=== PATIENT | female | born 1965 | race Caucasian/White ===

== ENCOUNTER 2022-10-10 13:07 | Outpatient (REF) | payer MEDICAID, SELFPAY ==
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
== END 2022-10-10 13:08 | disposition home or self-care (01) ==
LOC: LBN 13:07
PROVIDERS: PCP Family Medicine; Visit Provider Otolaryngology
DX: C44.41 Basal cell carcinoma of skin of scalp and neck (principal)
CPT/HCPCS: 88305

== ENCOUNTER 2022-10-18 13:55 | Outpatient (REF) | payer MEDICAID, SELFPAY ==
--- NOTE | 2022-10-18 12:00 | SKI_PTH ---
PATIENT: Tracy Harmon LOC: [facility] U#:[id number] AGE/SX: 57/F ROOM: RE10/18/[address]: Burton Dunlap MD : 1965 BED: DIS: 10/18/2022 SPEC #: [id number] RECD: 10/18/22 16:07 STATUS: MARTÍN VILLA #: [id number] EDIL: 10/18/22 12:[address]: Burton Dunlap DEPT: Surgical Specimen RECD BY: Amanda Manuel ENTERED: 10/18/22 16:08 SP TYPE: RONNI CURRIE DR: Bradley Judd Tissues: 1 - SKIN BIOPSY(SHAVE/PUNCH) Procedures: SKIN LEVEL 4 Comments: [id number]
== END 2022-10-18 13:56 | disposition home or self-care (01) ==
LOC: LBN 13:55
PROVIDERS: PCP Family Medicine; Visit Provider Otolaryngology
DX: C44.41 Basal cell carcinoma of skin of scalp and neck (principal); L90.5 Scar conditions and fibrosis of skin
CPT/HCPCS: 88305

== ENCOUNTER 2024-02-09 22:21 | Emergency (ER) | payer MEDICARE, SELFPAY ==
[2024-02-09 22:24] VITALS: BP 145/71; PULSE 85; RESP 16; TEMP 36.4; O2SAT 96
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
[2024-02-09] MEDS: Acetaminophen 500 MG TAB 1000 MG PO (23:01)
[2024-02-09] MEDS: Prochlorperazine 10 MG/2 ML VIAL IM (23:01)
--- OUTSIDE RECORDS SUMMARY | 2024-02-09 23:13 | XMS_ITS | Continuity of Care Document ---
Author Organization [facility] Ambulatory Clinics Address [address] [place] [address] Care Team Providers Care Microfilmer Name Role Phone Bradley Shetty DO Primary Care Physician [phone] Encounter [facility] NBR [id number] Date(s): 12/21/22 - 12/21/22 [facility] Ambulatory Clinics [address] [place] [address]- Encounter Diagnosis Incontinence of urine in female(Discharge Diagnosis) - 12/21/22 Memory change(Discharge Diagnosis) - 12/21/22 Unspecified urinary incontinence(Final) - Other amnesia(Final) - Discharge Disposition: Home or Self Care Attending Physician: Selina Beckett MD Allergies, Adverse Reactions, Alerts Substance Reaction Severity Status amoxicillin 1 Rash Moderate Active sulfa drugs Stomach upset Moderate Active Bactrim Stomach upset Moderate Active 1on hands Assessment and Plan Future Appointments Future Scheduled Tests Radiology* CT Head w/o Contrast 12/21/22 Functional Status 12/21/22 Other exposure to Infectious Disease Non e Immunizations Given and Recorded Vaccine Date Status Refusal Reason SARS-CoV-2 (COVID-19) Ad26 vaccine 11/03/20 Record ed Medications Artificial Tears ophthalmic solution 1 drops, Eye-Both, BID, PRN as needed for dry eyes, # 10 mL, 0 Refill(s) Start Date: 07/28/22 Stop Date: 08/27/22 Status: Ordered atorvastatin 10 mg oral tablet 10 mg = 1 tab, Oral, Daily, # 90 tab, 4 Refill(s), Pharmacy: [id number] Start Date: 08/01/22 Stop Date: 10/25/23 Status: Ordered Benadryl 25 mg oral capsule 50 mg = 2 cap, Oral, Daily, PRN as needed for allergy symptoms, # 60 tab, 0 Refill(s) Start Date: 07/28/22 Stop Date: 08/27/22 Status: Ordered calcium (as carbonate)-vitamin D 600 mg-400 intl units oral tablet 1 tab, Oral, BID, # 60 tab, 11 Refill(s), Pharmacy: [facility], 144, cm, 08/10/22 12:24:00 EST, Height/Length Dosing, 77, kg, 08/10/22 12:24:00 EST, Weight Dosing Start Date: 10/09/22 Status: Ordered clobetasol 0.05% topical ointment APPLY OINTMENT TOPICALLY TO AFFECTED AREAS ON THE HANDS TWICE DAILY FOR 4 WEEKS, AT NIGHT APPLY UNDER OCCULUSION OF WHITE COTTON GLOVES Start Date: 07/28/22 Status: Ordered cyanocobalamin 500 mcg oral tablet 500 mcg = 1 tab, Oral, Daily, B12, # 90 tab, 0 Refill(s) Start Date: 07/28/22 Stop Date: 10/26/22 Status: Ordered famotidine 20 mg oral tablet 20 mg = 1 tab, Oral, Daily, # 90 tab, 0 Refill(s) Start Date: 07/28/22 Stop Date: 10/26/22 Status: Ordered fluticasone 50 mcg/inh nasal spray USE 1 SPRAY(S) IN EACH NOSTRIL ONCE DAILY AT BEDTIME Start Date: 07/28/22 Status: Ordered High Potency Vitamin D3 25 mcg (1000 intl units) oral capsule 25 mcg = 1 cap, Oral, Daily, # 90 cap, 4 Refill(s), Pharmacy: [facility] Start Date: 08/01/22 Stop Date: 10/25/23 Status: Ordered metFORMIN 500 mg oral tablet 500 mg = 1 tab, Oral, Daily, with meals, # 90 tab, 4 Refill(s), Pharmacy: [facility] Start Date: 08/01/22 Stop Date: 10/25/23 Status: Ordered methotrexate 2.5 mg oral tablet TAKE 6 TABLETS BY MOUTH ONCE A WEEK Start Date: 07/28/22 Status: Ordered One-A-Day Women 50 Plus oral tablet 1 tab, Oral, Daily, # 90 tab, 0 Refill(s) Start Date: 07/28/22 Stop Date: 10/26/22 Status: Ordered venlafaxine 225 mg oral tablet, extended release 225 mg = 1 tab, Oral, Daily, # 90 tab, 4 Refill(s), Pharmacy: [id number] Start Date: 08/01/22 Stop Date: 10/25/23 Status: Ordered vitamin E 100 intl units oral capsule 100 IntlUnit = 1 cap, Oral, Daily, # 100 cap, 4 Refill(s), Pharmacy: [id number] Start Date: 08/01/22 Stop Date: 10/25/23 Status: Ordered Problem List Condition Confirmation Course Effective Dates Status H ealth Status Informant Abnormal Pap smear of cervix Confirmed Active Acute left-sided low back pain without sciatica Confirmed Active Adenoma 1 Confirmed 2001 Active Serrated adenoma of colon Confirmed Active Allergic rhinitis Confirmed Active Seasonal allergic rhinitis due to pollen Confirmed Active Anxiety disorder Confirmed Active Basal cell carcinoma of nose Confirmed Active Basal cell carcinoma of skin Confirmed Active BMI 35.0-35.9,adult Confirmed Active Burning sensation of feet Confirmed Active Otitis externa of right external auditory canal due to Ernestine species Confirmed Active Low grade squamous intraepith lesion on cytologic smear cervix (lgsil) Confirmed Active Chronic fatigue syndrome Confirmed Active Hearing loss, conductive, bilateral Confirmed Active Depression Confirmed Active Dysphagia Confirmed Active Dysthymia Confirmed Active Onychodystrophy Confirmed Active Ankle fracture 2 Confirmed Active Reflux esophagitis Confirmed Active Gastritis and duodenitis Confirmed Active GERD without esophagitis Confirmed Active History of acute otitis externa Confirmed Active H/O sebaceous cyst Confirmed Active Hiatal hernia Confirmed Active History of kidney stones Confirmed Active H/O fatigue Confirmed Active History of HPV infection Confirmed Active H/O gynecological procedure 3 Confirmed Active Cervical high risk human papillomavirus (HPV) DNA test positive Confirmed Active Hyperlipidemia Confirmed Active Impacted cerumen, bilateral Confirmed Active IFG (impaired fasting glucose) Confirmed Active Fecal incontinence Confirmed Active Keloid Confirmed Active Right lateral epicondylitis Confirmed Active Scalp lesion Confirmed Active Hematuria, microscopic Confirmed Active Depression with anxiety Confirmed Active Mixed hearing loss Confirmed Active Nasal congestion Confirmed Active Cervicalgia Confirmed Active Nicotine dependence Confirmed Active RADHA (obstructive sleep apnea) Confirmed Active Perforation of tympanic membrane Confirmed Active Plantar fasciitis, bilateral Confirmed Active Polycystic ovary disease Confirmed Active Apnea, sleep Confirmed Active Anal sphincter incontinence 4 Confirmed Active Tendonitis Confirmed Active Type 2 diabetes mellitus, without long-term current use of insulin Confirmed Active Ureteral stone Confirmed Active 1colonoscopy tubular adenoma 2Right 3bladder sling 4anal incontinence S/P 3rd degree tear/fistula repair Procedures Procedure Date Related Diagnosis Body Site Status Sling procedure of bladder neck 1 03/22/20 Completed Colonoscopy 2 11/28/16 Completed Placement of stent 03/11/13 Comple maddie Laparoscopic cholecystectomy 05/22/12 Completed Cyst 3 09/17/11 Completed Colonoscopy 4 07/05/09 Completed Arthroscopy 5 03/2007 Completed Bilateral tubal ligation Completed Mastoidectomy 6 Completed 1sphincter repair, [facility] 2EGD, Dr Puckett 3right arm, Dr Hernadez 4Dr Satya 5left ankle, open Brostrom reconstruction of the lateral ligament 6bilateral Vital Signs Most recent to oldest [Reference Range]: 1 Temperature Temporal Artery [36-38 Deg C ] 36.4 Deg C (12/21/22 10:06 AM) Peripheral Pulse Rate [60-100 bpm] 98 bp m (12/21/22 10:06 AM) Blood Pressure [90-140/60-90 mmHg] 120/6 2mmHg (12/21/22 10:06 AM) Weight 79.5 kg (12/21/22 10:06 AM) Weight Measured (lbs) 175.267 lb (12/21/22 10:06 AM) [place] Body Weight Calculated 45.5 kg (12/21/22 10:06 AM) Height 150.5 cm (12/21/22 10:06 AM) Height/Length Measured (inches) 59.25 in ch (12/21/22 10:06 AM) BSA Measured 1.82 m2 (12/21/22 10:06 AM) Body Mass Index 35.1 kg/m2 (12/21/22 10:06 AM) Social History Social History Type Response Tobacco Current everyday tob acco user Tobacco Use:. 20 a day per day. Sex Physician Outpatient Note * Selina Beckett MD: PERFORM Event Display: Office Clinic Note Physician Authored Date: [id number] SOFIE GREER :1965 Age:57 years Sex:Female Visit Date:12/21/2022 Primary Care Physician: Bradley Shetty DO Chief Complaint memory/cognitive concerns History of Present Illness Presents for evaluation due to subjective concerns of being mentally challenged. She is accompanied by her boyfriend today. She is requesting referral to Dr. Hill at [facility] since she is continuing to have leakage of urine and stool since her prior bladder sling in 03/2020. Often doesn't make it to the bathroom in time. She notes she was told by her mother that she was diagnosed as mentally retarded when she was born (mother was 40 at the time). She reports she cannot remember her childhood at all. Her mother had Alzheimer's dementia and earlier this year (08/2022) at the age of 98. Her??sister was also recently diagnosed with dementia.??Her family has concerns about her memory - she notes her son gets angry at her because he'll tell her things and then she forgets. She was seen for similar concerns in 09/2022 - had normal TSH, B12 and 08/18 recall at that visit. Risk factors for dementia include low educational level, underlying depression, family history (mother and sister both diagnosed with dementia), current smoker, obesity, and sedentary lifestyle. Review of Systems as per HPI Physical Exam Vitals & Measurements T:??36.4?C ??(Temporal Artery)?? HR:??98??(Peripheral)?? BP:??120/62?? SpO2:??98%?? HT:??150.5??cm?? WT:??79.5??kg?? BMI:??35.1?? BSA:??1.82?? Gen: obese,??well-appearing, in no acute distress ENT: bilateral hearing aids Psych/MSE: attentive,??normal mood, appropriate and pleasant??affect, MMSE 25/30, though all deficits were minimal/close to accurate and/or were corrected on second trial (said spring instead of summer for season, got off on her third of the??serial 7s but then was consistent with the final two answers, forgot 1 of the short term recall words on the first trial, but did remember it on a subsequent second trial). Her language and vocabulary are simplistic, likely low educational and intellectual level at baseline. Assessment/Plan 1.??Incontinence of urine in female??R32 referral back to Dr. Hill at [facility], per her request, as she has recurrent/worsening symptoms since her prior surgery 03/2020 Ordered: CT Head w/o Contrast, 12/21/22, Routine, Reason: urine leakage, memory change, eval NPH vs atrophy/dementia, Transport Mode: Ambulatory, Incontinence of urine in female Memory change ?? 2.??Memory change??R41.3 reviewed prior note and labs from 09/2022 MMSE performed and reviewed - small errors, but no significant dementia at this time discussed option for empiric donepezil, but unlikely to be useful to her at this point encouraged healthy lifestyle changes, particularly smoking cessation, increased exercise, and weight loss CT head to complete initial dementia evaluation, and particularly as she has urine incontinence andreported??noticeable??progression of memory loss, so??normal pressure hydrocephalus??should be ruled out referral to neuropsychology discussed and placed, to see if neuropsych testing is available to her to better parse out learning disorder/developmental delay??vs??mood-related cognitive dysfunction??vs attention disorder vs??early- onset dementia Ordered: CT Head w/o Contrast, 12/21/22, Routine, Reason: urine leakage, memory change, eval NPH vs atrophy/dementia, Transport Mode: Ambulatory, Incontinence of urine in female Memory change ?? Future Orders CT Head w/o Contrast, 12/21/22, Routine, Reason: urine leakage, memory change, eval NPH vs atrophy/dementia, Transport Mode: Ambulatory, Incontinence of urine in female Memory change Referral Orders Referral Management, Medical Service: Urogynecology, Reason: recurrent urine and stool leakage after prior bladder sling 03/2020, requesting re-evaluation for treatment options, Start: 12/21/22, Urgent:, Instructions: Dr. Raymon Hill, [facility] (pt previously had surgery... Referral Management, Medical Service: Psychology, Reason: requesting testing to help parse out developmental delay vs early-onset dementia, Start: 12/21/22, Urgent:, Instructions: Neuropsychology,any available (pt is aware she may have to travel) Problem List/Past Medical History Ongoing Abnormal Pap smear of cervix Acute left-sided low back pain without sciatica Adenoma Allergic rhinitis Anal sphincter incontinence Ankle fracture Anxiety disorder Apnea, sleep Basal cell carcinoma of nose Basal cell carcinoma of skin BMI 35.0-35.9,adult Burning sensation of feet Cervical high risk human papillomavirus (HPV) DNA test positive Cervicalgia Chronic fatigue syndrome Depression Depression with anxiety Dysphagia Dysthymia Fecal incontinence Gastritis and duodenitis GERD without esophagitis H/O fatigue H/O gynecological procedure H/O sebaceous cyst Hearing loss, conductive, bilateral Hematuria, microscopic Hiatal hernia History of acute otitis externa History of HPV infection History of kidney stones Hyperlipidemia IFG (impaired fasting glucose) Impacted cerumen, bilateral Keloid Low grade squamous intraepith lesion on cytologic smear cervix (lgsil) Mixed hearing loss Nasal congestion Nicotine dependence Onychodystrophy RADHA (obstructive sleep apnea) Otitis externa of right external auditory canal due to Ernestine species Perforation of tympanic membrane Plantar fasciitis, bilateral Polycystic ovary disease Reflux esophagitis Right lateral epicondylitis Scalp lesion Seasonal allergic rhinitis due to pollen Serrated adenoma of colon Tendonitis Type 2 diabetes mellitus, without long-term current use of insulin Ureteral stone Procedure/Surgical History ???Sling procedure of bladder neck (03/23/2020)???Colonoscopy (11/29/2016)???Placement of stent (03/12/2013)???Laparoscopic cholecystectomy (05/23/2012)???Cyst (09/18/2011)???Colonoscopy (07/06/2009)???Arthroscopy (03/2007)???Bilateral tubal ligation???Mastoidectomy Medications Artificial Tears ophthalmic solution, 1 drops, Eye-Both, BID, PRN atorvastatin 10 mg oral tablet, 10 mg= 1 tab, Oral, Daily, 4 refills Benadryl 25 mg oral capsule, 50 mg= 2 cap, Oral, Daily, PRN calcium (as carbonate)-vitamin D 600 mg-400 intl units oral tablet, 1 tab, Oral, BID, 11 refills clobetasol 0.05% topical ointment cyanocobalamin 500 mcg oral tablet, 500 mcg= 1 tab, Oral, Daily famotidine 20 mg oral tablet, 20 mg= 1 tab, Oral, Daily fluticasone 50 mcg/inh nasal spray High Potency Vitamin D3 25 mcg (1000 intl units) oral capsule, 25 mcg= 1 cap, Oral, Daily, 4 refills metFORMIN 500 mg oral tablet, 500 mg= 1 tab, Oral, Daily, 4 refills methotrexate 2.5 mg oral tablet One-A-Day Women 50 Plus oral tablet, 1 tab, Oral, Daily venlafaxine 225 mg oral tablet, extended release, 225 mg= 1 tab, Oral, Daily, 4 refills vitamin E 100 intl units oral capsule, 100 IntlUnit= 1 cap, Oral, Daily, 4 refills Allergies Bactrim??(Stomach upset) amoxicillin??(Rash) sulfa drugs??(Stomach upset) Social History Alcohol Never Electronic Cigarette/Vaping Electronic Cigarette Use: Never. Employment/School on disability Exercise Home/Environment Lives with Children, Significant other. Sexual Sexually active: No. Substance Use Never Tobacco Current everyday tobacco user Tobacco Use:. 20 a day per day. Family History ADHD - Attention deficit disorder with hyperactivity: Son and Son. Diabetes mellitus: Mother, Sister and Other. Hearing loss: Other. Heart disease: Mother. Hypertension: Sister and Other. Mental health disorder: Son. Mental illness: Son. Family Member(s): ?? MOTHER, at age: Unknown. Cause of : Family Member(s): ?? FATHER, at age: Unknown. Cause of : in his 60s, cause of unknown Immunizations Vaccine Date Status SARS-CoV-2 (COVID-19) Ad26 vaccine 11/03/2020 Recorded Electronically Signed on 12/21/22 03:11 PM Selina Beckett MD Patient Care team information Care Team Personnel Name: Bradley Shetty DO Position: Physician Member Role: Primary Care Physician Address: Address: [address] [place] [id number]
--- OUTSIDE RECORDS SUMMARY | 2024-02-09 23:13 | XMS_ITS | Continuity of Care Document ---
Author Organization [facility] Address [address] [place] [address] Care Team Providers Care Customer Success Specialist Name Role Phone Bradley Shetty DO Primary Care Physician [phone] Encounter [facility] NBR [id number] Date(s): 09/04/23 - 09/04/23 [facility] [address] [place], [place] [id number]- us Discharge Disposition: Home or Self Care Attending Physician: William Owen MD Admitting Physician: William Owen MD Referring Physician: William Owen MD Allergies, Adverse Reactions, Alerts Substance Reaction Severity Status amoxicillin 1 Rash Moderate Active sulfa drugs Stomach upset Moderate Active 1on hands Assessment and Plan Future Appointments Future Scheduled Tests Laboratory* Comprehensive Metabolic Panel 08/27/23 * Comprehensive Metabolic Panel 08/27/23 * Lipid Panel 08/27/23 * Lipid Panel 08/27/23 * Hgb A1c 08/27/23 * Hgb A1c 08/27/23 Immunizations Given and Recorded Vaccine Date Status Refusal Reason SARS-CoV-2 (COVID-19) Ad26 vaccine 11/03/20 Record ed Medications Artificial Tears ophthalmic solution 1 drops, Eye-Both, BID, PRN as needed for dry eyes, # 10 mL, 0 Refill(s) Start Date: 07/28/22 Stop Date: 08/27/22 Status: Ordered atorvastatin 10 mg oral tablet 10 mg = 1 tab, Oral, Daily, # 90 tab, 4 Refill(s), Pharmacy: [id number] Start Date: 08/01/22 Stop Date: 10/25/23 Status: Ordered Benadryl 25 mg oral capsule 50 mg = 2 cap, Oral, Daily, PRN as needed for allergy symptoms, # 60 tab, 0 Refill(s) Start Date: 07/28/22 Stop Date: 08/27/22 Status: Ordered calcium (as carbonate)-vitamin D 600 mg-400 intl units oral tablet 1 tab, Oral, BID, # 60 tab, 11 Refill(s), Pharmacy: [facility], 144, cm, 08/10/22 12:24:00 EST, Height/Length Dosing, [...] Status: Ordered fluticasone 50 mcg/inh nasal spray PRN allergy symptoms, USE 1 SPRAY(S) IN EACH NOSTRIL ONCE DAILY AT BEDTIME Start Date: 07/28/22 Status: Ordered High Potency Vitamin D3 25 mcg (1000 intl units) oral capsule 25 mcg = 1 cap, Oral, Daily, # 90 cap, 4 Refill(s), Pharmacy: [facility] Start Date: 08/01/22 Stop Date: 10/25/23 Status: Ordered metFORMIN 500 mg oral tablet 500 mg = 1 tab, Oral, Daily, with meals, # 90 tab, 4 Refill(s), Pharmacy: [facility] Start Date: 08/01/22 Stop Date: 10/25/23 Status: Ordered One-A-Day Women 50 Plus oral tablet 1 tab, Oral, Daily, # 90 tab, 0 Refill(s) Start Date: 07/28/22 Stop Date: 10/26/22 Status: Ordered venlafaxine 225 mg oral tablet, extended release 225 mg = 1 tab, Oral, Daily, do not crush or chew, take with food. Please have labs done several days before 11/20/23 appointment, # 90 tab, 0 Refill(s), Pharmacy: [id number], 144.78,cm, 05/31/23 10:27:00 EST, Height, 74.5, kg, 08/22/23 13:30:00 EST, Weight Dosing Start Date: 08/27/23 Stop Date: 11/25/23 Status: Ordered vitamin E 100 intl units oral capsule 100 IntlUnit = 1 cap, Oral, Daily, # 100 cap, 4 Refill(s), Pharmacy: [id number] Start Date: 08/01/22 Stop Date: 10/25/23 Status: [...] on cytologic smear cervix (lgsil) Confirmed Active Colonic polyp Confirmed Active Hearing loss, conductive, bilateral Confirmed Active D - Diarrhea Confirmed Active Depression Confirmed Active Diverticulosis of colon Confirmed Active Dysphagia Confirmed Active Dysthymia Confirmed Active Onychodystrophy Confirmed Active Ankle fracture 2 Confirmed Active Reflux esophagitis Confirmed Active Gastritis and duodenitis Confirmed Active GERD without esophagitis Confirmed Active History of acute otitis externa Confirmed Active H/O sebaceous cyst Confirmed Active Hiatal hernia Confirmed Active History of adenomatous polyp of colon Confirmed Active History of kidney stones Confirmed Active H/O fatigue Confirmed Active History of HPV infection Confirmed Active H/O gynecological procedure 3 Confirmed Active Cervical high risk human papillomavirus (HPV) DNA test positive Confirmed Active Hyperlipidemia Confirmed Active Impacted cerumen, bilateral Confirmed Active IFG (impaired fasting glucose) Confirmed Active Impaired memory Confirmed Active Fecal incontinence Confirmed Active Keloid Confirmed Active Right lateral epicondylitis Confirmed Active Scalp lesion Confirmed Active Biilateral Mastoidectomy Confirmed Active Hematuria, microscopic Confirmed Active Depression [...] insulin Confirmed Active Ureteral stone Confirmed Active Urinary incontinence Confirmed Active 1colonoscopy tubular adenoma 2Right 3bladder sling 4anal incontinence S/P 3rd degree tear/fistula repair Procedures Procedure Date Related Diagnosis Body Site Status Colonoscopy Biopsy 1 05/17/23 Comp leted Sling procedure of bladder neck 2 03/22/20 Completed Colonoscopy 3 11/28/16 Completed Placement of stent, renal 03/11/13 Completed Laparoscopic cholecystectomy 05/22/12 Completed Cyst 4 09/17/11 Completed Colonoscopy 5 07/05/09 Completed Arthroscopy 6 03/2007 Completed Bilateral tubal ligation Completed Mastoidectomy 7 Completed 1auto-populated from documented surgical case 2sphincter repair, [facility] 3EGD, Dr Puckett 4right arm, Dr Hernadez 5Dr [place] 6left ankle, open Brostrom reconstruction of the lateral ligament 7bilateral Results Radiology Reports * Exam Date Time Procedure Performing Provider Status 09/04/23 2:10 PM MG Mammo Screening Bilateral Martha Santo; Auth (Verified) Notes: (MG Mammo Screening Bilateral) Reason For Exam: Screening MG Mammo Screening Bilateral EXAM DESCRIPTION: MG Mammo Screening Bilateral 09/04/2023 INDICATION: SCREENING COMPARISON: 08/23/2022 and 09/02/2020 BREAST DENSITY: There are scattered areas of fibroglandular density. FINDINGS: MLO and CC views were performed with digital breast tomosynthesis. Images were reviewed using computer aided detection. No asymmetry, architectural distortion or suspicious grouping of calcifications to suggest malignancy in either breast. Small focal asymmetry in the left breast which was seen previously consistent with benign etiology. ASSESSMENT: No mammographic evidence of malignancy. Benign findings. BI-RADS category 2. RECOMMENDATION: Screening mammography in 1 year JOB #: [id number] Final Signed by: William Miller MD Signed (Electronic Signature): 09/04/2023 2:26 pm Social History Social History Type Response Tobacco Current everyday tob acco user Tobacco Use:. 20 a day per day. 40 year(s). Sex Patient Care team information Care Team Personnel Name: Bradley Shetty DO Position: Physician Member Role: Primary Care Physician Address: Address: [address] [place] [phone]
--- OUTSIDE RECORDS SUMMARY | 2024-02-09 23:13 | XMS_ITS | Continuity of Care Document ---
Author Organization [facility] Address [address] [place] [address] Care Team Providers Care Microbial Specialist Name Role Phone Bradley Shetty DO Primary Care Physician [phone] Encounter [facility] NBR [id number] Date(s): 01/04/23 - 01/04/23 [facility] [address] [place] [address]- Encounter Diagnosis Unspecified urinary incontinence(Final) - Other amnesia(Final) - Discharge Disposition: Home or Self Care Attending Physician: Selina Beckett MD Admitting Physician: Selina Beckett MD Referring Physician: Selina Beckett MD Allergies, Adverse Reactions, Alerts Substance Reaction Severity Status amoxicillin 1 Rash Moderate Active sulfa drugs Stomach upset Moderate Active Bactrim Stomach upset Moderate Active 1on hands Assessment and Plan Future Appointments Immunizations Given and Recorded Vaccine Date Status Refusal Reason SARS-CoV-2 (COVID-19) Ad26 vaccine 11/03/20 Record ed Medications Artificial Tears ophthalmic solution 1 drops, Eye-Both, BID, PRN as needed for dry eyes, # 10 mL, 0 Refill(s) Start Date: 07/28/22 Stop Date: 08/27/22 Status: Ordered atorvastatin 10 mg oral tablet 10 mg = 1 tab, Oral, Daily, # 90 tab, 4 Refill(s), Pharmacy: [id number] Start Date: 08/01/22 Stop Date: 10/25/23 Status: Ordered Benadryl 25 mg oral capsule 50 mg = 2 cap, Oral, Daily, PRN as needed for allergy symptoms, # 60 tab, 0 Refill(s) Start Date: 07/28/22 Stop Date: 08/27/22 Status: Ordered calcium (as carbonate)-vitamin D 600 mg-400 intl units oral tablet 1 tab, Oral, BID, # 60 tab, 11 Refill(s), Pharmacy: [place] [id number], 144, cm, 08/10/22 12:24:00 EST, Height/Length Dosing, [...] Daily, # 90 cap, 4 Refill(s), Pharmacy: [place] [facility] [id number] Start Date: 08/01/22 Stop Date: 10/25/23 Status: Ordered metFORMIN 500 mg oral tablet 500 mg = 1 tab, Oral, Daily, with meals, # 90 tab, 4 Refill(s), Pharmacy: [place] [id number] Start Date: 08/01/22 Stop Date: 10/25/23 Status: [...] Daily, # 90 tab, 4 Refill(s), Pharmacy: [id number] Start Date: 08/01/22 Stop Date: 10/25/23 Status: Ordered vitamin E 100 intl units oral capsule 100 IntlUnit = 1 cap, Oral, Daily, # 100 cap, 4 Refill(s), Pharmacy: [id number] Start Date: 08/01/22 Stop Date: [...] ligation Completed Mastoidectomy 6 Completed 1sphincter repair, [facility] 2EGD, Dr Puckett 3right arm, Dr Hernadez 4Dr Satya 5left ankle, open Brostrom reconstruction of the lateral ligament 6bilateral Results Radiology Reports * Exam Date Time Procedure Performing Provider Status 01/04/23 1:[address] Head w/o Contrast Isa Sanders; Auth (Verified) Notes: (CT Head w/o Contrast) Reason For Exam: urine leakage, memory change, eval NPH vs atrophy/dementia CT Head w/o Contrast EXAM DESCRIPTION: CT Head w/o Contrast 01/04/2023 INDICATION: URINE LEAKAGE, MEMORY CHANGE, EVAL NPH VS ATROPHY/DEMENTIA TECHNIQUE: All CT scans at this facility use at least one of these dose optimization techniques: Automated exposure control; mA and/or kV adjustment per patient size (includes targeted exams where dose is matched to clinical indication); or iterative reconstruction. Axial CT images of the head without contrast. COMPARISON: None FINDINGS: No acute intracranial hemorrhage, mass effect or midline shift. No hydrocephalus. Lewis-white differentiation is maintained. Basal cisterns remain patent The calvarium appears intact. Mild right sphenoid sinus mucosal thickening. Remaining visualized paranasal sinuses are grossly clear. Bilateral mastoidectomy defects are noted. IMPRESSION: No acute intracranial hemorrhage, mass effect or midline shift. JOB #: [id number] Final Signed by: William Miller MD Signed (Electronic Signature): 01/04/2023 2:05 pm Social History Social History Type Response Tobacco Current everyday tob acco user Tobacco Use:. 20 a day per day. Sex Patient Care team information Care Team Personnel Name: Bradley Shetty DO Position: Physician Member Role: Primary Care Physician Address: Address: [address] [place] [phone] [place]
--- OUTSIDE RECORDS SUMMARY | 2024-02-09 23:13 | XMS_ITS | Continuity of Care Document ---
Author Organization [facility] Address [address] [place] [address] Care Team Providers Care Stave Block Splitter Name Role Phone Bradley Shetty DO Primary Care Physician Encounter [facility] NBR [id number] Date(s): 08/01/22 - 08/01/22 [facility] [address] [place], [place] [address] Encounter Diagnosis Type 2 diabetes mellitus, without long-term current use of insulin(Discharge Diagnosis) - 08/01/22 Depression with anxiety(Discharge Diagnosis) - 08/01/22 Hyperlipidemia(Discharge Diagnosis) - 08/01/22 Discharge Disposition: Home or Self Care Attending Physician: Bradley Shetty DO Allergies, Adverse Reactions, Alerts Substance Reaction Severity Status amoxicillin 1 Rash Moderate Active sulfa drugs Stomach upset Moderate Active Bactrim Stomach upset Moderate Active 1on hands Assessment and Plan Future Appointments Functional Status 08/01/22 Other exposure to Infectious Disease Non e [...] Daily, # 90 tab, 4 Refill(s), Pharmacy: [id number] Start Date: 08/01/22 Stop Date: 10/25/23 Status: Ordered Benadryl 25 mg oral capsule 50 mg = 2 cap, Oral, Daily, PRN as needed for allergy symptoms, # 60 tab, 0 Refill(s) Start Date: 07/28/22 Stop Date: 08/27/22 Status: Ordered calcium carbonate 600 mg oral tablet, chewable 600 mg 1 tab, Chewed, Daily, # 90 tab, 0 Refill(s) Start Date: 07/28/22 Stop Date: 10/26/22 Status: Ordered clobetasol 0.05% topical ointment APPLY [...] Daily, # 90 cap, 4 Refill(s), Pharmacy: [facility] Start Date: 08/01/22 Stop Date: 10/25/23 Status: Ordered metFORMIN 500 mg oral tablet 500 mg = 1 tab, Oral, Daily, with meals, # 90 tab, 4 Refill(s), Pharmacy: [facility] Start Date: 08/01/22 Stop Date: 10/25/23 [...] Daily, # 90 tab, 4 Refill(s), Pharmacy: [id number] Start Date: 08/01/22 Stop Date: 10/25/23 Status: Ordered vitamin E 100 intl units oral capsule 100 IntlUnit = 1 cap, Oral, Daily, # 100 cap, 4 Refill(s), Pharmacy: [id number] Start Date: 08/01/22 Stop Date: 10/25/23 Status: Ordered Problem List Condition Confirmation Course Effective Dates Status H ealth Status Informant Abnormal Pap smear of cervix Confirmed Active Acute left-sided low back pain without sciatica Confirmed Active Serrated adenoma of colon Confirmed Active Seasonal allergic rhinitis due to pollen Confirmed Active Anxiety disorder Confirmed Active Papanicolaou smear of anus with atypical squamous cells cannot exclude high grade squamous intraepithelial lesion (ASC-H) Confirmed Active Basal cell carcinoma of nose Confirmed Active BMI 35.0-35.9,adult Confirmed Active Otitis externa of right external auditory canal due to Ernestine species Confirmed Active Low grade squamous intraepith lesion on cytologic smear cervix (lgsil) Confirmed Active Chronic fatigue syndrome Confirmed Active Hearing loss, conductive, bilateral Confirmed Active Depression Confirmed Active Dysphagia Confirmed Active Dysthymia Confirmed Active Reflux esophagitis Confirmed Active Gastritis and duodenitis Confirmed Active GERD without esophagitis Confirmed Active History of acute otitis externa Confirmed Active Hiatal hernia Confirmed Active History of kidney stones Confirmed Active Cervical high risk human papillomavirus (HPV) DNA test positive Confirmed Active Hyperlipidemia Confirmed Active Impacted cerumen, bilateral Confirmed Active IFG (impaired fasting glucose) Confirmed Active Fecal incontinence Confirmed Active Keloid Confirmed Active Right lateral epicondylitis Confirmed Active Hematuria, microscopic Confirmed Active Depression with anxiety Confirmed Active Mixed hearing loss Confirmed Active Nasal congestion Confirmed Active Cervicalgia Confirmed Active Nicotine dependence Confirmed Active RADHA (obstructive sleep apnea) Confirmed Active Perforation of tympanic membrane Confirmed Active Polycystic ovary disease Confirmed Active Tendonitis Confirmed Active Type 2 diabetes mellitus, without long-term current use of insulin Confirmed Active Vital Signs Most recent to oldest [Reference Range]: 1 Peripheral Pulse Rate [60-100 bpm] 84 bp m (08/01/22 10:37 AM) Respiratory Rate [12-24 br/min] 16 br/mi n (08/01/22 10:37 AM) Blood Pressure [90-140/60-90 mmHg] 120/7 8mmHg (08/01/22 10:37 AM) Weight 77 kg (08/01/22 10:37 AM) Weight Measured (lbs) 169.756 lb (08/01/22 10:37 AM) [place] Body Weight Calculated 45.5 kg (08/01/22 10:37 AM) Height 144 cm (08/01/22 10:37 AM) Height/Length Measured (inches) 56.69 in (08/01/22 10:37 AM) BSA Measured 1.75 m2 (08/01/22 10:37 AM) Body Mass Index 37.13 kg/m2 (08/01/22 10:37 AM) Social History Social History Type Response Tobacco Current everyday tob acco user Tobacco Use:. 1 pack a day per day. Sex Hospital Discharge Instructions Follow Up Care 07/04/2022 11:19:56 With:Bradley Shetty DO Address: [address] [place] [phone] When:1 Year Physician Outpatient Note * Bradley Shetty DO: PERFORM Event Display: Office Clinic Note Physician Authored Date: [id number] SOFIE GREER :1965 Age:57 years Sex:Female Visit Date:08/01/2022 Primary Care Physician: Bradley Shetty DO Chief Complaint Follow up ...Refills needed.. [facility] in [place]... History of Present Illness Patient is a 57-year-old female who comes in today for follow-up. ??She says overall things are going okay. Cardiovascular: Taking medication as prescribed. Endocrine: Taking her medication as prescribed. ??Trying to eat healthy. Psych: Taking her medication as prescribed. ??Feels that her??symptoms are reasonably well controlled. Review of Systems See HPI otherwise negative. Physical Exam Vitals & Measurements HR:??84??(Peripheral)?? RR:??16?? BP:??120/78?? SpO2:??96%?? HT:??144??cm?? WT:??77??kg?? BMI:??37.13?? BSA:??1.75?? General: Alert and oriented, well nourished,?No??acute distress Lungs: Clear to auscultation and percussion,?Non-labored?? respiration Heart:?Normal?? rate,?Regular??rhythm,?No??murmur,?No??gallop,?No??edema Abdomen: Soft, non-tender, non-distended,?Normal?? bowel sounds,?No??masses Musculoskeletal:?Normal?? range of motion and strength,?No??tenderness,?No??swelling Psychiatric: Cooperative, appropriate mood and affect Assessment/Plan 1.??Type 2 diabetes mellitus, without long-term current use of insulin??E11.9 Check A1c. ??We will continue current regimen. Ordered: Comprehensive Metabolic Panel, Blood, Routine, 08/01/22 11:22:00 EST, by Sofiya MUNGUIA Lab Collect, Type 2 diabetes mellitus, without long-term current use of insulin Hyperlipidemia Hgb A1c, Blood, Routine, 08/01/22 11:22:00 EST, by Sofiya MUNGUIA, Lab Collect, Type 2 diabetes mellitus, without long-term current use of insulin Hyperlipidemia Lipid Panel, Blood, Routine, 08/01/22 11:22:00 EST, by Sofiya MUNGUIA, Lab Collect, Type 2 diabetes mellitus, without long-term current use of insulin Hyperlipidemia ?? 2.??Hyperlipidemia??E78.5 Recheck labs. Ordered: Comprehensive Metabolic Panel, Blood, Routine, 08/01/22 11:22:00 EST, by Sofiya MUNGUIA Lab Collect, Type 2 diabetes mellitus, without long-term current use of insulin Hyperlipidemia Hgb A1c, Blood, Routine, 08/01/22 11:22:00 EST, by Sofiya MUNGUIA Lab Collect, Type 2 diabetes mellitus, without long-term current use of insulin Hyperlipidemia Lipid Panel, Blood, Routine, 08/01/22 11:22:00 EST, by Sofiya MUNGUIA, Lab Collect, Type 2 diabetes mellitus, without long-term current use of insulin Hyperlipidemia ?? 3.??Depression with anxiety??F41.8 Symptoms are well controlled. ??We will continue current regimen. ?? Orders: atorvastatin 10 mg oral tablet, 10 mg = 1 tab, Oral, Daily, # 90 tab, 4 Refill(s), Pharmacy: [id number] High Potency Vitamin D3 25 mcg (1000 intl units) oral capsule, 25 mcg = 1 cap, Oral, Daily, # 90 cap, 4 Refill(s), Pharmacy: [id number] metFORMIN 500 mg oral tablet, 500 mg = 1 tab, Oral, Daily, with meals, # 90 tab, 4 Refill(s), Pharmacy: [facility] venlafaxine 225 mg oral tablet, extended release, 225 mg = 1 tab, Oral, Daily, # 90 tab, 4 Refill(s), Pharmacy: [place] [address] vitamin E 100 intl units oral capsule, 100 IntlUnit = 1 cap, Oral, Daily, # 100 cap, 4 Refill(s), Pharmacy: [place] [address] Follow Up Instructions With When Contact Information Bradley Shetty DO Within 1 Year [address] [place] [address] Additional Instructions: Problem List/Past Medical History Ongoing Abnormal Pap smear of cervix Acute left-sided low back pain without sciatica Anxiety disorder Basal cell carcinoma of nose BMI 35.0-35.9,adult Cervical high risk human papillomavirus (HPV) DNA test positive Cervicalgia Chronic fatigue syndrome Depression Depression with anxiety Dysphagia Dysthymia Fecal incontinence Gastritis and duodenitis GERD without esophagitis Hearing loss, conductive, bilateral Hematuria, microscopic Hiatal hernia History of acute otitis externa History of kidney stones Hyperlipidemia IFG (impaired fasting glucose) Impacted cerumen, bilateral Keloid Low grade squamous intraepith lesion on cytologic smear cervix (lgsil) Mixed hearing loss Nasal congestion Nicotine dependence RADHA (obstructive sleep apnea) Otitis externa of right external auditory canal due to Ernestine species Papanicolaou smear of anus with atypical squamous cells cannot exclude high grade squamous intraepithelial lesion (ASC-H) Perforation of tympanic membrane Polycystic ovary disease Reflux esophagitis Right lateral epicondylitis Seasonal allergic rhinitis due to pollen Serrated adenoma of colon Tendonitis Type 2 diabetes mellitus, without long-term current use of insulin Historical No qualifying data Medications Artificial Tears ophthalmic solution, 1 drops, Eye-Both, BID, PRN atorvastatin 10 mg oral tablet, 10 mg= 1 tab, Oral, Daily, 4 refills Benadryl 25 mg oral capsule, 50 mg= 2 cap, Oral, Daily, PRN calcium carbonate 600 mg oral tablet, chewable, 600 mg= 1 tab, Chewed, Daily clobetasol 0.05% topical ointment cyanocobalamin 500 mcg [...] Never Electronic Cigarette/Vaping Electronic Cigarette Use: Never. Tobacco Current everyday tobacco user Tobacco Use:. 1 pack a day per day. Immunizations Vaccine Date Status SARS-CoV-2 (COVID-19) Ad26 vaccine 11/03/2020 Recorded Electronically Signed on 08/01/22 11:26 AM Bradley Shetty DO Patient Care team information Care Team Personnel Name: Bradley Shetty DO Position: Physician Member Role: Primary Care Physician Address: Address: [address] [place] [phone]
--- OUTSIDE RECORDS SUMMARY | 2024-02-09 23:13 | XMS_ITS | Continuity of Care Document ---
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 notify them of your visit today. You may have been referred to your regular doctor or a specialist, please follow up as instructed. If your condition worsens or you can't get in to see the doctor, contact the Emergency Department. Medications What How Much When Why Instructions Next Dose Unchanged atorvastatin (atorvastatin 10 mg oral tablet) 1 tab Oral (given by mouth) Every day Unchanged calcium-vitamin D (calcium (as carbonate)-vitamin D 600 mg-400 intl units oral tablet) 1 tab Oral (given by mouth) 2 times a day Depression with anxiety Unchanged clobetasol topical (clobetasol 0.05% topical ointment) APPLY OINTMENT TOPICALLY TO AFFECTED AREAS ON THE HANDS TWICE DAILY FOR 4 WEEKS, AT NIGHT APPLY UNDER OCCULUSION OF WHITE [place] GLOVES ?? Unchanged diphenhydrAMINE (Benadryl 25 mg oral capsule) 2 Capsules Oral (given by mouth) Every day as needed for as needed for allergy symptoms Duration: 30 Days Unchanged famotidine (famotidine 20 mg oral tablet) 1 tab Oral (given by mouth) Every day Duration: 90 Days Unchanged fluticasone nasal (fluticasone 50 mcg/ inh nasal spray) As needed for allergy symptoms USE 1 SPRAY(S) IN EACH NOSTRIL ONCE DAILY AT BEDTIME ?? Unchanged metFORMIN (metFORMIN 500 mg oral tablet) 1 tab Oral (given by mouth) Every day with meals ?? Unchanged multivitamin with minerals (One-A-Day Women 50 Plus oral tablet) 1 tab Oral (given by mouth) Every day Duration: 90 Days Unchanged ocular lubricant (Artificial Tears ophthalmic solution) 1 Drops Both eyes 2 times a day as needed for as needed for dry eyes Duration: 30 Days Unchanged venlafaxine (venlafaxine 225 mg oral tablet, extended release) 1 tab Oral (given by mouth) Every day do not crush or chew, take with food. ?? Education [employer] General Assault Assault includes any behavior or physical attack that results in injury or threat to another personor damage to their property. This also includes assault that has not yet happened but is planned tohappen, as well as threats that cause fear of assault. Threats of assault may be physical, verbal, or written. They may be spoken or sent by any form of communication or media. The threats may be direct, implied, or understood. What are the different forms of assault? Forms of assault include: ? Physically assaulting a person directly by slapping, hitting, kicking, or pushing. ? Threats to inflict physical harm, which may include: ? Verbal threats with language that is intimidating, hostile, or abusive. ? Throwing or hitting objects. ? Making intimidating or threatening gestures. ? Displaying an object that appears to be a weapon in a threatening manner. ? Stalking. ? Sexually assaulting a person. Sexual assault is any sexual activity that a person is forced, threatened, or coerced to participate in. It may or may not involve physical contact with the person who is assaulting you. You are sexually assaulted if you are forced to have sexual contact of any kind. ? Damaging or destroying a person's assistive equipment, such as glasses, canes, or walkers. ? Using or displaying a weapon to harm or threaten someone. Examples of weapons may include guns, knives, sticks, or bats. ? Using greater physical size or strength to intimidate someone by restraining them with force or bullying. What can I do if I experience assault? Report assaults, threats, and stalking to the police. Call your local emergency services (911 in the [place] if you are in immediate danger or you need medical help. ? Work with a special events manager or an advocate to get legal protection against someone who has assaulted you or threatened you with assault. Protection options may include: ? Getting a court order that requires the person to stay away from you (restraining order). ? Moving you to a private address. ? Prosecuting the person through the courts. Laws vary depending on where you live. Follow these instructions at home: ? Avoid areas where you feel unsafe. ? Try to stay in areas that are around other people. ? Consider learning methods of protection from assault, such as self-defense. Where to find support If you have experienced assault, you may seek help from: ? A professional counselor, family member, clergy, or a trusted friend to talk about what happened. ? [facility] Sexual Assault Hotline: 882.852.4809 ([facility]). Live chat is also available at [employer] ? The [employer] Victims of Crime. This is an advocacy center that provides information for people who have been assaulted or subjected to violence. Visit www.victimsofcrime.org Summary ? Assault includes any behavior or physical attack that results in injury or threat to another personor damage to their property. ? An assault includes threats that cause a person to fear for his or her safety. Threats may be spoken or sent by any form of communication or media. ? There are many forms of assault. ? Report assaults, threats, and stalking to the police. Call your local emergency services (911 in the [place] if you are in immediate danger or you need medical help. ? Prevent assault by being aware of your surroundings, avoiding areas where you feel unsafe, and talking to a special events manager about getting legal protection against someone who has assaulted you or threatened you with assault. This information is not intended to replace advice given to you by your health care provider. Make sure you discuss any questions you have with your health care provider. Document Revised: 01/03/2021 Document Reviewed: 01/03/2021 [employer] Patient Education ?? 2022 [employer] Tests Performed Radiology CT Maxillofacial w/o Contrast 01/30/2024 23:39 EDT Medications and Immunizations Administered Given acetaminophen, 1000 mg, Oral ibuprofen, 600 mg, Oral Patient/Toy Maker Signature Patient Name:SOFIE GREER I have received this information and my questions have been answered. Patient/Toy Maker Name: Patient/Toy Maker Signature: Relationship to Patient: Witness Name/Signature: Date: Electronically Signed on: 01/30/2024 23:56 EDTSigned by:HERON Patient Care team information Care Team Personnel Name: Bradley Shetty DO Position: Physician Member Role: Primary Care Physician Address: Address: [address] [place] [id number]
--- OUTSIDE RECORDS SUMMARY | 2024-02-09 23:13 | XMS_ITS | Continuity of Care Document ---
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 Text. ? Social media. ? Fax. The threats may be direct, implied, or understood. What are the different forms of assault? Forms of assault include: ? Physically assaulting a person. This includes physical threats to inflict physical harm as well as: ? Slapping. ? Hitting. ? Poking. ? Kicking. ? Punching. ? Pushing. ? Sexually assaulting a person. Sexual assault [...] such as glasses, canes, or walkers. ? Throwing or hitting objects. ? Using or displaying a weapon to harm or threaten someone. Examples of weapons may include guns, knives, sticks, or bats. ? Using or displaying an object that appears to be a weapon in a threatening manner. ? Using greater physical size or strength to intimidate someone. ? Making intimidating or threatening gestures. ? Bullying. ? Hazing. ? Using language that is intimidating, threatening, hostile, or abusive. ? Stalking. ? Restraining someone with force. What can I do if I experience assault? Report assaults, threats, and stalking to the police. Call 911 if you are in immediate danger or you need medical help. ? Work with a motorized squad captain or an advocate to get legal protection against someone who has assaulted you or threatened you with assault. Protection includes: ? Getting a court order asking the person to stay away from you [...] friend to talk about what happened. ? The National Center for Victims of Crime: www.victimsofcrime.org. This is an advocacy center that provides information for people who have been assaulted or subjected to violence. Summary ? An assault is any behavior or physical attack that results in injury to another person, damage to property, or both. ? An assault includes threats that cause a person to fear for his or her safety. Threats may be communicated via spoken word, mail, e-mail, text messages, or social media. ? There are many forms of assault. They include physical assault, sexual assault, damaging a person'sproperty, displaying a weapon, stalking another person, or restraining someone with force. ? Report assaults, threats, and stalking to the police. Call 911 if you are in immediate danger or you need medical help. ? Prevent assault by being aware of your surroundings, avoiding areas where you feel unsafe, and talking to a motorized squad captain about getting legal protection against someone who has assaulted you or threatened you with assault. This information is not intended to replace advice given to you by your health care provider. Make sure you discuss any questions you have with your health care provider. Document Revised: 07/12/2018 Document Reviewed: 07/12/2018 Else[employer] Patient Education ?? 2020 [employer] Tests Performed Radiology XR Foot 2 Views Left 08/10/2022 12:37 EST Patient/Trash Collector Signature Patient Name:SOFIE GREER I have received this information and my questions have been answered. Patient/Trash Collector Name: Patient/Trash Collector Signature: Relationship to Patient: Witness Name/Signature: Date: Electronically Signed on: 08/10/2022 12:41 ESTSigned by:HERON XR Foot - left 2 Views * William Miller MD: VERIFY, VERIFY Event Display: Report EXAM DESCRIPTION: XR Foot 2 Views Left 08/10/2022 INDICATION: TRAUMA COMPARISON: 12/21/2006 FINDINGS: No acute fracture, dislocation or bone destructive process. Joint spaces are maintained. No radiographic foreign bodies are seen. IMPRESSION: 1. No acute fracture, dislocation or bone destructive process. JOB #: [id number] Final Signed by: William Miller MD Signed (Electronic Signature): 08/10/2022 12:35 pm Patient Care team information Care Team Personnel Name: Bradley Shetty, Position: Physician Member Role: Primary Care Physician Address: Address: [address] [place] [address] [place] Name: Radha Valdez Position: Nurse Member Role: ED Nurse Name: Gildardo Cardona DO Position: Physician Member Role: Attending Physician Address: Address: [address] [place] [address]
--- OUTSIDE RECORDS SUMMARY | 2024-02-09 23:13 | XMS_ITS | Continuity of Care Document ---
Author Organization [facility] Address [address] [place] [address] Care Team Providers Care Hedis Analyst Name Role Phone Bradley Shetty DO Primary Care Physician Encounter [facility] NBR [id number] Date(s): 10/09/22 - 10/09/22 [facility] [address] [place], [place] [address] Encounter Diagnosis Depression with anxiety(Discharge Diagnosis) - 10/09/22 Family history of first degree relative with dementia(Discharge Diagnosis) - 10/09/22 Discharge Disposition: Home or Self Care Attending Physician: RANDA Zarco Allergies, Adverse Reactions, Alerts Substance Reaction Severity Status amoxicillin 1 Rash Moderate Active sulfa drugs Stomach upset Moderate Active Bactrim Stomach upset Moderate Active 1on hands Assessment and Plan Future Appointments Functional Status 10/09/22 Living Environment Home Environment No qualifying data available Other exposure to Infectious Disease Non e [...] Daily, # 90 tab, 4 Refill(s), Pharmacy: [id number] Start Date: 08/01/22 Stop Date: 10/25/23 Status: Ordered Benadryl 25 mg oral capsule 50 mg = 2 cap, Oral, Daily, PRN as needed for allergy symptoms, # 60 tab, 0 Refill(s) Start Date: 07/28/22 Stop Date: 08/27/22 Status: Ordered calcium (as carbonate)-vitamin D 600 mg-400 intl units oral tablet 1 tab, Oral, BID, # 60 tab, 11 Refill(s), Pharmacy: [facility], 144, cm, 08/10/22 12:24:00 EST, Height/Length [...] Daily, # 90 cap, 4 Refill(s), Pharmacy: [facility] Start Date: 08/01/22 Stop Date: 10/25/23 Status: Ordered metFORMIN 500 mg oral tablet 500 mg = 1 tab, Oral, Daily, with meals, # 90 tab, 4 Refill(s), Pharmacy: [facility] Start Date: 08/01/22 Stop Date: 10/25/23 [...] Daily, # 90 tab, 4 Refill(s), Pharmacy: [id number] Start Date: 08/01/22 Stop Date: 10/25/23 Status: Ordered vitamin E 100 intl units oral capsule 100 IntlUnit = 1 cap, Oral, Daily, # 100 cap, 4 Refill(s), Pharmacy: [id number] Start Date: 08/01/22 Stop Date: [...] Active Dysphagia Confirmed Active Dysthymia Confirmed Active Ankle fracture 2 Confirmed Active [...] ligation Completed Mastoidectomy 6 Completed 1sphincter repair, [facility] 2EGD, Dr Puckett 3right arm, Dr Hernadez 4Dr [place] 5left ankle, open Brostrom reconstruction of the lateral ligament 6bilateral Vital Signs Most recent to oldest [Reference Range]: 1 Peripheral Pulse Rate [60-100 bpm] 79 bp m (10/09/22 9:19 AM) Blood Pressure [90-140/60-90 mmHg] 125/9 0mmHg (10/09/22 9:19 AM) Weight 78.5 kg (10/09/22 9:19 AM) Weight Measured (lbs) 173.063 lb (10/09/22 9:19 AM) Social History Social History Type Response Tobacco Current everyday tob acco user Tobacco Use:. 20 a day per day. Sex Physician Outpatient Note * RANDA Zarco: PERFORM Event Display: Office Clinic Note Physician Authored Date: [id number] SOFIE GREER :1965 Age:57 years Sex:Female Visit Date:10/09/2022 Primary Care Physician: Bradley Shetty DO Chief Complaint Memory issues. History of Present Illness Patient indicates she is having memory problems for a while. She cannot remember what her son tellsher. Like a plan made early in the day, then she forgets. Her sister was recently diagnosed with early stages of dementia as well as having??cancer. ?? Patient indicates she is still??having depression even tho is taking meds as prescribed. ?? Patient is taking calcium daily as prescribed. She is sleeping good, using CPAP. ? Review of Systems Constitutional:?No??fevers,?No??chills,?No??sweats ? Neurologic: Alert & oriented X 4 Psychiatric:?Positive for??anxiety,?Positive for??depression Physical Exam Vitals & Measurements HR:??79??(Peripheral)?? BP:??125/90?? SpO2:??99%?? WT:??78.5??kg?? General: Alert and oriented, well nourished,?No??acute distress ?? Neurologic: Awake, alert and oriented X4, Psychiatric: Cooperative, appropriate mood and affect ?? See PHQ-2,9, score 6 and Mini COG?? was??negative for memory loss Depression Screen?? PHQ 2?? PHQ 9?? Feeling Down, Depressed, Hopeless: Several days Detailed Depression Screen Score: 6 Initial Depression Screen Score: 2 Score Feeling Bad About Yourself: Not at all Little Interest - Pleasure in Activities: Several days Feeling Tired or Little Energy: Nearly every day ?? Moving or Speaking Slowly: Not at all ?? Poor Appetite or Overeating: Not at all ?? Thoughts Better Off or Hurting Self: Not at all ?? Total Depression Screen Score: 8 ?? Trouble Concentrating: Nearly every day ?? Trouble Falling or Staying Asleep: Not at all Medical Decision Making: Mini COG is negative today, concerns may be related to depression, will complete labs and address depression plan. Assessment/Plan 1.??Depression with anxiety??F41.8 Ordered: calcium (as carbonate)-vitamin D 600 mg-400 intl units oral tablet, 1 tab, Oral, BID, # 60 tab, 11 Refill(s), Pharmacy: [id number], 144, cm, 08/10/22 12:24:00 EST, Height/Length Dosing, 77, kg, 08/10/22 12:24:00 EST, Weight Dosing Automated Diff, Blood, Routine, 10/09/22 10:40:00 EDT, by Sofiya CUEVAS, Lab Collect, Depressionwith anxiety, [id number] CBC w/ Diff, Blood, Routine, 10/09/22 10:40:00 EDT, by Sofiya CUEVAS, Lab Collect, Depression with anxiety Thyroid Stimulating Hormone, Blood, Routine, 10/09/22 10:01:00 EDT, Once, Lab Collect, Depression with anxiety Vitamin B12 & Folate Level, Blood, Routine, 10/09/22 10:02:00 EDT, Once, Lab Collect, Depression with anxiety ?? 2.??Family history of first degree relative with dementia??Z81.8 reassure patient, testing today is normal, continue to watch and wait. test as needed ?? Orders: Problem List/Past Medical History Ongoing Abnormal Pap smear of cervix Acute left-sided low back pain without sciatica Adenoma Allergic rhinitis Anal sphincter incontinence Ankle fracture Anxiety disorder Apnea, sleep Basal cell carcinoma of nose BMI 35.0-35.9,adult [...] to Ernestine species Perforation of tympanic membrane Polycystic ovary disease Reflux esophagitis Right lateral epicondylitis Seasonal allergic rhinitis due to pollen Serrated adenoma of colon Tendonitis Type 2 diabetes mellitus, without long-term current use of insulin Ureteral stone Historical Procedure/Surgical History ???Sling procedure of bladder neck [...] Ad26 vaccine 11/03/2020 Recorded Electronically Signed on 10/09/22 11:45 AM RANDA Zarco Patient Care team information Care Team Personnel Name: Bradley Shetty DO Position: Physician Member Role: Primary Care Physician Address: Address: [address] [place] [id number]
--- OUTSIDE RECORDS SUMMARY | 2024-02-09 23:13 | XMS_ITS | Continuity of Care Document ---
Author Organization [facility] Address [address] [place] [address] Care Team Providers Care Camp Attendant Name Role Phone Bradley Shetty DO Primary Care Physician Encounter [facility] NBR [id number] Date(s): 05/17/23 - 05/17/[address] [phone] Encounter Diagnosis History of adenomatous polyp of colon(Discharge Diagnosis) - 05/17/23 Discharge Disposition: Home f/u Internal Provider Attending Physician: Gildardo Logan MD Admitting Physician: Gildardo Logan MD Referring Physician: Gildardo Logan MD Allergies, Adverse Reactions, Alerts Substance Reaction Severity Status amoxicillin 1 Rash Moderate Active sulfa drugs Stomach upset Moderate Active 1on hands Assessment and Plan Future Appointments Functional Status 05/17/23 ADLs Independent 05/14/23 Living Situation Home independently Family Member Travel History No recent t ravel Recent Travel History No recent travel Other exposure to Infectious Disease Non e [...] Daily, # 90 tab, 4 Refill(s), Pharmacy: [id number] Start Date: 08/01/22 Stop Date: 10/25/23 Status: Ordered Benadryl 25 mg oral capsule 50 mg = 2 cap, Oral, Daily, PRN as needed for allergy symptoms, # 60 tab, 0 Refill(s) Start Date: 07/28/22 Stop Date: 08/27/22 Status: Ordered calcium (as carbonate)-vitamin D 600 mg-400 intl units oral tablet 1 tab, Oral, BID, # 60 tab, 11 Refill(s), Pharmacy: [place] [facility] [id number], 144, cm, 08/10/22 12:24:00 EST, Height/Length Dosing, [...] Daily, # 90 cap, 4 Refill(s), Pharmacy: [facility] Start Date: 08/01/22 Stop Date: 10/25/23 Status: Ordered metFORMIN 500 mg oral tablet 500 mg = 1 tab, Oral, Daily, with meals, # 90 tab, 4 Refill(s), Pharmacy: [facility] Start Date: 08/01/22 Stop Date: 10/25/23 Status: Ordered One-A-Day Women 50 Plus oral tablet 1 tab, Oral, Daily, # 90 tab, 0 Refill(s) Start Date: 07/28/22 Stop Date: 10/26/22 Status: Ordered venlafaxine 225 mg oral tablet, extended release 225 mg = 1 tab, Oral, Daily, # 90 tab, 4 Refill(s), Pharmacy: [id number] Start Date: 08/01/22 Stop Date: 10/25/23 Status: Ordered vitamin E 100 intl units oral capsule 100 IntlUnit = 1 cap, Oral, Daily, # 100 cap, 4 Refill(s), Pharmacy: [id number] Start Date: 08/01/22 Stop Date: 10/25/23 Status: Ordered Problem List Condition Confirmation Course Effective Dates Status H ealth Status Informant Abnormal Pap smear of cervix Confirmed Active Acute left-sided low back pain without sciatica Confirmed Active Adenoma 1 Confirmed 2001 Active Serrated adenoma of colon Confirmed Active Allergic rhinitis Confirmed Active Seasonal allergic rhinitis due to pollen Confirmed Active Change in bowel habits Confirmed Active Anxiety disorder Confirmed Active Basal [...] Active RADHA (obstructive sleep apnea) Confirmed Active Colon cancer screening Confirmed Active Perforation of tympanic membrane Confirmed [...] 1auto-populated from documented surgical case 2sphincter repair, [facility] [place] 3EGD, Dr Puckett 4right arm, Dr Hernadez 5Dr Satya 6left ankle, open Brostrom reconstruction of the lateral ligament 7bilateral Vital Signs Most recent to oldest [Reference Range]: 1 2 3 Temperature Temporal Artery [36-38 Deg C] 37 Deg C (05/17/23 10:27 AM) 36.8 Deg C (05/17/23 9:31 AM) Heart Rate Monitored [60-100 bpm] 74 bpm (05/17/23 10:45 AM) 69 bpm (05/17/23 10:41 AM) 74 bpm (05/17/23 10:38 AM) Respiratory Rate [12-24 br/min] 12 br/min (05/17/23 10:32 AM) 14 br/min (05/17/23 10:30 AM) 12 br/min (05/17/23 10:27 AM) Blood Pressure [90-140/60-90 mmHg] 133/87mmHg (05/17/23 10:45 AM) 126/80mmHg (05/17/23 10:41 AM) 128/80mmHg (05/17/23 10:38 AM) Mean Arterial Pressure, Cuff [70-110 mmHg] 95 mmHg (05/17/23 10:41 AM) Mean Arterial Pressure Cuff 94 mmHg (05/17/23 10:41 AM) 96 mmHg (05/17/23 10:38 AM) 96 mmHg (05/17/23 10:36 AM) Blood Pressure Location Left arm (05/17/23 10:45 AM) Left arm (05/17/23 10:41 AM) Left arm (05/17/23 10:38 AM) Weight 74.87 kg (05/17/23 9:31 AM) 74.84 kg (05/14/23 9:52 AM) Weight Dosing 74.840 kg (05/14/23 9:52 AM) Height 144.78 cm (05/17/23 9:31 AM) 144.78 cm (05/14/23 9:52 AM) Body Mass Index 35.72 kg/m2 (05/17/23 9:31 AM) Social History Social History Type Response Tobacco Current everyday tob acco user Tobacco Use:. 20 a day per day. 40 year(s). Sex Hospital Discharge Instructions Patient Education 05/17/2023 09:30:42 Diverticulosis Diverticulosis Diverticulosis is a condition that develops when small pouches (diverticula) form in the wall of the large intestine (colon). The colon is where water is absorbed and stool (feces) is formed. The pouches form when the inside layer of the colon pushes through weak spots in the outer layers of the colon. You may have a few pouches or many of them. The pouches usually do not cause problems unless they become inflamed or infected. When this happens, the condition is called diverticulitis. What are the causes? The cause of this condition is not known. What increases the risk? The following factors may make you more likely to develop this condition: ??? Being older than age 60. Your risk for this condition increases with age. Diverticulosis is rare among people younger than age 30. By age 80, many people have it. ??? Eating a low-fiber diet. ??? Having frequent constipation. ??? Being overweight. ??? Not getting enough exercise. ??? Smoking. ??? Taking oyjf-gnl-tcwysft pain medicines, like aspirin and ibuprofen. ??? Having a family history of diverticulosis. What are the signs or symptoms? In most people, there are no symptoms of this condition. If you do have symptoms, they may include: ??? Bloating. ??? Cramps in the abdomen. ??? Constipation or diarrhea. ??? Pain in the lower left side of the abdomen. How is this diagnosed? Because diverticulosis usually has no symptoms, it is most often diagnosed during an exam for othercolon problems. The condition may be diagnosed by: ??? Using a flexible scope to examine the colon (colonoscopy). ??? Taking an X-ray of the colon after dye has been put into the colon (barium enema). ??? Having a CT scan. How is this treated? You may not need treatment for this condition. Your health care provider may recommend treatment toprevent problems. You may need treatment if you have symptoms or if you previously had diverticulitis. Treatment may include: ??? Eating a high-fiber diet. ??? Taking a fiber supplement. ??? Taking a live bacteria supplement (probiotic). ??? Taking medicine to relax your colon. Follow these instructions at home: Medicines ??? Take hhpd-aie-dfqfaxi and prescription medicines only as told by your health care provider. ??? If told by your health care provider, take a fiber supplement or probiotic. Constipation prevention Your condition may cause constipation. To prevent or treat constipation, you may need to: ??? Drink enough fluid to keep your urine pale yellow. ??? Take brih-nzh-xnvasmo or prescription medicines. ??? Eat foods that are high in fiber, such as beans, whole grains, and fresh fruits and vegetables. ??? Limit foods that are high in fat and processed sugars, such as fried or sweet foods. General instructions ??? Try not to strain when you have a bowel movement. ??? Keep all follow-up visits as told by your health care provider. This is important. Contact a health care provider if you: ??? Have pain in your abdomen. ??? Have bloating. ??? Have cramps. ??? Have not had a bowel movement in 3 days. Get help right away if: ??? Your pain gets worse. ??? Your bloating becomes very bad. ??? You have a fever or chills, and your symptoms suddenly get worse. ??? You vomit. ??? You have bowel movements that are bloody or black. ??? You have bleeding from your rectum. Summary ??? Diverticulosis is a condition that develops when small pouches (diverticula) form in the wall of the large intestine (colon). ??? You may have a few pouches or many of them. ??? This condition is most often diagnosed during an exam for other colon problems. ??? Treatment may include increasing the fiber in your diet, taking supplements, or taking medicines. This information is not intended to replace advice given to you by your health care provider. Make sure you discuss any questions you have with your health care provider. Document Revised: 01/01/2020 Document Reviewed: 01/01/2020 [employer] Patient Education ?? 2022 [employer] 05/17/2023 09:30:40 Colon Polyps Colon Polyps Colon polyps are tissue growths inside the colon, which is part of the large intestine. They are one of the types of polyps that can grow in the body. A polyp may be a round bump or a mushroom-shapedgrowth. You could have one polyp or more than one. Most colon polyps are noncancerous (benign). However, some colon polyps can become cancerous over time. Finding and removing the polyps early can help prevent this. What are the causes? The exact cause of colon polyps is not known. What increases the risk? The following factors may make you more likely to develop this condition: ??? Having a family history of colorectal cancer or colon polyps. ??? Being older than 45 years of age. ??? Being younger than 45 years of age and having a significant family history of colorectal canceror colon polyps or a genetic condition that puts you at higher risk of getting colon polyps. ??? Having inflammatory bowel disease, such as ulcerative colitis or Crohn's disease. ??? Having certain conditions passed from parent to child (hereditary conditions), such as: ??? Familial adenomatous polyposis (FAP). ??? Castro syndrome. ??? Turcot syndrome. ??? Peutz???Jeghers syndrome. ??? MUTYH-associated polyposis (MAP). ??? Being overweight. ??? Certain lifestyle factors. These include smoking cigarettes, drinking too much alcohol, not getting enough exercise, and eating a diet that is high in fat and red meat and low in fiber. ??? Having had childhood cancer that was treated with radiation of the abdomen. What are the signs or symptoms? Many times, there are no symptoms. If you have symptoms, they may include: ??? Blood coming from the rectum during a bowel movement. ??? Blood in the stool (feces). The blood may be bright red or very dark in color. ??? Pain in the abdomen. ??? A change in bowel habits, such as constipation or diarrhea. How is this diagnosed? This condition is diagnosed with a colonoscopy. This is a procedure in which a lighted, flexible scope is inserted into the opening between the buttocks (anus) and then passed into the colon to examine the area. Polyps are sometimes found when a colonoscopy is done as part of routine cancer screening tests. How is this treated? This condition is treated by removing any polyps that are found. Most polyps can be removed during a colonoscopy. Those polyps will then be tested for cancer. Additional treatment may be needed depending on the results of testing. Follow these instructions at home: Eating and drinking ??? Eat foods that are high in fiber, such as fruits, vegetables, and whole grains. ??? Eat foods that are high in calcium and vitamin D, such as milk, cheese, yogurt, eggs, liver, fish, and broccoli. ??? Limit foods that are high in fat, such as fried foods and desserts. ??? Limit the amount of red meat, precooked or cured meat, or other processed meat that you eat, such as hot dogs, sausages, langley, or meat loaves. ??? Limit sugary drinks. Lifestyle ??? Maintain a healthy weight, or lose weight if recommended by your health care provider. ??? Exercise every day or as told by your health care provider. ??? Do not use any products that contain nicotine or tobacco, such as cigarettes, e-cigarettes, andchewing tobacco. If you need help quitting, ask your health care provider. ??? Do not drink alcohol if: ??? Your health care provider tells you not to drink. ??? You are , may be , or are planning to become . ??? If you drink alcohol: ??? Limit how much you use to: ??? 0???1 drink a day for women. ??? 0???2 drinks a day for men. ??? Know how much alcohol is in your drink. In the [place] one drink equals one 12 oz bottle of beer (355 mL), one 5 oz glass of wine (148 mL), or one 1?? oz glass of hard liquor (44 mL). General instructions ??? Take szlm-ekf-xcfqwpp and prescription medicines only as told by your health care provider. ??? Keep all follow-up visits. This is important. This includes having regularly scheduled colonoscopies. Talk to your health care provider about when you need a colonoscopy. Contact a health care provider if: ??? You have new or worsening bleeding during a bowel movement. ??? You have new or increased blood in your stool. ??? You have a change in bowel habits. ??? You lose weight for no known reason. Summary ??? Colon polyps are tissue growths inside the colon, which is part of the large intestine. They are one type of polyp that can grow in the body. ??? Most colon polyps are noncancerous (benign), but some can become cancerous over time. ??? This condition is diagnosed with a colonoscopy. ??? This condition is treated by removing any polyps that are found. Most polyps can be removed during a colonoscopy. This information is not intended to replace advice given to you by your health care provider. Make sure you discuss any questions you have with your health care provider. Document Revised: 09/22/2020 Document Reviewed: 09/22/2020 [employer] Patient Education ?? 2022 [employer]. 05/17/2023 09:30:39 Colonoscopy, Adult, Care After Colonoscopy, Adult, Care After The following information offers guidance on how to care for yourself after your procedure. Your health care provider may also give you more specific instructions. If you have problems or questions, contact your health care provider. What can I expect after the procedure? After the procedure, it is common to have: ??? A small amount of blood in your stool for 24 hours after the procedure. ??? Some gas. ??? Mild cramping or bloating of your abdomen. Follow these instructions at home: Eating and drinking ??? Drink enough fluid to keep your urine pale yellow. ??? Follow instructions from your health care provider about eating or drinking restrictions. ??? Resume your normal diet as told by your health care provider. Avoid heavy or fried foods that are hard to digest. Activity ??? Rest as told by your health care provider. ??? Avoid sitting for a long time without moving. Get up to take short walks every 1???2 hours. This is important to improve blood flow and breathing. Ask for help if you feel weak or unsteady. ??? Return to your normal activities as told by your health care provider. Ask your health care provider what activities are safe for you. Managing cramping and bloating ??? Try walking around when you have cramps or feel bloated. ??? If directed, apply heat to your abdomen as told by your health care provider. Use the heat source that your health care provider recommends, such as a moist heat pack or a heating pad. ??? Place a towel between your skin and the heat source. ??? Leave the heat on for 20???30 minutes. ??? Remove the heat if your skin turns bright red. This is especially important if you are unable to feel pain, heat, or cold. You have a greater risk of getting burned. General instructions ??? If you were given a sedative during the procedure, it can affect you for several hours. Do not drive or operate machinery until your health care provider says that it is safe. ??? For the first 24 hours after the procedure: ??? Do not sign important documents. ??? Do not drink alcohol. ??? Do your regular daily activities at a slower pace than normal. ??? Eat soft foods that are easy to digest. ??? Take lalm-odw-sgihcyc and prescription medicines only as told by your health care provider. ??? Keep all follow-up visits. This is important. Contact a health care provider if: ??? You have blood in your stool 2???3 days after the procedure. Get help right away if: ??? You have more than a small spotting of blood in your stool. ??? You have large blood clots in your stool. ??? You have swelling of your abdomen. ??? You have nausea or vomiting. ??? You have a fever. ??? You have increasing pain in your abdomen that is not relieved with medicine. These symptoms may be an emergency. Get help right away. Call 911. ??? Do not wait to see if the symptoms will go away. ??? Do not drive yourself to the hospital. Summary ??? After the procedure, it is common to have a small amount of blood in your stool. You may also have mild cramping and bloating of your abdomen. ??? If you were given a sedative during the procedure, it can affect you for several hours. Do not drive or operate machinery until your health care provider says that it is safe. ??? Get help right away if you have a lot of blood in your stool, nausea or vomiting, a fever, or increased pain in your abdomen. This information is not intended to replace advice given to you by your health care provider. Make sure you discuss any questions you have with your health care provider. Document Revised: 01/25/2022 Document Reviewed: 01/25/2022 [employer] Patient Education ?? 2022 [employer] Discharge instructions * Nataly Sy: PERFORM Event Display: Discharge Instructions Authored Date: [id number] SOFIE GREER :1965 Age:57 years Sex:Female Visit Date:05/17/2023 Primary Care Physician: Bradley Shetty, Hospital Discharge Instructions We would like to thank you for allowing us to assist you with your healthcare needs. The following includes patient education materials and information regarding your injury/illness. Your Next Steps Discharge Orders Discharge Patient Instructions, You may experience some gas cramps and abdominal bloating Discharge Patient Instructions, Cramping and abdominal bloating should subside in 1 hour or so Discharge Patient Instructions, Passing gas rectally and belching is normal Discharge Patient Instructions, A light first meal may feel better in your stomach Discharge Patient Instructions, You may resume your normal activity in 24 hours Discharge Patient Instructions, It is important that a responsible adult drive you home today Discharge Patient Instructions, Do not sign any contracts, make any major decisions, or drive or operate machinery for 24 hours Discharge Patient Instructions, You should not be responsible for the care of others Discharge Patient Instructions, Avoid alcohol, tranquilizers, sleeping pills, or cold medicines for24 hours Discharge Patient Instructions, Call or come to emergency department if having unusual pain or severe abdominal pain Discharge Patient Instructions, Call or come to emergency department if vomiting blood or having black bowel movements, rectal bleeding or passing blood clots Discharge Patient Instructions, Call or come to emergency department for dizziness Discharge Patient Instructions, Call or come to emergency department chest pain, or shortness of breath Discharge Patient Instructions, Call or come to emergency department for fever greater than 100 ??F Discharge Patient Instructions, Call with any additional questions or concerns Scheduled Future Appointments 2022 10:30 AM EST ?? With: Yarely Russ APRN Where: [facility] Gastroenterology Status: Confirmed Sunday 1:00 PM EST ?? With: William Owen MD Where: [facility] Women's Health Status: Confirmed Medications What How Much When Why Instructions Next Dose Unchanged atorvastatin (atorvastatin 10 mg oral tablet) 1 tab Oral (given by mouth) Every day Duration: 90 Days Unchanged calcium-vitamin D (calcium (as carbonate)-vitamin D 600 mg-400 intl units oral tablet) 1 tab Oral (given by mouth) 2 times a day Depression with anxiety Unchanged cholecalciferol (High Potency Vitamin D3 25 [...] Duration: 90 Days with meals ?? Unchanged multivitamin with minerals [...] by mouth) Every day Duration: 90 Days Your Summary Your Care Team Admitting Physician - Gildardo Logan MD Attending Physician - Gildardo Logan MD Primary Care Physician - Bradley Shetty DO Referring Physician - Gildardo Logan MD Your Diagnosis History of adenomatous polyp of colon Problems Ongoing - Any problem that you are currently receiving treatment for. Abnormal Pap smear of cervix Acute left-sided low back pain without sciatica Adenoma Allergic rhinitis Anal sphincter incontinence Ankle fracture Anxiety disorder Apnea, sleep Basal cell carcinoma of nose Basal cell carcinoma of skin Biilateral Mastoidectomy BMI 35.0-35.9,adult Burning sensation of feet Cervical high risk human papillomavirus (HPV) DNA test positive Cervicalgia Change in bowel habits Chronic fatigue syndrome Colon cancer screening Depression Depression with anxiety Dysphagia Dysthymia Fecal [...] use of insulin Ureteral stone Urinary incontinence Historical - Any problem that you are no longer receiving treatment for. Procedures Performed ???Colonoscopy Biopsy (05/17/2023) Discharge Vitals Temperature??(Temporal Artery) 98.6 ??F (37 ??C) Heart Rate??(Monitored) 74 Respiratory Rate?? 12 Blood Pressure?? 128/80?? Height?? 57.00 in (144.78 cm) Weight?? 165.09 lb (74.87 kg) BMI?? 35.72 Allergies amoxicillin??(Rash) sulfa drugs??(Stomach upset) Education Materials Diverticulosis Diverticulosis is a condition that develops when small pouches (diverticula) form in the wall of the large intestine (colon). The colon is where water is absorbed and stool (feces) is formed. The pouches form when the inside layer of the colon pushes through weak spots in the outer layers of the colon. You may have a few pouches or many of them. The pouches usually do not cause problems unless they become inflamed or infected. When this happens, the condition is called diverticulitis. What are the causes? The cause of this condition is not known. What increases the risk? The following factors may make you more likely to develop this condition: ? Being older than age 60. Your risk for this condition increases with age. Diverticulosis is rare among people younger than age 30. By age 80, many people have it. ? Eating a low-fiber diet. ? Having frequent constipation. ? Being overweight. ? Not getting enough exercise. ? Smoking. ? Taking wroi-nym-tlxotbj pain medicines, like aspirin and ibuprofen. ? Having a family history of diverticulosis. What are the signs or symptoms? In most people, there are no symptoms of this condition. If you do have symptoms, they may include: ? Bloating. ? Cramps in the abdomen. ? Constipation or diarrhea. ? Pain in the lower left side of the abdomen. How is this diagnosed? Because diverticulosis usually has no symptoms, it is most often diagnosed during an exam for othercolon problems. The condition may be diagnosed by: ? Using a flexible scope to examine the colon (colonoscopy). ? Taking an X-ray of the colon after dye has been put into the colon (barium enema). ? Having a CT scan. How is this treated? You may not need treatment for this condition. Your health care provider may recommend treatment toprevent problems. You may need treatment if you have symptoms or if you previously had diverticulitis. Treatment may include: ? Eating a high-fiber diet. ? Taking a fiber supplement. ? Taking a live bacteria supplement (probiotic). ? Taking medicine to relax your colon. Follow these instructions at home: Medicines ? Take wtxy-ekc-ydpvaru and prescription medicines only as told by your health care provider. ? If told by your health care provider, take a fiber supplement or probiotic. Constipation prevention Your condition may cause constipation. To prevent or treat constipation, you may need to: ? Drink enough fluid to keep your urine pale yellow. ? Take brng-rpx-okmbryj or prescription medicines. ? Eat foods that are high in fiber, such as beans, whole grains, and fresh fruits and vegetables. ? Limit foods that are high in fat and processed sugars, such as fried or sweet foods. General instructions ? Try not to strain when you have a bowel movement. ? Keep all follow-up visits as told by your health care provider. This is important. Contact a health care provider if you: ? Have pain in your abdomen. ? Have bloating. ? Have cramps. ? Have not had a bowel movement in 3 days. Get help right away if: ? Your pain gets worse. ? Your bloating becomes very bad. ? You have a fever or chills, and your symptoms suddenly get worse. ? You vomit. ? You have bowel movements that are bloody or black. ? You have bleeding from your rectum. Summary ? Diverticulosis is a condition that develops when small pouches (diverticula) form in the wall of the large intestine (colon). ? You may have a few pouches or many of them. ? This condition is most often diagnosed during an exam for other colon problems. ? Treatment may include increasing the fiber in your diet, taking supplements, or taking medicines. This information is not intended to replace advice given to you by your health care provider. Make sure you discuss any questions you have with your health care provider. Document Revised: 01/01/2020 Document Reviewed: 01/01/2020 [employer] Patient Education ?? 2022 [employer] Colon Polyps Colon polyps are tissue growths inside the colon, which is part of the large intestine. They are one of the types of polyps that can grow in the body. A polyp may be a round bump or a mushroom-shapedgrowth. You could have one polyp or more than one. Most colon polyps are noncancerous (benign). However, some colon polyps can become cancerous over time. Finding and removing the polyps early can help prevent this. What are the causes? The exact cause of colon polyps is not known. What increases the risk? The following factors may make you more likely to develop this condition: ? Having a family history of colorectal cancer or colon polyps. ? Being older than 45 years of age. ? Being younger than 45 years of age and having a significant family history of colorectal cancer or colon polyps or a genetic condition that puts you at higher risk of getting colon polyps. ? Having inflammatory bowel disease, such as ulcerative colitis or Crohn's disease. ? Having certain conditions passed from parent to child (hereditary conditions), such as: ? Familial adenomatous polyposis (FAP). ? Castro syndrome. ? Turcot syndrome. ? Peutz???Jeghers syndrome. ? MUTYH-associated polyposis (MAP). ? Being overweight. ? Certain lifestyle factors. These include smoking cigarettes, drinking too much alcohol, not gettingenough exercise, and eating a diet that is high in fat and red meat and low in fiber. ? Having had childhood cancer that was treated with radiation of the abdomen. What are the signs or symptoms? Many times, there are no symptoms. If you have symptoms, they may include: ? Blood coming from the rectum during a bowel movement. ? Blood in the stool (feces). The blood may be bright red or very dark in color. ? Pain in the abdomen. ? A change in bowel habits, such as constipation or diarrhea. How is this diagnosed? This condition is diagnosed with a colonoscopy. This is a procedure in which a lighted, flexible scope is inserted into the opening between the buttocks (anus) and then passed into the colon to examine the area. Polyps are sometimes found when a colonoscopy is done as part of routine cancer screening tests. How is this treated? This condition is treated by removing any polyps that are found. Most polyps can be removed during a colonoscopy. Those polyps will then be tested for cancer. Additional treatment may be needed depending on the results of testing. Follow these instructions at home: Eating and drinking ? Eat foods that are high in fiber, such as fruits, vegetables, and whole grains. ? Eat foods that are high in calcium and vitamin D, such as milk, cheese, yogurt, eggs, liver, fish, and broccoli. ? Limit foods that are high in fat, such as fried foods and desserts. ? Limit the amount of red meat, precooked or cured meat, or other processed meat that you eat, such as hot dogs, sausages, langley, or meat loaves. ? Limit sugary drinks. Lifestyle ? Maintain a healthy weight, or lose weight if recommended by your health care provider. ? Exercise every day or as told by your health care provider. ? Do not use any products that contain nicotine or tobacco, such as cigarettes, e- cigarettes, and chewing tobacco. If you need help quitting, ask your health care provider. ? Do not drink alcohol if: ? Your health care provider tells you not to drink. ? You are , may be , or are planning to become . ? If you drink alcohol: ? Limit how much you use to: ? 0???1 drink a day for women. ? 0???2 drinks a day for men. ? Know how much alcohol is in your drink. In the [place] one drink equals one 12 oz bottle of beer (355mL), one 5 oz glass of wine (148 mL), or one 1?? oz glass of hard liquor (44 mL). General instructions ? Take uobj-gow-tbboptp and prescription medicines only as told by your health care provider. ? Keep all follow-up visits. This is important. This includes having regularly scheduled colonoscopies. Talk to your health care provider about when you need a colonoscopy. Contact a health care provider if: ? You have new or worsening bleeding during a bowel movement. ? You have new or increased blood in your stool. ? You have a change in bowel habits. ? You lose weight for no known reason. Summary ? Colon polyps are tissue growths inside the colon, which is part of the large intestine. They are one type of polyp that can grow in the body. ? Most colon polyps are noncancerous (benign), but some can become cancerous over time. ? This condition is diagnosed with a colonoscopy. ? This condition is treated by removing any polyps that are found. Most polyps can be removed during a colonoscopy. This information is not intended to replace advice given to you by your health care provider. Make sure you discuss any questions you have with your health care provider. Document Revised: 09/22/2020 Document Reviewed: 09/22/2020 [employer] Patient Education ?? 2022 [employer]. Colonoscopy, Adult, Care After The following information offers guidance on how to care for yourself after your procedure. Your health care provider may also give you more specific instructions. If you have problems or questions, contact your health care provider. What can I expect after the procedure? After the procedure, it is common to have: ? A small amount of blood in your stool for 24 hours after the procedure. ? Some gas. ? Mild cramping or bloating of your abdomen. Follow these instructions at home: Eating and drinking ? Drink enough fluid to keep your urine pale yellow. ? Follow instructions from your health care provider about eating or drinking restrictions. ? Resume your normal diet as told by your health care provider. Avoid heavy or fried foods that are hard to digest. Activity ? Rest as told by your health care provider. ? Avoid sitting for a long time without moving. Get up to take short walks every 1???2 hours. This isimportant to improve blood flow and breathing. Ask for help if you feel weak or unsteady. ? Return to your normal activities as told by your health care provider. Ask your health care provider what activities are safe for you. Managing cramping and bloating ? Try walking around when you have cramps or feel bloated. ? If directed, apply heat to your abdomen as told by your health care provider. Use the heat source that your health care provider recommends, such as a moist heat pack or a heating pad. ? Place a towel between your skin and the heat source. ? Leave the heat on for 20???30 minutes. ? Remove the heat if your skin turns bright red. This is especially important if you are unable to feel pain, heat, or cold. You have a greater risk of getting burned. General instructions ? If you were given a sedative during the procedure, it can affect you for several hours. Do not drive or operate machinery until your health care provider says that it is safe. ? For the first 24 hours after the procedure: ? Do not sign important documents. ? Do not drink alcohol. ? Do your regular daily activities at a slower pace than normal. ? Eat soft foods that are easy to digest. ? Take jiwe-ohk-tvurcrv and prescription medicines only as told by your health care provider. ? Keep all follow-up visits. This is important. Contact a health care provider if: ? You have blood in your stool 2???3 days after the procedure. Get help right away if: ? You have more than a small spotting of blood in your stool. ? You have large blood clots in your stool. ? You have swelling of your abdomen. ? You have nausea or vomiting. ? You have a fever. ? You have increasing pain in your abdomen that is not relieved with medicine. These symptoms may be an emergency. Get help right away. Call 911. ? Do not wait to see if the symptoms will go away. ? Do not drive yourself to the hospital. Summary ? After the procedure, it is common to have a small amount of blood in your stool. You may also have mild cramping and bloating of your abdomen. ? If you were given a sedative during the procedure, it can affect you for several hours. Do not drive or operate machinery until your health care provider says that it is safe. ? Get help right away if you have a lot of blood in your stool, nausea or vomiting, a fever, or increased pain in your abdomen. This information is not intended to replace advice given to you by your health care provider. Make sure you discuss any questions you have with your health care provider. Document Revised: 01/25/2022 Document Reviewed: 01/25/2022 [employer] Patient Education ?? 2022 [employer] Patient/Radio Board Operator Signature Patient Name:SOFIE GREER I have received this information and my questions have been answered. Patient/Radio Board Operator Name: Patient/Radio Board Operator Signature: Relationship to Patient: Witness Name/Signature: Date: Electronically Signed on: 05/17/2023 10:40 ESTSigned by: History and physical note * Gildardo Logan MD: PERFORM Event Display: History and Physical Authored Date: [id number] SOFIE GREER :1965 Age:57 years Sex:Female Visit Date:05/17/2023 Primary Care Physician: Bradley Shetty, DO History of Present Illness 57-year-old female without a first-degree relative with colorectal cancer with a history of adenomatous colon polyp??in 2017. Physical Exam Vitals & Measurements T:??36.8?C ??(Temporal Artery)?? HR:??85??(Monitored)?? RR:??18?? BP:??116/87?? SpO2:??95%?? HT:??144.78??cm?? WT:??74.87??kg?? BMI:??35.72?? Pain Score:??0?? O2 Therapy:??Room air?? Obese white female no acute distress Lungs: Clear to auscultation bilaterally Heart: Regular rhythm S1-S2 Abdomen: Soft nontender Assessment/Plan 1.??History of adenomatous polyp of colon??Z86.010 Colonoscopy today. Orders: Normal Saline Flush, 10 mL, IV Flush, Injection, As Directed, PRN line tender, First Dose: 05/17/23 6:17:00 EST, Routine Sodium Chloride 0.9% 1,000 mL, Total Volume (mL): 1,000, 1,000 mL, Soln-IV, IV, 50 mL/hr, Start Date: 05/17/23 6:16:00 EST, 74.84 kg, Populate Charting Weight From Order, 1.73, m2 Blood Glucose Monitoring POC RE, 05/17/23 6:16:00 EST, Stop date 05/17/23 6:16:00 EST Diet Order, 05/17/23 6:16:00 EST, Regular Discharge Patient, 05/17/23 6:16:00 EST, Discharge when stable per anesthesia criteria Discharge Patient, 05/17/23 6:16:00 EST, Discharge when stable per SDS criteria Discharge Patient Instructions, Do not sign any contracts, make any major decisions, or drive or operate machinery for 24 hours Discharge Patient Instructions, It is important that a responsible adult drive you home today Discharge Patient Instructions, Avoid alcohol, tranquilizers, sleeping pills, or cold medicines for24 hours Discharge Patient Instructions, Call with any additional questions or concerns Discharge Patient Instructions, You should not be responsible for the care of others Discharge Patient Instructions, You may resume your normal activity in 24 hours Discharge Patient Instructions, Cramping and abdominal bloating should subside in 1 hour or so Discharge Patient Instructions, Call or come to emergency department chest pain, or shortness of breath Discharge Patient Instructions, You may experience some gas cramps and abdominal bloating Discharge Patient Instructions, Call or come to emergency department for dizziness Discharge Patient Instructions, A light first meal may feel better in your stomach Discharge Patient Instructions, Passing gas rectally and belching is normal Discharge Patient Instructions, Call or come to emergency department for fever greater than 100 ??F Discharge Patient Instructions, Call or come to emergency department if vomiting blood or having black bowel movements, rectal bleeding or passing blood clots Discharge Patient Instructions, Call or come to emergency department if having unusual pain or severe abdominal pain Obtain consent, 05/17/23 6:16:00 EST, Constant Order, 05/17/23 6:16:00 EST Peripheral IV Insertion, 05/17/23 6:16:00 EST Saline Lock Convert From IV, 05/17/23 6:16:00 EST, Stop date 05/17/23 6:16:00 EST Vital Signs, 05/17/23 6:16:00 EST, Stop date 05/17/23 6:16:00 EST, As needed Vital Signs, 05/17/23 6:16:00 EST, Stop date 05/17/23 6:16:00 EST, Routine Vital Signs, 05/17/23 6:16:00 EST, Once, Stop date 05/17/23 6:16:00 EST Problem List/Past Medical History Ongoing Abnormal Pap smear of cervix Acute left-sided low back pain without sciatica Adenoma Allergic rhinitis Anal sphincter incontinence Ankle fracture Anxiety disorder Apnea, sleep Basal cell carcinoma of nose Basal cell carcinoma of skin Biilateral Mastoidectomy BMI 35.0-35.9,adult Burning sensation of feet Cervical high risk human papillomavirus (HPV) DNA test positive Cervicalgia Change in bowel habits Chronic fatigue syndrome Colon cancer screening Depression Depression with anxiety Dysphagia Dysthymia Fecal [...] use of insulin Ureteral stone Urinary incontinence Historical Procedure/Surgical History ???Sling procedure of bladder neck (03/23/2020)???Colonoscopy (11/29/2016)???Placement of stent, renal (03/12/2013)???Laparoscopic cholecystectomy (05/23/2012)???Cyst (09/18/2011)???Colonoscopy (07/06)???Arthroscopy (03/2007)???Bilateral tubal ligation???Mastoidectomy Medications Inpatient Normal Saline Flush, 10 mL, IV Flush, As Directed, PRN Sodium Chloride 0.9% 1,000 mL, 1000 mL, IV Home Artificial Tears ophthalmic solution, 1 drops, Eye-Both, [...] tab, Oral, Daily fluticasone 50 mcg/inh nasal spray, PRN High Potency Vitamin D3 25 mcg (1000 intl units) oral capsule, 25 mcg= 1 cap, Oral, Daily, 4 refills metFORMIN 500 mg oral tablet, 500 mg= 1 tab, Oral, Daily, 4 refills One-A-Day Women 50 Plus oral tablet, 1 tab, Oral, Daily venlafaxine 225 mg oral tablet, extended release, 225 mg= 1 tab, Oral, Daily, 4 refills vitamin E 100 intl units oral capsule, 100 IntlUnit= 1 cap, Oral, Daily, 4 refills Allergies amoxicillin??(Rash) sulfa drugs??(Stomach upset) Social History [...] Ad26 vaccine 11/03/2020 Recorded Electronically Signed on 05/17/23 09:48 AM Gildardo Logan MD Patient Care team information Care Team Personnel Name: Bradley Shetty DO Position: Physician Member Role: Primary Care Physician Address: Address: [address] [place] [phone]
--- OUTSIDE RECORDS SUMMARY | 2024-02-09 23:13 | XMS_ITS | Continuity of Care Document ---
Author Organization [facility] Address [address] [place] [address] Care Team Providers Care Senior Environmental Technician Name Role Phone Bradley Shetty DO Primary Care Physician Encounter [facility] NBR [id number] Date(s): 12/21/22 - 12/21/22 [facility] [address] [place] [address]- [place] Discharge Disposition: Home Allergies, Adverse Reactions, Alerts Substance Reaction Severity Status amoxicillin 1 Rash Moderate Active sulfa drugs Stomach upset Moderate Active Bactrim Stomach upset Moderate Active 1on hands Assessment and Plan Future Appointments Future Scheduled Tests Radiology* CT Head w/o Contrast 12/21/22 Immunizations Given and Recorded Vaccine Date Status Refusal Reason SARS-CoV-2 (COVID-19) Ad26 vaccine 11/03/20 Record ed Medications Artificial Tears ophthalmic solution 1 drops, Eye-Both, BID, PRN as needed for dry eyes, # 10 mL, 0 Refill(s) Start Date: 07/28/22 Stop Date: 08/27/22 Status: Ordered atorvastatin 10 mg oral tablet 10 mg = 1 tab, Oral, Daily, # 90 tab, 4 Refill(s), Pharmacy: [id number] Start Date: 08/01/22 Stop Date: 10/25/23 Status: Ordered Benadryl 25 mg oral capsule 50 mg = 2 cap, Oral, Daily, PRN as needed for allergy symptoms, # 60 tab, 0 Refill(s) Start Date: 07/28/22 Stop Date: 08/27/22 Status: Ordered calcium (as carbonate)-vitamin D 600 mg-400 intl units oral tablet 1 tab, Oral, BID, # 60 tab, 11 Refill(s), Pharmacy: [facility] [id number], 144, cm, 08/10/22 12:24:00 EST, Height/Length Dosing, [...] Daily, # 90 cap, 4 Refill(s), Pharmacy: [facility] [id number] Start Date: 08/01/22 Stop Date: 10/25/23 Status: Ordered metFORMIN 500 mg oral tablet 500 mg = 1 tab, Oral, Daily, with meals, # 90 tab, 4 Refill(s), Pharmacy: [facility] Start Date: 08/01/22 Stop Date: 10/25/23 [...] Daily, # 90 tab, 4 Refill(s), Pharmacy: [facility] Start Date: 08/01/22 Stop Date: 10/25/23 Status: Ordered vitamin E 100 intl units oral capsule 100 IntlUnit = 1 cap, Oral, Daily, # 100 cap, 4 Refill(s), Pharmacy: [id number] Start Date: 08/01/22 Stop Date: 10/25/23 Status: [...] ligation Completed Mastoidectomy 6 Completed 1sphincter repair, [facility] 2EGD, Dr Puckett 3right arm, Dr Hernadez 4Dr Satya 5left ankle, open Brostrom reconstruction of the lateral ligament 6bilateral Social History Social History Type Response Tobacco Current everyday tob acco user Tobacco Use:. 20 a day per day. Sex Patient Care team information Care Team Personnel Name: Bradley Shetty DO Position: Physician Member Role: Primary Care Physician Address: Address: [address] [place] [phone]
--- OUTSIDE RECORDS SUMMARY | 2024-02-09 23:13 | XMS_ITS | Continuity of Care Document ---
Author Organization [facility] Address [address] [place] [address] Care Team Providers Care Feed House Supervisor Name Role Phone Bradley Shetty DO Primary Care Physician [phone] Encounter [facility] NBR [id number] Date(s): 08/22/23 - 08/22/[address] [phone]- [place] Discharge Disposition: Home Allergies, Adverse Reactions, Alerts Substance Reaction Severity Status amoxicillin 1 Rash Moderate Active sulfa drugs Stomach upset Moderate Active 1on hands Assessment and Plan Future Appointments Future Scheduled Tests Radiology* MG Mammo Screening Bilateral 09/04/23 Immunizations Given and Recorded Vaccine Date Status [...] Refill(s), Pharmacy: [id number] Start Date: 08/01/22 Stop Date: 10/25/23 Status: Ordered Benadryl 25 mg oral capsule 50 mg = 2 cap, Oral, Daily, PRN as needed for allergy symptoms, # 60 tab, 0 Refill(s) Start Date: 07/28/22 Stop Date: 08/27/22 Status: Ordered calcium (as carbonate)-vitamin D 600 mg-400 intl units oral tablet 1 tab, Oral, BID, # 60 tab, 11 Refill(s), Pharmacy: [id number], 144, cm, 08/10/22 12:24:00 EST, [...] [facility] Start Date: 08/01/22 Stop Date: 10/25/23 Status: Ordered metFORMIN 500 mg oral tablet 500 mg = 1 tab, Oral, Daily, with meals, # 90 tab, 4 Refill(s), Pharmacy: [facility] Start Date: 08/01/22 Stop Date: 10/25/23 Status: Ordered One-A-Day Women 50 Plus oral tablet 1 tab, Oral, Daily, # 90 tab, 0 Refill(s) Start Date: 07/28/22 Stop Date: 10/26/22 Status: Ordered venlafaxine 225 mg oral tablet, extended release 225 mg = 1 tab, Oral, Daily, # 90 tab, 4 Refill(s), Pharmacy: [facility] Start Date: 08/01/22 Stop Date: 10/25/23 Status: Ordered vitamin E 100 intl units oral capsule 100 IntlUnit = 1 cap, Oral, Daily, # 100 cap, 4 Refill(s), Pharmacy: [facility] Start Date: 08/01/22 Stop Date: 10/25/23 Status: [...] 1auto-populated from documented surgical case 2[place] [facility] 3[place], Dr Puckett 4right arm, Dr Hernadez 5Dr Satya 6left ankle, open Brostrom reconstruction of the lateral ligament 7bilateral Social History Social History Type Response Tobacco Current everyday tob acco user Tobacco Use:. 20 a day per day. 40 year(s). Sex Patient Care team information Care Team Personnel Name: Bradley Shetty DO Position: Physician Member Role: Primary Care Physician Address: Address: [address] [place] [phone] [place]
--- OUTSIDE RECORDS SUMMARY | 2024-02-09 23:13 | XMS_ITS | Continuity of Care Document ---
Author Organization [facility] Address [address] [place] [address] Care Team Providers Care Resident Athletic Trainer Name Role Phone Bradley Shetty DO Primary Care Physician Encounter [facility] [facility] NBR [id number] Date(s): 01/04/23 - 01/04/23 [facility] [address] [place] [address]- [place] Discharge Disposition: Home Allergies, [...] 4 Refill(s), Pharmacy: [id number] Start Date: 08/01/22 Stop Date: [...] 4 Refill(s), Pharmacy: [facility] Start Date: 08/01/22 Stop Date: 10/25/23 Status: Ordered metFORMIN 500 mg oral tablet 500 mg = 1 tab, Oral, Daily, with meals, # 90 tab, 4 Refill(s), Pharmacy: [id number] Start Date: 08/01/22 Stop Date: [...] 4 Refill(s), Pharmacy: [id number] Start Date: 08/01/22 Stop Date: 10/25/23 Status: Ordered vitamin E 100 intl units oral capsule 100 IntlUnit = 1 cap, Oral, Daily, # 100 cap, 4 Refill(s), Pharmacy: [id number] Start Date: 08/01/22 Stop Date: 10/25/23 Status: [...] ligation Completed Mastoidectomy 6 Completed 1sphincter repair, [facility] 2EGD, Dr Puckett 3right arm, Dr Hernadez 4Dr Satya 5left ankle, open Brostrom reconstruction of the lateral ligament 6bilateral Social History Social History Type Response Tobacco Current everyday tob acco user Tobacco Use:. 20 a day per day. Sex Patient Care team information Care Team Personnel Name: Bardley Shetty DO Position: Physician Member Role: Primary Care Physician Address: Address: [address] [place] [phone]
--- OUTSIDE RECORDS SUMMARY | 2024-02-09 23:13 | XMS_ITS | Continuity of Care Document ---
Author Organization [facility] Ambulatory Clinics Address [address] [place] [address] Care Team Providers Care Pediatric Dermatologist Name Role Phone Bradley Shetty DO Primary Care Physician Encounter [facility] NBR [id number] Date(s): 09/07/22 - 09/07/22 [facility] Ambulatory Clinics [address] [place], [place] [address] Encounter Diagnosis Subcutaneous nodule of head(Discharge Diagnosis) - 09/07/22 Discharge Disposition: Home or Self Care Attending Physician: Raya Monte MD Allergies, Adverse Reactions, Alerts Substance Reaction Severity Status amoxicillin 1 Rash Moderate Active sulfa drugs Stomach upset Moderate Active Bactrim Stomach upset Moderate Active 1on hands Assessment and Plan Future Appointments Functional Status 09/07/22 Other exposure to Infectious Disease Non e [...] Daily, # 90 tab, 4 Refill(s), Pharmacy: [id number] Start Date: 08/01/22 Stop Date: 10/25/23 Status: [...] Daily, # 90 cap, 4 Refill(s), Pharmacy: [facility] Start Date: 08/01/22 Stop Date: 10/25/23 Status: Ordered metFORMIN 500 mg oral tablet 500 mg = 1 tab, Oral, Daily, with meals, # 90 tab, 4 Refill(s), Pharmacy: [facility] Start Date: 08/01/22 Stop [...] Daily, # 90 tab, 4 Refill(s), Pharmacy: [facility] 268 Start Date: 08/01/22 Stop Date: 10/25/23 Status: Ordered vitamin E 100 intl units oral capsule 100 IntlUnit = 1 cap, Oral, Daily, # 100 cap, 4 Refill(s), Pharmacy: [facility]1 Start Date: 08/01/22 Stop Date: [...] ligation Completed Mastoidectomy 6 Completed 1sphincter repair, [facility] 2EGD, Dr Puckett 3right arm, Dr Hernadez 4Dr [place] 5left ankle, open Brostrom reconstruction of the lateral ligament 6bilateral Vital Signs Most recent to oldest [Reference Range]: 1 Temperature Temporal Artery [36-38 Deg C ] 37.3 Deg C (09/07/22 2:58 PM) Peripheral Pulse Rate [60-100 bpm] 76 bp m (09/07/22 2:58 PM) Blood Pressure [90-140/60-90 mmHg] 140/7 8mmHg (09/07/22 2:58 PM) Weight 77.11 kg (09/07/22 2:58 PM) Weight Measured (lbs) 169.998 lb (09/07/22 2:58 PM) [place] Body Weight Calculated 45.5 kg (09/07/22 2:58 PM) Height 147.86 cm (09/07/22 2:58 PM) Height/Length Measured (inches) 58.21 in ch (09/07/22 2:58 PM) BSA Measured 1.78 m2 (09/07/22 2:58 PM) Body Mass Index 35.27 kg/m2 (09/07/22 2:58 PM) Social History Social History Type Response Tobacco Current everyday tob acco user Tobacco Use:. 20 a day per day. Sex Patient Care team information Care Team Personnel Name: Bradley Shetty DO Position: Physician Member Role: Primary Care Physician Address: Address: [address] [place] [phone] [place]
--- OUTSIDE RECORDS SUMMARY | 2024-02-09 23:13 | XMS_ITS | Continuity of Care Document ---
Author Organization [facility] Ambulatory Clinics Address [address] [place] [address] Care Team Providers Care Manager Integration Name Role Phone Bradley Shetty DO Primary Care Physician Encounter [facility] NBR [id number] Date(s): 08/18/22 - 08/18/22 [facility] Ambulatory Clinics [address] [place], [place] [address] Encounter Diagnosis Women's annual routine gynecological examination(Discharge Diagnosis) - 08/18/22 Encounter for screening mammogram for malignant neoplasm of breast(Discharge Diagnosis) - 08/18/22 Smoker(Discharge Diagnosis) - 08/18/22 Abnormal Pap smear of cervix(Discharge Diagnosis) - 08/18/22 Cervical high risk human papillomavirus (HPV) DNA test positive(Discharge Diagnosis) - 08/18/22 Functional fecal incontinence(Discharge Diagnosis) - 08/18/22 Nicotine dependence(Discharge Diagnosis) - 08/18/22 Type 2 diabetes mellitus, without long-term current use of insulin(Discharge Diagnosis) - 08/18/22 Discharge Disposition: Home or Self Care Attending Physician: Zeyad Rossi MD, FACOG Allergies, Adverse Reactions, Alerts Substance Reaction Severity Status amoxicillin 1 Rash Moderate Active sulfa drugs Stomach upset Moderate Active Bactrim Stomach upset Moderate Active 1on hands Assessment and Plan Future Appointments Future Scheduled Tests Radiology* MG Mammo Screening Bilateral 08/23/22 Functional Status 08/18/22 Recent Travel History No recent travel Other [...] Daily, # 90 tab, 4 Refill(s), Pharmacy: [facility] Start Date: 08/01/22 Stop Date: [...] Daily, # 90 cap, 4 Refill(s), Pharmacy: [facility] Start Date: 08/01/22 Stop Date: 10/25/23 Status: Ordered metFORMIN 500 mg oral tablet 500 mg = 1 tab, Oral, Daily, with meals, # 90 tab, 4 Refill(s), Pharmacy: [facility] Start Date: 08/01/22 Stop Date: 10/25/23 Status: [...] Daily, # 90 tab, 4 Refill(s), Pharmacy: [id number] Start Date: 08/01/22 Stop Date: 10/25/23 Status: Ordered vitamin E 100 intl units oral capsule 100 IntlUnit = 1 cap, Oral, Daily, # 100 cap, 4 Refill(s), Pharmacy: [id number] Start Date: 08/01/22 Stop Date: [...] long-term current use of insulin Confirmed Active Procedures Procedure Date Related Diagnosis Body Site Status Sling procedure of bladder neck 1 03/22/20 Completed Colonoscopy 2 11/28/16 Completed Placement of stent 03/11/13 Comple maddie Laparoscopic cholecystectomy 05/22/12 Completed Cyst 3 09/17/11 Completed Colonoscopy 4 07/05/09 Completed Arthroscopy 5 03/2007 Completed Bilateral tubal ligation Completed Mastoidectomy 6 Completed 1sphincter repair, [facility] 2EGD, Dr Puckett 3right arm, Dr Hernadez 4Dr Satya 5left ankle, open Brostrom reconstruction of the lateral ligament 6bilateral Vital Signs Most recent to oldest [Reference Range]: 1 Weight 77.7 kg (08/18/22 1:04 PM) Weight Measured (lbs) 171.299 lb (08/18/22 1:04 PM) [place] Body Weight Calculated 45.5 kg (08/18/22 1:04 PM) Height 145 cm (08/18/22 1:04 PM) Height/Length Measured (inches) 57.09 in ch (08/18/22 1:04 PM) BSA Measured 1.77 m2 (08/18/22 1:04 PM) Body Mass Index 36.96 kg/m2 (08/18/22 1:04 PM) Social History Social History Type Response Tobacco Current everyday tob acco user Tobacco Use:. 20 a day per day. Sex Physician Outpatient Note * Zeyad Rossi MD, FACOG: PERFORM Event Display: Office Clinic Note Physician Authored Date: [id number] SOFIE GREER :1965 Age:57 years Sex:Female Visit Date:08/18/2022 Primary Care Physician: Bradley Shetty, DO Chief Complaint Well Woman Exam. ??Bladder getting weaker, sometimes had trouble making it to the bathroom. After going feels like she has to go a bit more. Hx of loose stools, surgery done at [facility]. Wears Depends. History of Present Illness No major changes- still smoking, still fecal incontinence. Unable to empty bladder completely and can go again soon after voiding. No bleeding, not sexually active. Review of Systems See problem list. Physical Exam Vitals & Measurements HT:??145??cm?? WT:??77.7??kg?? BMI:??36.96?? BSA:??1.77?? General: [Alert and oriented, well nourished, no acute distress]. HEENT: [Normocephalic,??bilateral hearing aids,??masked.].?? Neck: [Supple, no thyroid enlargement, no lymphadenopathy]. Lungs: [Clear to auscultation, non-labored respiration, harsh breath sounds and increased AP diameter. ].?? Heart: [Normal rate, regular rhythm, no murmurs].?? Breasts: [symmetrical, no masses, no skin discoloration, no abnormal nipple discharge, no palpable lymphadenopathy] Abdomen: [Soft, non-tender, non-distended, normal bowel sounds, no masses]. Musculoskeletal: [Grossly normal range of motion and strength, no tenderness or swelling]. Skin: [Skin is warm, dry, brown flat rash around lower abdomen in area of Depends elastic.]. Neurologic: [Awake, alert, and??2+ patellar reflexes. ] Psychiatric: [Cooperative, appropriate mood and affect] Vulva:[Gaping introitus, minimal descent of bladder with cough.?? Atrophic changes in vaginal mucosa.??Bartholin???s and Patterson Tract???s glands normal] Bladder:[urethra normal, some 1st degree bladder prolapse] Vagina:[mildly atrophic??mucosa, normal vaginal discharge, 3/5 PC contraction but absent perineal body, replaced by fibrotic tissue, no fistula.] Cervix: [normal appearance, no lesions or lacerations, no pap done since last three normal.] Uterus:[small size, symmetrical shape, non tender, mobile, no prolapse] Adnexa:[no masses or tenderness] Perineum/Anus/Rectal:[no skin changes or hemorrhoids, loss of sphincter anteriorly. Brown stool, nopolyps felt. ] Assessment/Plan 1.??Women's annual routine gynecological examination??Z01.419 Mammogram ordered.?? No pap this year. ?? 2.??Functional fecal incontinence??R15.9 Not much more to do surgically. Can cut back smoking and keep diabetes under control to minimize neurologic deterioration. Depends apparently causing skin irritation- can ask for next shipment to be different band to see if helps.? 3.??Encounter for screening mammogram for malignant neoplasm of breast??Z12.31 Ordered Ordered: MG Mammo Screening Bilateral, 08/23/22, Routine, Reason: breast cancer screening, [facility] will schedule, Consulting Dr: Zeyad Rossi MD, FACOG, Transport Mode: Ambulatory, Encounter for screening mammogram for malignant neoplasm of breast, ABN Status: Not Required ?? 4.??Smoker??F17.200,?? Advised to quit. Might help to not be coughing and more likely to cause fibrosis. Nicotine dependence??F17.200 ?? 5.??Abnormal Pap smear of cervix??R87.619 Pap not due yet. Last three normal. ?? 6.??Cervical high risk human papillomavirus (HPV) DNA test positive??R87.810 ?? 8.??Type 2 diabetes mellitus, without long-term current use of insulin??E11.9 ?? Future Orders MG Mammo Screening Bilateral, 08/23/22, Routine, Reason: breast cancer screening, [facility] will schedule, Consulting Dr: Zeyad Rossi MD, FACOG, Transport Mode: Ambulatory, Encounter for screening mammogram for malignant neoplasm of breast, ABN Status: Not Required Problem List/Past Medical History Ongoing Abnormal Pap [...] without long-term current use of insulin Historical Procedure/Surgical History ???Sling procedure of bladder [...] ADHD - Attention deficit disorder with hyperactivity: Son. Diabetes mellitus: Mother and Sister. Heart disease: Mother. Hypertension: Sister. Mental illness: Son. Family Member(s): ?? FATHER, at age: Unknown. Cause of : in his 60s, cause of unknown Immunizations Vaccine Date Status SARS-CoV-2 (COVID-19) Ad26 vaccine 11/03/2020 Recorded Electronically Signed on 08/18/22 02:15 PM Zeyad Rossi MD, FACOG Patient Care team information Care Team Personnel Name: Bradley Shetty DO Position: Physician Member Role: Primary Care Physician Address: Address: [address] [place] [address]
--- OUTSIDE RECORDS SUMMARY | 2024-02-09 23:13 | XMS_ITS | Continuity of Care Document ---
Author Organization [facility] Address [address] [place] [address] Care Team Providers Care Mileage Clerk Name Role Phone Bradley Shetty DO Primary Care Physician Encounter [facility] NBR [id number] Date(s): 11/20/23 - 11/20/[address] [address]- Encounter Diagnosis Type 2 diabetes mellitus without complications(Final) - Hyperlipidemia, unspecified(Final) - Discharge Disposition: Home or Self Care Attending Physician: Bradley Shetty DO Admitting Physician: Bradley Shetty DO Referring Physician: Bradley Shetty DO Allergies, Adverse Reactions, Alerts Substance Reaction Severity Status amoxicillin 1 Rash Moderate Active sulfa drugs Stomach upset Moderate Active 1on hands Assessment and Plan Future Appointments Future Scheduled Tests Laboratory* Comprehensive Metabolic Panel 08/27/23 * Lipid Panel 08/27/23 * Hgb A1c 08/27/23 Radiology* MG Mammo Screening Bilateral 09/05/24 Immunizations Given [...] Daily, # 90 tab, 4 Refill(s), Pharmacy: [facility], 144.78, cm, 05/31/23 10:27:00 [...] BID, # 60 tab, 11 Refill(s), Pharmacy: [facility], 144, cm, 08/10/22 12:24:00 EST, Height/Length Dosing, [...] Daily, # 90 cap, 4 Refill(s), Pharmacy: [facility] 268 Start Date: 08/01/22 Stop Date: 10/25/23 Status: Ordered metFORMIN 500 mg oral tablet 500 mg = 1 tab, Oral, Daily, with meals, # 90 tab, 4 Refill(s), Pharmacy: [facility] 268, 144.78, cm, 05/31/23 10:27:00 EST, Height, 74.34, [...] food., # 90 tab, 4 Refill(s), Pharmacy: [facility], 144.78, cm, 05/31/23 10:27:00 EST, Height, 74.34, kg, 11/20/23 15:41:00 EDT, Weight Dosing Start Date: 11/20/23 Status: Ordered vitamin E 100 intl units oral capsule 100 IntlUnit = 1 cap, Oral, Daily, # 100 cap, 4 Refill(s), Pharmacy: [id number] Start Date: 08/01/22 [...] 1auto-populated from documented surgical case 2[place]er [place] [facility] 3[place]GD, Dr Puckett 4right arm, Dr Hernadez 5Dr Satya 6left ankle, open Brostrom reconstruction of the lateral ligament 7bilateral Results Laboratory List Name Date Comprehensive Metabolic Panel (CMP) Hgb A1c (Hemoglobin A1C) 11/20/23 Lipid Panel 11/20/23 Most recent to oldest [Reference Range]: 1 BUN [7-25 mg/dL] 17 mg/dL (11/20/23 10:23 AM) Cholesterol Total [<=200 mg/dL] 136 mg/d L (11/20/23 10:23 AM) LDL 59.0 mg/dL 1 *NA* (11/20/23 10:23 AM) Glucose Level [70-109 mg/dL] 131 mg/dL *HI* (11/20/23 10:23 AM) Potassium Level [3.5-5.1 mmol/L] 3.9 mmo l/L (11/20/23 10:23 AM) HDL [23-92 mg/dL] 37 mg/dL (11/20/23 10:23 AM) AST [13-39 IntlUnit/L] 15 IntlUnit/L (11/20/23 10:23 AM) ALT [7-52 IntlUnit/L] 15 IntlUnit/L (11/20/23 10:23 AM) Osmolality [275-295 mOsm/kg] 285 mOsm/kg (11/20/23 10:23 AM) Sodium Level [136-145 mmol/L] 141 mmol/L (11/20/23 10:23 AM) Chol/HDL 3.7 2 *NA* (11/20/23 10:23 AM) Triglycerides [<=150 mg/dL] 198 mg/dL *HI* (11/20/23 10:23 AM) Calcium Level [8.6-10.3 mg/dL] 10.1 mg/d L (11/20/23 10:23 AM) Albumin Level [3.5-5.7 g/dL] 4.0 g/dL (11/20/23 10:23 AM) Protein Total [6.4-8.9 g/dL] 6.6 g/dL (11/20/23 10:23 AM) Bilirubin Total [0.3-1.0 mg/dL] 0.4 mg/d L (11/20/23 10:23 AM) Alk Phos [34-104 IntlUnit/L] 69 IntlUnit /L (11/20/23 10:23 AM) CO2 [21-31 mmol/L] 32 mmol/L *HI* (11/20/23 10:23 AM) Chloride Level [98-107 mmol/L] 103 mmol/ L (11/20/23 10:23 AM) A/G Ratio [1.0-2.5 g/dL] 1.5 g/dL (11/20/23 10:23 AM) BUN/Creat Ratio [8.0-20.0] 24.3 *HI* (11/20/23 10:23 AM) Globulin [2.3-3.5 g/dL] 2.6 g/dL (11/20/23 10:23 AM) Hgb A1c Percent [4.0-6.0 %] 6.5 % *HI* (11/20/23 10:23 AM) Creatinine Level [0.60-1.20 mg/dL] 0.70 mg/dL (11/20/23 10:23 AM) Anion Gap [3.0-12.0] 6.0 (11/20/23 10:23 AM) eGFR CKD-EPI [>=60 mL/min/1.73 m2] 100 m L/min/1.73 m2 (11/20/23 10:23 AM) 1Interpretive Data: Optimal: Less than 100 mg/dL Above Optimal: 100 - 129 mg/dL Borderline High: 130 - 159 mg/dL High: 160 - 189 mg/dL Very High: > or = 190 mg/dL 2Interpretive Data: RISK MALE FEMALE 1/2 average 3.4 3.3 Average 5.0 4.4 2x Average 9.6 7.1 3x Average 23.4 11.0 Social History Social History Type Response Tobacco Current everyday tob acco user Tobacco Use:. 20 a day per day. 40 year(s). Sex Patient Care team information Care Team Personnel Name: Bradley Shetty DO Position: Physician Member Role: Primary Care Physician Address: Address: [address] [place] [phone]
--- OUTSIDE RECORDS SUMMARY | 2024-02-09 23:14 | XMS_ITS | Continuity of Care Document ---
Author Organization [facility] Ambulatory Clinics Address [address] [place] [address] Care Team Providers Care Squeezer Operator Name Role Phone Bradley Shetty DO Primary Care Physician [phone] Encounter [facility] NBR [id number] Date(s): 08/22/23 - 08/22/23 [facility] Ambulatory Clinics [address] [place] [address]- Discharge Disposition: Home Allergies, Adverse Reactions, Alerts [...] Daily, # 90 tab, 4 Refill(s), Pharmacy: [id number] Start Date: 08/01/22 Stop Date: 10/25/23 Status: Ordered Benadryl 25 mg oral capsule 50 mg = 2 cap, Oral, Daily, PRN as needed for allergy symptoms, # 60 tab, 0 Refill(s) Start Date: 07/28/22 Stop Date: 08/27/22 Status: Ordered calcium (as carbonate)-vitamin D 600 mg-400 intl units oral tablet 1 tab, Oral, BID, # 60 tab, 11 Refill(s), Pharmacy: [facility], 144, cm, 08/10/22 12:24:00 [...] Daily, # 90 cap, 4 Refill(s), Pharmacy: [facility] Start Date: 08/01/22 Stop Date: 10/25/23 Status: Ordered metFORMIN 500 mg oral tablet 500 mg = 1 tab, Oral, Daily, with meals, # 90 tab, 4 Refill(s), Pharmacy: [facility] Start Date: 08/01/22 Stop Date: 10/25/23 Status: Ordered One-A-Day Women 50 Plus oral tablet 1 tab, Oral, Daily, # 90 tab, 0 Refill(s) Start Date: 07/28/22 Stop Date: 10/26/22 Status: Ordered venlafaxine 225 mg oral tablet, extended release 225 mg = 1 tab, Oral, Daily, # 90 tab, 4 Refill(s), Pharmacy: [facility] Start Date: 08/01/22 Stop Date: 10/25/23 Status: Ordered vitamin E 100 intl units oral capsule 100 IntlUnit = 1 cap, Oral, Daily, # 100 cap, 4 Refill(s), Pharmacy: [facility] Start Date: 08/01/22 Stop Date: 10/25/23 [...] 1auto-populated from documented surgical case 2sphincter repair, [facility] 3EGD, Dr Puckett 4right arm, Dr Hernadez 5Dr [place] 6left ankle, open Brostrom reconstruction of the lateral ligament 7bilateral Social History Social History Type Response Tobacco Current everyday tob acco user Tobacco Use:. 20 a day per day. 40 year(s). Sex Patient Care team information Care Team Personnel Name: Bradley Shetty DO Position: Physician Member Role: Primary Care Physician Address: Address: [address] [place] [phone] [place]
--- OUTSIDE RECORDS SUMMARY | 2024-02-09 23:14 | XMS_ITS | Continuity of Care Document ---
Author Organization [facility] Address [address] [place] [address] Care Team Providers Care Security Management Specialist Name Role Phone Bradley Shetty DO Primary Care Physician Encounter [facility] NBR [id number] Date(s): 08/23/22 - 08/23/[address] [address]- Discharge Disposition: Home or Self Care Attending Physician: Zeyad Rossi MD, FACOG Admitting Physician: Zeyad Rossi MD, FACOG Referring Physician: Zeyad Rossi MD, FACOG Allergies, Adverse [...] Daily, # 90 tab, 4 Refill(s), Pharmacy: [id number] Start Date: 08/01/22 Stop [...] Daily, # 90 cap, 4 Refill(s), Pharmacy: [facility] Start Date: 08/01/22 Stop Date: 10/25/23 Status: Ordered metFORMIN 500 mg oral tablet 500 mg = 1 tab, Oral, Daily, with meals, # 90 tab, 4 Refill(s), Pharmacy: [facility] Start Date: 08/01/22 Stop Date: 10/25/23 [...] Daily, # 90 tab, 4 Refill(s), Pharmacy: [facility] Start Date: 08/01/22 Stop Date: 10/25/23 Status: Ordered vitamin E 100 intl units oral capsule 100 IntlUnit = 1 cap, Oral, Daily, # 100 cap, 4 Refill(s), Pharmacy: [facility] Start Date: 08/01/22 Stop Date: 10/25/23 [...] ligation Completed Mastoidectomy 6 Completed 1[place] [facility] [place]GD, Dr Puckett 3right arm, Dr Hernadez 4Dr [place] 5left ankle, open Brostrom reconstruction of the lateral ligament 6bilateral Results Radiology Reports * Exam Date Time Procedure Performing Provider Status 08/23/22 2:55 PM MG Mammo Screening Bilateral Deepa Santo; Auth (Verified) Notes: (MG Mammo Screening Bilateral) Reason For Exam: breast cancer screening MG Mammo Screening Bilateral EXAM DESCRIPTION: MG Mammo Screening Bilateral 08/23/2022 INDICATION: BREAST CANCER SCREENING COMPARISON: 09/02/2020 and 12/17/2017 BREAST DENSITY: There are scattered areas of fibroglandular density. FINDINGS: MLO and CC views were performed with digital breast tomosynthesis. Images were reviewed using computer aided detection. No asymmetry, architectural distortion or suspicious grouping of calcifications to suggest malignancy in either breast. Small focal asymmetries in the left upper outer quadrant region without significant change to prior studies consistent with benign etiology. ASSESSMENT: No mammographic evidence of malignancy. Benign findings. BI-RADS category 2. RECOMMENDATION: Screening mammography in 1 year JOB #: [id number] Final Signed by: William Miller MD Signed (Electronic Signature): 08/23/2022 3:04 pm Social History Social History Type Response Tobacco Current everyday tob acco user Tobacco Use:. 20 a day per day. Sex MG Breast - bilateral Screening * William Miller MD: VERIFY, VERIFY Event Display: Report EXAM DESCRIPTION: MG Mammo Screening Bilateral 08/23/2022 INDICATION: BREAST CANCER SCREENING COMPARISON: 09/02/2020 and 12/17/2017 BREAST DENSITY: There are scattered areas of fibroglandular density. FINDINGS: MLO and CC views were performed with digital breast tomosynthesis. Images were reviewed using computer aided detection. No asymmetry, architectural distortion or suspicious grouping of calcifications to suggest malignancy in either breast. Small focal asymmetries in the left upper outer quadrant region without significant change to prior studies consistent with benign etiology. ASSESSMENT: No mammographic evidence of malignancy. Benign findings. BI-RADS category 2. RECOMMENDATION: Screening mammography in 1 year JOB #: [id number] Final Signed by: William Miller MD Signed (Electronic Signature): 08/23/2022 3:04 pm Patient Care team information Care Team Personnel Name: Bradley Shetty DO Position: Physician Member Role: Primary Care Physician Address: Address: [address] [place] [phone] [place]
--- OUTSIDE RECORDS SUMMARY | 2024-02-09 23:14 | XMS_ITS | Encounter Summary ---
Author Organization [facility] [place] [address] Care Team Providers Care Therapeutic Radiologist Name Role Phone Bradley Judd DO Primary Care Provider [phone] Reason for Visit * Reason Comments Establish Care * Consultation (Routine) - Closed Specialty Diagnoses / Procedures Referred By Madeleine candelaria Referred To Contact Obstetrics and Gynecology Diagnoses Full incontinence-feces Urogyn [facility] [place] FECAL INCONTINENCE S/P ANAL SPHINCTEROPLASTY IN [id number]. IS DECLINING PT, RECENT COLO UNREMARKABLE Yarely Russ W, GENERAL SUPERINTENDENT [address] [place] [address] Helio Arguello MD [facility] OBSTETRICS [place] [address] Referral ID Status Reason Start Date Expiration Date V isits Requested Visits Authorized [id number] Closed Consult, Test & Treat PCP Updated and/or Approved 2023 06/05/2024 6 6 Encounter Details Date Type Department Care Team (Late st Contact Info) Description 08/21/2023 1:00 PM EST Office Visit Obstetrics [place] [address] Helio Arguello MD [facility] OBSTETRICS [place] [address] Full incontinence of feces (Primary Dx); Urinary incontinence, urge Social History Tobacco Use Types Packs/Day Years Used Date Smoking Tobacco: Every Day Cigarettes 1 37 Smokeless Tobacco: Never Alcohol Use Standard Drinks/Week Comments Not Currently 0 (1 standard drink = 0.6 oz pur e alcohol) Sex and Gender Information Value Date Recorded Sex Assigned at Female 10/30/2022 5:17 PM EDT Gender Identity Female 10/30/2022 5:17 PM EDT Sexual Orientation Lesbian or Jj 10/30/2022 5: 17 PM EDT Sexual Orientation Straight 10/30/2022 5: 17 PM EDT documented as of this encounter Last Filed Vital Signs Vital Sign Reading Time Taken Comments Blood Pressure 134/68 08/21/2023 12:50 PM EST Pulse 93 08/21/2023 12:50 PM EST Temperature 36.1 ??C (96.9 ??F) 08/21/2023 12:[address] Respiratory Rate - - Oxygen Saturation 100% 08/21/2023 12:50 PM EST Inhaled Oxygen Concentration - - Weight 75.1 kg (165 lb 9.6 oz) 08/21/2023 12:50 PM EST Height 144.8 cm (4' 9) 08/21/2023 12:50 PM EST Body Mass Index 35.84 08/21/2023 12:50 PM EST documented in this encounter Progress Notes * Helio Arguello MD - 08/21/2023 1:00 PM EST Female Pelvic Medicine and Reconstructive Surgery @ [facility] Patient Name: Tracy Harmon Patient Primary Care Provider: Bradley Judd DO Patient Active Problem List Diagnosis Code GERD (gastroesophageal reflux disease) K21.9 IBS (irritable bowel syndrome) K58.9 Hearing loss H91.90 Seasonal allergies J30.2 Sleep apnea G47.30 Fecal incontinence R15.9 Mixed stress and urge urinary incontinence N39.46 Diabetes mellitus E11.9 Incontinence of feces with fecal urgency R15.9, R15.2 Chief Complaint: incomplete bladder emptying History of Present Illness: Ms. Harmon is a 58 y.o. old para 2 woman, seen at the kind request of Yarely Russ. She was last evaluated by Janae Rizvi in 2020. Hx of TOT mid-urethral polypropylene sling (placed 03/23/2020). Hx of anal sphincteroplasty. Last colonoscopy (04/2023) showed diverticulosis, serrated polyps (largest 8 mm in size) with benign final pathology, random colonic biopsies with no evidence of microscopic colitis. Inability to hold bladder. She presents for evaluation and assessment of ongoing accidental bowel leakage associated with urgency and also urinary incontinence with urgency. She has some leaking of urine with cough, sneeze. . Goals for this visit 1. Urge incontinence 2. Stress incontinence 3. Difficulty empyting Urinary tract history Patient denies history of recurrent urinary tract infection. Patient denies history of pyelonephritis. Patient denies history of urinary tract abnormality. Patient remote remote history of nephrolithiasis. It passed spontaneously. Patient denies history of hematuria. Bladder irritants: Fluid intake: limited fluid intake Caffeine intake: 1 cup/day, decaf at night time occasionally. Cigarette smoking (packs, time, if quit when): current 1ppd smoker. Interested in cutting down. Alcohol: denies Bladder Function Urinary incontinence: yes ICIQ-UI Short Form How often do you leak urine? Never 0 About once a week or less often 1 2-3 times a week 2 About once a day 3 X Several times a day 4 All the time 5 How much urine do you usually leak? None 0 X A small amount 1 A moderate amount 2 A large amount 3 Overall, how much does leaking interfere with your everyday life? 8/10 (0 not at all, 10 a great deal) ICIQ Sum the scores: 5 When does urine leak? (Check all that apply) Never - Urine does not leak X Leaks before you can get to the toilet X Leaks when you cough or sneeze Leaks when you are asleep Leaks when you are physically active/exercising X Leaks when you have finished urinating or are dressed Leaks for no obvious reason Leaks all the time Pad use (per day): yes, 1-2/day Pad type: Depend underwear Daytime voids: yes, 7x/d Nocturia: denies Previous urinary incontinence treatment (Medical/Behavioral/Surgical): prior sling Storage symptoms Urinary frequency Nocturia X Stress urinary incontinence - leakage with exertion, cough/sneeze Urge urinary incontinence - leakage preceded immediately by urge to void Noctural enuresis - NOT IN ASSOCIATION WITH URGE Continuous urinary leakage Other: (e,g. giggle, intercourse-related) Bladder sensation X Normal - aware of filling and increased sensation up to desire to void Increased - feels an early and persistent need to void Reduced - aware of filling but NOT definite desire to void Absent - NO sensation of filling or need to void Non-specific - No specific bladder symptoms during filling or void Voiding symptoms None Slow stream Spraying Intermittent stream - stop/start on > 1 occasion during void Straining - muscular effort to initiate, maintain OR improve stream Terminal dribble - prolonged final part of void X Feeling of incomplete emptying Pelvic Organ Prolapse (POP) Any personally see or feel a vaginal bulge? No What precipitates prolapse or symptoms of prolapse? Denies Previous treatment for POP (physical therapy, pessary, surgery)?: no, anal sphincteroplasty Bowel Function Fecal incontinence (yes/no): yes Number of fecal incontinent episodes (day/week): couple times/ week Number of bowel movements (day/week): soft stool 3-4/day, no stool softener use Defecatory Dysfunction: Symptom Presence Symptom Presence NONE Incomplete Emptying Straining Infrequent stools (<3 week) Splinting Abdominal discomfort Loose stools Defecatory urgency XXX Hard stools Other Sexual Function Active?: not currently, low libido, has a partner Pain with intercourse?: denies If yes, insertional/Deep? denies Desire to retain sexual function? NO Past Medical History: Diagnosis Date Anal sphincter incontinence Diabetes mellitus GERD (gastroesophageal reflux disease) Hearing loss Wears hearing aids IBS (irritable bowel syndrome) Seasonal allergies Sleep apnea 2011 using CPAP Hearing loss - both sides wear hearing aid RADHA-nightly CPAP Past Surgical History: Procedure Laterality Date ANKLE SURGERY Left CHOLECYSTECTOMY, LAPAROSCOPIC 06/18/2011 ELBOW SURGERY Left fracture MASTOIDECTOMY PRO REPAIR OF ANAL SPHINCTER, ADULT N/A 03/23/2020 SPHINCTEROPLASTY, ANAL, ADULT (WRVU 12.15) performed by Helio Arguello MD at [facility] MAIN OR PRO SLING OPER STRES INCONTINENCE N/A 03/23/2020 URETHRAL SUSPENSION, SLING\FASCIA OR SYNTHETIC (WRVU 12.13) performed by Helio Arguello MD at [facility] MAIN OR STAPEDES SURGERY TUBAL LIGATION OB History Para Term AB Living 3 2 1 1 1 2 SAB IAB Ectopic Multiple Live Births 1 0 0 0 0 # Outcome Date GA Lbr Ted/2nd Weight Sex Delivery Anes PTL Lv 3 2 SAB 1 Term 2.296 kg (5 lb 1 oz) Vag-Spont - SVDx 2, biggest 5 lb. 3rd degree tear that precipitated incontinence. Outpatient Medications Marked as Taking for the 08/21/23 encounter (Office Visit) with Helio Arguello MD Medication Sig Dispense Refill clobetasoL (Temovate) 0.05 % Ointment Apply twice a day to the affected areas on the hands 1 week on and 1 week off as needed 60 g 5 folic acid (Folvite) 1 mg Tablet Take 1 tablet by mouth daily. 90 tablet 3 cholecalciferol, Vitamin D3, 25 mcg (1,000 unit) Capsule Take 1,000 Units by mouth daily. vitamin E 45 mg (100 unit) Capsule Take by mouth daily. Venlafaxine 225 mg Tablet Extended Rel 24 hr Take 225 mg by mouth daily. mometasone (ELOCON) 0.1 % Cream APPLY CREAM TOPICALLY ONCE DAILY TO RIGHT CONCHAL BOWL AND EXTERNALCANAL WITH FINGERTIP FOR 7 DAYS clotrimazole (LOTRIMIN) 1 % Cream APPLY CREAM TOPICALLY TWICE DAILY TO RIGHT EAR CANAL AND CONCHAL BOWL FOR 14 DAYS apremilast (Otezla Starter) 10 mg (4)-20 mg (4)-30 mg (47) Tablets, Dose Pack Take as directed by package instructions 55 tablet 0 apremilast (Otezla) 30 mg Tablet Take 30 mg by mouth 2 times daily. 60 tablet 5 acetaminophen (Tylenol) 325 mg Tablet Take 2 tablets by mouth every 6 hours as needed for Pain. 30 tablet 1 atorvastatin (Lipitor) 10 mg Tablet TAKE 1 TABLET BY MOUTH ONCE DAILY cyanocobalamin, vitamin B-12, 1,000 mcg Tablet Take 1,000 mcg by mouth daily. calcium carbonate (CALCIUM 500 ORAL) Take by mouth. metFORMIN (GLUCOPHAGE) 500 mg Tablet Take 500 mg by mouth daily. vitamin E 100 unit Capsule Take 100 Units by mouth daily. famotidine (PEPCID) 20 mg Tablet Take 20 mg by mouth 2 times daily. multivitamin (THERAGRAN) Tablet Take 1 tablet by mouth daily. diphenhydrAMINE (BENADRYL) 50 mg Capsule Take 50 mg by mouth every 6 hours as needed for Itching. pseudoephedrine (SUDAFED) 30 mg Tablet Take 30 mg by mouth every 4 hours as needed for Congestion. Allergies Allergen Reactions Bactrim [Sulfamethoxazole-Trimethoprim] Stomach pain Sulfa (Sulfonamide Antibiotics) CIS - STOMACH PAIN Social History Socioeconomic History Marital status: Spouse name: Not on file Number of children: Not on file Years of education: Not on file Highest education level: Not on file Occupational History Not on file Tobacco Use Smoking status: Every Day Packs/day: 1.00 Years: 37.00 Additional pack years: 0.00 Total pack years: 37.00 Types: Cigarettes Smokeless tobacco: Never Vaping Use Vaping Use: Never used Substance and Sexual Activity Alcohol use: Not Currently Drug use: Not Currently Sexual activity: Not Currently Partners: Male Other Topics Concern Not on file Social History Narrative She is trying to get disability and has been out of work since 2018. She lives with her , Azam, and with her mother. Social Determinants of Health Financial Resource Strain: Not on file Food Insecurity: Not on file Transportation Needs: Not on file Physical Activity: Not on file Intimate Partner Violence: Not on file Housing Stability: Not on file Family History Problem Relation Age of Onset Diabetes Mother Stroke Mother Cerebrovascular Accident Mother Type 2 Diabetes Mother Diabetes Sister High Blood Pressure Sister Other Sister Coliitis Breast Cancer Neg Hx Uterine Cancer Neg Hx Ovarian Cancer Neg Hx Colorectal Cancer Neg Hx Pancreatic Cancer Neg Hx Family history: denies history of gynecologic cancer ROS: Review of all other systems negative except for those mentioned above or indicated below: System Symptom Presence Constitutional Weight Loss Wt loss 10 lb due to lack of appetite Weight gain Eyes History of glaucoma ENT/Mouth Mouth sores/Dry mouth Cardiovascular Chest pain Leg swelling Respiratory Wheezing SOB GI Nausea/vomiting Constipation Abdominal pain Skin/Breast Breast masses Rash/ulcer Musculoskeletal Muscle weakness Trouble Walking Can't walk too far due to exertional SOB Neurological Dizziness/falling Numbness Psychiatric Depression Yes, taking velafaxine Anxiety Endocrine Abnormal thirst Menopause: Y/N / age? Age late 40s. Denies PMB. Hot flashes Recently resumed Hematologic Frequent bruising History of blood transfusions Denies Blood clots (DVT / PE) Denies Prior problems w/ anesthesia Denies Last Pap smear: Hx of abnormal pap. Last pap was 1 yr ago, result reportedly normal. Outside medical records reviewed: yes Data reviewed (images/urodynamic studies): To further delineate patient's urinary symptoms, a urinedip test and postvoid residual via bladder scanner were obtained. US PVR 100, straight catheterized 100 cc, POC UA negative from straight catheter sample Results for orders placed or performed in visit on 08/21/23 POCT urine dipstick Result Value Ref Range POC Sp Troutman 1.015 1.002 - 1.030 POC pH, UA 5.0 5.0 - 8.5 POC Leuk, UA negative Negative - Negative POC Nitrite, UA negative Negative - Negative POC Protein, UA normal Negative - Negative mg/dL POC Glucose, UA normal Normal - Normal mg/dL POC Ketone, UA negative Negative - Negative POC Urobil, UA normal 0.2 - 1.0 mg/dL POC Bili, UA negative Negative - Negative POC Blood, UA negative Negative - Negative terrence/uL Bladder Scanner Result Value Ref Range Bladder Scan (mL) 100 mL Results for orders placed or performed in visit on 08/21/23 POCT urine dipstick Result Value Ref Range POC Sp Troutman 1.015 1.002 - 1.030 POC pH, UA 5.0 5.0 - 8.5 POC Leuk, UA negative Negative - Negative POC Nitrite, UA negative Negative - Negative POC Protein, UA normal Negative - Negative mg/dL POC Glucose, UA normal Normal - Normal mg/dL POC Ketone, UA negative Negative - Negative POC Urobil, UA normal 0.2 - 1.0 mg/dL POC Bili, UA negative Negative - Negative POC Blood, UA negative Negative - Negative terrence/uL Bladder Scanner Result Value Ref Range Bladder Scan (mL) 100 mL PROCEDURE NOTE: Straight catheterization Straight catheterization was performed after verbal consent. The urethra was first prepped with Betadine and a 14 Fr [place] female catheter passed. PVR was 100 mL. I was the attending physician supervising the resident in the above care and I was present with theresident for the entire procedure. OBJECTIVE: BP 134/68 Pulse 93 Temp 36.1 ??C (96.9 ??F) Ht 144.8 cm (4' 9) Wt 75.1 kg (165 lb 9.6 oz) SpO2 100% BMI 35.84 kg/m?? General: normal appearing female, pleasant mood, normal speech Skin: skin of abdomen/pelvis normal Neuro: no paraspinous tenderness; saddle sensory function (S2-4) intact in the pelvic area to touch Gastrointestinal: no palpable masses/organomegaly, soft/nontender, no appreciable hernia Musculoskeletal: levator ani tone (0-5): 0, levator ani contraction (0-5): 2/5, non levator tenderness; lower extremity motor 5/5 bilaterally Pelvic: Cough stress test (empty supine): negative External Genitalia: Vulva with thin perineum, 1 cm bridge between vagina and anus. [place]'s and Bartholin glands normal, urethra without tenderness or mass Vagina: With Valsalva, the anterior vaginal wall comes 3 cm above the hymen, the posterior vagina wall comes 3 cm above the hymen, and the cervix/apex comes 6 cm above the hymen Atrophic epithelium (yes/no)?: no Discharge?: none Cervix: normal without abnormal lesion Bimanual (uterus/adnexa): small mobile uterus Rectovaginal: Enterocele: none Rectocele: none Anal sphincter: Resting tone: 2-3/5 Anal wink: diminished External anal sphincter: thin anterior, but still bridge that is intact POP Q Measurements: Aa -3 Ba -3 C -6 GH Restin Strain: 3 PB Rest: 1 Strain: 1 TVL 7 Ap -3 Bp -3 D -7 Impression: Ms. Harmon is a .58 y.o. woman with: Mixed urinary incontinence, features of both stress, overactive, and urge incontinence. Fecal incontinence, suspected due to internal anal sphincter weakness. Recommendations: I reviewed the anatomy and physiology of bowel continence, urinary continence. We discussed optionsfor management including: Continued observation, pelvic floor exercises (supervised or unsupervised), pessary and/or surgery. Based on the patients expressed goals for management I have recommended the following: Urodynamic Testing to investigate for detrusor activity, stress incontinence and difficulty voiding. Will plan on uroflowmetry, subtracted cystometrogram and voiding pressure-flow study. Neuro stimulator was recommended over conservative symptoms given combination of fecal and urinary incontinence. Madison Ron MD, PGY3, image archivist I have seen the patient in person and reviewed the resident's above history and I agree with the details as written. The assessment and plan were formulated in discussion with me and I agree with them as documented. Pertinent History: Ms. Harmon is a 58 year old woman known to me. She is s/p overlapping anal sphincteroplasty, mid-urethral trans-obturator sling placement, 03/23/2020. She has persistent anal incontinence with urgency. She also has urinary incontinence, with urge and sudden flooding. She also feelsincomplete bladder emptying and has leaking with cough and sneeze on occasion. Pertinent Exam: I was present for the exam with Dr. Ron and repeated it. I performed the rectal exam as documented above. Major issues addressed: Urinary incontinence, urge-predominant by history. Some incomplete bladder emptying, confirmed by catheterization. Accidental bowel leakage, low resting tone. Plan: Set up urodynamic testing. If no evidence for obstruction, consider peripheral nerve evaluation (PNE), sacral nerve roots. Patient was given a diary to record symptoms for bladder bowel. (x) ACOG or other informational pamphlets given to patient HELIO ARGUELLO MD Division of Female Pelvic Medicine/Reconstructive Surgery CC: DO Yarely Adam APRN documented in this encounter Plan of Treatment Upcoming Encounters Date Type Department Care Team (Late st Contact Info) Description 05/01/2024 1:00 PM EST TH Visit (TeleHealth) Obstetrics [place] [address] Helio Arguello MD [facility] DR OBSTETRICS [place] [address] documented as of this encounter Procedures Procedure Name Priority Date/Time Associated Diagnosis Comments BLADDER SCANNER Routine 08/21/2023 Urinary incontinence, urge POCT URINE DIPSTICK Routine 08/21/2023 Urinary incontinence, urge documented in this encounter Results * Bladder Scanner (08/21/2023) Bladder Scan (mL) 100 mL Helio Arguello MD URO PROC W/O RFL ORD ERABLES * POCT urine dipstick (08/21/2023) POC Sp Troutman 1.015 1.002 - 1.030 POC pH, UA 5.0 5.0 - 8.5 POC Leuk, UA negative Negative - Negative POC Nitrite, UA negative Negative - Negative POC Protein, UA normal Negative - Negative mg/dL POC Glucose, UA normal Normal - Normal mg/dL POC Ketone, UA negative Negative - Negative POC Urobil, UA normal 0.2 - 1.0 mg/dL POC Bili, UA negative Negative - Negative POC Blood, UA negative Negative - Negative terrence/uL Helio Arguello MD POINT OF CARE TEST O RDERABLES documented in this encounter Visit Diagnoses Diagnosis Full incontinence of feces- Primary Urinary incontinence, urge Urge incontinence documented in this encounter Care Teams Therapeutic Radiologist Relationship Specialty Start Date End Date Bradley Judd DO [address] [place] [address] PCP - General Family Medicine 10/28/18 documented as of this encounter
--- OUTSIDE RECORDS SUMMARY | 2024-02-09 23:14 | XMS_ITS | Continuity of Care Document ---
Author Organization [facility] Ambulatory Clinics Address [address] [place] [address] Care Team Providers Care Heeler Name Role Phone Bradley Shetty DO Primary Care Physician Encounter [facility] NBR [id number] Date(s): 02/13/23 - 02/13/23 [facility] Ambulatory Clinics [address] [place], [place] [address] Encounter Diagnosis Change in bowel habits(Discharge Diagnosis) - 02/13/23 Colon cancer screening(Discharge Diagnosis) - 02/13/23 GERD without esophagitis(Discharge Diagnosis) - 02/13/23 Discharge Disposition: Home or Self Care Attending Physician: Yarely Russ APRN Allergies, Adverse Reactions, Alerts Substance Reaction Severity Status amoxicillin 1 Rash Moderate Active sulfa drugs Stomach upset Moderate Active Bactrim Stomach upset Moderate Active 1on hands Assessment and Plan Future Appointments Functional Status 02/13/23 Other exposure to Infectious Disease Non e [...] Daily, # 90 tab, 4 Refill(s), Pharmacy: [id number] Start Date: 08/01/22 Stop Date: 10/25/23 Status: Ordered Benadryl 25 mg oral capsule 50 mg = 2 cap, Oral, Daily, PRN as needed for allergy symptoms, # 60 tab, 0 Refill(s) Start Date: 07/28/22 Stop Date: 08/27/22 Status: Ordered calcium (as carbonate)-vitamin D 600 mg-400 intl units oral tablet 1 tab, Oral, BID, # 60 tab, 11 Refill(s), Pharmacy: [place] [id number], 144, cm, 08/10/22 12:24:00 EST, Height/Length Dosing, [...] Daily, # 90 cap, 4 Refill(s), Pharmacy: [facility] Start Date: 08/01/22 Stop Date: 10/25/23 Status: Ordered metFORMIN 500 mg oral tablet 500 mg = 1 tab, Oral, Daily, with meals, # 90 tab, 4 Refill(s), Pharmacy: [facility] Start Date: 08/01/22 Stop Date: 10/25/23 Status: Ordered One-A-Day Women 50 Plus oral tablet 1 tab, Oral, Daily, # 90 tab, 0 Refill(s) Start Date: 07/28/22 Stop Date: 10/26/22 Status: Ordered venlafaxine 225 mg oral tablet, extended release 225 mg = 1 tab, Oral, Daily, # 90 tab, 4 Refill(s), Pharmacy: [facility] Start Date: 08/01/22 Stop Date: 10/25/23 Status: Ordered vitamin E 100 intl units oral capsule 100 IntlUnit = 1 cap, Oral, Daily, # 100 cap, 4 Refill(s), [id number] Start Date: 08/01/22 Stop Date: [...] ligation Completed Mastoidectomy 6 Completed 1sphincter repair, [facility] 2EGD, Dr Puckett 3right arm, Dr Hernadez 4Dr Satya 5left ankle, open Brostrom reconstruction of the lateral ligament 6bilateral Vital Signs Most recent to oldest [Reference Range]: 1 Temperature Temporal Artery [36-38 Deg C ] 36.4 Deg C (02/13/23 1:35 PM) Apical Heart Rate [60-100 bpm] 121 bpm *HI* (02/13/23 1:35 PM) Blood Pressure [90-140/60-90 mmHg] 109/6 8mmHg (02/13/23 1:35 PM) Weight 75.48 kg (02/13/23 1:35 PM) Weight Measured (lbs) 166.405 lb (02/13/23 1:35 PM) [place] Body Weight Calculated 45.5 kg (02/13/23 1:35 PM) Height 149.86 cm (02/13/23 1:35 PM) Height/Length Measured (inches) 59 inch (02/13/23 1:35 PM) BSA Measured 1.77 m2 (02/13/23 1:35 PM) Body Mass Index 33.61 kg/m2 (02/13/23 1:35 PM) Social History Social History Type Response Tobacco Current everyday tob acco user Tobacco Use:. 20 a day per day. Sex Physician Outpatient Note * Yarely Russ APRN W: PERFORM Event Display: Office Clinic Note Physician Authored Date: [id number] PERCY SOFIE :1965 Age:57 years Sex:Female Visit Date:02/13/2023 Primary Care Physician: Bradley Shetty DO Chief Complaint Precolonoscopy consult History of Present Illness Patient is a 57-year-old female here today at the request of for a precolonoscopy consult.?? This is an initial consult.?? Patient states??she is due for colonoscopy for colon cancer screening.?? Since her last colon colonoscopy she had??bowel and bladder surgery to help with incontinence. ??She continues with fecal incontinence. ??She states she does have episodes where she is ableto??make it to the bathroom.?? Her stools are [place] form 4. ??Denies melena or hematochezia. ??Her weight and appetite are stable.?? Denies any abdominal pain.?Takes Pepcid daily for pyrosis??with good relief. ??Denies any dyspepsia, dysphagia or globus sensation. ? 11/29/2016 patient had a EGD showing a 2 cm hiatal hernia??and erosive??peptic??duodenitis.?? There was??nonspecific changes suggesting the possibility of??celiac disease.?? No Seaman's esophagus seen. ??Mild chronic gastritis and mild reflux changes noted. ?? Colonoscopy on 11/29/2016 showed a 3??sigmoid polyp??that was a sessile serrated polyp. ??There was small internal hemorrhoids seen. ?? Denies a family history of gastrointestinal cancers, inflammatory bowel disease or celiac disease. Review of Systems General: Denies malaise or fatigue. HEENT: Denies globus sensation or dysphagia. Respiratory: Denies shortness of breath, cough, or wheeze. Cardiovascular: Denies chest pain, palpitations, lightheadedness, dizziness, syncope or peripheral edema. ?? Abdomen:??Complains of fecal incontinence.?? Denies any abdominal pain, nausea, vomiting, constipation, diarrhea,??melena or hematochezia. ??Weight and appetite are stable.?? Has pyrosis if misses a dose of??Pepcid. ??Denies dyspepsia. Skin: Denies rashes or lesions. Neurological: Denies any problems with gait or balance. Physical Exam Vitals & Measurements T:??36.4?C ??(Temporal Artery)?? HR:??121??(Apical)?? BP:??109/68?? SpO2:??98%?? HT:??149.86??cm?? WT:??75.48??kg?? BMI:??33.61?? BSA:??1.77?? General: Well-nourished well-developed??female??in no acute distress. HEENT: Head is normocephalic, trachea midline, and no cervical lymphadenopathy. Respiratory: Respirations are even and unlabored. ??Lungs are clear to auscultation. Cardiovascular: Regular rate and rhythm with S1 and S2. Abdomen: Positive bowel sounds x4 quadrants, no masses, no guarding, no tenderness. ??No hepatosplenomegaly. ??Abdomen is soft. Skin: Warm, dry, and pink. Neurological: Alert and oriented x3, speech is clear and gait is steady. Psychological: Pleasant, calm and cooperative. Assessment/Plan 1.??Change in bowel habits??R19.4 Since??bowel and bladder surgery.?? We will get records from previous surgery at [facility].?? Patient states she has tried pelvic floor physical therapy in the past??and cannot??get herself engaged in theprocess.?? Check celiac panel as previous EGD??suggested possibility??of??celiac disease. Ordered: Celiac Disease Comprehensive LC, Blood, Routine, 02/13/23, Once, Lab Collect, Change in bowel habits, Order for future visit Follow-up Appointment Request [facility], *Est. 02/27/23 +/- 2 days, Future Order, after Colonoscopy, In Approximately, [facility] Gastroenterology Surgical Procedure Booking Request [facility], 02/13/23 14:02:00 EDT, 04/19/23 10:00:00 EDT, screening , incontience, Change in bowel habits Colon cancer screening GERD without esophagitis, Outpatient,Colonoscopy, Primary Procedure, 30, General, 35, Gildardo Logan MD, Consent to read: Col... ?? 2.??Colon cancer screening??Z12.11 Due for colon cancer screening.?? She has had a sessile serrated polyp in the past.?? Will see patient 2 weeks after colonoscopy to discuss findings and make further recommendations. Ordered: Follow-up Appointment Request [facility], *Est. 02/27/23 +/- 2 days, Future Order, after Colonoscopy, In Approximately, [facility] Gastroenterology Surgical Procedure Booking Request [facility], 02/13/23 14:02:00 EDT, 04/19/23 10:00:00 EDT, screening , incontience, Change in bowel habits Colon cancer screening GERD without esophagitis, Outpatient,Colonoscopy, Primary Procedure, 30, General, 35, Gildardo Logan MD, Consent to read: Col... ?? 3.??GERD without esophagitis??K21.9 Controlled with Pepcid 20 mg daily. ??We discussed reflux triggering foods and beverages to avoid,??to avoid eating 3 hours before bedtime and eat small frequent meals.?? We discussed changing to omeprazole??given she takes Pepcid on a daily basis. ??She declines. Ordered: Follow-up Appointment Request [facility], *Est. 02/27/23 +/- 2 days, Future Order, after Colonoscopy, In Approximately, [facility] Gastroenterology Surgical Procedure Booking Request [facility], 02/13/23 14:02:00 EDT, 04/19/23 10:00:00 EDT, screening , incontience, Change in bowel habits Colon cancer screening GERD without esophagitis, Outpatient,Colonoscopy, Primary Procedure, 30, General, 35, Gildardo Logan MD, Consent to read: Col... ?? Voice recognition software utilized which may result in minor quarryman error. Future Orders Celiac Disease Comprehensive LC, Blood, Routine, 02/13/23, Once, Lab Collect, Change in bowel habits, Order for future visit Problem List/Past Medical History Ongoing Abnormal Pap [...] Ad26 vaccine 11/03/2020 Recorded Electronically Signed on 02/13/23 02:04 PM Yarely Russ APRN Patient Care team information Care Team Personnel Name: Bradley Shetty DO Position: Physician Member Role: Primary Care Physician Address: Address: [address] [place] [phone] [place]
--- OUTSIDE RECORDS SUMMARY | 2024-02-09 23:14 | XMS_ITS | Continuity of Care Document ---
Author Organization [facility] Address [address] [place] [address] Care Team Providers Care Molder Setter Name Role Phone Bradley Shetty DO Primary Care Physician [phone] Encounter [facility] NBR [id number] Date(s): 10/09/22 - 10/09/22 [facility] [address], [place] [id number]- [place] Discharge Disposition: Home or Self Care Attending Physician: RANDA Zarco Admitting Physician: RANDA Zarco Referring Physician: RANDA Zarco Allergies, Adverse Reactions, Alerts [...] # 90 tab, 4 Refill(s), Pharmacy: [id number] Start Date: 08/01/22 Stop Date: 10/25/23 Status: Ordered Benadryl 25 mg oral capsule 50 mg = 2 cap, Oral, Daily, PRN as needed for allergy symptoms, # 60 tab, 0 Refill(s) Start Date: 07/28/22 Stop Date: 08/27/22 Status: Ordered calcium (as carbonate)-vitamin D 600 mg-400 intl units oral tablet 1 tab, Oral, BID, # 60 tab, 11 Refill(s), Pharmacy: [place] [id number], 144, cm, 08/10/22 12:24:00 EST, Height/Length Dosing, [...] Daily, # 90 cap, 4 Refill(s), Pharmacy: [place] [address] Start Date: 08/01/22 Stop Date: 10/25/23 Status: Ordered metFORMIN 500 mg oral tablet 500 mg = 1 tab, Oral, Daily, with meals, # 90 tab, 4 Refill(s), Pharmacy: [place] [id number] Start Date: 08/01/22 Stop Date: 10/25/23 Status: [...] Daily, # 90 tab, 4 Refill(s), Pharmacy: [place] [id number] Start Date: 08/01/22 Stop Date: 10/25/23 Status: Ordered vitamin E 100 intl units oral capsule 100 IntlUnit = 1 cap, Oral, Daily, # 100 cap, 4 Refill(s), Pharmacy: [id number] Start Date: 08/01/22 Stop Date: 10/25/23 Status: [...] 09/17/11 Completed Colonoscopy 4 07/05/09 Completed Arthroscopy 03/2007 Completed Bilateral tubal ligation Completed Mastoidectomy 6 Completed 1sphincter repair, [facility] 2EGD, Dr Puckett 3right arm, Dr Hernadez 4Dr Satya 5left ankle, open Brostrom reconstruction of the lateral ligament 6bilateral Results Laboratory List Name Date .Manual Differential (LTTL) 10/09/22 CBC w/ Diff 10/09/22 Ferritin 10/09/22 Thyroid Stimulating Hormone 10/09/22 Vitamin B12 & Folate Level 10/09/22 Most recent to oldest [Reference Range]: 1 WBC [4.8-10.8 K/mcL] 10.8 K/mcL (10/09/22 10:44 AM) RBC [4.20-5.40 Million/mcL] 4.46 Million /mcL (10/09/22 10:44 AM) Segs Man 38 *NA* (10/09/22 10:44 AM) Lymph Man [20.5-51.1 %] 51.0 % (10/09/22 10:44 AM) [place] Man [1.7-9.3 %] 5.0 % (10/09/22 10:44 AM) Eos Man [0.00-3.00 %] 3.00 % (10/09/22 10:44 AM) Lymph, Atyp Man 3 % *NA* (10/09/22 10:44 AM) MCV [81.0-99.0 fL] 98.7 fL (10/09/22 10:44 AM) RBC Morph [Normal] Normal (10/09/22 10:44 AM) MCHC [32.0-36.0 g/dL] 33.0 g/dL (10/09/22 10:44 AM) Folate Level [>=5.9 ng/mL] >20.0 ng/mL (10/09/22 10:44 AM) Hct [37.0-47.0 %] 44.0 % (10/09/22 10:44 AM) MCH [27.0-31.0 pg] 32.5 pg *HI* (10/09/22 10:44 AM) Hgb [12.0-16.0 g/dL] 14.5 g/dL (10/09/22 10:44 AM) B12 Level [180-914 pg/mL] 958 pg/mL *HI* (10/09/22 10:44 AM) MPV [7.4-10.4 fL] 11.0 fL *HI* (10/09/22 10:44 AM) Band Man 0 % *NA* (10/09/22 10:44 AM) Ferritin Level [11.0-307.0 ng/mL] 22.9 n g/mL (10/09/22 10:44 AM) Platelets [130-400 K/mcL] 285 K/mcL (10/09/22 10:44 AM) TSH [0.45-5.33 mIntlUnit/mL] 4.11 mIntlU nit/mL (10/09/22 10:44 AM) RDW-CV [11.5-14.5 %] 13.6 % (10/09/22 10:44 AM) Abs Baso Man [0.0-0.2 K/mcL] 0.0 K/mcL (10/09/22 10:44 AM) Abs Eos Man [0.0-0.2 K/mcL] 0.3 K/mcL *HI* (10/09/22 10:44 AM) Abs Lymph Man [1.2-3.4 K/mcL] 5.5 K/mcL *HI* (10/09/22 10:44 AM) Abs [place] Man [0.1-0.6 K/mcL] 0.5 K/mcL (10/09/22 10:44 AM) Abs Neut Man [1.4-6.5 K/mcL] 4.1 K/mcL (10/09/22 10:44 AM) Plt Estimation Normal (10/09/22 10:44 AM) Baso Man [0.0-0.8 %] 0.0 % (10/09/22 10:44 AM) Social History Social History Type Response Tobacco Current everyday tob acco user Tobacco Use:. 20 a day per day. Sex Patient Care team information Care Team Personnel Name: Bradley Shetty DO Position: Physician Member Role: Primary Care Physician Address: Address: [address] [place] [phone]
--- OUTSIDE RECORDS SUMMARY | 2024-02-09 23:14 | XMS_ITS | Continuity of Care Document ---
Author Organization [facility] Address [address] [place] [address] Care Team Providers Care Finishing Operator Name Role Phone Bradley Shetty DO Primary Care Physician Encounter [facility] NBR [id number] Date(s): 02/13/23 - 02/13/23 [facility] [address] [place] [address]- Encounter Diagnosis Change in bowel habit(Final) - Discharge Disposition: Home or Self Care Attending Physician: Yarely Russ APRN Admitting Physician: Yarely Russ APRN Referring Physician: Yarely Russ APRN Allergies, Adverse Reactions, Alerts Substance Reaction Severity Status amoxicillin 1 Rash Moderate Active sulfa drugs Stomach upset Moderate Active Bactrim Stomach upset Moderate Active 1on hands Assessment and Plan Future Appointments Diagnostic Tests Pending * Celiac Disease Comprehensive LC 02/13/23 Immunizations Given and Recorded Vaccine Date Status Refusal Reason SARS-CoV-2 (COVID-19) Ad26 vaccine 11/03/20 Record ed Medications Artificial Tears ophthalmic solution 1 drops, Eye-Both, BID, PRN as needed for dry eyes, # 10 mL, 0 Refill(s) Start Date: 07/28/22 Stop Date: 08/27/22 Status: Ordered atorvastatin 10 mg oral tablet 10 mg = 1 tab, Oral, Daily, # 90 tab, 4 Refill(s), Pharmacy: [id number] Start Date: 08/01/22 Stop Date: 10/25/23 Status: Ordered Benadryl 25 mg oral capsule 50 mg = 2 cap, Oral, Daily, PRN as needed for allergy symptoms, # 60 tab, 0 Refill(s) Start Date: 07/28/22 Stop Date: 08/27/22 Status: Ordered calcium (as carbonate)-vitamin D 600 mg-400 intl units oral tablet 1 tab, Oral, BID, # 60 tab, 11 Refill(s), Pharmacy: [place] [id number], 144, cm, 08/10/22 12:24:00 EST, Height/Length Dosing, [...] Daily, # 90 cap, 4 Refill(s), Pharmacy: [facility] Start Date: 08/01/22 Stop Date: 10/25/23 Status: Ordered metFORMIN 500 mg oral tablet 500 mg = 1 tab, Oral, Daily, with meals, # 90 tab, 4 Refill(s), Pharmacy: [facility] Start Date: 08/01/22 Stop Date: 10/25/23 Status: Ordered One-A-Day Women 50 Plus oral tablet 1 tab, Oral, Daily, # 90 tab, 0 Refill(s) Start Date: 07/28/22 Stop Date: 10/26/22 Status: Ordered venlafaxine 225 mg oral tablet, extended release 225 mg = 1 tab, Oral, Daily, # 90 tab, 4 Refill(s), Pharmacy: [facility] Start Date: 08/01/22 Stop Date: 10/25/23 Status: Ordered vitamin E 100 intl units oral capsule 100 IntlUnit = 1 cap, Oral, Daily, # 100 cap, 4 Refill(s), Pharmacy: [id number] Start Date: 08/01/22 Stop Date: 10/25/23 Status: [...] Dr Puckett 3right arm, Dr Hernadez 4Dr [place] 5left ankle, open Brostrom reconstruction of the lateral ligament 6bilateral Social History Social History Type Response Tobacco Current everyday tob acco user Tobacco Use:. 20 a day per day. Sex Patient Care team information Care Team Personnel Name: Bradley Shetty DO Position: Physician Member Role: Primary Care Physician Address: Address: [address] [place] [phone] [place]
--- OUTSIDE RECORDS SUMMARY | 2024-02-09 23:14 | XMS_ITS | Continuity of Care Document ---
Author Organization [facility] Ambulatory Clinics Address [address] [place] [address] Care Team Providers Care Extermination Inspector Name Role Phone Bradley Shetty DO Primary Care Physician Encounter [facility] NBR [id number] Date(s): 05/31/23 - 05/31/23 [facility] Ambulatory Clinics [address] [place], [place] [address] Encounter Diagnosis Colonic polyp(Discharge Diagnosis) - 05/31/23 D - Diarrhea(Discharge Diagnosis) - 05/31/23 Fecal incontinence(Discharge Diagnosis) - 05/31/23 GERD without esophagitis(Discharge Diagnosis) - 05/31/23 Discharge Disposition: Home or Self Care Attending Physician: Yarely Russ APRN Allergies, Adverse Reactions, Alerts Substance Reaction Severity Status amoxicillin 1 Rash Moderate Active sulfa drugs Stomach upset Moderate Active 1on hands Assessment and Plan Future Appointments Functional Status 05/31/23 Other exposure to Infectious Disease Non e [...] 90 tab, 4 Refill(s), Pharmacy: [id number] Start Date: 08/01/22 Stop Date: 10/25/23 Status: Ordered Benadryl 25 mg oral capsule 50 mg = 2 cap, Oral, Daily, PRN as needed for allergy symptoms, # 60 tab, 0 Refill(s) Start Date: 07/28/22 Stop Date: 08/27/22 Status: Ordered calcium (as carbonate)-vitamin D 600 mg-400 intl units oral tablet 1 tab, Oral, BID, # 60 tab, 11 Refill(s), Pharmacy: [place] [id number], 144, cm, 08/10/22 12:24:00 EST, Height/Length Dosing, [...] 90 cap, 4 Refill(s), Pharmacy: [facility] Start Date: 08/01/22 Stop Date: 10/25/23 Status: Ordered metFORMIN 500 mg oral tablet 500 mg = 1 tab, Oral, Daily, with meals, # 90 tab, 4 Refill(s), Pharmacy: [facility] Start Date: 08/01/22 Stop Date: 10/25/23 Status: Ordered One-A-Day Women 50 Plus oral tablet 1 tab, Oral, Daily, # 90 tab, 0 Refill(s) Start Date: 07/28/22 Stop Date: 10/26/22 Status: Ordered venlafaxine 225 mg oral tablet, extended release 225 mg = 1 tab, Oral, Daily, # 90 tab, 4 Refill(s), Pharmacy: [id number] Start Date: 08/01/22 Stop Date: 10/25/23 Status: Ordered vitamin E 100 intl units oral capsule 100 IntlUnit = 1 cap, Oral, Daily, # 100 cap, 4 Refill(s), Pharmacy: [facility] Start Date: 08/01/22 Stop Date: [...] 1auto-populated from documented surgical case 2sphincter repair, [facility] 3EGD, Dr Puckett 4right arm, Dr Hernadez 5Dr Satya 6left ankle, open Brostrom reconstruction of the lateral ligament 7bilateral Vital Signs Most recent to oldest [Reference Range]: 1 Temperature Temporal Artery [36-38 Deg C ] 36.5 Deg C (05/31/23 10:27 AM) Apical Heart Rate [60-100 bpm] 105 bpm *HI* (05/31/23 10:27 AM) Blood Pressure [90-140/60-90 mmHg] 142/8 1mmHg *HI* (05/31/23 10:27 AM) Mean Arterial Pressure, Cuff [70-110 mmH g] 101 mmHg (05/31/23 10:27 AM) Weight 74.84 kg (05/31/23 10:27 AM) Weight Measured (lbs) 164.994 lb (05/31/23 10:27 AM) Weight Dosing 74.840 kg (05/31/23 10:27 AM) [place] Body Weight Calculated 45.5 kg (05/31/23 10:27 AM) Height 144.78 cm (05/31/23 10:27 AM) Height/Length Measured (inches) 57 inch (05/31/23 10:27 AM) BSA Measured 1.73 m2 (05/31/23 10:27 AM) Body Mass Index 35.7 kg/m2 (05/31/23 10:27 AM) Social History Social History Type Response Tobacco Current everyday tob acco user Tobacco Use:. 20 a day per day. 40 year(s). Sex Physician Outpatient Note * Yarely Russ APRN: PERFORM Event Display: Office Clinic Note Physician Authored Date: [id number] SOFIE GREER :1965 Age:57 years Sex:Female Visit Date:05/31/2023 Primary Care Physician: Bradley Shetty, DO Chief Complaint Colonoscopy follow-up History of Present Illness Patient is a 57-year-old female here today at the request of ??[place] for a precolonoscopy consult.?? She is an established patient here today for follow-up of colonoscopy.?? Since her last colon colonoscopy she had??bowel and bladder surgery to help with incontinence. ??She continues with fecal incontinence. ??Has not been able to engage herself in pelvic floor physical therapy.?She states she does have episodes where she is able to??make it to the bathroom.?? Her stools are Marion form 4. ??Denies melena or hematochezia. ??Her weight and appetite are stable.?? Denies any abdominal pain.?Takes Pepcid daily for pyrosis??with good relief. ??Denies any dyspepsia, dysphagia or globus sensation. ?? Denies??any changes since her last visit.?? Given his concern remains??fecal incontinence. ?? Labs: -02/13/2023 celiac panel unremarkable, TTG??G IgA slightly elevated at 5.?? Otherwise normal. ?? EGD: -11/29/2016??2 cm hiatal hernia??and erosive??peptic??duodenitis.?? There was??nonspecific changes suggesting the possibility of??celiac disease.?? No Seaman's esophagus seen. ??Mild chronic gastritis and mild reflux changes noted. ?? Colonoscopy: -11/29/2016??3??sigmoid polyp??that was a sessile serrated polyp. ??There was small internal hemorrhoids seen. -05/17/2023 colon biopsies ruled out colitis. ??Sigmoid diverticulosis seen.?? 2 polyps the largestbeing 8 mm in size??were resected??and were sessile serrated polyps. ??There was an insignificant??angiodysplastic lesion seen in the cecum that was left intact. ?? Denies a family history of gastrointestinal cancers, inflammatory bowel disease or celiac disease. Review of Systems Pertinent positives and negatives are discussed in HPI. Physical Exam Vitals & Measurements T:??36.5?C ??(Temporal Artery)?? HR:??105??(Apical)?? BP:??142/81?? SpO2:??97%?? HT:??144.78??cm?? WT:??74.84??kg?? BMI:??35.7?? BSA:??1.73?? General: Well-nourished well-developed??female??in no acute distress. HEENT: [...] steady. Psychological: Pleasant, calm and cooperative. Assessment/Plan 1.??Colonic polyp??K63.5 Patient's??colonoscopy showed 2 sessile serrated polyps largest being 8 mm in size.?? Recommend repeat colonoscopy in 3 years.?? There is angiodysplastic lesion in the cecum that was left intact??as there is no signs of bleeding.?? Random colon biopsies without colitis.?? Sigmoid diverticulosis wasseen. 2.??D - Diarrhea??R19.7 Patient is denying diarrhea at this time. ??States her??stools are formed but she has incontinence.??She is status post rectocele surgery??in 2020 at [facility]. ??Celiac test was negative. 3.??Fecal incontinence??R15.9 As above. ??Refer patient??back to [facility]??to Dr. Hill??for reevaluation and treatment.?? She isdeclining??follow-up for??discal therapy??asymptomatic with Pepcid. ??Plans are to continue the same. 4.??GERD without esophagitis??K21.9 Asymptomatic with Pepcid. ??Plans are to continue the same. ??Discussed reflux triggering foods andbeverages to avoid,??to avoid eating 3 hours before bedtime and eat small Voice recognition software utilized which may result in minor citizenship teacher error. Problem List/Past Medical History Ongoing Abnormal Pap [...] of insulin Ureteral stone Urinary incontinence Historical Change in bowel habits Colon cancer [...] Ad26 vaccine 11/03/2020 Recorded Electronically Signed on 05/31/23 10:49 AM Yarely Russ APRN Patient Care team information Care Team Personnel Name: Bradley Shetty DO Position: Physician Member Role: Primary Care Physician Address: Address: [address] [place] [phone]
--- OUTSIDE RECORDS SUMMARY | 2024-02-09 23:14 | XMS_ITS | Continuity of Care Document ---
Author Organization [facility] Ambulatory Clinics Address [address] [place] [address] Care Team Providers Care Cane Feeder Name Role Phone Bradley Shetty DO Primary Care Physician Encounter [facility] NBR [id number] Date(s): 01/31/24 - 01/31/24 [facility] Ambulatory Clinics [address] [place] [address]- [place] Discharge Disposition: Home Allergies, [...] Status Refusal Reason SARS-CoV-2 (COVID-19) Ad26 vaccine 05/22/21 Record ed SARS-CoV-2 (COVID-19) Ad26 vaccine 11/03/20 Record ed Medications Artificial Tears ophthalmic solution 1 drops, Eye-Both, BID, PRN as needed for dry eyes, # 10 mL, 0 Refill(s) Start Date: 07/28/22 Stop Date: 08/27/22 Status: Ordered atorvastatin 10 mg oral tablet 10 mg = 1 tab, Oral, Daily, # 90 tab, 4 Refill(s), Pharmacy: [facility], 144.78, cm, 05/31/23 10:27:00 EST, [...] BID, # 60 tab, 11 Refill(s), Pharmacy: [facility], 144, cm, 08/10/22 12:24:00 [...] meals, # 90 tab, 4 Refill(s), Pharmacy: [facility], 144.78, cm, 05/31/23 10:27:00 EST, [...] food., # 90 tab, 4 Refill(s), Pharmacy: [facility], 144.78, cm, 05/31/23 10:27:00 EST, Height, 74.34, kg, 11/20/23 15:41:00 EDT, Weight Dosing Start Date: 11/20/23 Status: Ordered Problem List Condition Confirmation Course [...] 1auto-populated from documented surgical case 2sphincter repair, [facility] 3EGD, Dr Puckett 4right arm, Dr Hernadez 5Dr Satya 6left ankle, open Brostrom reconstruction of the lateral ligament 7bilateral Social History Social History Type Response Tobacco Current everyday tob acco user Tobacco Use:. 20 a day per day. 40 year(s). Sex Patient Care team information Care Team Personnel Name: Bradley Shetty DO Position: Physician Member Role: Primary Care Physician Address: Address: [address] [place] [phone] [place]
--- OUTSIDE RECORDS SUMMARY | 2024-02-09 23:14 | XMS_ITS | Continuity of Care Document ---
Author Organization [facility] Ambulatory Clinics Address [address] [place] [address] Care Team Providers Care Mailroom Personnel Name Role Phone Bradley Shetty DO Primary Care Physician Encounter [facility] NBR [id number] Date(s): 12/27/22 - 12/27/22 [facility] Ambulatory Clinics [address] [place] [address]- [place] Discharge Disposition: Home Allergies, [...] # 90 tab, 4 Refill(s), Pharmacy: [id number] Start Date: 08/01/22 Stop Date: 10/25/23 Status: Ordered Benadryl 25 mg oral capsule 50 mg = 2 cap, Oral, Daily, PRN as needed for allergy symptoms, # 60 tab, 0 Refill(s) Start Date: 07/28/22 Stop Date: 08/27/22 Status: Ordered calcium (as carbonate)-vitamin D 600 mg-400 intl units oral tablet 1 tab, Oral, BID, # 60 tab, 11 Refill(s), Pharmacy: [place] [address], 144, cm, 08/10/22 12:24:00 EST, Height/Length Dosing, [...] Daily, # 90 cap, 4 Refill(s), Pharmacy: [place] [address] Start Date: 08/01/22 Stop Date: 10/25/23 Status: Ordered metFORMIN 500 mg oral tablet 500 mg = 1 tab, Oral, Daily, with meals, # 90 tab, 4 Refill(s), Pharmacy: [facility] Start Date: 08/01/22 Stop Date: 10/25/23 [...] # 90 tab, 4 Refill(s), Pharmacy: [facility] Start Date: 08/01/22 Stop Date: 10/25/23 Status: Ordered vitamin E 100 intl units oral capsule 100 IntlUnit = 1 cap, Oral, Daily, # 100 cap, 4 Refill(s), Pharmacy: [id number] Start Date: 08/01/22 Stop Date: 10/25/23 Status: [...] ligation Completed Mastoidectomy 6 Completed 1sphincter repair, [facility] 2EGD, Dr Puckett 3right arm, Dr Hernadez 4Dr [place] 5left ankle, open Brostrom reconstruction of the lateral ligament 6bilateral Social History Social History Type Response Tobacco Current everyday tob acco user Tobacco Use:. 20 a day per day. Sex Patient Care team information Care Team Personnel Name: Bradley Shetty DO Position: Physician Member Role: Primary Care Physician Address: Address: [address] [place] [phone]
--- OUTSIDE RECORDS SUMMARY | 2024-02-09 23:14 | XMS_ITS | Continuity of Care Document ---
Author Organization [facility] Ambulatory Clinics Address [address] [place] [address] Care Team Providers Care Registered Pharmacy Technician Name Role Phone Bradley Shetty DO Primary Care Physician Encounter [facility] NBR [id number] Date(s): 01/07/24 - 01/07/24 [facility] Ambulatory Clinics [address] [place] [address]- Encounter Diagnosis Hearing aid consultation(Discharge Diagnosis) - 01/07/24 Discharge Disposition: Home Allergies, Adverse Reactions, Alerts [...] Daily, # 90 tab, 4 Refill(s), Pharmacy: [facility], 144.78, cm, 05/31/23 [...] BID, # 60 tab, 11 Refill(s), Pharmacy: [place] [address], 144, cm, 08/10/22 12:24:00 EST, Height/Length Dosing, [...] Daily, # 90 cap, 4 Refill(s), Pharmacy: [facility] Start Date: 08/01/22 Stop Date: 10/25/23 Status: Ordered metFORMIN 500 mg oral tablet 500 mg = 1 tab, Oral, Daily, with meals, # 90 tab, 4 Refill(s), Pharmacy: [facility] [employer], 144.78, cm, 05/31/23 10:27:00 EST, Height, 74.34, [...] food., # 90 tab, 4 Refill(s), Pharmacy: [facility], 144.78, cm, 05/31/23 10:27:00 EST, Height, 74.34, kg, 11/20/23 15:41:00 EDT, Weight Dosing Start Date: 11/20/23 Status: Ordered vitamin E 100 intl units oral capsule 100 IntlUnit = 1 cap, Oral, Daily, # 100 cap, 4 Refill(s), Pharmacy: [facility] Start Date: 08/01/22 [...] 1auto-populated from documented surgical case 2sphincter repair, [facility] 3EGD, Dr Puckett 4right arm, Dr Hernadez 5Dr [place] 6left ankle, open Brostrom reconstruction of the lateral ligament 7bilateral Social History Social History Type Response Tobacco Current everyday tob acco user Tobacco Use:. 20 a day per day. 40 year(s). Sex Patient Care team information Care Team Personnel Name: Bradley Shetty DO Position: Physician Member Role: Primary Care Physician Address: Address: [address] [place] [phone]
--- OUTSIDE RECORDS SUMMARY | 2024-02-09 23:14 | XMS_ITS | Encounter Summary ---
Author Organization [facility] [place] [address] Care Team Providers Care Sterile Processing Technician Name Role Phone DutchBradley young Jeffery WU Primary Care Provider [phone]- [phone] Reason for Visit * Reason Comments Urinary Incontinence Urodynamics Study Encounter Details Date Type Department Care Team (Latest Contact Info) Description 01/14/2024 8:00 AM EDT Procedure visit Obstetrics [place] [address] Jeannette Jackson MD [facility] [place] [address] Urinary incontinence, urge; Incomplete bladder emptying [R33.9] Social History Tobacco Use Types Packs/Day Years [...] Sign Reading Time Taken Comments Blood Pressure 155/92 01/14/2024 7:52 AM EDT Pulse 76 01/14/2024 7:52 AM EDT Temperature - - Respiratory Rate - - Oxygen Saturation - - Inhaled Oxygen Concentration - - Weight - - Height - - Body Mass Index - - documented in this encounter Patient Instructions * Patient Instructions* Jeannette Jackson MD - 01/14/2024 8:00 AM EDT Plan: Videos about bladder health In Romanian: https://youtu.be/TaYuLgpLVLs (18 minutes) https://www.ContractRoom.com/watch?v=CFAC84LGwM0 (11 min) Start a fiber supplement. Buy Citrucel (fiber supplement, available over the counter) Get the no sugar added version without artifical sweeteners. Take in the evening. Start with one teaspoon dailyin a large glass of water for one week, then two teaspoons daily for one week, then one tablespoon daily for maintenance. Can increase slowly to 2 tablespoons daily if needed. Reduce dose if incontinence worsens at higher doses. *Most important it to take with water, and to gradually increase dosage to avoid bloating. *OK to take Metamucil or BeneFiber if unable to find formulation listed above. Fiber gummies are also an option that many people like; take with a large glass of water. We will claudia you to schedule a follow up telehealth visit with Dr. Hill to review treatment options and plan for sacral neuromodulation 'PNE' session in the office to trial the sacral neuromodulation. Return to clinic for telehealth visit with Dr. Hill. === Sacral neuromodulation - a pacemaker to help the urinary urgency and urinary urge incontinence and accidental bowel leakage What Is sacral neuromodulation? Sacral neuromodulation is like a bladder pacemaker that works with the sacral nerves, located near the tailbone. The sacral nerves control the bladder and muscles related to urinary and bowel function It is believed that one possible cause of overactive bladder and accidental bowel leakage is miscommunication between the brain and the sacral nerves; when the brain and sacral nerves don't communicate correctly, the nerves will not tell the bladder nor the bowel control to function correctly, which can cause bladder and bowel control problems. The theory behind sacral neuromodulation is that gentle electrical stimulation of the sacral nervesreduces the signals to the nervous system which may be causing bladder and bowel control symptoms such as leaks, the sudden urge to go, or going too often. How effective is sacral neuromodulation ? In a long -term clinical study of bladder issues, 59% of patients with urge incontinence who received the InterStim System and completed follow-up with their doctors had at least 50% fewer leaks per day when compared to the number of leaks before therapy. Regarding accidental bowel leakage, multiple well-conducted clinical trials have showed greater than 50% reduction in accidental bowel leakage episodes by 69- 89% of patients. How Can I Find Out If Sacral Neuromodulation Will Work for Me? During an evaluation, you'll have the opportunity to test sacral neuromodulation without making a long-term commitment. The evaluation generally lasts several days. Before and during the evaluation, you'll be asked to track your symptoms to help determine how well Medtronic Bladder Control Therapy works for you. Step 1: Medtronic Bladder Control Therapy Evaluation If you've tried several treatments for bladder control problems without success, don't lose hope. There is no single bladder control treatment that works for everyone, and sometimes it takes time to find the one that works for you. Sacral Neuromodulation may be an option for you. With the therapy's two-step process, you can test it out to see if it will work for you before making a long-term commitment. The testing period is called an evaluation or a trial assessment. How Will I Know If sacral neuromodulation Works for Me? You and your doctor will decide together whether your evaluation was successful. The evaluation is considered a success if you experience a significant reduction in your symptoms. For example, your evaluation may be considered a success if you went to the bathroom 20 times per day before the evaluation and went 10 or fewer times per day during the evaluation. What Happens During the Evaluation? The evaluation starts with a short, minimally invasive outpatient procedure that can be done in thereading hospitaltial It usually takes about 20 minutes. During the procedure, the doctor will place a lead (a thin wire) near your sacral nerves in your low back/upper buttock.The lead is connected to a small, external device that you'll wear on your waistband like a pager. The stimulator generates mild electrical pulses that are carried to the sacral nerve by the lead. After the procedure, you will wear the device in a pouch around your waist for 7 to 14 days. Duringthis time, you have the freedom to do most of your regular daily activities. The treatment can be stopped, started, and adjusted using a controller. It's designed to be easy to use; your doctor or nurse can show you how. Complications can occur during the evaluation, including movement of the wire, technical problems with the device, and some temporary pain. In most cases, these issues can be resolved, so talk to your doctor about your experience. Your doctor or nurse will show you how to operate the test device. During the evaluation, you will need to use a symptom tracker to write down your urinary symptoms, such as how many times you go to the bathroom and whether you have leaks. You should be able to workand continue your normal activities. However, we recommend that you avoid lifting, bending or twisting movements during this time. Step 2: Long-term treatment If your symptoms are better during the evaluation, you and your doctor can discuss long-term sacralneuromodulation. This involves implanting a small device with a battery, called a neurostimulator, under the skin of your upper buttock. This area is above where you sit and below your waistline. Thelead (thin wire) goes from the neurostimulator to a sacral nerve, located near the tailbone. What Are the Risks of sacral neuromodulation? Implanting sacral neuromodulation has risks similar to any surgical procedure, including swelling, bruising, bleeding, and infection. Talk with your doctor about ways to minimize these risks. Sacral neuromodulation might cause you to experience some of these side effects: Pain at the implant site Infection or skin irritation Lead (thin wire) movement/migration Device problems Interactions with certain other devices or diagnostic equipment Undesirable changes in urinary or bowel function Uncomfortable stimulation (sometimes described as a jolting or shocking feeling) Problems can be treated with surgery, medical therapy such as drugs, or reprogramming. These eventsmay also resolve over time. There is a possibility that some may remain unresolved. documented in this encounter Progress Notes * Afsaneh James MD - 01/14/2024 8:00 AM EDT Female Pelvic Medicine and Reconstructive Surgery @ [facility] Urodynamic Procedure Note Patient name: Tracy Harmon Final Impression: Stress incontinence with full bladder No evidence of obstructive voiding Recommendations: Consider sacral neuromodulation Keep diary of bowel and bladder leakage; she did not bring diary with her today Start a fiber supplement. Buy Citrucel (fiber supplement, available over the counter) Get the no sugar added version without artifical sweeteners. Take in the evening. Start with one teaspoon dailyin a large glass of water for one week, then two teaspoons daily for one week, then one tablespoon daily for maintenance. Can increase slowly to 2 tablespoons daily if needed. Reduce dose if incontinence worsens at higher doses. *Most important it to take with water, and to gradually increase dosage to avoid bloating. *OK to take Metamucil or BeneFiber if unable to find formulation listed above. Fiber gummies are also an option that many people like; take with a large glass of water. INDICATIONS FOR URODYNAMICS: (x) Voiding problems (x) Urinary incontinence () Pelvic organ prolapse () Other: see below 58 y.o. with hx of TO mid-urethral sling (2020), overlapping sphincteroplasty, who presents for UDSfor urinary incontinence with urgency and sudden flooding, incomplete bladder emptying confirmed with CIC (PVR 100), and leakage with laugh and cough on occasion. A cleaner housekeeping was present for the procedure: China Mc LPN Multi-channel urodynamic evaluation procedure was verbally explained to the patient including risksof possible urinary tract infection and benefit of information from the testing. Verbal consent obtained. UROFLOWMETRY: Total Volume Voided: 578.9 mL Qmax: 21.2 mL/sec Qav.7 mL/sec Post void residual: 50 mL (obtained via catheter) URINE ANALYSIS: negative for all components CYSTOMETROGRAM: 7 Senegalese T-DOC catheter was inserted into the bladder. A 7 [place] T-DOC catheter was placed in the vagina/rectum for measurement of abdominal pressures. Filling was performed via a 7 [place]eg[place] T-DOC catheter in the sitting position at a rate of 50cc/min. . Detrusor pressure at 0cc: 0.1cc cm H2O S1-First sensation: 154.6 mL S2-First desire: 333 mL S3-Strong desire: 418 mL S4- Maximum cystometric capacity: 475 mL Detrusor pressure at maximum cystometric capacity: 7.5 cm H2O EMG: () not done (x) stable during filling (x) appropriate increased activity with Valsalva, cough (x) appropriate relaxation with voiding Uninhibited detrusor contractions associated with urge: none Uninhibited detrusor contractions associated with urinary leakage : None Leakage seen with stress maneuvers (valsalva/cough): Yes Leak point pressure testing performed at 200 cc at 50cc increments and at capacity. Maneuver Leak? Volume (mL) Pressure Sitting w/o prolapse support Yes 475.4 152.9 cm H2O (Pves) Sitting with prolapse support (scopette) cm H2O (Pves) Urethral catheter out w/o prolapse support cm H2O (Pabd) Urethral catheter out with prolapse support (scopette) cm H2O (Pabd) Urethral Pressure Profile: The urethral catheter was withdrawn until the peak urethral pressure was measured (136.6cm H20). The maximum urethral closure pressure (mUCP) was 105.5cm H20. PRESSURE-FLOW VOIDING STUDY: Voided: 563 mL Maximum flow rate (Qmax): 20.5 mL/sec Detrusor pressure (Pdet) at Qmax: 13.7 cm H2O Comments: (No) Abdominal straining with void (No) Obstruction by Blaivis / Groutz nomogram (N/A) Other: Symptom diagnosis: Storage symptoms () None () Increased daytime frequency () Nocturia (x) Urgency (x) Stress urinary incontinence (x) Urge urinary incontinence (x) Mixed urinary incontinence () Nocturnal enuresis () Continuous urinary incontinence Voiding symptoms () None () Slow stream () Splitting/spraying () Straining (muscular effort to initiate, maintain or improve flow) (x) Feeling of incomplete emptying Other Diagnoses: (x) prior mid-urethral sling Urodynamic Diagnosis: Filling Phase Diagnoses: Sensation (x) Normal bladder sensation () Increased bladder sensation (First sensation < 20cc) () Reduced bladder sensation (FS > 250cc & First desire > 400cc & Strong desire > 600cc) () Absent bladder sensation (NO sensation to void with a volume > 600cc) () Urgency Filling Phase Diagnosis: Detrusor Function (x) Normal filling detrusor function () Detrusor overactivity () Phasic detrusor overactivity () Terminal detrusor overactivity () Detrusor overactivity with incontinence Filling Phase Diagnosis: Urethral closure mechanism (x) Normal filling phase (x) Urodynamic stress urinary incontinence Voiding Phase Diagnoses: Detrusor function during voiding () Normal voiding detrusor function () Detrusor underactivity () Acontractile detrusor Voiding Phase Diagnoses: Urethral function during voiding (If EMG not done, may be less specific source) (x) Normal urethral function during voiding () Bladder outlet obstruction () Dysfunctional voiding () 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 I was present for the pertinent portions of the urodynamic testing and fully reviewed and edited the results. This patient was seen and evaluated with Dr. Jackson, UroGyn attending physician, with whom the planwas formulated. Afsaneh James MD, PGY7 Fellow, Division of Urogynecology and Reconstructive Pelvic Surgery STAFF NOTE Patient was seen in conjunction with Dr. James, a Fellow in Female Pelvic Medicine and Reconstructive Pelvic Surgery. The case was discussed at the time of the visit. The assessment and plan were formulated in discussion with me and I agree with them as documented. I have reviewed the history, physical exam, assessment and plan. Major issues discussed today: Ms. Harmon is a 58 y.o. year-old with bothersome accidental bowel leakage and overactive bladder with urinary urge incontinence, with a history of TOT sling and intermittent sensation of incomplete bladder emptying with PVR 100mL on prior testing. She presets today at Dr. Hill's recommendation to assess for evidence of voiding dysfunction to inform consideration of sacral neuromodulation therapy. I reviewed Dr. James's history and exam with her at the time of the visit. Plan: I agree with plans for PNE with Dr. Hill, with prior telehealth visit if needed. Jeannette Jackson MD Division of Female Pelvic Medicine and Reconstructive Pelvic Surgery documented in this encounter Plan of Treatment Upcoming Encounters Date Type Department Care Team (Late st Contact Info) Description 05/01/2024 1:00 PM EST TH Visit (TeleHealth) Obstetrics [place] [address] Raymon Hill MD [facility] [place] [address] documented as of this encounter Procedures Procedure Name Priority Date/Time Associated Diagnosis Comments POCT URINE DIPSTICK Routine 01/14/2024 Urinary incontinence, urge documented in this encounter Results * POCT urine dipstick (01/14/2024) POC Sp [place] 1.010 1.002 - 1.030 POC pH, UA 5.0 5.0 - 8.5 POC Leuk, UA Neg. Negative - Negative POC Nitrite, UA Neg. Negative - Negative POC Protein, UA Neg. Negative - Negative mg/dL POC Glucose, UA Norm. Normal - Normal mg/dL POC Ketone, UA Neg. Negative - Negative POC Urobil, UA Norm. 0.2 - 1.0 mg/dL POC Bili, UA Neg. Negative - Negative POC Blood, UA Neg. Negative - Negative terrence/uL Jeannette Jackson MD POINT OF CARE TEST O RDERABLES documented in this encounter Visit Diagnoses Diagnosis Urinary incontinence, urge Urge incontinence Incomplete bladder emptying [R33.9] Incomplete bladder emptying documented in this encounter Care Teams Sterile Processing Technician Relationship Specialty Start Date End Date Bradley Judd DO [address] [place] [address] PCP - General Family Medicine 10/28/18 documented as of this encounter
--- OUTSIDE RECORDS SUMMARY | 2024-02-09 23:14 | XMS_ITS | Continuity of Care Document ---
Author Organization [facility] Address [address] [place] [address] Care Team Providers Care Supervisor [employer] Name Role Phone Bradley Shetty DO Primary Care Physician Encounter LTTL_IN FIN NBR [id number] Date(s): 08/01/22 - 08/01/[address] [address] Encounter Diagnosis Type 2 diabetes mellitus without [...] Daily, # 90 tab, 4 Refill(s), Pharmacy: [facility] Start Date: 08/01/22 Stop Date: 10/25/23 Status: [...] Daily, # 90 cap, 4 Refill(s), Pharmacy: [facility] Start Date: 08/01/22 Stop Date: 10/25/23 Status: Ordered metFORMIN 500 mg oral tablet 500 mg = 1 tab, Oral, Daily, with meals, # 90 tab, 4 Refill(s), Pharmacy: [facility] Start Date: 08/01/22 Stop Date: [...] Daily, # 90 tab, 4 Refill(s), Pharmacy: [facility] Start Date: 08/01/22 Stop Date: 10/25/23 Status: Ordered vitamin E 100 intl units oral capsule 100 IntlUnit = 1 cap, Oral, Daily, # 100 cap, 4 Refill(s), Pharmacy: [facility] Start Date: 08/01/22 Stop Date: [...] current use of insulin Confirmed Active Results Laboratory List Name Date Comprehensive Metabolic Panel (CMP) 08/01 Hgb A1c (Hemoglobin A1C) 08/01/22 Lipid Panel 08/01/22 Most recent to oldest [Reference Range]: 1 BUN [8-26 mg/dL] 20 mg/dL (08/01/22 11:25 AM) Cholesterol Total [129-209 mg/dL] 126 mg /dL *LOW* (08/01/22 11:25 AM) LDL 55.3 *NA* (08/01/22 11:25 AM) Glucose Level [74-106 mg/dL] 122 mg/dL *HI* (08/01/22 11:25 AM) Potassium Level [3.5-5.1 mmol/L] 4.2 mmo l/L (08/01/22 11:25 AM) HDL [40-80 mg/dL] 31 mg/dL *LOW* (08/01/22 11:25 AM) AST [15-41 IntlUnit/L] 30 IntlUnit/L (08/01/22 11:25 AM) ALT [14-54 IntlUnit/L] 33 IntlUnit/L (08/01/22 11:25 AM) Osmolality [275-295 mOsm/kg] 278 mOsm/kg (08/01/22 AM) Sodium Level [134-143 mmol/L] 137 mmol/L (08/01/22 11:25 AM) Chol/HDL 4.1 *NA* (08/01/22 AM) Triglycerides [10-150 mg/dL] 199 mg/dL *HI* (08/01/22: AM) Calcium Level [8.9-10.3 mg/dL] 9.6 mg/dL (08/01/22: AM) Albumin Level [3.5-5.0 g/dL] 4.0 g/dL (08/01/22: AM) Protein Total [6.5-8.1 g/dL] 7.3 g/dL (08/01/22 11:25 AM) Bilirubin Total [0.2-1.2 mg/dL] 0.6 mg/d L (08/01/22 11:25 AM) Alk Phos [38-130 IntlUnit/L] 76 IntlUnit /L (08/01/22 11:25 AM) CO2 [22-32 mmol/L] 28 mmol/L (08/01/22 11: AM) eAvg Glucose 140 *NA* (08/01/22 11: AM) Chloride Level [98-111 mmol/L] 104 mmol/ L (08/01/22 11:25 AM) A/G Ratio 1.2 *NA* (08/01/22 11: AM) BUN/Creat Ratio [8.0-20.0] 35.1 *HI* (08/01/22 11:25 AM) Globulin 3.3 *NA* (08/01/22 11:25 AM) Hgb A1c Percent [4.0-6.0 %] 6.5 % *HI* (08/01/22 11:25 AM) .Hb 15.5 *NA* (08/01/22 11:25 AM) .Hgb A1c 0.73 *NA* (08/01/22 11:25 AM) Creatinine Level [0.44-1.00 mg/dL] 0.57 mg/dL (08/01/22 11:25 AM) Anion Gap [3.0-12.0] 5.0 (08/01/22 11:25 AM) eGFR CKD-EPI [>=60 mL/min/1.73 m2] 106 m L/min/1.73 m2 (08/01/22 11:25 AM) Social History Social History Type Response Tobacco Current everyday tob acco user Tobacco Use:. 1 pack a day per day. Sex Patient Care team information Care Team Personnel Name: Bradley Shetty DO Position: Physician Member Role: Primary Care Physician Address: Address: [address] [place] [id number]
--- OUTSIDE RECORDS SUMMARY | 2024-02-09 23:14 | XMS_ITS | Continuity of Care Document ---
Author Organization [facility] Ambulatory Clinics Address [address] [place] [address] Care Team Providers Care Retirement Administrator Name Role Phone Bradley Shetty DO Primary Care Physician Encounter [facility] NBR [id number] Date(s): 11/20/23 - 11/20/23 [facility] Ambulatory Clinics [address], [place] [address] Encounter Diagnosis Type 2 diabetes mellitus, without long-term current use of insulin(Discharge Diagnosis) - 11/20/23 Hyperlipidemia(Discharge Diagnosis) - 11/20/23 Depression with anxiety(Discharge Diagnosis) - 11/20/23 Memory difficulties(Discharge Diagnosis) - 11/20/23 Type 2 diabetes mellitus without complications(Final) - Hyperlipidemia, unspecified(Final) - Other specified anxiety disorders(Final) - Other amnesia(Final) - Other group home (current) drug therapy(Final) - Discharge Disposition: Home or Self Care Attending Physician: Bradley Shetty DO Allergies, Adverse Reactions, Alerts Substance Reaction Severity Status amoxicillin 1 Rash Moderate Active sulfa drugs Stomach upset Moderate Active 1on hands Assessment and Plan Extracted from: Title:Office Visit Note Author:Bradley Shetty DO Date:11/20/23 1.??Type 2 diabetes mellitus , without long-term current use of insulin??E11.9 ??A1c is 6.5, adequate control. ??Will continue current medication regimen. 2.??Hyperlipidemia??E78.5 Reviewed labs. ??Will continue current medication regimen.?? 3.??Depression with anxiety??F41.8 ??Symptoms appear to be reasonably well-controlled. ??Will continue current medication regimen. 4.??Memory difficulties??R41.3 ??Continues to struggle with memory difficulties.?? Will resend the referral for neuropsych evaluation. Orders: atorvastatin 10 mg oral tablet, 10 mg = 1 tab, Oral, Daily, # 90 tab, 4 Refill(s), Pharmacy: [facility], 144.78, cm, 05/31/23 10:27:00 EST, Height, 74.34, kg, 11/20/23 15:41:00 EDT, Weight Dosing metFORMIN 500 mg oral tablet, 500 mg = 1 tab, Oral, Daily, with meals, # 90 tab, 4 Refill(s), Pharmacy: [place] [facility] [id number], 144.78, cm, 05/31/23 10:27:00 EST, Height, 74.34, kg, 11/20/23 15:41:00 EDT, Weight Dosing venlafaxine 225 mg oral tablet, extended release, 225 mg = 1 tab, Oral, Daily, do not crush or chew, take with food., # 90 tab, 4 Refill(s), Pharmacy: [place] [facility] [id number], 144.78, cm, 05/31/23 10:27:00 EST, Height, 74.34, kg, 11/20/23 15:41:00 EDT, Weight Dosing Future Appointments Future Scheduled Tests Laboratory* Comprehensive [...] Daily, # 90 tab, 4 Refill(s), Pharmacy: [facility], 144.78, cm, 05/31/23 10:27:00 EST, Height, [...] BID, # 60 tab, 11 Refill(s), Pharmacy: [place] [facility] [id number], 144, cm, 08/10/22 12:24:00 EST, Height/Length Dosing, [...] Daily, # 90 cap, 4 Refill(s), Pharmacy: [facility] Start Date: 08/01/22 Stop Date: 10/25/23 Status: Ordered metFORMIN 500 mg oral tablet 500 mg = 1 tab, Oral, Daily, with meals, # 90 tab, 4 Refill(s), Pharmacy: [place] [address], 144.78, cm, 05/31/23 10:27:00 EST, Height, 74.34, [...] food., # 90 tab, 4 Refill(s), Pharmacy: [facility], 144.78, cm, 05/31/23 10:27:00 EST, Height, 74.34, kg, 11/20/23 15:41:00 EDT, Weight Dosing Start Date: 11/20/23 Status: Ordered vitamin E 100 intl units oral capsule 100 IntlUnit = 1 cap, Oral, Daily, # 100 cap, 4 Refill(s), Pharmacy: [facility] Start Date: 08/01/22 Stop [...] 1auto-populated from documented surgical case 2sphincter repair, [facility] 3EGD, Dr Puckett 4right arm, Dr Hernadez 5Dr Satya 6left ankle, open Brostrom reconstruction of the lateral ligament 7bilateral Vital Signs Most recent to oldest [Reference Range]: 1 Peripheral Pulse Rate [60-100 bpm] 106 b pm *HI* (11/20/23 3:31 PM) Blood Pressure [90-140/60-90 mmHg] 132/7 8mmHg (11/20/23 3:31 PM) Mean Arterial Pressure, Cuff [65-140 mmH g] 96 mmHg (11/20/23 3:31 PM) Weight 74.34 kg (11/20/23 3:31 PM) Weight Measured (lbs) 163.891 lb (11/20/23 3:31 PM) Weight Dosing 74.340 kg (11/20/23 3:31 PM) Social History Social History Type Response Tobacco Current everyday tob acco user Tobacco Use:. 20 a day per day. 40 year(s). Sex Hospital Discharge Instructions Follow Up Care 08/22/2023 09:31:13 With:Bradley Shetty DO Address: [address] [place] [phone] When:1 Year Physician Outpatient Note * Bradley Shetty DO: PERFORM Event Display: Office Clinic Note Physician Authored Date: [id number] SOFIE GREER :1965 Age:58 years Sex:Female Visit Date:11/20/2023 Primary Care Physician: Bradley Shetty DO Chief Complaint Patient here for a med follow up 12/21/22 KATARZYNA with Selina Beckett History of Present Illness Patient is a 58-year-old female who comes in today for follow-up. ??She says overall things are going okay. Endocrine:??Taking medication as prescribed. ??We reviewed her labs. ??Her A1c today is 6.5. Cardiovascular: Taking her medication as prescribed.?? Again we reviewed her labs. Psych: Taking medication as prescribed. ??Feels that her symptoms are reasonably well-controlled. Neuro:??Seen by Dr. Beckett last year.?? Concerned about her memory.?? She says multiple family members have been telling her that she is??more forgetful, and she is starting to notice a difference or self.?? Dr. Beckett sent a referral for Neuropsych??to try and??parse out??developmental delay versus??early onset dementia??versus other mood disorders.?? Patient says she does not recall getting??contacted for that referral. Review of Systems See HPI otherwise negative. Physical Exam Vitals & Measurements HR:??106??(Peripheral)?? BP:??132/78?? SpO2:??95%?? WT:??74.34??kg?? General: Alert and oriented, well nourished,?No??acute distress Lungs: Clear to auscultation and percussion,?Non-labored?? respiration Heart:?Normal? rate,?Regular??rhythm,?No??murmur,?No??gallop,?No??edema Abdomen: Soft, non-tender, non-distended,?Normal? bowel sounds,?No??masses Musculoskeletal:?Normal? range of motion and strength,?No??tenderness,?No??swelling Neurologic: Awake, alert and oriented X4, CN II-XII intact Psychiatric: Cooperative, appropriate mood and affect Assessment/Plan 1.??Type 2 diabetes mellitus, without long-term current use of insulin??E11.9 ??A1c is 6.5, adequate control. ??Will continue current medication regimen. 2.??Hyperlipidemia??E78.5 Reviewed labs. ??Will continue current medication regimen.?? 3.??Depression with anxiety??F41.8 ??Symptoms appear to be reasonably well-controlled. ??Will continue current medication regimen. 4.??Memory difficulties??R41.3 ??Continues to struggle with memory difficulties.?? Will resend the referral for neuropsych evaluation. Orders: atorvastatin 10 mg oral tablet, 10 mg = 1 tab, Oral, Daily, # 90 tab, 4 Refill(s), Pharmacy: [facility], 144.78, cm, 05/31/23 10:27:00 EST, Height, 74.34, kg, 11/20/23 15:41:00 EDT, WeightDosing metFORMIN 500 mg oral tablet, 500 mg = 1 tab, Oral, Daily, with meals, # 90 tab, 4 Refill(s), Pharmacy: [facility], 144.78, cm, 05/31/23 10:27:00 EST, Height, 74.34, kg, 11/20/23 15:41:00 EDT, Weight Dosing venlafaxine 225 mg oral tablet, extended release, 225 mg = 1 tab, Oral, Daily, do not crush or chew, take with food., # 90 tab, 4 Refill(s), Pharmacy: [facility], 144.78, cm, 05/31/23 10:27:00 EST, Height, 74.34, kg, 11/20/23 15:41:00 EDT, Weight Dosing Referral Orders Referral Management, Medical Service: Neuropsychology, Reason: requesting testing to help parse out developmental delay vs early-onset dementia, any available (pt is aware she may have to travel),Start: 11/20/23, Instructions: Please send to Neuropsych at . Please i... Follow Up Instructions With When Contact Information Bradley Shetty, Within [address] [place] [address] Additional Instructions: Problem List/Past Medical [...] Ad26 vaccine 11/03/2020 Recorded Electronically Signed on 11/20/2023 16:08 EDT Bradley Shetty DO Patient Care team information Care Team Personnel Name: Bradley Shetty DO Position: Physician Member Role: Primary Care Physician Address: Address: [address] [place] [phone]
--- OUTSIDE RECORDS SUMMARY | 2024-02-09 23:14 | XMS_ITS | Continuity of Care Document ---
Author Organization [facility] Ambulatory Clinics Address [address] [place] [address] Care Team Providers Care Photolettering Machine Operator Name Role Phone Bradley Shetty DO Primary Care Physician Encounter [facility] NBR [id number] Date(s): 08/22/23 - 08/22/23 [facility] Ambulatory Clinics [address] [place] [address]- Discharge Disposition: Home or Self Care Attending Physician: William Owen MD Allergies, Adverse Reactions, [...] # 90 tab, 4 Refill(s), Pharmacy: [facility] Start Date: 08/01/22 Stop Date: 10/25/23 Status: Ordered Benadryl 25 mg oral capsule 50 mg = 2 cap, Oral, Daily, PRN as needed for allergy symptoms, # 60 tab, 0 Refill(s) Start Date: 07/28/22 Stop Date: 08/27/22 Status: Ordered calcium (as carbonate)-vitamin D 600 mg-400 intl units oral tablet 1 tab, Oral, BID, # 60 tab, 11 Refill(s), Pharmacy: [facility], 144, cm, 08/10/22 12:24:00 EST, Height/Length [...] # 90 cap, 4 Refill(s), Pharmacy: [facility] Start Date: 08/01/22 Stop Date: 10/25/23 Status: Ordered metFORMIN 500 mg oral tablet 500 mg = 1 tab, Oral, Daily, with meals, # 90 tab, 4 Refill(s), Pharmacy: [facility] Start Date: 08/01/22 Stop Date: 10/25/23 Status: Ordered One-A-Day Women 50 Plus oral tablet 1 tab, Oral, Daily, # 90 tab, 0 Refill(s) Start Date: 07/28/22 Stop Date: 10/26/22 Status: Ordered venlafaxine 225 mg oral tablet, extended release 225 mg = 1 tab, Oral, Daily, # 90 tab, 4 Refill(s), Pharmacy: [facility] Start Date: 08/01/22 Stop Date: 10/25/23 Status: Ordered vitamin E 100 intl units oral capsule 100 IntlUnit = 1 cap, Oral, Daily, # 100 cap, 4 Refill(s), Pharmacy: [id number] Start Date: 08/01/22 Stop Date: 10/25/23 Status: [...] from documented surgical case 2[place]phincter repair[place] [facility] 3EGD, Dr Puckett 4right arm, Dr Hernadez 5Dr Sigel 6left ankle, open Brostrom reconstruction of the lateral ligament 7bilateral Vital Signs Most recent to oldest [Reference Range]: 1 Blood Pressure [90-140/60-90 mmHg] 120/7 4mmHg (08/22/23 1:15 PM) Mean Arterial Pressure, Cuff [65-140 mmH g] 89 mmHg (08/22/23 1:15 PM) Weight 74.5 kg (08/22/23 1:15 PM) Weight Measured (lbs) 164.244 lb (08/22/23 1:15 PM) Weight Dosing 74.500 kg (08/22/23 1:15 PM) Social History Social History Type Response Tobacco Current everyday tob acco user Tobacco Use:. 20 a day per day. 40 year(s). Sex Patient Care team information Care Team Personnel Name: Bradley Shetty DO Position: Physician Member Role: Primary Care Physician Address: Address: [address] [place] [phone] [place]
--- OUTSIDE RECORDS SUMMARY | 2024-02-09 23:14 | XMS_ITS | Encounter Summary ---
Author Organization [facility] Address [facility] [place] [address] Care Team Providers Care Channel Process Plant Operator Name Role Phone Bradley Judd DO Primary Care Provider [phone]- [phone] Reason for Referral * Psychiatric (Routine) - Authorized Specialty Diagnoses / Procedures Referred By Madeleine t Referred To Contact Psychiatry Diagnoses Other specified anxiety disorders REQUESTING TESTING TO HELP PARSE OUT DEVELOMENTAL DELAY VS EARLY-ONSET DEMENTIA, ANY AVAILABLE (PT IS AWARE SHE MAY HAVE TO TRAVEL) Bradley Judd DO [address] [place] [address] Maurice Wong, PhD [facility] [place] [address] Referral ID Status Reason Start Date Expiration Date Visits Requested Visits Authorized [id number] Authorized Consult, Test & Treat PCP Updated and/or Approved 11/20/2023 11/19/2024 6 6 Encounter Details Date Type Department Care Team (Late st Contact Info) Description 12/04/2023 Transcribe Orders eDH Incoming Referrals [phone] Bradley Judd DO [address] [place] [address] Other specified anxiety disorders Social History Tobacco Use Types Packs/Day Years [...] PM EDT documented as of this encounter Plan of Treatment Upcoming Encounters Date Type Department Care Team (Late st Contact Info) Description 05/01/2024 1:00 PM EST TH Visit (TeleHealth) [place]stetric[place] [address] Raymon Hill MD [facility] [address] OBSTETRICS [place] [address] Scheduled Referrals Name Type Priority Associated Diagnoses Order Schedule Referral to Neuropsychology Outpatient Referral Routine Other specified anxiety disorders Ordered: 12/04/2023 documented as of this encounter Visit Diagnoses Diagnosis Other specified anxiety disorders documented in this encounter Care Teams Channel Process Plant Operator Relationship Specialty Start Date End Date Bradley Judd DO [address] [place] [address] PCP - General Family Medicine 10/28/18 documented as of this encounter
--- OUTSIDE RECORDS SUMMARY | 2024-02-09 23:14 | XMS_ITS | Continuity of Care Document ---
Author Organization [facility] Address [address] [place] [address] Care Team Providers Care Shop Supervisor Name Role Phone Bradley Shetty DO Primary Care Physician Encounter [facility] NBR [id number] Date(s): 02/07/24 - 02/07/24 [facility] [address] [place], [place] [phone]- [place] Discharge Disposition: Home or Self Care Attending Physician: Aliya Nation PA-C Admitting Physician: Aliya Nation PA-C Referring Physician: Aliya Nation PA-C Allergies, Adverse Reactions, Alerts Substance Criticality Severity Reaction Reaction Severity Status amoxicillin 1 High criticality Moderate Rash Active sulfa drugs High criticality Moderate Stomach upset Active 1on hands Assessment and Plan Future [...] Daily, # 90 tab, 4 Refill(s), Pharmacy: [facility], 144.78, cm, 05/31/23 [...] BID, # 60 tab, 11 Refill(s), Pharmacy: [facility], 144, cm, 08/10/22 12:24:00 [...] meals, # 90 tab, 4 Refill(s), Pharmacy: [facility], 144.78, cm, 05/31/23 [...] food., # 90 tab, 4 Refill(s), Pharmacy: [facility], 144.78, cm, 05/31/23 [...] 1auto-populated from documented surgical case 2sphincter repair, [facility] 3EGD, Dr Puckett 4right arm, Dr Hernadez 5Dr Collins 6left ankle, open Brostrom reconstruction of the lateral ligament 7bilateral Social History Social History Type Response Tobacco Current everyday tob acco user Tobacco Use:. 20 a day per day. 40 year(s). Sex Sex Representation Female (finding) Patient Care team information Care Team Personnel Name: Bradley Shetty DO Position: Physician Member Role: Primary Care Physician Address: [address] [place] [phone] Insurance Providers Guarantor name: SOFIE GREER Health Plan Information #: 2 Payer[place] Member Number: [id number] Policy Number: NA Health Plan Information #: 1 Payer: [employer] Medicare Adv Member Number: [id number] Policy Number: NA Health Plan Information #: 3 Payer: SELF PAY Member Number: NA Policy Number: NA
--- OUTSIDE RECORDS SUMMARY | 2024-02-09 23:14 | XMS_ITS | Encounter Summary ---
Author Organization [facility] [place] [address] Care Team Providers Care Market Stall Vendor Name Role Phone Bradley Judd DO Primary Care Provider +1- [phone] Encounter Details Date Type Department Care Team (Latest Contact Info) Description 01/14/2024 Travel Social History Tobacco Use Types Packs/Day Years [...] TH Visit (TeleHealth) Obstetrics [place] [address] Raymon Hill MD [facility] OBSTETRICS [place] [address] documented as of this encounter Visit Diagnoses Not on filedocumented in this encounter Care Teams Market Stall Vendor Relationship Specialty Start Date End Date DutchBradley Tran DO [address] [place] [address] PCP - General Family Medicine 10/28/18 documented as of this encounter
--- OUTSIDE RECORDS SUMMARY | 2024-02-09 23:14 | XMS_ITS | Continuity of Care Document ---
Author Organization [facility] Ambulatory Clinics Address [address] [place] [address] Care Team Providers Care Software Project Lead Name Role Phone Bradley Shetty DO Primary Care Physician Encounter [facility] [facility] NBR [id number] Date(s): 01/28/24 - 01/28/24 [facility] Ambulatory Clinics [address] [place] [address]- Discharge Disposition: Home Allergies, Adverse Reactions, Alerts [...] Daily, # 90 tab, 4 Refill(s), Pharmacy: [facility], 144.78, cm, 05/31/23 10:27:00 [...] BID, # 60 tab, 11 Refill(s), Pharmacy: [facility] [address], 144, cm, 08/10/22 12:24:00 EST, Height/Length Dosing, [...] Daily, # 90 cap, 4 Refill(s), Pharmacy: [facility] Start Date: 08/01/22 Stop Date: 10/25/23 Status: Ordered metFORMIN 500 mg oral tablet 500 mg = 1 tab, Oral, Daily, with meals, # 90 tab, 4 Refill(s), Pharmacy: [facility], 144.78, cm, 05/31/23 10:27:00 EST, Height, 74.34, [...] food., # 90 tab, 4 Refill(s), Pharmacy: [facility], 144.78, cm, 05/31/23 10:27:00 EST, Height, 74.34, kg, 11/20/23 15:41:00 EDT, Weight Dosing Start Date: 11/20/23 Status: Ordered vitamin E 100 intl units oral capsule 100 IntlUnit = 1 cap, Oral, Daily, # 100 cap, 4 Refill(s), Pharmacy: [facility] Start Date: 08/01/22 Stop [...] documented surgical case 2sphincter repair, [facility] 3[place]GD, Dr Puckett 4right arm, Dr Hernadez 5Dr Satya 6left ankle, open Brostrom reconstruction of the lateral ligament 7bilateral Social History Social History Type Response Tobacco Current everyday tob acco user Tobacco Use:. 20 a day per day. 40 year(s). Sex Patient Care team information Care Team Personnel Name: Bradley Shetty DO Position: Physician Member Role: Primary Care Physician Address: Address: [address] [place] [phone]
--- OUTSIDE RECORDS SUMMARY | 2024-02-09 23:14 | XMS_ITS | Clinical Summary ---
Author Organization [facility] Address [facility] [place] [address] Care Team Providers Care Gift Shop Clerk Name Role Phone Bradley Judd DO Primary Care Provider +1- [phone] Allergies Active Allergy Reactions Criticality Noted Date Comments Sulfamethoxazole-Trimethoprim 2018 Stomach pain Sulfa (Sulfonamide Antibiotics) CIS - STOMACH PAIN Medications Medication Sig Dispensed Refills Start Date End Date Status multivitamin (THERAGRAN) Tablet Take 1 tablet by mouth daily. Active diphenhydrAMINE (BENADRYL) 50 mg Capsule Take 50 mg by mouth every 6 hours as needed for Itching. Active pseudoephedrine (SUDAFED) 30 mg Tablet Take 30 mg by mouth every 4 hours as needed for Congestion. Active metFORMIN (GLUCOPHAGE) 500 mg Tablet Take 500 mg by mouth daily. Active famotidine (PEPCID) 20 mg Tablet Take 20 mg by mouth 2 times daily. Active calcium carbonate (CALCIUM 500 ORAL) Take by mouth. Ac tive atorvastatin (Lipitor) 10 mg Tablet TAKE 1 TABLET BY MOUTH ONCE DAILY 11/24/2019 Active acetaminophen (Tylenol) 325 mg Tablet Take 2 tablets by mouth every 6 hours as needed for Pain. 30 tablet 1 03/23/2020 Active apremilast (Otezla Starter) 10 mg (4)-20 mg (4)-30 mg (47) Tablets, Dose Pack Take as directed by package instructions 55 tablet 12/23/2020 Active Additional Information Patient not taking.Reported on 01/14/2024 apremilast (Otezla) 30 mg Tablet Take 30 mg by mouth 2 times daily. 60 tablet 5 12/23/2020 Active Additional Information Patient not taking.Reported on 01/14/2024 Venlafaxine 225 mg Tablet Extended Rel 24 hr Take 225 mg by mouth daily. 01/05/2021 Active clobetasoL (Temovate) 0.05 % OintmentIndication s:Palmoplantar pustulosis Apply twice a day to the affected areas on the hands 1 week on and 1 week off as needed 60 g 5 12/07/2022 Active Active Problems Problem Noted Date Diagnosed Date Incontinence of feces with fecal urgency 020 Overview (03/08/2020): Added automatically from request for surgery [id number] Fecal incontinence 02/15/2015 Mixed stress and urge urinary incontinence 02/15 Overview (02/15/2015): Stress predominant symptoms GERD (gastroesophageal reflux disease) IBS (irritable bowel syndrome) Hearing loss Overview (02/15/2015): Wears hearing aids Seasonal allergies Sleep apnea Overview (02/15/2015): Not using CPAP Diabetes mellitus Encounters Date Type Department Care Team Description 01/14/2024 8:00 AM EDT Procedure visit [place]stetrics [place] [address] Jeannette Jackson MD Urinary incontinence, urge; Incomplete bladder emptying [R33.9] 01/14/2024 Travel 12/04/2023 Transcribe Orders eDH Incoming Referrals [phone] Bradley Judd, Other specified anxiety disorders from Last 3 Months Family History Medical History Relation Comments Cerebrovascular Accident Mother Diabetes Mother Stroke Mother Type 2 Diabetes Mother Diabetes Sister 4 High Blood Pressure Sister 5 Other Sister 6 Coliitis Breast Cancer Neg Hx Colorectal Cancer Neg Hx Ovarian Cancer Neg Hx Pancreatic Cancer Neg Hx Uterine Cancer Neg Hx Relation Status Comments Father (Age 60) Mother Alive Sister 1 Alive Sister 2 Alive Sister 3 Alive Sister 4 Sister 5 Sister 6 Social History Tobacco Use Types Packs/Day Years Used Date Smoking Tobacco: Every Day Cigarettes 1 37 Smokeless Tobacco: Never Tobacco Cessation:Ready to Q uit: Yes; Counseling Given: Yes Alcohol Use Standard Drinks/Week Comments Not Currently 0 (1 standard drink = 0.6 oz pur e alcohol) Sex and Gender Information Value Date Recorded Sex Assigned at Female 10/30/2022 5:17 PM EDT Gender Identity Female 10/30/2022 5:17 PM EDT Sexual Orientation Lesbian or Jj 10/30/2022 5: 17 PM EDT Sexual Orientation Straight 10/30/2022 5: 17 PM EDT Last Filed Vital Signs Vital Sign Reading Time Taken Comments Blood Pressure 155/92 01/14/2024 7:52 AM EDT Pulse 76 01/14/2024 7:52 AM EDT Temperature 36.1 ??C (96.9 ??F) 08/21/2023 12:[address] Respiratory Rate 16 02/19/2022 5:08 PM EDT Oxygen Saturation 100% 08/21/2023 12:50 PM EST Inhaled Oxygen Concentration - - Weight 75.1 kg (165 lb 9.6 oz) 08/21/2023 12:50 PM EST Height 144.8 cm (4' 9) 08/21/2023 12:50 PM EST Body Mass Index 35.84 08/21/2023 12:50 PM EST Plan of Treatment Upcoming Encounters Date Type Department Care Team (Late st Contact Info) Description 05/01/2024 1:00 PM EST TH Visit (TeleHealth) [place]stetrics [place] [address] Raymon Hill MD [facility] DR OBSTETRICS [place] [address] Health Maintenance Due Date Last Done Comments CT Colonography 1965 Colonoscopy 1965 Colorectal Cancer Screening 1965 FIT DNA 1965 FIT 1965 Sigmoidoscopy (10 year) with FIT yearly 1965 Sigmoidoscopy 1965 Pneumococcal Vaccine: At-Risk 5-64yrs (1 of 2 - PCV) 1 08/07/1970 DM Hemoglobin A1c 1975 DM Opthalmology Exam 1975 DM Urine Microalbumin yearly 1975 HIV screen 1983 Hepatitis C Screening 1983 Hepatitis B vaccine (0-59 yrs) (1) 1984 Tdap adult 1984 Tetanus vaccine 1984 HPV test 1995 PAP Smear 1995 Breast Cancer Share Decision Needed 2005 Breast Cancer screening 2005 Zoster vaccine (1 of 2) 2015 Advance Directive 2020 DM Creatinine yearly 10/19/2022 10/19/2021 Covid-19 Vaccine (2 - season) 2023 Influenza (Flu) vaccine (1 o f 1 - Influenza standard series) 02/17/2024 Medical Devices Implanted Type Area Tester Operator Device Identifier Shelf Expiration Date Model / Serial / Lot Slng,Incont,D esara,Femal,S hrt ([id number]) - [id number] Implanted:Qty : 1 on 03/23/2020 by Raymon Hill MD at [facility] IMPLANTS [facility] [id number] 03/28/2023 [id number] [id number] Procedures Procedure Name Priority Date/Time Associated Diagnosis Comments POCT URINE DIPSTICK Routine 01/14/2024 Urinary incontinence, urge HC VENIPUNCTURE Routine 10/19/2021 4:33 PM EDT High risk medication use from Last 3 Months or Most Recently Relevant to Health Maintenance Results * POCT urine dipstick (01/14/2024) POC Sp [place] 1.010 1.002 - 1.030 POC pH, UA [...] MD POINT OF CARE TEST O RDERABLES * (ABNORMAL) Comprehensive metabolic panel (non-fasting) (10/19/2021 4:33 PM EDT) Glucose 100 65 - 199 mg/dL [facility] Comment:Diabetes: >=200 mg/d L plus symptoms Blood Urea Nitrogen 9 8 - 18 mg/dL [facility] Creatinine 0.71 0.70 - 1.20 mg/dL [facility] Sodium 140 135 - 145 mmol/L [facility] Potassium 3.9 3.5 - 5.0 mmol/L [facility] Comment: Please note: ??Patients with WBC >100,000 may have falsely elevated Potassium levels. ??For accurate Potassium quantification in these patients send serum separator tube (gold top) for subsequent determinations. ??Contact the Clinical Chemistry Laboratory if there are any questions. Chloride 99 98 - 107 mmol/L [facility] Carbon Dioxide 27 22 - 31 mmol/L [facility] Anion Gap 14 5 - 15 mmol/L [facility] Calcium 10.0 8.5 - 10.5 mg/dL [facility] Protein, Total 7.5 6.1 - 8.0 g/dL [facility] Albumin 4.6 3.2 - 5.2 g/dL [facility] Aspartate Aminotransferase 27 0 - 30 unit/L [facility] Alanine Aminotransferase 31(H) 0 - 30 unit/L [facility] Alkaline Phosphatase 96 35 - 105 unit/L [facility] Bilirubin, Total 0.6 0.2 - 1.3 mg/dL [facility] Est Glomerular Filtration Rate 95 >=60 mL/min/1. 73 m?? [facility] Comment: This patient? s estimated glomerular filtration rate (eGFR) is between 95 mL/min/1.73 m2 (patients with less muscle mass) and 110 mL/min/1.73 m2 (patients with more muscle mass) as determined by the CKD-EPI equation. Assessment of eGFR is not appropriate when creatinine concentrations are rapidly changing. For clinical decisions where creatinine clearance will affect therapy, a 24-hour urine creatinine clearance may be advised. Assignment of CKD stage 1 - 5 for patients with an eGFR near the transition point between stages may be based on clinical assessment of muscle mass and symptoms in addition to eGFR. Blood 10/19/2021 4:33 PM EDT 10/19/2021 4:55 PM EDT Narrative Resulting Agency Comment Spec In Lab Kaci Genao MD CHEMISTRY ORDERABLE S [facility] [place] [address] from Last 3 Months or Most Recently Relevant to Health Maintenance Advance Directives * Attempt Cardiopulmonary Resuscitation - Inpatient (Latest Code Status on File) Date Activated Date Inactivated Comments 03/23/2020 10:20 AM 03/23/2020 5:14 PM Question Answer Comments Code Status decision made by: Patient Care Teams Gift Shop Clerk Relationship Specialty Start Date End Date Bradley Judd DO [address] [place] [address] PCP - General Family Medicine 10/28/18
--- OUTSIDE RECORDS SUMMARY | 2024-02-09 23:15 | XMS_ITS | Encounter Summary ---
Author Organization [facility] [place] [address] Care Team Providers Care Cook Chili Name Role Phone Dutch Bradley Jeffery WU Primary Care Provider +1- [phone] Reason for Visit * Reason Onset Date Comments Medication Refill 06/29/2021 Encounter Details Date Type Department Care Team (Late st Contact Info) Description 06/29/2021 Refill Dermatology at [facility] [address] [place] [address] Conchita Tucker MD [facility] [address] [place] [address] Palmoplantar pustulosis Social History Tobacco Use Types Packs/Day Years [...] PM EDT documented as of this encounter Miscellaneous Notes * Telephone Encounter - Amanda Panda LPN - 06/29/2021 10:21 AM EST Medication(s) requested to refill Clobetasol Last visit: 02/2021 Follow up recommended 2-3 months F/U Scheduled: 07/27/21 Assessment/Plan for this/these medications: ?? #. 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 - Encouraged smoking cessation??as this is often a driving force for palmoplantar pustulosis?? - Discussed systemic treatment options, which include: Otezla, which patient would like to try.?? -??Continue??Clobetasol 0.05%??ointment??twice a day to the affected areas on the hands??x4??weeks.At night apply under occlusion of white cotton gloves.? - Insurance failed to cover Rx Otezla. Will look into PA process. - Briefly discussed Acitretin if the insurance does not approve Rx Otezla. - Offered referral to [facility] smoking cessation program. Patient has declined at this time. - Advised patient to start wet-wraps during the day for 30 minutes. See below. - Advised patient to follow sensitive skin care regime. ?? Appropriate to refill: yes Special Considerations: no Order/orders pended and routed to Dr. Barth for review and approval documented in this encounter Plan of Treatment Upcoming Encounters Date Type Department Care Team (Late st Contact Info) Description 05/01/2024 1:00 PM EST TH Visit (TeleHealth) Obstetrics [place] [address] Raymon Hill MD [facility] [place] [address] documented as of this encounter Visit Diagnoses Diagnosis Palmoplantar pustulosis Other psoriasis documented in this encounter Care Teams Cook Chili Relationship Specialty Start Date End Date Bradley Judd DO [address] [place] [address] PCP - General Family Medicine 10/28/18 documented as of this encounter
--- OUTSIDE RECORDS SUMMARY | 2024-02-09 23:15 | XMS_ITS | Encounter Summary ---
Author Organization [facility] [place] [address] Care Team Providers Care Industrial Editor Name Role Phone Bradley Judd DO Primary Care Provider +1- [phone] Encounter Details Date Type Department Care Team (Latest Contact Info) Description 12/07/2022 Travel Social History Tobacco Use Types Packs/Day [...] TH Visit (TeleHealth) Obstetrics [place] [address] Raymon Hill MD [facility] [place] [address] documented as of this encounter Visit Diagnoses Not on filedocumented in this encounter Care Teams Industrial Editor Relationship Specialty Start Date End Date DutchBradley Tran DO [address] [place] [address] PCP - General Family Medicine 10/28/18 documented as of this encounter
--- OUTSIDE RECORDS SUMMARY | 2024-02-09 23:15 | XMS_ITS | Encounter Summary ---
Author Organization [facility] [place] [address] Care Team Providers Care Drywall Worker Name Role Phone Bradley Judd DO Primary Care Provider +1- [phone] Encounter Details Date Type Department Care Team (Latest Contact Info) Description 08/20/2023 Travel Social History Tobacco Use Types Packs/Day [...] TH Visit (TeleHealth) Obstetrics [place] [address] Raymon Hill MD [facility] OBSTETRICS [place] [address] documented as of this encounter Visit Diagnoses Not on filedocumented in this encounter Care Teams Drywall Worker Relationship Specialty Start Date End Date DutchBradley Tran DO [address] [place] [address] PCP - General Family Medicine 10/28/18 documented as of this encounter
--- OUTSIDE RECORDS SUMMARY | 2024-02-09 23:15 | XMS_ITS | Encounter Summary ---
Author Organization [facility] [place] [address] Care Team Providers Care Planer Hand Name Role Phone DutchBradley marin Jeffery WU Primary Care Provider +1- [phone] Reason for Visit * Reason Onset Date Comments Medication Refill 10/30/2022 Encounter Details Date Type Department Care Team (Late st Contact Info) Description 10/30/2022 Refill Dermatology at [facility] [address] [place] [address] Mercedes Levy MD [facility] [address] [place] [address] Palmoplantar pustulosis Social History Tobacco Use Types [...] TH Visit (TeleHealth) Obstetrics [place] [address] Raymon Hill MD [facility] OBSTETRICS [place] [address] documented as of this encounter Visit Diagnoses Diagnosis Palmoplantar pustulosis Other psoriasis documented in this encounter Care Teams Planer Hand Relationship Specialty Start Date End Date Bradley Judd DO [address] [place] [address] PCP - General Family Medicine 10/28/18 documented as of this encounter
--- OUTSIDE RECORDS SUMMARY | 2024-02-09 23:15 | XMS_ITS | Encounter Summary ---
Author Organization [facility] [place] [address] Care Team Providers Care Chief Medical Director Name Role Phone Dutch Bradley Jeffery WU Primary Care Provider +1- [phone] Encounter Details Date Type Department Care Team (Late st Contact Info) Description 10/19/2021 2:40 PM EDT Office Visit Dermatology at [address] [place] [address] Mercedes Levy MD [facility] [address] [place] [address] Palmoplantar pustulosis; High risk medication use Social History Tobacco Use Types Packs/Day Years [...] PM EDT documented as of this encounter Progress Notes * Mercedes Levy MD - 10/19/2021 2:40 PM EDT Images from the original note were not included. DEPARTMENT OF DERMATOLOGY Medical Dermatology Clinic Provider: Mercedes Levy MD Jul[facility] Preferred name Lary Preferred contact method for results []???myDH []???Letter [x]???Phone:??Either Cell or Home Detailed phone message OK? Yes Are there any other people with whom we may discuss your care? No ?? PAST MEDICAL HISTORY If no, type N. If yes, type date, location, treatment Melanoma No Dysplastic nevi No SCC No BCC No AKs no UV Exposure & Protection Sun Protection:??none Other relevant past medical history (i.e. eczema, psoriasis, birthmarks, immunosuppression) ?? FAMILY HISTORY If yes, details Melanoma No NMSC No Other relevant family history No SOCIAL HISTORY Occupation:??unemployed Hobbies:??none Other:? Pre-Procedure Screening Details Allergy to lidocaine, epinephrine, Dermabond, chlorhexidine, or adhesives N Bleeding disorder or blood thinners N Implanted devices (Pacemaker, defibrillator, deep brain stimulator, cochlear implant) N History of Present Illness: Tracy Harmon is a 56 y.o. year old. Patient returns to clinic todayfor evaluation of palmoplantar pustulosis. - Refill on ointment needed. - Patient continues to to MTX weekly. - With the given regiment, patient states that it has managed her skin well. - She states that her fingertips can be sore at times. - She takes 6 tablets of MTX on Sundays. Last visit at [facility] Derm: 08/25/2021 Last visit with this provider: Dr. Barth Medications:. Allergies: Reviewed in eD-H Skin Examination: TeleHealth examination: Skin exam of the hands was limited due to telehealth. Assessment/Plan #. Palmoplantar pustulosis, improving??-.??On the edge of the finger (most pronounced on the 5th finger), mild erythematous plaque with fissuring noted. - improving on 4 months MTX (started Apr 2021) - Encouraged smoking cessation??as this is often a driving force for palmoplantar pustulosis?? - Continue Rx: MTX 15 mg weekly with folic acid 1 mg daily and f/u in 6 weeks in person - Labs: CBC, CMP- Patient will do lab draw at [facility] today -??continue??Rx: Clobetasol 0.05%??ointment??as needed and sensitive skin care (refilled today). Other items to document in the assessment/plan if relevant ??? Reviewed and/or interpreted test results RTC: 2-3 month follow up for Palmoplantar pustulosis []Note routed to medical office secretary []Recall has been placed in scheduling system [x]Appointment scheduled at checkout Scribe attestation: BHARAT Reyes who has performed the documentation for this encounter inthe presence of and acting as a scribe for Mercedes Levy MD. I performed the above scribed service and agree with the accuracy of the documentation in this encounter. Reviewed and signed by: Mercedes Levy MD Dermatology [facility] Patient seen and evaluated with staff loop tacker: Ty Genao MD Dermatology [facility] * Ty Genao MD - 10/19/2021 2:40 PM EDT I directly supervised the Dermatology resident during this office visit. The resident presented thehistory and physical exam to me. I then saw and examined this patient with the resident. We reviewed the history and pertinent details and I confirmed the physical findings. I agree with the details of the history and physical exam as documented in the resident's note. TY GENAO MD Staff Physician documented in this encounter Plan of Treatment Upcoming Encounters Date Type Department Care Team (Late st Contact Info) Description 05/01/2024 1:00 PM EST TH Visit (TeleHealth) Obstetrics [place] [address] Raymon Hill MD [facility] OBSTETRICS [place] [address] documented as of this encounter Results * (ABNORMAL) Comprehensive metabolic panel (non-fasting) (10/19/2021 4:33 PM EDT) Glucose 100 65 - 199 mg/dL [facility] Comment:Diabetes: >=200 mg/d L plus symptoms Blood Urea Nitrogen 9 8 - 18 mg/dL [facility] Creatinine 0.71 0.70 - 1.20 mg/dL [facility] Sodium 140 135 - 145 mmol/L [facility] Potassium 3.9 3.5 - 5.0 mmol/L [facility] Comment: Please note: ??Patients with WBC >100,000 may have falsely elevated Potassium levels. ??For accurate Potassium quantification in these patients send serum separator tube (gold top) for subsequent determinations. ??Contact the Clinical Chemistry Laboratory if there are any questions. Chloride 99 98 - 107 mmol/L [facility] Carbon Dioxide 27 22 - 31 mmol/L [facility] Anion Gap 14 5 - 15 mmol/L [facility] Calcium 10.0 8.5 - 10.5 mg/dL [facility] Protein, Total 7.5 6.1 - 8.0 g/dL [facility] Albumin 4.6 3.2 - 5.2 g/dL [facility] Aspartate Aminotransferase 27 0 - 30 unit/L [facility] Alanine Aminotransferase 31(H) 0 - 30 unit/L [facility] Alkaline Phosphatase 96 35 - 105 unit/L [facility] Bilirubin, Total 0.6 0.2 - 1.3 mg/dL [facility] Est Glomerular Filtration Rate 95 >=60 mL/min/1. 73 m?? [facility] Comment: This patient? s estimated glomerular [...] Narrative Resulting Agency Comment Spec In Lab Ty Genao [place] [address] documented in this encounter Visit Diagnoses Diagnosis Palmoplantar pustulosis Other psoriasis High risk medication use Encounter for long-term (current) use of other medications documented in this encounter Care Teams Chief Medical Director Relationship Specialty Start Date End Date Bradley Judd DO [address] [place] [address] PCP - General Family Medicine 10/28/18 documented as of this encounter
--- OUTSIDE RECORDS SUMMARY | 2024-02-09 23:15 | XMS_ITS | Encounter Summary ---
Author Organization [facility] Address [facility] [place] [address] Care Team Providers Care Business Machine Mechanic Name Role Phone Dutch Bradley Jeffery WU Primary Care Provider +1- [phone] Reason for Visit * Reason Onset Date Comments Medication Refill 05/20/2021 Encounter Details Date Type Department Care Team (Late st Contact Info) Description 05/20/2021 Refill Dermatology at [facility] [address] [place] [address] Conchita Tucker MD [facility] [address] [place] [address] Social History Tobacco Use Types Packs/Day Years [...] encounter Miscellaneous Notes * Telephone Encounter - Peggy Siddiqui LPN - 05/20/2021 8:59 AM EST Medication(s) requested to refill MTX Last visit: 03/08/21 Follow up recommended 2-3 months from 04/28/21 F/U Scheduled: pending Assessment/Plan for this/these medications: Palmoplantar pustulosis Appropriate to refill: yes Special Considerations: none Order/orders pended and routed to for review and approval documented in this encounter Plan of Treatment Upcoming Encounters Date Type Department Care Team (Late st Contact Info) Description 05/01/2024 1:00 PM EST TH Visit (TeleHealth) Obstetrics [place] [address] Raymon Hill MD [facility] [place] [address] documented as of this encounter Visit Diagnoses Not on filedocumented in this encounter Care Teams Business Machine Mechanic Relationship Specialty Start Date End Date Bradley Judd DO [address] [place] [address] PCP - General Family Medicine 10/28/18 documented as of this encounter
--- OUTSIDE RECORDS SUMMARY | 2024-02-09 23:15 | XMS_ITS | Encounter Summary ---
Author Organization [facility] Address [facility] [place] [address] Care Team Providers Care Head Loader Name Role Phone DutchBradley young Jeffery WU Primary Care Provider +1- [phone] Encounter Details Date Type Department Care Team (Late st Contact Info) Description 07/27/2021 2:40 PM EST Office Visit Dermatology at [address] [address] Conchita Tucker MD [facility] [place] [address] Palmoplantar pustulosis; High risk medication use Social [...] as of this encounter Progress Notes * Conchita Barth MD - 07/27/2021 2:40 PM EST Images from the original note were not included. DEPARTMENT OF DERMATOLOGY Medical Dermatology Clinic Provider: Conchita Spangler'ts Preferred name Lary Preferred contact method for results []??myDH []??Letter [x]??Phone:??Either Cell or Home Detailed phone message OK? [...] family history No SOCIAL HISTORY Occupation:??unemployed Hobbies:??none Other: Pre-Procedure Screening Details Allergy to lidocaine, epinephrine, Dermabond, chlorhexidine, or adhesives N Bleeding disorder or blood thinners N Implanted devices (Pacemaker, defibrillator, deep brain stimulator, cochlear implant) N History of Present Illness: Tracy Harmon is a 56 y.o. Patient returns to clinic today for follow up of palmoplantar pustulosis: patient reports hands still very dry. They are improving a little. No itching. Patient reports bottom of her feet are painful. - Patient notices after she applies the ointment it will dry out her hands. - hard to quit smoking as her boyfriend is a chain smoker who will not quit Last visit at [facility] Derm: 03/08/2021 Last visit with this provider: 03/08/2021 Medications: Reviewed in eD-H Allergies: Reviewed in eD-H Skin Examination: Focused skin examination of the hands was normal with the exception of the findings below. Assessment/Plan #. Palmoplantar pustulosis, improving??- on the bilateral palmar hands, there are few deep seated vesicles with background erythema and scaling. Slightly improved since the last visit - improving on 3 months MTX (12.5 mg weekly) though still active and symptomatic - Encouraged smoking cessation as this is often a driving force for palmoplantar pustulosis - Continue and increase Rx: MTX 15 mg weekly with folic acid 1 g daily and f/u in 4 weeks by telehealth - Labs: CBC, CMP around time of telehealth visit (faxed to [facility]) - Continue Clobetasol 0.05%??ointment??as needed and sensitive skin care (refilled today) #. Hyperkeratosis- heels with thickened yellow scale and fissures - recommend Vaseline nightly and cover with socks or OTC 40% urea cream Figure 1 Photo(s) taken and charted with patient's verbal consent. Other: ??? N/A RTC: 4 week telehealth PPP f/u []Note routed to corporate secretary []Recall placed in scheduling system [x]Appointment scheduled at checkout Scribe attestation: Gia Florian has performed the documentation for this encounter in the presence of and acting as a scribe for Conchita Barth MD. I performed the above scribed service and agree with the accuracy of the documentation in this encounter. Reviewed and signed by: Conchita Barth MD Dermatology [facility] Patient seen and evaluated with staff project management advisor: Ty Genao MD Dermatology [facility] * Ty Genao MD - 07/27/2021 2:40 PM EST I directly supervised the Dermatology resident during [...] TH Visit (TeleHealth) Obstetrics [place] [address] Raymon Hill MD [facility] OBSTETR[place] [address] documented as of this encounter Visit Diagnoses Diagnosis Palmoplantar pustulosis Other psoriasis High risk medication use Encounter for long-term (current) use of other medications documented in this encounter Care Teams Head Loader Relationship Specialty Start Date End Date Bradley Judd DO [address] [place] [address] PCP - General Family Medicine 10/28/18 documented as of this encounter
--- OUTSIDE RECORDS SUMMARY | 2024-02-09 23:15 | XMS_ITS | Encounter Summary ---
Author Organization [facility] [place] [address] Care Team Providers Care Hand Cloth Folder Name Role Phone DutchBradley young Jeffery WU Primary Care Provider +1- [phone] Encounter Details Date Type Department Care Team (Late st Contact Info) Description 03/31/2021 Telephone Dermatology at [address] [phone] Conchita Tucker MD [facility] [place] [address] Social History Tobacco Use Types Packs/Day Years [...] TH Visit (TeleHealth) Obstetrics [place] [phone] Raymon Hill MD [facility] [place] [address] documented as of this encounter Visit Diagnoses Not on filedocumented in this encounter Care Teams Hand Cloth Folder Relationship Specialty Start Date End Date Bradley Judd DO [address] [place] [address] PCP - General Family Medicine 10/28/18 documented as of this encounter
--- OUTSIDE RECORDS SUMMARY | 2024-02-09 23:15 | XMS_ITS | Encounter Summary ---
Author Organization [facility] [place] [address] Care Team Providers Care Dental Laboratory Technician Name Role Phone DutchBradley young Jeffery WU Primary Care Provider +1- [phone] Reason for Visit * Reason Comments Follow-up vaginal sore Encounter Details Date Type Department Care Team (Late st Contact Info) Description 06/03/2020 2:30 PM EST Office Visit Obstetrics [place] [address] Helio Hill MD [facility] DR OBSTETRICS [place] [address] Dyspareunia, female; Postop check Social History Tobacco Use Types Packs/Day Years [...] Sign Reading Time Taken Comments Blood Pressure 123/87 06/03/2020 3:15 PM EST Pulse 112 06/03/2020 3:15 PM EST Temperature 36.8 ??C (98.3 ??F) 06/03/2020 3:15 PM ES T Respiratory Rate 16 06/03/2020 3:15 PM EST Oxygen Saturation 97% 06/03/2020 3:15 PM EST Inhaled Oxygen Concentration - - Weight 81.2 kg (179 lb 1.6 oz) 06/03/2020 3:15 P M EST Height 144.8 cm (4' 9.01) 06/03/2020 3:15 PM ES T Body Mass Index 38.75 06/03/2020 3:15 PM EST documented in this encounter Progress Notes * Helio Hill MD - 06/03/2020 2:30 PM EST FEMALE PELVIC MEDICINE AND RECONSTRUCTIVE SURGERY POST OPERATIVE VISIT Patient Active Problem List Diagnosis Code ??? GERD (gastroesophageal reflux disease) K21.9 ??? IBS (irritable bowel syndrome) K58.9 ??? Hearing loss H91.90 ??? Seasonal allergies J30.2 ??? Sleep apnea G47.30 ??? Fecal incontinence R15.9 ??? Mixed stress and urge urinary incontinence N39.46 ??? Diabetes mellitus E11.9 ??? Incontinence of feces with fecal urgency R15.9, R15.2 Date of visit: 06/03/2020 Patient name: Tracy Harmon Date of surgery: 03/23/2020 Procedure: n/a Pathology: overlapping anal sphincteroplasty, trans-obturator mid-urethral polypropylene sling Subjective: Ms. Harmon is s/p the above procedures. She had some perineal wound breakdown. She was prescribed sitz baths but did not start them. She did use a bathtub a few times. She has been tolerating a regular diet. She denies nausea and vomiting, and she has been afebrile since surgery. At her 05/05/2020 visit, she mentioned she had tried sex once, with dyspareunia a few days prior to her scheduled postop visit. Since then, she hast tried again a few times with dyspareunia. She states her partner looked and noted a non-healing area at the introitus. A executive director global brand marketing is present for the examination, China Mc LPN. OBJECTIVE: BP 123/87 Pulse (!) 112 Temp 36.8 ??C (98.3 ??F) (Temporal) Resp 16 Ht 144.8 cm (4' 9.01) Wt 81.2 kg (179 lb 1.6 oz) SpO2 97% BMI 38.75 kg/m?? General: normal appearing female, pleasant mood, normal speech Pelvic: Cough stress test (empty supine): negative External Genitalia: Vulva, Fairchance's and Bartholin glands normal, urethra without tenderness or mass Vagina: Non-tender left and suburethral area; perineum with slight separation, noted previously. PDS suture and knot tender. Impression: Ms. Harmon is a 54 y.o. year old woman now 2 months s/p overlapping sphincteroplasty, mid-urethral sling. She is doing well overall. She had perineal wound breakdown that is healing but tender at the PDS suture knot. Plan: Activity: At her last visit, I had recommended no sex for 4 more weeks to allow for healing. I trimmed the PDS suture and have recommended she abstain for 2 more weeks and then try again with a lubricant. Return in 12 months / PRN to reassess HELIO HILL MD Division of Female Pelvic Medicine/Reconstructive Surgery * China Mc LPN - 06/03/2020 2:30 PM EST This patient was seen in the OBGYN clinic today. I was present as executive director global brand marketing for the sensitive partsof her examination. documented in this encounter Plan of Treatment Upcoming Encounters Date Type Department Care Team (Late st Contact Info) Description 05/01/2024 1:00 PM EST TH Visit (TeleHealth) Obstetrics [place] [address] Helio Hill MD [facility] OBSTETRICS [place] [address] documented as of this encounter Visit Diagnoses Diagnosis Dyspareunia, female Dyspareunia Postop check Follow-up examination, following unspecified surgery documented in this encounter Care Teams Dental Laboratory Technician Relationship Specialty Start Date End Date Bradley Judd DO [address] [place] [place] [id number] PCP - General Family Medicine 10/28/18 documented as of this encounter
--- OUTSIDE RECORDS SUMMARY | 2024-02-09 23:15 | XMS_ITS | Encounter Summary ---
Author Organization [facility] [place] [address] Care Team Providers Care Automotive Hardware Engineer Name Role Phone DutchBradley young Jeffery WU Primary Care Provider +1- [phone] Reason for Visit * Reason Comments Follow-up Encounter Details Date Type Department Care Team (Late st Contact Info) Description 12/23/2020 11:30 AM EDT Office Visit Dermatology at [facility] [address] [place] [address] Radha Salamanca MD [facility] [address] [place] [address] Palmoplantar pustulosis Social History Tobacco Use Types [...] as of this encounter Progress Notes * Radha Salamanca MD - 12/23/2020 11:30 AM EDT Images from the original note were not included. DEPARTMENT OF DERMATOLOGY Medical Dermatology Clinic Provider: Radha Salamanca MD Patient's preferred name Lary Preferred contact method for results []?myDH []?Letter [x]?Phone: Either Cell or Home Detailed phone message OK? Yes Are there any other people with whom we may discuss your care? No ?? PAST MEDICAL HISTORY If no, type N. If yes, type date, location, treatment Melanoma No Dysplastic nevi No SCC No BCC No AKs no UV Exposure & Protection Sun Protection: none Other relevant past medical history (i.e. eczema, psoriasis, birthmarks, immunosuppression) ?? FAMILY HISTORY If yes, details Melanoma No NMSC No Other relevant family history No SOCIAL HISTORY Occupation: unemployed Hobbies: none Other: History of Present Illness: Tracy Harmon is a 55 y.o. year old. Patient returns to clinic todayfor follow up of palmoplantar pustulosis: - Hands have been terrible. She is doing the Clobetasol ointment twice a day under the cotton gloves, notes she does this mostly to stop her from picking at the hands. She has noticed the conditionis also involving her feet, she has not been treating them. - She smokes more than 1 pack per day. Last visit at [facility] Derm: 11/29/2020 Last visit with this provider: 11/29/2020 Medications: Reviewed in eD-H Allergies: Reviewed in eD-H Skin Examination: Focused skin examination of the hands was normal with the exception of the findings below Assessment/Plan Palmoplantar pustulosis - on the bilateral palmar hands, there are numerous deep seeded pus with background erythema and scaling. Slightly improved since the last visit but still flaring - Chronic; flaring - Responsive to oral prednisone x3 - Discussed negative side effects of longterm oral steroid use. - Encouraged smoking cessation as this is often a driving force for palmoplantar pustulosis - Discussed systemic treatment options, which include: Otezla, which patient would like to try. - Continue Clobetasol 0.05% ointment twice a day to the affected areas on the hands x4 weeks. At night apply under occlusion of white cotton gloves. Will call for refills. Start RX: Otezla (Apremilast) Counseled benefit/risk/adr including wt loss, worsening depression, nausea, diarrhea. Take w/ food to lessen GI sx. Call if such occurs. No monitoring labs needed for Otezla. RX: Starter pack, take PO w/ food as directed for loading dose. 10mg qam day 1, then 10mg BIDx 1 day, then 10mg qam and 20mg qpm x 1 then 20mg BID x 1day, then 20mg qam and 30mg qpm RX: Maintenance dose: 30mg PO w/ food BID Photo was taken and charted with patient's verbal consent. Other items to document in the assessment/plan if relevant ??? N/A RTC: 2-3 months for palmoplantar pustulosis [x]Note routed to church secretary []Recall has been placed in scheduling system []Appointment scheduled at checkout Scribe attestation: Alie Spann and Igor Simon LPN have performed the documentation for this encounter in the presence of and acting as a scribe for Radha Salamanca MD I performed the above scribed service and agree with the accuracy of the documentation in this encounter. Reviewed and signed by: Radha Salamanca MD Dermatology [facility] documented in this encounter Plan of Treatment Upcoming Encounters Date Type Department Care Team (Late st Contact Info) Description 05/01/2024 1:00 PM EST TH Visit (TeleHealth) Obstetrics [place] [address] Raymon Hill MD [facility] DR OBSTETRICS [place] [address] documented as of this encounter Visit Diagnoses Diagnosis Palmoplantar pustulosis Other psoriasis documented in this encounter Care Teams Automotive Hardware Engineer Relationship Specialty Start Date End Date Bradley Judd DO [address] [place] [id number] PCP - General Family Medicine 10/28/18 documented as of this encounter
--- OUTSIDE RECORDS SUMMARY | 2024-02-09 23:15 | XMS_ITS | Encounter Summary ---
Author Organization Count Includes [facility] Address [facility] [place] [address] Care Team Providers Care Webbing Tacker Name Role Phone Dutch Bradley Jeffery WU Primary Care Provider +1- [phone] Encounter Details Date Type Department Care Team (Late st Contact Info) Description 03/08/2021 11:00 AM EDT Office Visit Dermatology at [address] [address] Conchita Tucker MD [facility] DR [address] [place] [address] Palmoplantar pustulosis Social History Tobacco Use Types [...] PM EDT documented as of this encounter Patient Instructions * Patient Instructions* Johanna Suh - 03/08/2021 11:00 AM EDT Sensitive Skin Care ?? Take short, cool showers. Use soap only needed. Pat skin dry. ?? Immediately after bathing, apply moisturizing cream to body. ?? Use only the following personal care products. They are are recommended by our clinic because they have been extensively tested and are least likely to cause distress to your skin. ?? Soap: Dove Unscented Bar Soap or Vanicream Bar Soap ?? Moisturize skin immediately post handwashing: CeraVe cream, Vaseline, CeraVe lotion, Vanicream cream use twice daily ?? Advised patient to start wet-wraps during the day for 30 minutes. (After applying steroid ointment, wet a pair of white cotton gloves in water and wring them out. Then put the gloves on over your hands. You may put a larger pair of gloves on over the wet gloves for warmth. Leave on for 20-30 minutes. Then remove, and reapply steroid ointment. May do this twice daily) documented in this encounter Progress Notes * Conchita Barth MD - 03/08/2021 11:00 AM EDT Images from the original note [...] Illness: Tracy Harmon is a 55 y.o. Patient returns to clinic today for follow up of palmoplantar pustulosis: - Patient notices after she applies the ointment it will dry out her hands. Want to know what to apply in between applications. Patient endorses applying it twice daily with no days off. - Otezla not approved yet - hard to quit smoking as her boyfriend is a chain smoker who will not quit Last visit at [facility] Derm: 12/23/2020 Last visit with this provider: Visit date not found Medications: Reviewed in eD-H Allergies: Reviewed in eD-H Skin Examination: Focused skin examination of the hands was normal with the exception of the findings below. Assessment/Plan #. Palmoplantar pustulosis??- on the bilateral palmar hands, there are few deep seated vesicles with background erythema and scaling. Slightly improved since the last visit - Chronic; flaring - Responsive to oral prednisone x3 - Discussed negative side effects of ferry terminal supervisor oral steroid use.?? - Encouraged smoking cessation as this is often a driving force for palmoplantar pustulosis - Discussed systemic treatment options, which include: Otezla, which patient would like to try. - Continue Clobetasol 0.05%??ointment??twice a day to the affected areas on the hands??x4??weeks. At night apply under occlusion of white cotton gloves.?? - Insurance failed to cover Rx Otezla. Will look into PA process. - Briefly discussed Acitretin if the insurance does not approve Rx Otezla. - Offered referral to [facility] smoking cessation program. Patient has declined at this time. - Advised patient to start wet-wraps during the day for 30 minutes. See below. - Advised patient to follow sensitive skin care regime. Sensitive Skin Care ?? Take short, cool showers. Use soap only needed. Pat skin dry. ?? Immediately after bathing, apply moisturizing cream to body. ?? Use only the following personal care products. They are are recommended by our clinic because they have been extensively tested and are least likely to cause distress to your skin. ?? Soap: Dove Unscented Bar Soap or Vanicream Bar Soap ?? Moisturize skin immediately post handwashing: CeraVe cream, Vaseline, CeraVe lotion, Vanicream cream use twice daily ?? Advised patient to start wet-wraps during the day for 30 minutes. (After applying steroid ointment, wet a pair of white cotton gloves in water and wring them out. Then put the gloves on over your hands. You may put a larger pair of gloves on over the wet gloves for warmth. Leave on for 20-30 minutes. Then remove, and reapply steroid ointment. May do this twice daily) Figure 1 Photo(s) taken and charted with patient's verbal consent. Other: ??? N/A RTC: 2-3 months for palmoplantar pustulosis f/u [x]Note routed to patient care secretary []Recall placed in scheduling system []Appointment scheduled at checkout Scribe attestation: Johannagerardo Suh has performed the documentation for this encounter in the presence of and acting as a scribe for Conchita Barth MD. I performed the above scribed service and agree with the accuracy of the documentation in this encounter. Reviewed and signed by: Cocnhita Barth MD Dermatology [facility] Patient seen and evaluated with staff laundry routeman: Ileana Rivas MD Dermatology [facility] * Ileana Rivas MD - 03/08/2021 11:00 AM EDT I directly supervised Dr. Barth during this office visit. Dr. Barth presented the history and physical exam to me. I, then, saw and examined this patient with Dr. Barth. We reviewed the history and pertinent details and I confirmed the physical findings. I agree with the details of the history and physical exam as documented in Dr. Barth's note. ILEANA RIVAS MD Staff Physician documented in this encounter Plan of Treatment Upcoming Encounters Date Type Department Care Team (Late st Contact Info) Description 05/01/2024 1:00 PM EST TH Visit (TeleHealth) Obstetrics [place] [address] Raymon Hill MD [facility] OBSTETRICS [place] [address] documented as of this encounter Visit Diagnoses Diagnosis Palmoplantar pustulosis Other psoriasis documented in this encounter Care Teams Webbing Tacker Relationship Specialty Start Date End Date Bradley Judd DO [address] [place] [address] PCP - General Family Medicine 10/28/18 documented as of this encounter
--- OUTSIDE RECORDS SUMMARY | 2024-02-09 23:15 | XMS_ITS | Encounter Summary ---
Author Organization [facility] [place] [address] Care Team Providers Care Occupational Health Nurse Supervisor Name Role Phone DutchBradley young Jeffery WU Primary Care Provider +1- [phone] Encounter Details Date Type Department Care Team (Late st Contact Info) Description 04/28/2021 Orders Only Dermatology at [facility] [address] [place] [address] Conchita Tucker MD [facility] [address] [place] [address] High risk medication use Social History Tobacco [...] TH Visit (TeleHealth) Obstetrics [place] [phone] Raymon Hill MD [facility] [place] [address] documented as of this encounter Visit Diagnoses Diagnosis High risk medication use Encounter for long-term (current) use of other medications documented in this encounter Care Teams Occupational Health Nurse Supervisor Relationship Specialty Start Date End Date Bradley Judd DO [address] [place] [address] PCP - General Family Medicine 10/28/18 documented as of this encounter
--- OUTSIDE RECORDS SUMMARY | 2024-02-09 23:15 | XMS_ITS | Encounter Summary ---
Author Organization [facility] [place] [address] Care Team Providers Care Otorhinolaryngologist Name Role Phone Bradley Judd DO Primary Care Provider +1- [phone] Reason for Visit * Reason Comments Covid Surge Encounter Details Date Type Department Care Team (Late st Contact Info) Description 02/19/2022 5:16 PM EDT - 02/19/2022 5:49 PM [place]T [place] [id number] Encounter for screening laboratory testing for COVID-19 virus in asymptomatic patient Discharge Disposition: Home Social History Tobacco Use Types Packs/Day Years [...] Sign Reading Time Taken Comments Blood Pressure 123/80 02/19/2022 5:08 PM EDT Pulse 103 02/19/2022 5:08 PM EDT Temperature 36.8 ??C (98.3 ??F) 02/19/2022 5:08 PM ED T Respiratory Rate 16 02/19/2022 5:08 PM EDT Oxygen Saturation 98% 02/19/2022 5:08 PM EDT Inhaled Oxygen Concentration - - Weight 81.6 kg (180 lb) 02/19/2022 5:08 PM EDT Height - - Body Mass Index 38.94 06/03/2020 3:15 PM EST documented in this encounter Discharge Instructions * Discharge Instructions* Rian Lincoln PA - 02/19/2022 5:23 PM EDT You are seen in the emergency department for a COVID test. You have declined medical screening exam. Please follow-up with my DH to check your results in the next 4 to 6 hours * Attachments The following attachments cannot be sent through Care Everywhere. * Coronavirus Disease (COVID-19): General Info (Thai) documented in this encounter Medications at Time of Discharge Medication Sig Dispensed Refills Start Date End Date Venlafaxine 225 mg Tablet Extended Rel 24 hr Take 225 mg by mouth daily. 01/05/2021 apremilast (Otezla Starter) 10 mg (4)-20 mg (4)-30 mg (47) Tablets, Dose Pack Take as directed by package instructions 55 tablet 12/23/2020 apremilast (Otezla) 30 mg Tablet Take 30 mg by mouth 2 times daily. 60 tablet 5 12/23/2020 acetaminophen (Tylenol) 325 mg Tablet Take 2 tablets by mouth every 6 hours as needed for Pain. 30 tablet 1 03/23/2020 atorvastatin (Lipitor) 10 mg Tablet TAKE 1 TABLET BY MOUTH ONCE DAILY 11/24/2019 calcium carbonate (CALCIUM 500 ORAL) Take by mouth. metFORMIN (GLUCOPHAGE) 500 mg Tablet Take 500 mg by mouth daily. famotidine (PEPCID) 20 mg Tablet Take 20 mg by mouth 2 times daily. multivitamin (THERAGRAN) Tablet Take 1 tablet by mouth daily. diphenhydrAMINE (BENADRYL) 50 mg Capsule Take 50 mg by mouth every 6 hours as needed for Itching. pseudoephedrine (SUDAFED) 30 mg Tablet Take 30 mg by mouth every 4 hours as needed for Congestion. metHOTREXate 2.5 mg TabletIndications:Pal moplantar pustulosis Take 15 mg weekly (6 tablets) one time per week 48 tablet 3 12/21/2021 01/14/2024 clobetasoL (Temovate) 0.05 % OintmentIndications:P almoplantar pustulosis Apply twice a day to the affected areas on the hands x4 weeks. At night apply under occlusion of white cotton gloves. 60 g 1 10/19/2021 12/07/2022 folic acid (Folvite) 1 mg Tablet Take 1 tablet by mouth daily. 90 tablet 3 04/29/2021 01/14/2024 cholecalciferol, Vitamin D3, 25 mcg (1,000 unit) Capsule Take 1,000 Units by mouth daily. 01/16/2021 01/14/2024 vitamin E 45 mg (100 unit) Capsule Take by mouth daily. 10/21/20202023 mometasone (ELOCON) 0.1 % Cream APPLY CREAM TOPICALLY ONCE DAILY TO RIGHT CONCHAL BOWL AND EXTERNAL CANAL WITH FINGERTIP FOR 7 DAYS 10/06/2020 01/14/2024 clotrimazole (LOTRIMIN) 1 % Cream APPLY CREAM TOPICALLY TWICE DAILY TO RIGHT EAR CANAL AND CONCHAL BOWL FOR 14 DAYS 08/11/2020 01/14/2024 estradioL (ESTRACE) 0.01 % (0.1 mg/gram) Cream Place 1 g vaginally twice a week. 42.5 g 12 05/06/2020 01/14/2024 cyanocobalamin, vitamin B-12, 1,000 mcg Tablet Take 1,000 mcg by mouth daily. 01/14/2024 vitamin E 100 unit Capsule Take 100 Units by mouth daily. 01/14/2024 documented as of this encounter ED Notes * Rian Lincoln PA - 02/19/2022 5:23 PM EDT Patient Name: Tracy Harmon Patient Age: 56 y.o. Birthdate: 1965 Admit date: 02/19/2022 Attending Physician: No att. providers found Patient declined medical screening exam. Here for nursing COVID testing only. Rian Lincoln PA 02/19/22 1723 * Ophelia Doran RN - 02/19/2022 5:22 PM EDT Pt declined medical evaluation documented in this encounter Plan of Treatment Upcoming Encounters Date Type Department Care Team (Late st Contact Info) Description 05/01/2024 1:00 PM EST TH Visit (TeleHealth) Obstetrics [place] [address] Raymon Hill MD [facility] OBSTETRICS [place] [address] documented as of this encounter Procedures Procedure Name Priority Date/Time Associated Diagnosis Comments RAPID COVID-19 PCR ([facility]) STAT 02/19/2022 5:21 PM EDT documented in this encounter Results * COVID-19 PCR (02/19/2022 5:21 PM EDT) SARS-CoV-2 RNA (Rapid) Not Detected Not Detected [facility] Comment: This result should be interpreted in combination with the clinical observations, patient history and epidemiological information. For testing of asymptomatic individuals, assay performance characteristics and clinical utility have not been evaluated. Testing for SARS-CoV-2 (Severe acute respiratory syndrome coronavirus 2, formerly known as 2019 novel coronavirus or 2019-nCoV) to aid in the diagnosis of COVID-19 is performed using the Simplexa COVID-19 Direct Assay by ProZyme as authorized by the FDA issued Emergency Use Authorization (EUA). This assay is intended for In-vitro Diagnostic (IVD) use with nasopharyngeal swabs collected from individuals meeting the CDC criteria for testing. The assay is performed based on the instructions for use and additional guidance provided by the FDA. Testing is performed in the Microbiology Laboratory within the Department of Pathology and Laboratory Medicine at [facility], certified under the Clinical Laboratory Improvement Amendments of 1988 (CLIA), 42 U.S.C. section 263a, to perform high complexity tests. Assay performance has been verified according to clinical laboratory regulatory requirements. Test results are provided above. A result of Not Detected indicates that the viral RNA target is not present but does not preclude SARS-CoV-2 infection. False negative results may occur if a specimen is improperly collected, transported or handled; if amplification inhibitors are present; or if inadequate numbers of viral particles are present in the specimen. A result of Detected suggests a current or recent infection and the patient is presumed to be infected. Positive and negative predictive values for this test are highly dependent on disease prevalence. A result of Invalid indicates the inability to conclusively determine the presence or absence of SARS-CoV-2 RNA in the sample which can be due to a variety of factors. Recollection is recommended in the case of an invalid result. CDC COVID-19 criteria for testing on human specimens and clinical management guidance information are available at the CDC Coronavirus Disease 2019 (COVID-19) webpage under Information for Healthcare Professionals (https://www.cdc.gov/coronavirus/2019-ncov/hcp/index.html). Additional information about this and other EUA tests can be found in provider and patient fact sheets at the following FDA website: https://www.fda.gov/medical-devices/gtowfmfhuaz-uaonjdi-9621-jbdql-62-zvkemdkro- use-a nehuzgwyguvov-ndfekut-ropkfik/tljed-iwtsfavuoap-mcge SARS-CoV-2 Source ALLIGATOR SHEAR OPERATOR Swab [facility] Nasopharyngeal Swab 02/20/20 22 5:21 PM EDT 02/19/2022 7:03 PM EDT Comment:Symptoms->COVID-19 S uspected Narrative Resulting Agency Comment Spec In Lab Anastacia Ryder MD MICROBIOLOGY - GENER AL ORDERABLES [facility] [place] [address] documented in this encounter Visit Diagnoses Diagnosis Encounter for screening laboratory testing for COVID-19 virus in asymptomatic patient documented in this encounter Additional Health Concerns Infection Onset Date Last Indicated Resolved Time Rule Out COVID-19 02/19/202202/19/2022 02/19/2022 9:11 PM EDT documented as of this encounter Care Teams Otorhinolaryngologist Relationship Specialty Start Date End Date Bradley Judd DO [address] [place] [address] PCP - General Family Medicine 10/28/18 documented as of this encounter
--- OUTSIDE RECORDS SUMMARY | 2024-02-09 23:15 | XMS_ITS | Encounter Summary ---
Author Organization [facility] [place] [address] Care Team Providers Care Student Recruiter Name Role Phone Dutch Bradley Jeffery WU Primary Care Provider +1- [phone] Reason for Visit * Reason Comments Specialty Pharmacy Review Encounter Details Date Type Department Care Team (Late st Contact Info) Description 10/19/2021 Specialty Pharmacy Pharmacy at [facility] [place] [address] Jair Menon, HEAD OF GEOGRAPHY Social History Tobacco Use Types Packs/Day Years [...] as of this encounter Progress Notes * Jair Menon - 10/19/2021 11:59 PM EDT The [facility] has completed a benefits investigation for Tracy Harmon to review their eligibility to fill at [facility]. Per patient's medication list they are prescribedOTEZLA 30 MG TABLET and the medication is not able to be filled at the [facility] due to the PA being denied. documented in this encounter Plan of Treatment Upcoming Encounters Date Type Department Care Team (Late st Contact Info) Description 05/01/2024 1:00 PM EST TH Visit (TeleHealth) Obstetrics [place] [address] Raymon Hill MD [facility] OBSTETRICS [place] [address] documented as of this encounter Visit Diagnoses Not on filedocumented in this encounter Care Teams Student Recruiter Relationship Specialty Start Date End Date Bradley Judd DO [address] [place] [address] PCP - General Family Medicine 10/28/18 documented as of this encounter
--- OUTSIDE RECORDS SUMMARY | 2024-02-09 23:15 | XMS_ITS | Encounter Summary ---
Author Organization [facility] Address [facility] [place] [address] Care Team Providers Care Senior Finance Manager Name Role Phone Dutch Bradley Jeffery WU Primary Care Provider +1- [phone] Encounter Details Date Type Department Care Team (Late st Contact Info) Description 04/19/2021 Telephone Dermatology at [facility] [address] [place] [address] Conchita Tucker MD [facility] [address] [place] [address] Social History Tobacco Use Types Packs/Day Years [...] encounter Miscellaneous Notes * Telephone Encounter - Danii Chambers R - 04/19/2021 11:20 AM EDT Lab results received from [facility][1]. Results have been added to chart and copied directly to provider (inbasket: CC'd Results) documented in this encounter Plan of Treatment Upcoming Encounters Date Type Department Care Team (Late st Contact Info) Description 05/01/2024 1:00 PM EST TH Visit (TeleHealth) Obstetrics [place] [address] Raymon Hill MD [facility] OBSTETRICS [place] [address] documented as of this encounter Visit Diagnoses Not on filedocumented in this encounter Care Teams Senior Finance Manager Relationship Specialty Start Date End Date Bradley Judd DO [address] [place] [address] PCP - General Family Medicine 10/28/18 documented as of this encounter
--- OUTSIDE RECORDS SUMMARY | 2024-02-09 23:15 | XMS_ITS | Encounter Summary ---
Author Organization [facility] Address [facility] [place] [address] Care Team Providers Care Orthotic Technician Name Role Phone Dutch Bradley Jeffery WU Primary Care Provider +1- [phone] Encounter Details Date Type Department Care Team (Late st Contact Info) Description 08/08/2021 Telephone Dermatology at [facility] [address] [place] [address] Conchita Tucker MD [facility] [address] [place] [address] Social History Tobacco Use Types Packs/Day Years [...] Notes * Telephone Encounter - Danii Chambers - 08/08/2021 12:09 PM EST Disability Milagros contacted the clinic today following up regarding disability paperwork the sent for the patient. They would appreciate a call back at [phone] option 2 with an update. documented in this encounter Plan of Treatment Upcoming Encounters Date Type Department Care Team (Late st Contact Info) Description 05/01/2024 1:00 PM EST TH Visit (TeleHealth) Obstetrics [place] [address] Raymon Hill MD [facility] [place] [address] documented as of this encounter Visit Diagnoses Not on filedocumented in this encounter Care Teams Orthotic Technician Relationship Specialty Start Date End Date Bradley Judd DO [address] [place] [address] PCP - General Family Medicine 10/28/18 documented as of this encounter
--- OUTSIDE RECORDS SUMMARY | 2024-02-09 23:15 | XMS_ITS | Encounter Summary ---
Author Organization [facility] [place] [address] Care Team Providers Care Music Library Assistant Name Role Phone DutchBradley young Jeffery WU Primary Care Provider +1- [phone] Encounter Details Date Type Department Care Team (Late st Contact Info) Description 05/23/2021 Orders Only Dermatology at [facility] [address] [place] [address] Conchita Tucker MD [facility] [address] [address] High risk medication use Social History Tobacco [...] TH Visit (TeleHealth) Obstetrics [place] [address] Raymon Hill MD [facility] [place] [address] documented as of this encounter Visit Diagnoses Diagnosis High risk medication use Encounter for long-term (current) use of other medications documented in this encounter Care Teams Music Library Assistant Relationship Specialty Start Date End Date Bradley Judd DO [address] [place] [address] PCP - General Family Medicine 10/28/18 documented as of this encounter
--- OUTSIDE RECORDS SUMMARY | 2024-02-09 23:15 | XMS_ITS | Encounter Summary ---
Author Organization [facility] [place] [address] Care Team Providers Care Case Monitor Name Role Phone Dutch Bradley Jeffery WU Primary Care Provider +1- [phone] Encounter Details Date Type Department Care Team (Late st Contact Info) Description 07/09/2020 Orders [place] [address] Covid, Eligible none Social History Tobacco Use Types Packs/Day Years [...] TH Visit (TeleHealth) Obstetrics [place] [address] Raymon Hill MD [facility] DR OBSTETRICS [place] [address] documented as of this encounter Visit Diagnoses Not on filedocumented in this encounter Care Teams Case Monitor Relationship Specialty Start Date End Date Bradley Judd DO [address] [place] [address] PCP - General Family Medicine 10/28/18 documented as of this encounter
--- OUTSIDE RECORDS SUMMARY | 2024-02-09 23:15 | XMS_ITS | Encounter Summary ---
Author Organization [facility] [place] [address] Care Team Providers Care Assembler Seat Name Role Phone Dutch Bradley Jeffery WU Primary Care Provider +1- [phone] Reason for Visit * Reason Comments Specialty Pharmacy Review Encounter Details Date Type Department Care Team (Late st Contact Info) Description 12/07/2022 Specialty Pharmacy Pharmacy at [facility] [place] [address] Jair Menon, SALES SOLUTIONS ASSOCIATE Social History Tobacco Use Types Packs/Day Years [...] encounter Progress Notes * Jair Menon - 12/07/2022 11:59 PM EDT The [facility] has completed a benefits investigation for Tracy Harmon to review their eligibility to fill at [facility]. Per patient's medication list they are prescribedOTEZLA 30 MG TABLET and the medication is not able to be filled at the [facility] sincethe PA has been denied. documented in this encounter Plan of Treatment Upcoming Encounters Date Type Department Care Team (Late st Contact Info) Description 05/01/2024 1:00 PM EST TH Visit (TeleHealth) Obstetrics [place] [address] [facility] OBST[place] [address] documented as of this encounter Visit Diagnoses Not on filedocumented in this encounter Care Teams Assembler Seat Relationship Specialty Start Date End Date Bradley Judd DO [address] [place] [address] PCP - General Family Medicine 10/28/18 documented as of this encounter
--- OUTSIDE RECORDS SUMMARY | 2024-02-09 23:15 | XMS_ITS | Encounter Summary ---
Author Organization [facility] [place] [address] Care Team Providers Care Printing Film Stripper Name Role Phone Dutch Bradley Jeffery WU Primary Care Provider +1- [phone] Reason for Visit * Reason Comments Specialty Pharmacy Review Encounter Details Date Type Department Care Team (Late st Contact Info) Description 08/25/2021 Specialty Pharmacy Pharmacy at [facility] [place] [address] Jair Menon, APPLICATIONS SPECIALIST Social History Tobacco Use Types Packs/Day Years [...] encounter Progress Notes * Jair Menon - 08/25/2021 11:59 PM EST The [facility] has completed a benefits investigation for Tracy Harmon to review their eligibility to fill at [facility]. Per patient's medication list they are prescribedOTEZLA 30 MG TABLET and the medication is not able to be filled at the [facility]. documented in this encounter Plan of Treatment Upcoming Encounters Date Type Department Care Team (Late st Contact Info) Description 05/01/2024 1:00 PM EST TH Visit (TeleHealth) Obstetrics [place] [address] Raymon Hill MD [facility] DR OBSTETRICS [place] [address] documented as of this encounter Visit Diagnoses Not on filedocumented in this encounter Care Teams Printing Film Stripper Relationship Specialty Start Date End Date Bradley Judd DO [address] [place] [address] PCP - General Family Medicine 10/28/18 documented as of this encounter
--- OUTSIDE RECORDS SUMMARY | 2024-02-09 23:15 | XMS_ITS | Encounter Summary ---
Author Organization [facility] [place] [address] Care Team Providers Care Software Engineer Sales Name Role Phone Dutch Bradley Jeffery WU Primary Care Provider +1- [phone] Encounter Details Date Type Department Care Team (Late st Contact Info) Description 12/07/2022 2:00 PM EDT Office Visit Dermatology at [address] [place] [address] Mercedes Levy MD [facility] [place] [address] Palmoplantar pustulosis Social History Tobacco Use Types [...] Progress Notes * Mercedes Levy MD - 12/07/2022 2:00 PM EDT Images from the original note were not included. DEPARTMENT OF DERMATOLOGY Medical Dermatology Clinic Provider: MD Crys Churchill'ts Preferred name Lary Preferred contact method for results []myDH []Letter [x]Phone: Either Cell or Home Detailed phone message OK? Yes Are there any other people with whom we may discuss your care? No PAST MEDICAL HISTORY If no, type N. If yes, type date, location, treatment Melanoma No Dysplastic nevi No SCC No BCC No AKs no UV Exposure & Protection Sun Protection: none Other relevant past medical history (i.e. eczema, psoriasis, birthmarks, immunosuppression) FAMILY HISTORY If yes, details Melanoma No NMSC No Other relevant family history No SOCIAL HISTORY Occupation: unemployed Hobbies: none Other: Pre-Procedure Screening Details Allergy to lidocaine, epinephrine, Dermabond, chlorhexidine, or adhesives N Bleeding disorder or blood thinners N Implanted devices (Pacemaker, defibrillator, deep brain stimulator, cochlear implant) N History of Present Illness: Tracy Harmon is a 57 y.o. Patient returns to clinic today for a follow up palmoplantar pustulosis, and a refill of clobetasol. Patient reports she has not been taking methotrexate for three months. Patient has been using dove soap which has been per patient reports has been causing dry skin. Last visit at Dermatology: 03/23/2022 Last visit with this provider: 10/19/2021 Medications: Reviewed in eD-H Allergies: Reviewed in eD-H Skin Examination: Focused skin examination of the bilateral hands was normal with the exception of the findings below. Assessment/Plan #. 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 - Patient was on MTX from Apr 2021 to Jul (she ran out of MTX). - Given the improvement on exam today, discontinue MTX 15 mg weekly with folic acid 1 mg daily - Continue and refill Rx: Clobetasol 0.05% ointment apply topically to the affected area son the bilateral hands twice daily off up to 7 days. Take 7 days off and then repeat as needed as needed. - Recommended OTC Cerave SA moisturizer. Other: OTC skin products discussed RTC: 6 months for palmoplantar pustulosis follow up []Note routed to legal administrative secretary [x]Recall placed in scheduling system []Appointment scheduled at checkout Scribe attestation: Noel Bill has performed the documentation for this encounter in the presence of and acting as a scribe for Mercedes Levy MD. I performed the above scribed service and agree with the accuracy of the documentation in this encounter. Reviewed and signed by: Mercedes Levy MD Dermatology [facility] Patient discussed with staff oracle business intelligence developer: Alie Mendiola MD Dermatology [facility] * Alie Mendiola MD - 12/07/2022 2:00 PM EDT I was the attending physician supervising the resident in the above care. For the purposes of billing, the resident provided the care. documented in this encounter Plan of Treatment Upcoming Encounters Date Type Department Care Team (Late st Contact Info) Description 05/01/2024 1:00 PM EST TH Visit (TeleHealth) Obstetrics [place] [address] Raymon Hill MD [facility] [address] [place] [address] documented as of this encounter Visit Diagnoses Diagnosis Palmoplantar pustulosis Other psoriasis documented in this encounter Care Teams Software Engineer Sales Relationship Specialty Start Date End Date Bradley Judd DO [address] [place] [address] PCP - General Family Medicine 10/28/18 documented as of this encounter
--- OUTSIDE RECORDS SUMMARY | 2024-02-09 23:15 | XMS_ITS | Encounter Summary ---
Author Organization Formerly [facility], [facility] [place] [address] Care Team Providers Care Upset Welding Machine Operator Name Role Phone Bradley Judd DO Primary Care Provider +1- [phone] Reason for Visit * Reason Onset Date Comments Medication Refill 02/01/2021 Encounter Details Date Type Department Care Team (Late st Contact Info) Description 02/01/2021 Refill Dermatology at [facility] [address] [place] [phone] Aisha Hoff LPN Palmoplantar pustulosis Social History Tobacco Use Types [...] encounter Miscellaneous Notes * Telephone Encounter - Aisha Hoff LPN - 02/01/2021 8:11 AM EDT Error in opening. documented in this encounter Plan of Treatment Upcoming Encounters Date Type Department Care Team (Late st Contact Info) Description 05/01/2024 1:00 PM EST TH Visit (TeleHealth) Obstetrics [place] [address] Raymon Hill MD [facility] OBSTETRICS [place] [address] documented as of this encounter Visit Diagnoses Diagnosis Palmoplantar pustulosis Other psoriasis documented in this encounter Care Teams Upset Welding Machine Operator Relationship Specialty Start Date End Date Bradley Judd DO [address] [place] [address] PCP - General Family Medicine 10/28/18 documented as of this encounter
--- OUTSIDE RECORDS SUMMARY | 2024-02-09 23:15 | XMS_ITS | Encounter Summary ---
[place] [address] Care Team Providers Care International Accounting Manager Name Role Phone Bradley Judd DO Primary Care Provider +1- [phone] Reason for Referral * Consultation (Routine) - Closed Specialty Diagnoses / Procedures Referred By Madeleine candelaria Referred To Contact Urology Diagnoses Urinary incontinence, unspecified type Urinary incontinence, unspecified type Selina Beckett MD [address] [place] [address] [facility] [place] [address] Referral ID Status Reason Start Date Expiration Date V isits Requested Visits Authorized [id number] Closed Consult, Test & Treat PCP Updated and/or Approved 12/28/2022 12/28/2023 6 6 Encounter Details Date Type Department Care Team (Late st Contact Info) Description 12/28/2022 Transcribe Orders eDH Incoming Referrals [phone] Selina Beckett MD [address] [place] [address] Urinary incontinence, unspecified type Social History Tobacco Use Types Packs/Day Years [...] TH Visit (TeleHealth) Obstetrics [place] [address] Raymon Hill MD [facility] [address] OBSTETRICS [place] [address] Scheduled Referrals Name Type Priority Associated Diagnoses Orde r Schedule Referral to Urology Outpatient Referral Routine Urinary incontinence, unspecified type Ordered: 12/28/2022 documented as of this encounter Visit Diagnoses Diagnosis Urinary incontinence, unspecified type documented in this encounter Care Teams International Accounting Manager Relationship Specialty Start Date End Date Bradley Judd DO [address] [place] [address] PCP - General Family Medicine 10/28/18 documented as of this encounter
--- OUTSIDE RECORDS SUMMARY | 2024-02-09 23:15 | XMS_ITS | Encounter Summary ---
Author Organization [facility] [place] [address] Care Team Providers Care Collar Pointer Name Role Phone Dutch Bradley Jeffery WU Primary Care Provider +1- [phone] Reason for Visit * Reason Comments Specialty Pharmacy Review Encounter Details Date Type Department Care Team (Late st Contact Info) Description 07/27/2021 Specialty Pharm[address] [facility] [place] [address] Jair Menon, TELEHEALTH COORDINATOR Social History Tobacco Use Types Packs/Day Years [...] encounter Progress Notes * Jair Menon - 07/27/2021 11:59 PM EST The [facility] has completed a benefits investigation for Tracy Harmon to review their eligibility to fill at [facility]. Per patient's medication list they are prescribedOTEZLA STARTER ORAL and the medication is not able to be filled at the [facility]. documented in this encounter Plan of Treatment Upcoming Encounters Date Type Department Care Team (Late st Contact Info) Description 05/01/2024 1:00 PM EST TH Visit (TeleHealth) Obstetrics [place] [address] Raymon Hill MD [facility] DR OBSTETRICS [place] [address] documented as of this encounter Visit Diagnoses Not on filedocumented in this encounter Care Teams Collar Pointer Relationship Specialty Start Date End Date Bradley Judd DO [address] [place] [address] PCP - General Family Medicine 10/28/18 documented as of this encounter
--- OUTSIDE RECORDS SUMMARY | 2024-02-09 23:15 | XMS_ITS | Encounter Summary ---
Author Organization [facility] [place] [address] Care Team Providers Care Treating Machine Operator Name Role Phone Bradley Judd DO Primary Care Provider +1- [phone] Encounter Details Date Type Department Care Team (Latest Contact Info) Description 10/19/2021 4:25 PM EDT Laboratory Appointment Lab [address] [place] [address] High risk medication use Social History Tobacco [...] TH Visit (TeleHealth) Obstetrics [place] [address] Raymon Hill MD [facility] [address] OBSTET[place]ICS [place] [address] documented as of this encounter Procedures Procedure Name Priority Date/Time Associated Diagnosis Comments SCAN, PERIPHERAL BLOOD Routine 10/19/2021 4:33 PM EDT HEMOGRAM Routine 10/19/2021 4:33 PM EDT High risk medication use DIFFERENTIAL, AUTOMATED Routine 10/19/2021 4:33 PM EDT High risk medication use HC CBC,PLT & AUTO DIFF Routine 10/19/2021 4:33 PM EDT High risk medication use HC VENIPUNCTURE Routine 10/19/2021 4:33 PM EDT High risk medication use documented in this encounter Results * Scan, Peripheral Blood (10/19/2021 4:33 PM EDT) Pathologist [facility] Plat estimate Normal [facility] RBC Morphology Normal [facility] Blood 10/19/2021 4:33 PM EDT 10/19/2021 4:55 PM EDT Narrative Resulting Agency Comment Spec In Lab Mercedes Levy MD HEMATOLOGY ORDERABLE S [facility] [place] [address] * (ABNORMAL) Differential, Automated (10/19/2021 4:33 PM EDT) Neutrophil % 52.0 % [facility] Neutrophil Absolute 6.58(H) 1.70 - 6.10 x10(3)/mc L [facility] Lymph % 40.4 % [facility] Lymphocytes Abs 5.1(H) 0.9 - 3.2 x10(3)/mc L [facility] Monocyte % 5.6 % [facility] Monocyte Abs 0.7 0.3 - 0.9 x10(3)/mc L [facility] Eos % 1.2 % [facility] Eosinophils Abs 0.2 0.0 - 0.4 x10(3)/ L [facility] Basophil % 0.4 % [facility] Baso Absolute 0.0 0.0 - 0.1 x10(3)/ L [facility] Immature Gran % 0.40 % [facility] Comment: Immature granulocytes(IG's)percentage and absolute count will include metamyelocytes, myelocytes, and promyelocytes. Blood smears from CBCs yielding IG's will be scanned manually for concordance. If this scan disagrees with the automated IG or if promyelocytes are noted, a manual differential will be performed. Immature Gran Absolute 0.05(H) 0.00 - 0.04 x10(3)/[facility] Blood 10/19/2021 4:33 PM EDT 10/19/2021 4:55 PM EDT Narrative Resulting Agency Comment Spec In Lab Mercedes Levy MD HEMATOLOGY ORDERABLE S [facility] [address] * (ABNORMAL) Hemogram (10/19/2021 4:33 PM EDT) White Blood Cell 12.7(H) 4.0 - 9.5 x10(3)/ L [facility] Red Blood Cell 4.55 4.00 - 5.21 x10(6)/ L [facility] Hemoglobin 13.9 11.7 - 15.5 g/dL [facility] Hematocrit 42.4 35.7 - 45.8 % [facility] Mean Cell Volume 93.2 82.6 - 94.4 fL [facility] Mean Cell Hemoglobin 30.5 27.1 - 32.0 pg [facility] Mean Cell Hemoglobin Concentration 32.8 31.7 - 35.0 g/dL [facility] Platelet 313 145 - 357 x10(3)/ L [facility] RDW Standard Deviation 58.7(H) 37.0 - 46.0 fL [facility] RDW coefficient of variation 17.2(H) 11.5 - 14.1 % [facility] Mean Platelet Volume 9.9 7.6 - 12.9 fL [facility] NRBC% auto 0.0 % [facility] NRBC Absolute 0.000 0.000 - 0.000 x10(3)/mc L [facility] Blood 10/19/2021 4:33 PM EDT 10/19/2021 4:55 PM EDT Narrative Resulting Agency Comment Spec In Lab Mercedes Levy MD HEMATOLOGY ORDERABLE S [facility] [place] [address] * (ABNORMAL) Comprehensive metabolic panel (non-fasting) (10/19/2021 4:33 PM EDT) Glucose 100 65 - 199 mg/dL [facility] Comment:Diabetes: >=200 mg/d L plus symptoms Blood Urea Nitrogen 9 8 - 18 mg/dL [facility] Creatinine 0.71 0.70 - 1.20 mg/dL [facility] Sodium 140 135 - 145 mmol/L [facility] Potassium 3.9 3.5 - 5.0 mmol/L [facility] Comment: Please note: ??Patients with WBC >100,000 may have falsely elevated Potassium levels. ??For accurate Potassium quantification in these patients send serum separator tube (gold top) for subsequent determinations. ??Contact the Clinical Chemistry Laboratory if there are any questions. Chloride 99 98 - 107 mmol/L [facility] Carbon Dioxide 27 22 - 31 mmol/L [facility] Anion Gap 14 5 - 15 mmol/L [facility] Calcium 10.0 8.5 - 10.5 mg/dL [facility] Protein, Total 7.5 6.1 - 8.0 g/dL [facility] Albumin 4.6 3.2 - 5.2 g/dL [facility] Aspartate Aminotransferase 27 0 - 30 unit/L [facility] Alanine Aminotransferase 31(H) 0 - 30 unit/L [facility] Alkaline Phosphatase 96 35 - 105 unit/L [facility] Bilirubin, Total 0.6 0.2 - 1.3 mg/dL [facility] Est Glomerular Filtration Rate 95 >=60 mL/min/1. 73 m?? [facility] Comment: This patient? s estimated [...] Lab Kaci Genao MD CHEMISTRY ORDERABLE S [facility] [place] [address] documented in this encounter Visit Diagnoses Diagnosis High risk medication use Encounter for long-term (current) use of other medications documented in this encounter Care Teams Treating Machine Operator Relationship Specialty Start Date End Date Bradley Judd DO [address] [place] [address] PCP - General Family Medicine 10/28/18 documented as of this encounter
--- OUTSIDE RECORDS SUMMARY | 2024-02-09 23:15 | XMS_ITS | Encounter Summary ---
Author Organization [facility] Address [facility] [place] [address] Care Team Providers Care Cane Flume Watchman Name Role Phone DutchBradley young Jeffery WU Primary Care Provider +1- [phone] Encounter Details Date Type Department Care Team (Late st Contact Info) Description 08/25/2021 4:20 PM EST TH Visit (TeleHealth) Dermatology at [address] [address] Conchita Tucker MD [facility] [address] [place] [address] Palmoplantar pustulosis; High risk medication use Social [...] Progress Notes * Conchita Barth MD - 08/25/2021 4:20 PM EST Images from the original note were not included. DEPARTMENT OF DERMATOLOGY Medical Dermatology Clinic Provider: Conchita Barth [facility] Preferred name Lary Preferred contact method for [...] Patient returns to clinic todayfor evaluation of Palmoplantar pustulosis is ok -she says her fingertips are scaly at times. She isn't using any moisturizer. Overall she feels sheis improved. -she had her labs drawn today at [facility] Last visit at [facility] Derm: 07/27/2021 Last visit with this provider: 07/27/2021 Medications:. Allergies: Reviewed in eD-H Skin Examination: TeleHealth examination: Skin exam of the hands was limited due to telehealth. Assessment/Plan #. Palmoplantar pustulosis, improving??-.??Slightly improved since the last visit - improving on 4 months MTX (started Apr 2021) - Encouraged smoking cessation??as this is often a driving force for palmoplantar pustulosis?? - Continue Rx: MTX 15 mg weekly with folic acid 1 mg daily and f/u in 6 weeks in person - Labs: CBC, CMP- Patient had drawn at [facility] today -??continue??Clobetasol 0.05%??ointment??as needed and sensitive skin care (refilled today) Other items to document in the assessment/plan if relevant ??? Reviewed and/or interpreted test results ??? OTC skin products discussed RTC: 6 weeks for Palmoplantar pustulosis [x]Note routed to patient care secretary []Recall has been placed in scheduling system []Appointment scheduled at checkout Scribe attestation: BHARAT Mcintyre who has performed the documentation for this encounter in the presence of and acting as a scribe for Conchita Barth MD. I performed the above scribed service and agree with the accuracy of the documentation in this encounter. Reviewed and signed by: Conchita Barth MD Dermatology [facility] Patient seen and evaluated with staff preschool education director: Eulalio Aquino MD Dermatology [facility] * Eulalio Aquino MD - 08/25/2021 4:20 PM EST I directly supervised Dr. Barth in the care of this patient. I saw and evaluated this patient with Dr. Barth. She presented the history and physical exam details to me, then we saw the patient together and I confirmed these findings. I agree with details as written. My physical examination confirms her findings. The assessment and plan were formulated in discussion with me at the time of visit and I agree withthem as documented. Eulalio Aquino MD [facility] Staff Physician Department of Dermatology documented in this encounter Plan of Treatment Upcoming Encounters Date Type Department Care Team (Late st Contact Info) Description 05/01/2024 1:00 PM EST TH Visit (TeleHealth) Obstetrics [place] [address] Raymon Hill MD [facility] OBSTETRICS [place] [address] documented as of this encounter Visit Diagnoses Diagnosis Palmoplantar pustulosis Other psoriasis High risk medication use Encounter for long-term (current) use of other medications documented in this encounter Care Teams Cane Flume Watchman Relationship Specialty Start Date End Date Bradley Judd DO [address] [place] [address] PCP - General Family Medicine 10/28/18 documented as of this encounter
--- OUTSIDE RECORDS SUMMARY | 2024-02-09 23:15 | XMS_ITS | Encounter Summary ---
Author Organization [facility] [place] [address] Care Team Providers Care Pasteurizing Machine Operator Name Role Phone Bradley Judd DO Primary Care Provider +1- [phone] Encounter Details Date Type Department Care Team (Late st Contact Info) Description 12/21/2021 1:00 PM EDT Office Visit Dermatology at [address] [address] Margaret Masters MD [facility] [address] [place] [address] Palmoplantar pustulosis Social History Tobacco Use Types [...] as of this encounter Progress Notes * Margaret Masters - 12/21/2021 1:00 PM EDT Images from the original note were not included. DEPARTMENT OF DERMATOLOGY Medical Dermatology Clinic Provider: MD Crys Antonio'ts Preferred name Lary Preferred contact method for results []?myDH []?Letter [x]?Phone:??Either Cell or Home Detailed phone message OK? [...] y.o. Patient returns to clinic today for Palmoplantar pustulosis follow up. -patient returns with marked improvement to bilateral Palmoplantar pustulosis, almost clear on examtoday. -will need refill of methotrexate, taking folic acid and hasn't had to use any topicals. Last visit at Dermatology: 10/19/2021 Last visit with this provider: Visit date not found Medications: Reviewed in eD-H Allergies: Reviewed in eD-H Skin Examination: Focused skin examination of the bilateral hands was normal with the exception of the findings below. Assessment/Plan #. Palmoplantar pustulosis, improving??-.??on exam today, palms are clear. On the edge of the finger (most pronounced on the 5th finger), mild erythematous plaque with fissuring noted. -??improving on 6 months MTX (started Apr 2021) - Continue Rx: MTX 15 mg weekly??with folic acid 1 mg daily - Labs: CBC, CMP- WNL; plan to repeat labs in 6 months; then yearly if all WNL -??continue??Rx: Clobetasol 0.05%??ointment??as needed and sensitive skin care ?? Other items to document in the assessment/plan if relevant ?? Reviewed and/or interpreted test results Other: ??? Reviewed and/or interpreted test results ??? Reviewed external notes/records RTC: 3 months for Palmoplantar pustulosis []Note routed to pathology secretary/transcriptionist []Recall placed in scheduling system [x]Appointment scheduled at checkout Scribe attestation: BHARAT Mcintyre has performed the documentation for this encounter inthe presence of and acting as a scribe for Margaret Masters MD. I performed the above scribed service and agree with the accuracy of the documentation in this encounter. Reviewed and signed by: Margaret Masters MD Dermatology [facility] Patient seen and evaluated with staff fish technologist: Candace Duenas MD Dermatology [facility] * Candace Duenas MD - 12/21/2021 1:00 PM EDT I directly supervised the resident during this office visit. The resident physician presented the history and physical exam to me. I then saw and examined this patient with the resident. We reviewed the history and pertinent details and I confirmed the physical exam findings. I agree with the details of the history and physical exam as documented in the resident physician's note. Candace Duenas MD Staff Physician [facility] Dermatology documented in this encounter Plan of Treatment Upcoming Encounters Date Type Department Care Team (Late st Contact Info) Description 05/01/2024 1:00 PM EST TH Visit (TeleHealth) Obstetrics and [place]cology [place] [address] Raymon Hill MD [facility] OBSTETRICS [place] [address] documented as of this encounter Visit Diagnoses Diagnosis Palmoplantar pustulosis Other psoriasis documented in this encounter Care Teams Pasteurizing Machine Operator Relationship Specialty Start Date End Date Bradley Judd DO [address] [place] [address] PCP - General Family Medicine 10/28/18 documented as of this encounter
--- OUTSIDE RECORDS SUMMARY | 2024-02-09 23:15 | XMS_ITS | Encounter Summary ---
Author Organization [facility] [place] [address] Care Team Providers Care Production Team Member Name Role Phone DutchBradley marin Jeffery WU Primary Care Provider +1- [phone] Encounter Details Date Type Department Care Team (Late st Contact Info) Description 11/28/2021 Orders Only Dermatology at [facility] [address] [place] [address] Mercedes Levy MD [facility] [address] [place] [address] High risk medication use Social History Tobacco [...] TH Visit (TeleHealth) Obstetrics [place] [address] Raymon Hill MD [facility] [place] [address] documented as of this encounter Visit Diagnoses Diagnosis High risk medication use Encounter for long-term (current) use of other medications documented in this encounter Care Teams Production Team Member Relationship Specialty Start Date End Date Bradley Judd DO [address] [place] [address] PCP - General Family Medicine 10/28/18 documented as of this encounter
--- OUTSIDE RECORDS SUMMARY | 2024-02-09 23:15 | XMS_ITS | Encounter Summary ---
Author Organization [facility] [place] [address] Care Team Providers Care Community Aide Name Role Phone DutchBradley young Jeffery WU Primary Care Provider +1- [phone] Reason for Visit * Reason Onset Date Comments Medication Refill 07/06/2021 Encounter Details Date Type Department Care Team (Late st Contact Info) Description 07/06/2021 Refill Dermatology at [address] [address] Conchita Tucker MD [facility] [address] [place] [address] Palmoplantar pustulosis Social History Tobacco Use Types [...] TH Visit (TeleHealth) Obstetrics [place] [address] Raymon Hill MD [facility] DR [place] [address] documented as of this encounter Visit Diagnoses Diagnosis Palmoplantar pustulosis Other psoriasis documented in this encounter Additional Health Concerns Infection Onset Date Last Indicated Resolved Time Rule Out COVID-19 02/19/2022 02/19/2022 02/19/2022 9:11 PM EDT documented as of this encounter Care Teams Community Aide Relationship Specialty Start Date End Date Bradley Judd DO [address] [place] [address] PCP - General Family Medicine 10/28/18 documented as of this encounter
--- OUTSIDE RECORDS SUMMARY | 2024-02-09 23:15 | XMS_ITS | Encounter Summary ---
Author Organization [facility] [place] [address] Care Team Providers Care Vat Operator Name Role Phone DutchBradley marin Jeffery WU Primary Care Provider +1- [phone] Encounter Details Date Type Department Care Team (Late st Contact Info) Description 11/29/2021 Orders Only Dermatology at [facility] [address] [place] [address] Mercedes Levy MD [facility] [address] [place] [address] High risk medication use Social History Tobacco [...] TH Visit (TeleHealth) Obstetrics [place] [address] Raymon Hill MD [facility] [place]ST[place] [address] documented as of this encounter Visit Diagnoses Diagnosis High risk medication use Encounter for long-term (current) use of other medications documented in this encounter Care Teams Vat Operator Relationship Specialty Start Date End Date Bradley Judd DO [address] [place] [address] PCP - General Family Medicine 10/28/18 documented as of this encounter
--- OUTSIDE RECORDS SUMMARY | 2024-02-09 23:15 | XMS_ITS | Encounter Summary ---
Author Organization [facility] Address [facility] [place] [address] Care Team Providers Care Thread Laster Name Role Phone Bradley Judd DO Primary Care Provider +1- [phone] Encounter Details Date Type Department Care Team (Late st Contact Info) Description 03/28/2021 Telephone Dermatology at [facility] [address] [place] [address] Conchita Tucker MD [facility] [address] [place] [address] Social History Tobacco Use Types Packs/Day Years [...] encounter Miscellaneous Notes * Telephone Encounter - Omaira Wilhelm - 03/28/2021 2:09 PM EDT Lary Hendricks- Called from [employer] questioning why and if the pt was put on another trial of medication other then the otelzla. This pt has to be put on other meds before this can be approved. Please call lary [phone] Castano documented in this encounter Plan of Treatment Upcoming Encounters Date Type Department Care Team (Late st Contact Info) Description 05/01/2024 1:00 PM EST TH Visit (TeleHealth) Obstetrics [place] [address] Raymon Hill MD [facility] [place] [address] documented as of this encounter Visit Diagnoses Not on filedocumented in this encounter Care Teams Thread Laster Relationship Specialty Start Date End Date Bradley Judd DO [address] [place] [address] PCP - General Family Medicine 10/28/18 documented as of this encounter
--- OUTSIDE RECORDS SUMMARY | 2024-02-09 23:15 | XMS_ITS | Encounter Summary ---
Author Organization [facility] [place] [address] Care Team Providers Care Wire Repairer Name Role Phone DutchBradley young Jeffery WU Primary Care Provider +1- [phone] Reason for Visit * Reason Onset Date Comments Medication Refill 12/23/2020 Encounter Details Date Type Department Care Team (Late st Contact Info) Description 12/23/2020 Refill Dermatology at [address] [address] Radha Salamanca MD [facility] [address] [place] [address] Social History Tobacco Use Types Packs/Day Years [...] TH Visit (TeleHealth) Obstetrics [place] [address] Raymon Hill MD [facility] [place] [address] documented as of this encounter Visit Diagnoses Not on filedocumented in this encounter Care Teams Wire Repairer Relationship Specialty Start Date End Date Bradley Judd DO [address] [place] [address] PCP - General Family Medicine 10/28/18 documented as of this encounter
--- OUTSIDE RECORDS SUMMARY | 2024-02-09 23:15 | XMS_ITS | Encounter Summary ---
Author Organization [facility] [place] [address] Care Team Providers Care Dog Licenser Name Role Phone DutchBradley DO Primary Care Provider +1- [phone] Reason for Visit * Reason Comments Specialty Pharmacy Review Encounter Details Date Type Department Care Team (Late st Contact Info) Description 12/21/2021 Specialty Pharmacy Pharmacy at [facility] [place] [address] Jair Menon, CUSTODIAL LABORER Social History Tobacco Use Types Packs/Day Years [...] encounter Progress Notes * Jair Menon - 12/21/2021 11:[address] [facility] has completed a benefits investigation for Tracy Harmon to review their eligibility to fill at [facility]. Per patient's medication list they are prescribedOTEZLA 30 MG TABLET and the medication is not able to be filled at the [facility] sine the PA was denied. documented in this encounter Plan of Treatment Upcoming Encounters Date Type Department Care Team (Late st Contact Info) Description 05/01/2024 1:00 PM EST TH Visit (TeleHealth) Obstetrics [place] [address] Raymon Hill MD [facility] OBSTETRICS [place] [address] documented as of this encounter Visit Diagnoses Not on filedocumented in this encounter Care Teams Dog Licenser Relationship Specialty Start Date End Date Bradley Judd DO [address] [place] [address] PCP - General Family Medicine 10/28/18 documented as of this encounter
--- OUTSIDE RECORDS SUMMARY | 2024-02-09 23:15 | XMS_ITS | Encounter Summary ---
Author Organization [facility] [place] [address] Care Team Providers Care Internal Revenue Service Agent Name Role Phone Dutch Bradley Jeffery WU Primary Care Provider +1- [phone] Reason for Visit * Reason Onset Date Comments Medication Refill 10/30/2022 Encounter Details Date Type Department Care Team (Late st Contact Info) Description 10/30/2022 Refill Dermatology at [facility] [address] [place] [address] Margaret Masters MD [facility] [address] [place] [address] Palmoplantar pustulosis Social History Tobacco Use Types [...] TH Visit (TeleHealth) Obstetrics [place] [address] Raymon Hill MD [facility] OBSTETRICS [place] [address] documented as of this encounter Visit Diagnoses Diagnosis Palmoplantar pustulosis Other psoriasis documented in this encounter Care Teams Internal Revenue Service Agent Relationship Specialty Start Date End Date Bradley Judd DO [address] [place] [address] PCP - General Family Medicine 10/28/18 documented as of this encounter
--- OUTSIDE RECORDS SUMMARY | 2024-02-09 23:15 | XMS_ITS | Encounter Summary ---
Author Organization [facility] [place] [address] Care Team Providers Care Pressing Department Supervisor Name Role Phone Bradley Judd DO Primary Care Provider +1- [phone] Encounter Details Date Type Department Care Team (Late st Contact Info) Description 01/31/2021 Telephone Dermatology at [facility] [address] [place] [address] Radha Salamanca MD [facility] [address] [place] [address] Social History Tobacco Use Types Packs/Day Years [...] encounter Miscellaneous Notes * Telephone Encounter - Dedra Hsu - 01/31/2021 12:19 PM EDT Patient Tracy Harmon called and needs a refill script for clobetasoL (TEMOVATE) 0.05 % Ointmentto be sent to [facility] pharmacy in [place], [place]. She has an appt. Scheduled for 03/08 for 3 month follow up. Thank you, Katherine documented in this encounter Plan of Treatment Upcoming Encounters Date Type Department Care Team (Late st Contact Info) Description 05/01/2024 1:00 PM EST TH Visit (TeleHealth) Obstetrics [place] [address] Raymon Hill MD [facility] DR [place] [address] documented as of this encounter Visit Diagnoses Not on filedocumented in this encounter Care Teams Pressing Department Supervisor Relationship Specialty Start Date End Date Bradley Judd DO [address] [place] [address] PCP - General Family Medicine 10/28/18 documented as of this encounter
--- OUTSIDE RECORDS SUMMARY | 2024-02-09 23:15 | XMS_ITS | Encounter Summary ---
Author Organization [facility] [place] [address] Care Team Providers Care City Designer Name Role Phone Dutch Bradley Jeffery WU Primary Care Provider +1- [phone] Reason for Visit * Reason Comments Specialty Pharmacy Review Encounter Details Date Type Department Care Team (Late st Contact Info) Description 12/23/2020 Specialty [place] [address] Thea Rooney Social History Tobacco Use Types Packs/Day Years [...] as of this encounter Progress Notes * Thea Rooney - 12/23/2020 11:59 PM EDT [facility] has completed a benefits investigation for Tracy Harmon to review their eligibility to fill at [facility]. Per patient's medication list they are prescribedOTEZLA STARTER ORAL and the medication may be able to be filled at the [facility]. documented in this encounter Plan of Treatment Upcoming Encounters Date Type Department Care Team (Late st Contact Info) Description 05/01/2024 1:00 PM EST TH Visit (TeleHealth) Obstetrics [place] [address] Raymon Hill MD [facility] DR OBSTETRICS [place] [address] documented as of this encounter Visit Diagnoses Not on filedocumented in this encounter Care Teams City Designer Relationship Specialty Start Date End Date Bradley Judd DO [address] [place] [address] PCP - General Family Medicine 10/28/18 documented as of this encounter
--- OUTSIDE RECORDS SUMMARY | 2024-02-09 23:15 | XMS_ITS | Encounter Summary ---
Author Organization [facility] Address [facility] [place] [address] Care Team Providers Care Fur Blowing Machine Attendant Name Role Phone DutchBradley young Jeffery WU Primary Care Provider +1- [phone] Encounter Details Date Type Department Care Team (Late st Contact Info) Description 03/31/2021 Telephone Dermatology at [facility] [address] [place] [address] Conchita Tucker MD [facility] [place] [address] Social History Tobacco Use Types Packs/Day Years [...] encounter Miscellaneous Notes * Telephone Encounter - Conchita Barth MD - 03/31/2021 1:41 PM EDT Called pt re: palmoplantar pustulosis. She reports the clobetasol is not really helping. Discussed that her insurance requires to to trial another medication for 3 months prior to approving the Otezla. Discussed risks and benefits of MTX and cyclosporine. Joint decision to proceed with MTX as it will not interact with any of her current medications. - Labs today (faxed to [facility]): CBC, CMP, Hep B/C labs, quant gold - Once labs are back and WNL plan to start Rx: methotrexate 7.5 mg once weekly. If well-tolerated after 1 week, may increase to 12.5 mg once weekly and repeat labs at 2 week sam. Plan to f/u with visit (in person or Telehealth) 6 weeks after initiation of MTX. Will send pt [facility] info on MTX. Methotrexate was FDA-approved for the treatment of severe psoriasis in the 1970s. This medication is effective in treating psoriasis of the skin as well as psoriatic arthritis. We discussed methotrexate and its potential short term adverse effects including fatigue, nausea, diarrhea, loss of appetite. Discussed potential terminal operations supervisor effects including myelosuppression, increased liver function tests/cirrhosis, interstitial pneumonia, and kidney damage. The importance of interval bloodwork while onthis medication was addressed. Counseled to stop 1 week before and 1 week after surgery. Stop at the first sign of URI or other illness. Will start with methotrexate : Explained to patient that methotrexate works by inhibiting cell division, specifically lymphoid cells, via competitively and reversibly inhibiting dihydrofolate reductase and thymidylate synthetase. Can act as immunosupressive agent. Folic acid, 1mg per day, will be prescribed to inhibit gastrointestinal adverse effects and reduce the risk of pancytopenia. Folic acid supplementation not noted to affect efficacy of drug. Side effects reviewed. Common side effects, including GI upset (nausea, vomiting, ulcerative stomatitis, and diarrhea), headache, dizziness, fatigue, and alopecia as well as less common, but more severe, side effects including liver toxicity, idiosyncratic pneumonitis, hematologoic toxicity, renal t oxicity, and possible teratogenicity reviewed. Emphasized need to inform physician and pharmacist that patient taking methotrexate. Multiple drug interactions and patient needs to avoid NSAIDS, sulfonamides, colchicine, and alcohol while using this medication. Discussed that there is no statistical evidence that methotrexate use induces risk of subseuqent malignancy in patients with psoriasis. documented in this encounter Plan of Treatment Upcoming Encounters Date Type Department Care Team (Late st Contact Info) Description 05/01/2024 1:00 PM EST TH Visit (TeleHealth) Obstetrics [place] [address] Raymon Hill MD [facility] [place] [address] documented as of this encounter Visit Diagnoses Diagnosis High risk medication use Encounter for long-term (current) use of other medications documented in this encounter Care Teams Fur Blowing Machine Attendant Relationship Specialty Start Date End Date Bradley Judd DO [address] [place] [address] PCP - General Family Medicine 10/28/18 documented as of this encounter
--- OUTSIDE RECORDS SUMMARY | 2024-02-09 23:15 | XMS_ITS | Encounter Summary ---
Author Organization [facility] [place] [address] Care Team Providers Care Transportation Officer Name Role Phone DutchBradley young Jeffery WU Primary Care Provider +1- [phone] Reason for Visit * Reason Comments Follow-up Encounter Details Date Type Department Care Team (Late st Contact Info) Description 02/03/2021 4:00 PM EDT Office Visit Obstetrics and Gynecology at [facility] [place] [address] Janae Rizvi APRN [facility] [place] [address] Urinary frequency Social History Tobacco Use Types Packs/Day Years [...] Sign Reading Time Taken Comments Blood Pressure 108/66 02/03/2021 4:10 PM EDT Pulse 103 02/03/2021 4:10 PM EDT Temperature 36.5 ??C (97.7 ??F) 02/03/2021 4:10 PM ED T Respiratory Rate 18 02/03/2021 4:10 PM EDT Oxygen Saturation 98% 02/03/2021 4:10 PM EDT Inhaled Oxygen Concentration - - Weight 83 kg (183 lb) 02/03/2021 4:10 PM EDT Height - - Body Mass Index 39.59 06/03/2020 3:15 PM EST documented in this encounter Progress Notes * Janae Rizvi, DISTANCE LEARNING PROGRAM COORDINATOR - 02/03/2021 4:00 PM EDT Patient Active Problem List Diagnosis Code ??? GERD (gastroesophageal reflux disease) K21.9 ??? IBS (irritable bowel syndrome) K58.9 ??? Hearing loss H91.90 ??? Seasonal allergies J30.2 ??? Sleep apnea G47.30 ??? Fecal incontinence R15.9 ??? Mixed stress and urge urinary incontinence N39.46 ??? Diabetes mellitus E11.9 ??? Incontinence of feces with fecal urgency R15.9, R15.2 SUBJECTIVE: Tracy Harmon comes in today for a sense of incomplete bladder emptying. At her postoperative visit her US PVR was normal at 30 mL and today it is 27 mL. The symptoms she notices is thatif she stays on the toilet after she has voided, in a few minutes she will void some more. Her diabetes is not monitored. She tells me it is pre. Daytime voids: q 60 to 90 min Nocturnal voids: none. Cough leak occasional, small amt; occ small amount with urgency at times. No vaginal bleeding. Date of surgery: 03/23/2020 Procedure: n/a Pathology: overlapping anal sphincteroplasty,??trans-obturator mid-urethral polypropylene sling OBJECTIVE: Blood pressure 108/66, pulse (!) 103, temperature 36.5 ??C (97.7 ??F), temperature source Temporal,resp. rate 18, weight 83 kg (183 lb), SpO2 98 %. POC UA is positive only for trace of protein; USG 1.015 Exam is deferred ASSESSMENT: Tracy Harmon is a 55 y.o. year old woman with: ?? Normal bladder emptying ?? Mild mixed urinary incontinence'Urinary frequency PLAN: ??? Discussed result today ??? Discussed bladder diary and equipment and forms provided for 3-day record ??? Info given on stress vs urge leakage and urge suppression. ??? Return in 3 months for recheck. I spent 20minutes total with the patient, with 20 minutes of the time spent [id number] in discussing her diagnosis and reviewing options for treatment. Janae Rizvi APRN Division of Female Pelvic Medicine & Reconstructive Surgery documented in this encounter Plan of Treatment Upcoming Encounters Date Type Department Care Team (Late st Contact Info) Description 05/01/2024 1:00 PM EST TH Visit (TeleHealth) Obstetrics [place] [address] Raymon Hill MD [facility] DR OBSTETRICS [place] [address] Scheduled Orders Name Type Priority Associated Diagnoses Orde r Schedule POCT urine dipstick Point of Care Testing Routine Urinary frequency Ordered: 02/03/2021 documented as of this encounter Procedures Procedure Name Priority Date/Time Associated Diagnosis Comments BLADDER SCANNER Routine 02/03/2021 Urinary frequency documented in this encounter Results * Bladder Scanner (02/03/2021) Bladder Scan (mL) 27 mL Janae Rizvi APRN URO PROC W/O RFL ORD ERABLES documented in this encounter Visit Diagnoses Diagnosis Urinary frequency documented in this encounter Care Teams Transportation Officer Relationship Specialty Start Date End Date Bradley Judd DO [address] [place] [address] PCP - General Family Medicine 10/28/18 documented as of this encounter
--- OUTSIDE RECORDS SUMMARY | 2024-02-09 23:15 | XMS_ITS | Encounter Summary ---
Author Organization [facility] Address [facility] [place] [address] Care Team Providers Care Regional Recruiter Name Role Phone Bradley Judd DO Primary Care Provider +1- [phone] Reason for Visit * Consultation (Routine) - Closed Specialty Diagnoses / Procedures Referred By Madeleine candelaria Referred To Contact Dermatology Diagnoses Cellulitis of left upper limb Dermatitis, unspecified Cellulitis of right upper limb Candidiasis of skin and nail Bradley Judd DO [address] [place] [address] Shlomo Leggett MD [address] [facility] [place] [address] Referral ID Status Reason Start Date Expiration Date V isits Requested Visits Authorized [id number] Closed Consult, Test & Treat [facility] PCP Updated and/or Approved 10/26/2020 10/26/2021 10 10 Encounter Details Date Type Department Care Team (Late st Contact Info) Description 11/29/2020 1:15 PM EDT Office Visit Dermatology at [facility] [address] [place] [address] Radha Salamanca MD [facility] [address] [address] Palmoplantar pustulosis Social History Tobacco Use Types [...] Progress Notes * Radha Salamanca MD - 11/29/2020 1:15 PM EDT Images from the original note [...] is a 55 y.o. year old. Patient is referred to the clinic at the request of Bradley Judd for concerning - Rash on the hands, present over 1 month, that has been treated as cellulitis by PCP. It appeared while taking amoxicillin. It can be tender when clenching fist, denies itching. Patient did 3 courses of prednisone which helped and returned 1-2 days of stopping the prednisone. Patient has been using a cream baby oil several times throughout the day. Patient denies trying any topical medications. Patient ordinarily uses basis soap in the shower but switched to an unknown brand. Feet are fine. Review of Systems: General: Feeling well. Skin: No other skin concerns. 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 Left medial foot few deep seeded pustules, otherwise feet are clear - Chronic; flaring - Responsive to oral prednisone x3 - Discussed negative side effects of half-way oral steroid use. - Start Rx Clobetasol 0.05% ointment twice a day to the affected areas on the hands x4 weeks. At night apply under occlusion of white cotton gloves. - If rash does not resolve with this treatment in 4 weeks, I will consider additional topical or oral treatment options, which I discussed with the patient. Photo was taken and charted with patient's verbal consent. Other items to document in the assessment/plan if relevant ??? N/A RTC: 1 month psoriasis follow up. [x]Note routed to alumni secretary []Recall has been placed in scheduling system []Appointment scheduled at checkout Scribe attestation: Wallace Guillen and BHARAT Zaragoza have performed the documentation for this encounter in the presence of and acting as a scribe for Radha Salamanca MD I performed the above scribed service and agree with the accuracy of the documentation in this encounter. Reviewed and signed by: Radha Salamanca MD Dermatology [facility] documented in this encounter Plan of Treatment Upcoming Encounters Date Type Department Care Team (Late st Contact Info) Description 05/01/2024 1:00 PM EST TH Visit (TeleHealth) Obstetrics [place] [address] Raymon Hill MD [facility] OBSTETRICS [place] [address] documented as of this encounter Visit Diagnoses Diagnosis Palmoplantar pustulosis Other psoriasis documented in this encounter Care Teams Regional Recruiter Relationship Specialty Start Date End Date Bradley Judd DO [address] [place] [address] PCP - General Family Medicine 10/28/18 documented as of this encounter
--- OUTSIDE RECORDS SUMMARY | 2024-02-09 23:15 | XMS_ITS | Encounter Summary ---
Author Organization [facility] [place] [address] Care Team Providers Care Assembly Stock Supervisor Name Role Phone DutchBradley young Jeffery WU Primary Care Provider +1- [phone] Reason for Visit * Reason Comments Post Op Encounter Details Date Type Department Care Team (Late st Contact Info) Description 05/05/2020 1:45 PM EST Office Visit Obstetrics [place] [address] Helio Hill MD [facility] [address] [place] [address] Postop check Social History Tobacco Use Types [...] Sign Reading Time Taken Comments Blood Pressure 131/73 05/05/2020 1:11 PM EST Pulse 98 05/05/2020 1:11 PM EST Temperature 36.4 ??C (97.6 ??F) 05/05/2020 1:11 PM ES T Respiratory Rate 16 05/05/2020 1:11 PM EST Oxygen Saturation 97% 05/05/2020 1:11 PM EST Inhaled Oxygen Concentration - - Weight 80.6 kg (177 lb 11.2 oz) 05/05/2020 1:11 PM EST Height 144.8 cm (4' 9.01) 05/05/2020 1:11 PM ES T Body Mass Index 38.44 05/05/2020 1:11 PM EST documented in this encounter Progress Notes * Helio Hill MD - 05/05/2020 1:45 PM EST FEMALE PELVIC MEDICINE AND RECONSTRUCTIVE [...] fecal urgency R15.9, R15.2 Date of visit: 05/05/2020 Patient name: Tracy Harmon Date of surgery: [...] and she has been afebrile since surgery. She hastried sex once, with dyspareunia a few days ago. Since surgery, she reports: None x Continued vaginal bleeding New pelvic related pain Abnormal vaginal discharge Burning with urination Blood in urine Enuresis New prolapse symptoms since surgery Bladder Function Number of daytime voids: 8-10 Number of nocturia events: 1 Urinary incontinence since surgery (y/n): yes If yes, [place] Incontinence Severity Index: How often do you experience urinary leakage? 0. Never 1. Less than once a month 2. A few times a month 3. A few times a week 4. Every day and/or night Value 2 How much urine do you lose each time? 0. None 1. Drops 2. Small Splashes 3. More Value 1 The Severity Index is the product of the two questions 0 - NONE 1-2 Slight 3-6 Moderate 8-9 Severe 12 Very severe SCORE: 2 If yes, leaks with: Event Presence Event Presence NONE [place] Walking Cold Weather Running Anticipation of going to the lavatory Cough/Sneeze x First morning void Lifting Running water Laughing Other Number of pads / day: 1 Pad type: incontinence Voiding Dysfunction: Symptom Presence NONE Straining to empty Incomplete emptying ? Weak stream Feeling the urge to void after voiding x Dribbling Changes in position Difficulty initiating a stream Bowel Function Fecal incontinence since surgery? (stool/gas) once since surgery How many fecal incontinence episodes / week? n/a How often do you have bowel movements? 3 / day Any new defecatory problems since surgery?: yes IF so which defecatory problem?: Symptom Presence Symptom Presence NONE x Require laxatives regularly Difficulty emptying Less than three bowel movements / week Need to strain Urgency Hard stools Other Loose stools Treatment Outcome Satisfaction How would you describe your level of satisfaction with your treatment outcome? 0. Strongly UNsatisfied 1. UNsatisfied 2. Neither satisfied nor unsatisfied 3. Satisfied 4. Strongly satisfied Value 3 Would you recommend this therapy to a friend?: yes How much has your treatment outcome met your before treatment expectation? 0. Strongly NOT met my before treatment expectations 1. Not met my before treatment expectations 2. Undecided 3. Met my before treatment expectations 4. Strongly met my before treatment expectations 3 A blow mold operator is present for the examination, Temi . OBJECTIVE: BP 131/73 Pulse 98 Temp 36.4 ??C (97.6 ??F) (Temporal) Resp 16 Ht 144.8 cm (4' 9.01) Wt 80.6 kg (177 lb 11.2 oz) SpO2 97% BMI 38.44 kg/m?? Results for orders placed or performed in visit on 05/05/20 POCT urine dipstick Result Value Ref Range POC Sp [place] 1.010 1.002 - 1.030 POC pH, UA 7 5.0 - 8.5 POC Leuk, UA 1+ Negative - Negative POC Nitrite, UA neg Negative - Negative POC Protein, UA neg Negative - Negative mg/dL POC Glucose, UA norm Normal - Normal mg/dL POC Ketone, UA neg Negative - Negative POC Urobil, UA norm 0.2 - 1.0 mg/dL POC Bili, UA neg Negative - Negative POC Blood, UA trace Negative - Negative terrence/uL Bladder Scanner Result Value Ref Range Bladder Scan (mL) 31 mL General: normal appearing female, pleasant mood, normal speech Abdomen: Abdomen soft, non-tender, no masses. Surgical incision(s): Small area at perineum with persistent separation. No evidence of erythema orinduration. Back: Non-tender, without costovertebral angle or paraspinal tenderness Pelvic: Cough stress test (empty supine): negative External Genitalia: Vulva, [place]'s and Bartholin glands normal, urethra without tenderness or mass Vagina: slightly tender left and suburethral areas Discharge?: no Cervix: normal Bimanual (uterus/adnexa): Mobile anteflexed uterus, non-tender, no masses; no adnexal masses or tenderness. POP Q Measurements: Aa -3 Ba -3 C -5 GH rest, strain 4,4 PB rest, strain 1,1 TVL 8 Ap -3 Bp -3 D -7 Impression: Ms. Harmon is a 54 y.o. year old woman now 6+ wks s/p overlapping sphincteroplasty, mid-urethral sling. She is doing well overall. She had perineal wound breakdown that is healing nicely. Plan: Activity: We discussed that I would recommend no sex for 4 more weeks to allow for healing. She agrees to start vaginal estrogen cream, 1 gm twice weekly. If not covered, we discussed compounded estrogen cream. Return in 12 months / PRN to reassess HELIO HILL MD Division of Female Pelvic Medicine/Reconstructive Surgery documented in this encounter Plan of Treatment Upcoming Encounters Date Type Department Care Team (Late st Contact Info) Description 05/01/2024 1:00 PM EST TH Visit (TeleHealth) Obstetrics [place] [address] Helio Hill MD [facility] [address] [place] [address] documented as of this encounter Procedures Procedure Name Priority Date/Time Associated Diagnosis Comments POCT URINE DIPSTICK Routine 05/05/2020 1 :52 PM EST Postop check BLADDER SCANNER Routine 05/05/2020 Postop check documented in this encounter Results * POCT urine dipstick (05/05/2020 1:52 PM EST) POC Sp [place] 1.010 1.002 - 1.030 POC pH, UA 7 5.0 - 8.5 POC Leuk, UA 1+ Negative - Negative POC Nitrite, UA neg Negative - Negative POC Protein, UA neg Negative - Negative mg/dL POC Glucose, UA norm Normal - Normal mg/dL POC Ketone, UA neg Negative - Negative POC Urobil, UA norm 0.2 - 1.0 mg/dL POC Bili, UA neg Negative - Negative POC Blood, UA trace Negative - Negative terrence/uL 05/05/2020 1:52 PM EST Helio Hill MD POINT OF CARE TEST O RDERABLES * Bladder Scanner (05/05/2020) Bladder Scan (mL) 31 mL Helio Hill MD URO PROC W/O RFL ORD ERABLES documented in this encounter Visit Diagnoses Diagnosis Postop check Follow-up examination, following unspecified surgery documented in this encounter Care Teams Assembly Stock Supervisor Relationship Specialty Start Date End Date Bradley Judd DO [address] [place] [address] PCP - General Family Medicine 10/28/18 documented as of this encounter
--- OUTSIDE RECORDS SUMMARY | 2024-02-09 23:15 | XMS_ITS | Encounter Summary ---
Author Organization [facility] [place] [address] Care Team Providers Care Teradata Developer Name Role Phone DutchBradley young Jeffery WU Primary Care Provider +1- [phone] Encounter Details Date Type Department Care Team (Late st Contact Info) Description 03/31/2021 Orders Only Dermatology at [facility] [address] [place] [address] Conchita Tucker MD [facility] [address] [place] [address] Palmoplantar pustulosis Social History Tobacco Use Types [...] TH Visit (TeleHealth) Obstetrics [place] [address] Raymon Hill MD [facility] DR OBST[place] [address] documented as of this encounter Visit Diagnoses Diagnosis Palmoplantar pustulosis Other psoriasis documented in this encounter Care Teams Teradata Developer Relationship Specialty Start Date End Date Bradley uJdd DO [address] [place] [address] PCP - General Family Medicine 10/28/18 documented as of this encounter
--- OUTSIDE RECORDS SUMMARY | 2024-02-09 23:15 | XMS_ITS | Encounter Summary ---
Author Organization [facility] Mag[facility] [place] [address] Care Team Providers Care Central Office Equipment Engineer Name Role Phone Dutch Bradley Jeffery WU Primary Care Provider +1- [phone] Reason for Visit * Reason Comments Specialty Pharmacy Review Encounter Details Date Type Department Care Team (Late st Contact Info) Description 03/08/2021 Specialty Pharmacy Pharmacy at [facility] [place] [address] Jair Menon, LOGGING SPECIALIST Social History Tobacco Use Types Packs/Day [...] encounter Progress Notes * Jair Menon - 03/08/2021 11:59 PM EDT The [facility] has completed a benefits investigation for Tracy Harmon to review their eligibility to fill at [facility]. Per patient's medication list they are prescribedOTEZLA STARTER and the medication is not able to be filled at the [facility]. documented in this encounter Plan of Treatment Upcoming Encounters Date Type Department Care Team (Late st Contact Info) Description 05/01/2024 1:00 PM EST TH Visit (TeleHealth) Obstetrics [place] [address] Raymon Hill MD [facility] DR OBSTET[place] [address] documented as of this encounter Visit Diagnoses Not on filedocumented in this encounter Care Teams Central Office Equipment Engineer Relationship Specialty Start Date End Date Bradley Judd DO [address] [place] [address] PCP - General Family Medicine 10/28/18 documented as of this encounter
--- OUTSIDE RECORDS SUMMARY | 2024-02-09 23:15 | XMS_ITS | Encounter Summary ---
Author Organization [facility] Mag[facility] [place] [address] Care Team Providers Care Contract Programmer Name Role Phone Dutch Bradley Jeffery WU Primary Care Provider +1- [phone] Reason for Visit * Reason Comments Specialty Pharmacy Review Encounter Details Date Type Department Care Team (Late st Contact Info) Description 03/23/2022 Specialty Pharmacy Pharmacy at [facility] [place] [address] Jair Menon, SOFTWARE SUPPORT TECHNICIAN Social History Tobacco Use Types Packs/Day Years [...] encounter Progress Notes * Jair Menon - 03/23/2022 11:59 PM EDT The [facility] has completed a benefits investigation for Tracy Harmon to review their eligibility to fill at [facility]. Per patient's medication list they are prescribedOTEZLA 30 MG TABLET and the medication is not able to be filled at the [facility] sincethe PA has been denied. documented in this encounter Plan of Treatment Upcoming Encounters Date Type Department Care Team (Late st Contact Info) Description 05/01/2024 1:00 PM EST TH Visit (TeleHealth) Obstetrics [place] [address] Raymon Hill MD [facility] OBSTETRICS [place] [address] documented as of this encounter Visit Diagnoses Not on filedocumented in this encounter Care Teams Contract Programmer Relationship Specialty Start Date End Date Bradley Judd DO [address] [place] [address] PCP - General Family Medicine 10/28/18 documented as of this encounter
--- OUTSIDE RECORDS SUMMARY | 2024-02-09 23:15 | XMS_ITS | Encounter Summary ---
Author Organization [facility] [place] [address] Care Team Providers Care Special Client Bus Driver Name Role Phone Bradley Judd DO Primary Care Provider +1- [phone] Encounter Details Date Type Department Care Team (Late Contact Info) Description 07/28/2021 Telephone Dermatology at [facility] [address] [place] [address] Ewelina Nguyen Social History Tobacco Use Types Packs/Day Years [...] encounter Miscellaneous Notes * Telephone Encounter - Ewelina Nguyen - 07/28/2021 7:53 AM EST FAXED LABS TO [facility] [phone]. DONE! documented in this encounter Plan of Treatment Upcoming Encounters Date Type Department Care Team (Late st Contact Info) Description 05/01/2024 1:00 PM EST TH Visit (TeleHealth) [place] [address] Raymon Hill MD [facility] OBSTETRICS [place] [address] documented as of this encounter Visit Diagnoses Not on filedocumented in this encounter Care Teams Special Client Bus Driver Relationship Specialty Start Date End Date Bradley Judd DO [address] [place] [address] PCP - General Family Medicine 10/28/18 documented as of this encounter
--- OUTSIDE RECORDS SUMMARY | 2024-02-09 23:15 | XMS_ITS | Encounter Summary ---
Author Organization [facility] [place] [address] Care Team Providers Care Truck Loader Overhead Crane Name Role Phone Dutch Bradley Jeffery WU Primary Care Provider +1- [phone] Reason for Visit * Reason Onset Date Comments Medication Refill 01/31/2021 Encounter Details Date Type Department Care Team (Late st Contact Info) Description 01/31/2021 Refill Dermatology at [facility] [address] [place] [address] Radha Salamanca MD [facility] [address] [place] [address] Palmoplantar pustulosis Social History Tobacco Use Types [...] Encounter - Aisha Hoff LPN - 02/01/2021 8:09 AM EDT Opened in error. Will pend script to Dr. Simon. documented in this encounter Plan of Treatment Upcoming Encounters Date Type Department Care Team (Late st Contact Info) Description 05/01/2024 1:00 PM EST TH Visit (TeleHealth) Obstetrics [place] [address] Raymon Hill MD [facility] OBSTET[place] [address] documented as of this encounter Visit Diagnoses Diagnosis Palmoplantar pustulosis Other psoriasis documented in this encounter Care Teams Truck Loader Overhead Crane Relationship Specialty Start Date End Date Bradley Judd DO [address] [place] [address] PCP - General Family Medicine 10/28/18 documented as of this encounter
--- OUTSIDE RECORDS SUMMARY | 2024-02-09 23:15 | XMS_ITS | Encounter Summary ---
Author Organization [facility] [place] [address] Care Team Providers Care Knocker Out Name Role Phone Bradley Judd DO Primary Care Provider +1- [phone] Reason for Visit * Reason Onset Date Comments Questions 06/02/2020 Encounter Details Date Type Department Care Team (Late st Contact Info) Description 06/02/2020 Telephone Obstetrics [place] [address] Ayse Bryant, RN Questions Social History Tobacco Use Types Packs/Day Years [...] encounter Miscellaneous Notes * Telephone Encounter - Ayse Bryant, RN - 06/02/2020 4:40 PM EST TELEPHONE NOTE Caller: Pt Reason for call: questions Assessment: Had surgery 03/23/20 and had SPHINCTEROPLASTY, ANAL, ADULT (WRVU 12.15) (N/A) (overlapping anal sphincteroplasty) URETHRAL SUSPENSION, SLING\FASCIA OR SYNTHETIC Pt calls today have a sore at vaginal opening that she feels it is not healing. Area fran and tender to touch. Pt states I cannot have intercourse to painful. No d/c. No fever. Pt would like to be seen. Plan/Instructions: Appt to be made with provider. documented in this encounter Plan of Treatment Upcoming Encounters Date Type Department Care Team (Late st Contact Info) Description 05/01/2024 1:00 PM EST TH Visit (TeleHealth) Obstetrics [place] [address] Raymon Hill MD [facility] DR OBSTETRICS [place] [address] documented as of this encounter Visit Diagnoses Not on filedocumented in this encounter Care Teams Knocker Out Relationship Specialty Start Date End Date Bradley Judd DO [address] [place] [address] PCP - General Family Medicine 10/28/18 documented as of this encounter
--- OUTSIDE RECORDS SUMMARY | 2024-02-09 23:15 | XMS_ITS | Encounter Summary ---
Author Organization [facility] Address [facility] [place] [address] Care Team Providers Care It Quality Analyst Name Role Phone Bradley Judd DO Primary Care Provider +1- [phone] Reason for Referral * Consultation (Routine) - Closed Specialty Diagnoses / Procedures Referred By Madeleine candelaria Referred To Contact Obstetrics and Gynecology Diagnoses Full incontinence-feces Urogyn [facility] FECAL INCONTINENCE S/P ANAL SPHINCTEROPLASTY IN 6541-3000. IS DECLINING PT, RECENT COLO UNREMARKABLE Yarely Russ APRN [address] [place] [address] Raymon Hill MD [facility] OBSTETRICS [place] [address] Referral ID Status Reason Start Date Expiration Date V isits Requested Visits Authorized [id number] Closed Consult, Test & Treat PCP Updated and/or Approved 2023 06/05/2024 6 6 Encounter Details Date Type Department Care Team (Late st Contact Info) Description 2023 Transcribe Orders eDH Incoming Referrals [phone] Yarely Russ ORANGE PEEL OPERATOR [address] [place] [address] Full incontinence-feces Social History Tobacco Use Types Packs/Day Years [...] TH Visit (TeleHealth) Obstetrics [place] [address] Raymon Hill MD [facility] DR OBSTETRICS [place] [address] Scheduled Referrals Name Type Priority Associated Diagnoses Orde r Schedule Referral to Ob-Salvage Supervisor Outpatient Referral Routine Full incontinence-feces Ordered: 2023 documented as of this encounter Visit Diagnoses Diagnosis Full incontinence-feces Full incontinence of feces documented in this encounter Care Teams It Quality Analyst Relationship Specialty Start Date End Date Bradley Judd DO [address] [place] [address] PCP - General Family Medicine 10/28/18 documented as of this encounter
--- OUTSIDE RECORDS SUMMARY | 2024-02-09 23:15 | XMS_ITS | Encounter Summary ---
Author Organization [facility] Address [facility] [place] [address] Care Team Providers Care Clothes Drier Assembler Name Role Phone Bradley Judd DO Primary Care Provider +1- [phone] Encounter Details Date Type Department Care Team (Late st Contact Info) Description 05/20/2021 Telephone Dermatology at [facility] [address] [place] [address] Conchita Tucker MD [facility] [address] [address] Social History Tobacco Use Types Packs/Day Years [...] * Telephone Encounter - Dedra Hsu - 05/20/2021 11:24 AM EST Patient Tracy Harmon called requesting a refill of metHOTREXate 2.5 mg Tablet To be sent to [facility] in [place], [place]. Thank you, Katherine documented in this encounter Plan of Treatment Upcoming Encounters Date Type Department Care Team (Late st Contact Info) Description 05/01/2024 1:00 PM EST TH Visit (TeleHealth) Obstetrics [place] [address] Raymon Hill MD [facility] OBSTETR[place] [address] documented as of this encounter Visit Diagnoses Not on filedocumented in this encounter Care Teams Clothes Drier Assembler Relationship Specialty Start Date End Date Bradley Judd DO [address] [place] [address] PCP - General Family Medicine 10/28/18 documented as of this encounter
--- OUTSIDE RECORDS SUMMARY | 2024-02-09 23:15 | XMS_ITS | Encounter Summary ---
Author Organization [facility] Address [facility] [place] [address] Care Team Providers Care Special Population Paraprofessional Name Role Phone Dutch Bradley Jeffery WU Primary Care Provider +1- [phone] Encounter Details Date Type Department Care Team (Late st Contact Info) Description 06/28/2021 Telephone Dermatology at [facility] [address] [place] [address] Conchita Tucker MD [facility] [address] [place] [address] Social History Tobacco Use Types Packs/Day Years [...] encounter Miscellaneous Notes * Telephone Encounter - Natalia Wilhelmflorian Garrido - 06/28/2021 3:54 PM EST Pt called and needs a refill on:clobetasoL (Temovate) 0.05 % Ointment [[id number]] Sent to [facility] [place] documented in this encounter Plan of Treatment Upcoming Encounters Date Type Department Care Team (Late st Contact Info) Description 05/01/2024 1:00 PM EST TH Visit (TeleHealth) Obstetrics [place] [address] Raymon Hill MD [facility] DR OBSTETRICS [place] [address] documented as of this encounter Visit Diagnoses Not on filedocumented in this encounter Care Teams Special Population Paraprofessional Relationship Specialty Start Date End Date Bradley Judd DO [address] [place] [address] PCP - General Family Medicine 10/28/18 documented as of this encounter
--- OUTSIDE RECORDS SUMMARY | 2024-02-09 23:15 | XMS_ITS | Encounter Summary ---
Author Organization [facility] Address [facility] [place] [address] Care Team Providers Care Electronic Engineering Technician Name Role Phone Dutch Bradley Jeffery WU Primary Care Provider +1- [phone] Encounter Details Date Type Department Care Team (Late st Contact Info) Description 02/03/2021 Telephone Dermatology at [facility] [address] [place] [address] Radha Salamanca MD [facility] [address] [address] Social History Tobacco Use Types Packs/Day Years [...] encounter Miscellaneous Notes * Telephone Encounter - Iva Jo - 02/03/2021 9:46 AM EDT I received a call this morning from Lary Hendricks from [facility]. Lary was calling regarding Tracy Harmon's prescription for Otezla 30mg tablet. Lary mentioned the patient has not met criteria for this medication and they need to receive a prior authorization. Lary would please like a call to discuss this at [phone]. Thank you. documented in this encounter Plan of Treatment Upcoming Encounters Date Type Department Care Team (Late st Contact Info) Description 05/01/2024 1:00 PM EST TH Visit (TeleHealth) Obstetrics [place] [address] Raymon Hill MD [facility] DR OBSTETRICS [place] [address] documented as of this encounter Visit Diagnoses Not on filedocumented in this encounter Care Teams Electronic Engineering Technician Relationship Specialty Start Date End Date Bradley Judd DO [address] [place] [address] PCP - General Family Medicine 10/28/18 documented as of this encounter
--- OUTSIDE RECORDS SUMMARY | 2024-02-09 23:15 | XMS_ITS | Encounter Summary ---
Author Organization Formerly [facility] Address [facility] [place] [address] Care Team Providers Care Lead Fabricator Name Role Phone Bradley Judd DO Primary Care Provider +1- [phone] Encounter Details Date Type Department Care Team (Late st Contact Info) Description 03/31/2021 Telephone Dermatology at [facility] [address] [place] [address] Conchita Tucker MD [facility] [address] MILLI N[place] [address] Social History Tobacco Use Types Packs/Day Years [...] Telephone Encounter - Amanda Panda LPN - 03/31/2021 4:38 PM EDTSummary: clarification of script Called pharmacy and left message with clarification of 2 times daily to the hands. * Telephone Encounter - Janae Galdamez - 03/31/2021 4:03 PM EDT The pharmacy called for Tracy Harmon and needing clarification for application and times of dayfor the clobetasoL (Temovate) 0.05 % Ointment> Best number to reach the pharmacy back is [phone]. documented in this encounter Plan of Treatment Upcoming Encounters Date Type Department Care Team (Late st Contact Info) Description 05/01/2024 1:00 PM EST TH Visit (TeleHealth) Obstetrics [place] [address] Raymon Hill MD [facility] DR OBSTETRICS [place] [address] documented as of this encounter Visit Diagnoses Not on filedocumented in this encounter Care Teams Lead Fabricator Relationship Specialty Start Date End Date Bradley Judd DO [address] [place] [address] PCP - General Family Medicine 10/28/18 documented as of this encounter
--- OUTSIDE RECORDS SUMMARY | 2024-02-09 23:15 | XMS_ITS | Encounter Summary ---
Author Organization [facility] Address [facility] [place] [address] Care Team Providers Care Telecasting Engineer Name Role Phone Bradley Judd DO Primary Care Provider +1- [phone] Encounter Details Date Type Department Care Team (Late st Contact Info) Description 12/16/2020 Telephone Dermatology at [facility] [address] [place] [address] Radha Salamanca MD [facility] [address] [place] [address] Social History Tobacco Use Types Packs/Day Years [...] * Telephone Encounter - Danii Chambers - 12/16/2020 10:24 AM EDT Patient contacted the clinic today stating that the clobetasoL (TEMOVATE) 0.05 % Ointment prescribed on 6/14 is helping with her hands but the rash in not resolving. Patient also states that when she puts her hands in water the rash flares again. Patient is scheduled for follow up on 12/23. Please contact at [phone] documented in this encounter Plan of Treatment Upcoming Encounters Date Type Department Care Team (Late st Contact Info) Description 05/01/2024 1:00 PM EST TH Visit (TeleHealth) Obstetrics [place] [address] Raymon Hill MD [facility] DR OBSTETRICS [place] [address] documented as of this encounter Visit Diagnoses Not on filedocumented in this encounter Care Teams Telecasting Engineer Relationship Specialty Start Date End Date Bradley Judd DO [address] [place] [address] PCP - General Family Medicine 10/28/18 documented as of this encounter
--- OUTSIDE RECORDS SUMMARY | 2024-02-09 23:15 | XMS_ITS | Encounter Summary ---
[place] [address] Care Team Providers Care Herb Grower Name Role Phone Dutch Bradley Jeffery WU Primary Care Provider +1- [phone] Reason for Visit * Reason Comments Prior Authorization otezla 04/06/30mg tb pk Encounter Details Date Type Department Care Team (Late st Contact Info) Description 12/24/2020 Specialty [place] [id number] Becky Watson, TRIM MOUNTER Social History Tobacco Use Types Packs/Day Years [...] as of this encounter Progress Notes * Becky Molina - 12/24/2020 10:54 AM EDT [facility], Medication Prior Authorization Patient: Tracy Benes Patient : 1965 Patient Address: [address] [place] [address] (home) Medication Name: OTEZLA STARTER 10 MG (4)-20 MG (4)-30 MG(47) TABLETS IN A DOSE PACK Medication ID: [id number] Patient Location: [facility] DERMATOLOGY Patient Location Comment: Subscriber Insurance: Ankur (MCAIDADV) Subscriber Insurance Comment: Phone: Fax: Physician: FANNY CARPIO Physician Comment: Sent Via: [facility] Olivares: [id number] Ref/Case/PA#: Medication Strength Frequency Requested: DAY 1:TAKE 10MG BY MOUTH IN THE AM.DAY 2:TAKE 10MG TWICE DAILY.DAY 3:TAKE 10MG IN THE AM, AND 20MG IN THE PM.DAY 4:TAKE 20MG TWICE DAILY.DAY 5:TAKE 20MG IN THE MORNING AND 30MG IN THE EVENING.TAKE 30MG TWICE DAILY THEREAFTER. / Supply: New Start: New to Therapy Diagnosis & ICD-10 Code: L40.9 Patient Notified: Yes Submission Notes: None Becky Molina 12/24/20 10:56 AM * Becky Molina - 12/24/2020 10:54 AM EDT [facility], Prior Authorization Denial Medication Name: OTEZLA STARTER 10 MG (4)-20 MG (4)-30 MG(47) TABLETS IN A DOSE PACK Medication ID: [id number] Case/Reference # : [id number] Denial Summary: Patient needs failure of at least 3 consecutive month trial of methotrexate at up to maximally indicated doses, unless contraindicated or clinically significant adverse effects are experienced. If intolerance of contraindication to methotrexate, fail, ure of at least 3 consecutive month trial of cyclosporine or acitretin at up to maximally indicated doses, unless contraindicated or clinically significant adverse effects are experienced. Patient Notified of Denial: Left Voicemessage Additional Information from insurance carrier. Please see below: None For any questions relating to this denial please reach out directly to your section's specialty pharmacist, or the specialty pharmacy team at [facility] Becky Molina 12/28/20 2:48 PM documented in this encounter Plan of Treatment Upcoming Encounters Date Type Department Care Team (Late st Contact Info) Description 05/01/2024 1:00 PM EST TH Visit (TeleHealth) Obstetrics [place] [address] Raymon Hill MD [facility] [place] [address] documented as of this encounter Visit Diagnoses Not on filedocumented in this encounter Care Teams Herb Grower Relationship Specialty Start Date End Date Bradley Judd DO [address] [place] [address] PCP - General Family Medicine 10/28/18 documented as of this encounter
--- OUTSIDE RECORDS SUMMARY | 2024-02-09 23:15 | XMS_ITS | Encounter Summary ---
Author Organization [facility] [place] [address] Care Team Providers Care Grade Setter Name Role Phone Bradley Judd DO Primary Care Provider +1- [phone] Reason for Visit * Reason Onset Date Comments Medication Refill 02/01/2021 Encounter Details Date Type Department Care Team (Late st Contact Info) Description 02/01/2021 Refill Dermatology at [address] [place] [address] Iva Simon MD [facility] DR [place] [address] Palmoplantar pustulosis Social History Tobacco Use Types [...] TH Visit (TeleHealth) Obstetrics [place] [address] Raymon Hill MD [facility] DR [place]ST[place] [address] documented as of this encounter Visit Diagnoses Diagnosis Palmoplantar pustulosis Other psoriasis documented in this encounter Care Teams Grade Setter Relationship Specialty Start Date End Date Bradley Judd DO [address] [place] [address] PCP - General Family Medicine 10/28/18 documented as of this encounter
--- OUTSIDE RECORDS SUMMARY | 2024-02-09 23:15 | XMS_ITS | Encounter Summary ---
Author Organization [facility] Address [facility] [place] [address] Care Team Providers Care Cardiovascular Physician Assistant Name Role Phone Dutch Bradley Jeffery WU Primary Care Provider +1- [phone] Encounter Details Date Type Department Care Team (Late st Contact Info) Description 08/26/2021 Telephone Dermatology at [facility] [address] [place] [address] Conchita Tucker MD [facility] [address] [place] [address] Social History Tobacco Use Types Packs/Day Years [...] * Telephone Encounter - Dedra Hsu - 08/26/2021 11:22 AM EST Left msg to schedule 6 week f/u in person for palmoplantar pustolosis plz? documented in this encounter Plan of Treatment Upcoming Encounters Date Type Department Care Team (Late st Contact Info) Description 05/01/2024 1:00 PM EST TH Visit (TeleHealth) Obstetrics [place] [address] Raymon Hill MD [facility] DR OBSTETRICS [place] [address] documented as of this encounter Visit Diagnoses Not on filedocumented in this encounter Care Teams Cardiovascular Physician Assistant Relationship Specialty Start Date End Date Bradley Judd DO [address] [place] [address] PCP - General Family Medicine 10/28/18 documented as of this encounter
--- OUTSIDE RECORDS SUMMARY | 2024-02-09 23:15 | XMS_ITS | Encounter Summary ---
Author Organization [facility] [place] [address] Care Team Providers Care Baller Tender Name Role Phone Bradley Judd DO Primary Care Provider +1- [phone] Encounter Details Date Type Department Care Team (Late st Contact Info) Description 12/23/2020 Specialty [place] [address] Yokasta Rosas RPH Social History Tobacco Use Types Packs/Day Years [...] as of this encounter Progress Notes * Yokasta Rosas RPH - 12/23/2020 11:56 AM EDT Specialty Pharmacy Consultation; Yokasta Rosas RPH Comprehensive Medication Management (CMM) Tracy Harmon Diagnosis: Psoriasis Therapy Start Date: TBD-New Start Contact in person or via telephone: In clinic Tracy J Harmon is a 55 y.o. (1965) female who was contacted in regard to specialty medication. Spoke with patient regarding Otezla . A review of the medication therapy was performed. The medication was discussed as scheduled, and all medication related questions and concerns were addressed. The specialty pharmacy staff will follow up with the patient 5-7 days prior to next refill. Is the patient willing to proceed with the Clinical Assessment? Yes Summary and Recommendations: Tracy Harmon was seen in clinic for a review of Otezla for the treatment of plaque psoriasis. Patient is aware of the prior authorization process and timeline and was given [facility] for any questions. Patient was educated on the dosing schedule, Day 1: 10 mg by mouth in the morning, Day 2: 10 mg twice daily, Day 3: 10 mg in the morning and 20 mg in the evening, Day 4: 20 mg twice daily, Day 5: 20 mg in the morning and 30 mg in the evening, Day 6 and thereafter: 30 mg twice daily . Patient was educated on the Otezla labeled warnings and precautions including GI effects, neuropsychiatric effects, and weight loss. Patient was made aware that the use of Otezla is not recommended during /. Educated patient on the potential side effects of Otezla including diarrhea, nausea,headache, weight loss, and URTI. Clinic follow-up needed: yes - will follow up with patient pending PA decision Allergies and Drug intolerance: Allergies Allergen Reactions ??? Bactrim [Sulfamethoxazole-Trimethoprim] Stomach pain ??? Sulfa (Sulfonamide Antibiotics) CIS - STOMACH PAIN Problem List: Patient Active Problem List Diagnosis Code ??? GERD (gastroesophageal reflux disease) K21.9 ??? IBS (irritable bowel syndrome) K58.9 ??? Hearing loss H91.90 ??? Seasonal allergies J30.2 ??? Sleep apnea G47.30 ??? Fecal incontinence R15.9 ??? Mixed stress and urge urinary incontinence N39.46 ??? Diabetes mellitus E11.9 ??? Incontinence of feces with fecal urgency R15.9, R15.2 Special Dietary or Hydration Requirements: no There is no height or weight on file to calculate BMI. Medication Reconciliation Discrepancies (compared to [facility] med list) -none Medication List: Current Outpatient Medications Medication Sig Dispense Refill ??? clobetasoL (TEMOVATE) 0.05 % Ointment Apply twice a day to the affected areas on the hands x4 weeks. At night apply under occlusion of white cotton gloves. 60 g 1 ??? estradioL (ESTRACE) 0.01 % (0.1 mg/gram) Cream Place 1 g vaginally twice a week. 42.5 g 12 ??? ibuprofen (Advil;Motrin) 200 mg Tablet Take 3 tablets by mouth every 6 hours as needed for Pain. 30 tablet 12 ??? acetaminophen (Tylenol) 325 mg Tablet Take 2 tablets by mouth every 6 hours as needed for Pain.30 tablet 1 ??? atorvastatin (Lipitor) 10 mg Tablet TAKE 1 TABLET BY MOUTH ONCE DAILY ??? venlafaxine (EFFEXOR-XR) 150 mg Capsule, Sust. Release 24 hr TAKE 1 CAPSULE BY MOUTH ONCE DAILYWITH FOOD ??? cyanocobalamin, vitamin B-12, 1,000 mcg Tablet Take 1,000 mcg by mouth daily. ??? calcium carbonate (CALCIUM 500 ORAL) Take by mouth. ??? FIBER CHOICE ORAL Take by mouth. ??? metFORMIN (GLUCOPHAGE) 500 mg Tablet Take 500 mg by mouth daily. ??? vitamin E 100 unit Capsule Take 100 Units by mouth daily. ??? famotidine (PEPCID) 20 mg Tablet Take 20 mg by mouth 2 times daily. ??? multivitamin (THERAGRAN) Tablet Take 1 tablet by mouth daily. ??? diphenhydrAMINE (BENADRYL) 50 mg Capsule Take 50 mg by mouth every 6 hours as needed for Itching. ??? pseudoephedrine (SUDAFED) 30 mg Tablet Take 30 mg by mouth every 4 hours as needed for Congestion. No current facility-administered medications for this visit. Most Recent Vitals: Ht Readings from Last 1 Encounters: 06/03/20 144.8 cm (4' 9.01) Wt Readings from Last 3 Encounters: 06/03/20 81.2 kg (179 lb 1.6 oz) 05/05/20 80.6 kg (177 lb 11.2 oz) 04/07/20 80.4 kg (177 lb 3.2 oz) Temp Readings from Last 3 Encounters: 06/03/20 36.8 ??C (98.3 ??F) (Temporal) 05/05/20 36.4 ??C (97.6 ??F) (Temporal) 04/07/20 37.1 ??C (98.7 ??F) (Temporal) BP Readings from Last 3 Encounters: 06/03/20 123/87 05/05/20 131/73 04/07/20 119/71 Pulse Readings from Last 3 Encounters: 06/03/20 (!) 112 05/05/20 98 04/07/20 87 Pertinent Lab values: No results found for: ALT, AST, GGT, ALKPHOS, BILITOT, BILIDIR, ALBUMIN, PROT No results found for: WBC, HGB, HCT, MCV, PLATELET No results found for: HA1C There is no immunization history on file for this patient. Assessment and Recommendations: Title Drug Treatment Outcomes No data found in the last 10 encounters. Reviewed in detail with patient: Dose appropriateness based on recommended standard dosing Current medication list including OTC medications Medication and disease problems Allergies Comorbid conditions/ Problem List Past adverse events if any Special needs of the patient including physical and cognitive limitations Goals of therapy and management strategies Warnings, precautions, and contraindications Side effects Drug-drug and drug-food interactions Administration instructions including dose, frequency and method Handling, storage, and disposal Verifying expiration dates on products before use Rotating medication inventory to use oldest product first Relevant lab data Treatments impact on disease Dose appropriateness based on recommended standard dosing schedule, including any variations from FDA approved dosing Patient verbalizes understanding and is able to read-back instructions on self-administration/injection, proper storage, drug stability, importance of adherence and management strategies, side effectavoidance and mitigation strategies, and interruptions in therapy: Yes Physical and Cognitive Assessment: Functional limitations identified: no Cognitive limitations identified: no Concern regarding orientation/memory: no Concern with reasoning/judgement: no Is patient a fall risk: no Other needed information: no Social Assessment: Does the patient have a primary family member caretaker? no Does the patient have an emergency contact on file: Yes Does patient need referral to social sciences lecturer: No Does patient need referral to advocacy group: No Home Health Assessment: Is the patient in a safe home environment? Yes Is the patient able to store their medication as directed? Yes Does the patient have a support network at home? Yes Reviewed potential home safety hazards with patient: Yes Economic Assessment: Patient is agreeable to medication copay: Yes- Copay Amount: TBD Day Supply: 28 Date Needed: TBD- New start Copay assistance required: will assess once approved Therapy Assessment: Current Medication Dosing/Route/Frequency: Otezla Day 1: 10 mg by mouth in the morning, Day 2: 10 mg twice daily, Day 3: 10 mg in the morning and 20 mg in the evening, Day 4: 20 mg twice daily, Day 5: 20 mg in the morning and 30 mg in the evening, Day 6 and thereafter: 30 mg twice daily Appropriate Therapy: Yes Current Affected Areas: hands Total BSA involved: unknown Recent Skin Exacerbations/Flaring: yes - currently flaring Recent Topical Corticosteroid Use: yes - clobetasol Relapsing/Remitting Factors: no Diagnosis of Psoriatic Arthritis: No Patient's Problems/Needs: Will initiate PA process and coordinate patient assistance as needed Expected Outcome: Clearance of psoriasis on hands refractory oral steroids and topicals Patient's goals: Patient's specific desired goal: 50% skin clearance within the first 3 months of therapy Measured by: clinical follow up Time-frame to meet goal: 3 months Care Plan Reviewed and Approved by both Pharmacist and Patient: Yes Interventions (if applicable): No Additional care/services needed: no Educational information or adherence tools provided: No Additional equipment/supplies required: no Monitoring requirements for prescribed medication: weight, renal function, signs or symptoms of mood changes, depression, or suicidal thoughts Pharmacist follow-up needed: Yes Patient Satisfaction with care/services provided: Yes Informed patient of specialty pharmacy services: Yes -Patient will be provided with welcome packet: Yes Date to be provided: TBD Delivery Method: Mail -Patient will be provided with Rights & Responsibilities: Yes Date to be provided: TBD Delivery Method: Mail -Patient is aware a licensed pharmacist is available 24 hours a day, 7 days a week to discuss medication-related questions or concerns: Yes -Patient verbalizes understanding of the common side effect profile of their medication. The patient is able to call 911 or seek urgent care if signs/symptoms of allergy or harmful adverse reactions occur: Yes Patient understands no changes to current drug regimen were made at the appointment and that [facility] (summary located at top of note) for provider review and follow up. Yokasta Rosas RPH 12/23/20 11:56 AM documented in this encounter Plan of Treatment Upcoming Encounters Date Type Department Care Team (Late st Contact Info) Description 05/01/2024 1:00 PM EST TH Visit (TeleHealth) Obstetrics [place] [address] Raymon Hill MD [facility] DR OBSTETRICS [place] [address] documented as of this encounter Visit Diagnoses Not on filedocumented in this encounter Care Teams Baller Tender Relationship Specialty Start Date End Date Bradley Judd DO [address] [place] [address] PCP - General Family Medicine 10/28/18 documented as of this encounter
--- OUTSIDE RECORDS SUMMARY | 2024-02-09 23:16 | XMS_ITS | Encounter Summary ---
Author Organization [facility] Address [address] [place] [address] Care Team Providers Care Bleacher Lard Name Role Phone Unavailable Primary Care Provider Unavailabl e Encounter Details Date Type Department Care Team (Late st Contact Info) Description 08/15/2006 Results Only [facility] - [facility] conversion [address] [place] [address] Clinton Denise MD [address] [place] [address] Social History Tobacco Use Types Packs/Day Years Used Date Smoking Tobacco: Never Assessed Sex and Gender Information Value Date Recorded Sex Assigned at Not on file Gender Identity Not on file Sexual Orientation Not on file documented as of this encounter Plan of Treatment Not on file documented as of this encounter Procedures Procedure Name Priority Date/Time Associated Diagnosis Comments CYTOPATHOLOGY Routine 08/15/2006 0:00 EST documented in this encounter Results * CYTOPATHOLOGY (08/15/2006 0:00 EST) Pathology Report: CYTOPATHOLOGY REPORT Reports generated via electronic interface contain original data; however they are lacking the format of the original report. Caution should be taken when reading/interpreti ng unformatted reports. Name: ? TONYSOFIE ? Accession #: ? [id number] : ? 1965 (Age: 41) ??F ?Collect Date: ? 08/15/2006 Location: ? [facility] ? Receive Date: ? 08/17/2006 Provider: ?CLINTON DENISE MD Copy to: ? Specimen/Source: ?ThinPrep Pap Test, Vagina/Cervix/Endo cervix, processed on [employer] ThinPrep Imaging System, with manual evaluation Last Menstrual Period: ? 08/03/06 Previous Gynecologic Pathology: ? ASC-US: 07/18/04 Other: ? Additional clinical information: Atypical 1993 HPVA - HPV testing requested if ASC-US on the current ThinPrep Pap test. ? SPECIMEN ADEQUACY ? Satisfactory for Evaluation - transformation zone component present GENERAL CATEGORIZATION ? Negative for Intraepithelial Lesion or Malignancy ? Document reviewed and electronically signed by: ? MARIA R Rothman(ASCP) ? Report Date: ??08/21/2006 13:02 End of Report CAROLYN SWENSON 08/15/2006 08/17/2006 Clinton Denise MD PATHOLOGY ORDERABLES Performing Organization Address City/State/[facility] Co de Phone Number CAROLYN SWENSON [address] [place] [address] documented in this encounter Visit Diagnoses Not on filedocumented in this encounter
--- OUTSIDE RECORDS SUMMARY | 2024-02-09 23:16 | XMS_ITS | Encounter Summary ---
Author Organization [facility] [place] [address] Care Team Providers Care Dopster Name Role Phone Dutch Bradley Jeffery WU Primary Care Provider +1- [phone] Encounter Details Date Type Department Care Team (Late st Contact Info) Description 12/06/2018 Telephone Obstetrics [place] [address] Helio Hill MD [facility] DR OBSTETRICS [place] [address] Social History Tobacco Use Types Packs/Day Years [...] encounter Miscellaneous Notes * Telephone Encounter - Helio Hill MD - 12/06/2018 4:32 PM EDT I called Ms. Harmon to review her manometry test results from October. She has seen Conchita Morton, PT once but has been having trouble making appointments in PT, because she is caring for her mother. She will try to set up a follow-up with Conchita and see me back if her symptoms are worsening or she wants to schedule follow-up. I will forward the anal manometry results to Conchita. HELIO HILL MD documented in this encounter Plan of Treatment Upcoming Encounters Date Type Department Care Team (Late st Contact Info) Description 05/01/2024 1:00 PM EST TH Visit (TeleHealth) Obstetrics [place] [address] Helio Hill MD [facility] OBSTETRICS [place] [address] documented as of this encounter Visit Diagnoses Not on filedocumented in this encounter Care Teams Dopster Relationship Specialty Start Date End Date Bradley Judd DO [address] [place] [address] PCP - General Family Medicine 10/28/18 documented as of this encounter
--- OUTSIDE RECORDS SUMMARY | 2024-02-09 23:16 | XMS_ITS | Encounter Summary ---
Author Organization [facility] Address [address] [place] [address] Care Team Providers Care Ent Surgeon Name Role Phone Ronan Renner DO Primary Care Provider [phone] Encounter Details Date Type Department Care Team (Late st Contact Info) Description 10/19/2022 Lab Requisition [facility] Pathology & Laboratory Medicine - [facility] [address] [place] [address] Burton Dunlap MD [address] [place] [id number] Basal cell carcinoma of skin, unspecified Social History Tobacco Use Types Packs/Day Years Used Date Smoking Tobacco: Never Assessed Interpersonal Safety Answer Date Record ed Physically Hurt Never 01/18/2020 Verbally Threaten Not on file 01/18/2020 Sex and Gender Information Value Date Recorded Sex Assigned at Not on file Gender Identity Not on file Sexual Orientation Not on file documented as of this encounter Plan of Treatment Not on file documented as of this encounter Procedures Procedure Name Priority Date/Time Associated Diagnosis Comments SURGICAL PATHOLOGY Today 10/18/2022 12 :00 EDT Basal cell carcinoma of skin, unspecified documented in this encounter Results * SURGICAL PATHOLOGY (10/18/2022 12:00 EDT) Note to Patient The following pathology results have been interpreted by your pathologist and may be available to you before your health provider has had the opportunity to review them. Please allow time for your provider to receive these results and explore management options, if applicable. 10/20/2022 9:06 [facility] Final Diagnosis A. SKIN OF SCALP, EXCISION: - Scar and biopsy site change; no residual carcinoma. 10/20/2022 9:06 [facility] Attestation By the signature below, the attending physician certifies that they have 1) personally conducted a gross and/or microscopic examination of the described specimen(s), and/or personally interpreted the results of laboratory testing of the described specimen(s), and 2) personally rendered or confirmed the above diagnosis. 10/20/2022 9:06 [facility] at 0906 Clinical History BCCa, + margin re-excision; clinical diagnosis code: C44.91 10/20/2022 9:06 [facility] Gross Description A. Received in formalin labelled with proper patient identification (initials H, K) and M scalp is an oriented elliptical excision of simons-white hair-bearing skin with a suture designating left, (2.0 cm from anterior to posterior, 0.7 cm from left to right, and is excised to a depth of 0.5 cm). There is a central irregular, centrally depressed brown friable scaly lesion that measures 1.1 x 0.5 cm. The left margin is inked blue and the right margin is inked black. The specimen is serially sectioned from anterior to posterior and is entirely submitted as follows: BLOCK BRITT A1- anterior tip, reverse en face A2-A3- 5 central sections A4- posterior tip, reverse en face Aliya Carpenter 10/19/2022 13:50 10/20/2022 9:06 [facility] Performing Lab [facility] 10/20/2022 9:06 T [facility] Scanned Images 10/20/2022 9:06 [facility] Tissue TISSUE SPECIMEN FROM SKIN / Unknown 10/18/2022 12:00 EDT 10/19/2022 8:35 EDT Burton Dunlap MD PATHOLOGY ORDERABLES [facility] [address] [place] [address] documented in this encounter Visit Diagnoses Diagnosis Basal cell carcinoma of skin, unspecified documented in this encounter Care Teams Ent Surgeon Relationship Specialty Start Date End Date Ronan Renner DO [address] [place] [address] PCP - General 09/20/11 documented as of this encounter
--- OUTSIDE RECORDS SUMMARY | 2024-02-09 23:16 | XMS_ITS | Encounter Summary ---
Author Organization [facility] Address [address] [place] [address] Care Team Providers Care Bottling Line Attendant Name Role Phone Michel Renner DO Primary Care Provider [phone] Encounter Details Date Type Department Care Team (Late st Contact Info) Description 05/23/2012 Results Only [facility] Laboratory Services - [facility] ([facility] [address], [place] [id number] Dangelo Hernadez MD [address] [place] [phone] Social History Tobacco Use Types Packs/Day Years Used Date Smoking Tobacco: Never Assessed Sex and Gender Information Value Date Recorded Sex Assigned at Not on file Gender Identity Not on file Sexual Orientation Not on file documented as of this encounter Plan of Treatment Not on file documented as of this encounter Procedures Procedure Name Priority Date/Time Associated Diagnosis Comments SURGICAL PATHOLOGY Routine 05/23/2012 0:00 EST documented in this encounter Results * SURGICAL PATHOLOGY (05/23/2012 0:00 EST) Pathology Report: SURGICAL PATHOLOGY REPORT Reports generated via electronic interface contain original data; however they are lacking the format of the original report. Caution should be taken when reading/interpreti ng unformatted reports. Name: ? SOFIE HARMON ? Accession #: ? [id number] ? : ? 1965 (Age: 46) ??F ? Collect Date: ? 05/23/2012 ? Location: ? [facility] ? Receive Date: ? 05/24/2012 ? Provider: DANGELO HERNADEZ MD Copy to: MICHEL RENNER DO ? Final Pathologic Diagnosis: ? Gallbladder, cholecystectomy: 1. ??Cholelithiasis. 2. ??Acute and subacute cholecystitis. 3. ??Gallbladder mucosa is partially denuded secondary to pressure from the stones and inflammation. ?? Document reviewed and electronically signed by: CAROLYN WHALEY MD Report ??Date: 05/29/2012 15:07 By the signature above, the attending physician certifies that he/she has personally conducted a gross and/or microscopic examination of the described specimens and rendered or confirmed the above diagnosis. Specimen(s) Received: ? Gallbladder Clinical History: ? Acute cholecystitis with cholelithiasis; abdominal pain Gross Description: ? Received in formalin labelled Sofie Harmon and gallbladder is a 7.5 x 3.0 x 2.0 cm intact gallbladder, with an attached 1.3 cm in length fragment of cystic duct that ranges from 0.3 to 0.9 cm in diameter. ??The cystic duct margin is inked blue, and the cystic duct has a 0.9 cm in diameter yellow cholelith tightly lodged in the lumen of the duct at the end closest to the gallbladder. The serosa of the gallbladder is simons-purple and smooth with a moderate amount of associated yellow adipose tissue. ??Opening the gallbladder reveals four additional yellow choleliths that average 0.9 cm in diameter. ??The gallbladder mucosa is simons-brown and velvety, and the average wall thickness is 0.2 cm. ??Two medical claims representative sections of gallbladder as well as the en face cystic duct margin are submitted in a single cassette. (Constance Kumari)/mpl End of Report [facility] 05/23/2012 05/24/2012 21: 45 EST Dangelo Hernadez MD PATHOLOGY ORDERABLE S [facility] [address] [place] [address] documented in this encounter Visit Diagnoses Not on filedocumented in this encounter Care Teams Bottling Line Attendant Relationship Specialty Start Date End Date Michel Renner DO [address] [place] [address] PCP - General 09/20/11 documented as of this encounter
--- OUTSIDE RECORDS SUMMARY | 2024-02-09 23:16 | XMS_ITS | Encounter Summary ---
Author Organization [facility] Address [address] [place] [address] Care Team Providers Care Semiautomatic Stitcher Operator Name Role Phone Unknown, Provider Primary Care Provider Encounter Details Date Type Department Care Team (Late st Contact Info) Description 09/18/2011 Results Only [facility] Laboratory Services - [facility] ([facility]) [address] [place] [phone] Dangelo Hernadez MD [address] [place] [phone] Social History Tobacco Use Types Packs/Day [...] Date/Time Associated Diagnosis Comments SURGICAL PATHOLOGY Routine 09/18/2011 0:00 EDT documented in this encounter Results * SURGICAL PATHOLOGY (09/18/2011 0:00 EDT) Pathology Report: SURGICAL PATHOLOGY REPORT Reports generated via electronic interface contain original data; however they are lacking the format of the original report. Caution should be taken when reading/interpreti ng unformatted reports. Name: ? HARMONERICALY Triston ? Accession #: ? [id number] ? : ? 1965 (Age: 46) ??F ? Collect Date: ? 09/18/2011 ? Location: ? [facility] ? Receive Date: ? 09/18/2011 ? Provider: DANGELO HERNADEZ MD Copy to: ? Final Pathologic Diagnosis: ? Soft tissue, right upper arm, excision: - Fibroadipose tissue with extensive inflammation, fibrosis and abscess formation. ??See comment. Comment: ? Histologic sections of the excision show a mixture of fibrous and adipose tissue. ??There is extensive acute and chronic inflammation with focal areas of necrosis and abscess formation. ??Also present is a striking histiocytic response with numerous giant cells present. ??These features may represent changes secondary to trauma with focal area of fat necrosis or reaction to foreign body. Clinical correlation is suggested. ??This case has been reviewed at intradepartmental consultation conference. ??(Dr. Willis)/[facility] Document reviewed and electronically signed by: VINNY WILLIS MD Report ??Date: 09/20/2011 15:02 By the signature above, the attending physician certifies that he/she has personally conducted a gross and/or microscopic examination of the described specimens and rendered or confirmed the above diagnosis. Specimen(s) Received: ? Cyst R upper arm Clinical History: ? Lipoma R arm; clinical diagnosis code: ??706.2 Gross Description: ? Received in formalin labelled Harmon, Sofie and cyst right upper arm is an 18 gram, 4.5 x 3.5 x 2.5 cm unoriented portion of fibrofatty tissue. ??The outer surface is simons-yellow and lobulated with focal cautery but without a discernible overlying capsule. ??The outer surface is entirely inked black. Sectioning reveals an indurated cut surface with abundant hemorrhage, fat necrosis, and a small amount of fibrous tissue throughout the specimen. ??A cystic structure is not grossly discernible. ??Hotel Security Officer sections are submitted in (A1) ??(A4). ??(Constance Kumari)/kmm End of Report [facility] 09/18/2011 09/18/2011 17: 01 EDT Dangelo Hernadez MD PATHOLOGY ORDERABLE S Performing Organization Address City/State/[facility] Co de Phone Number [facility] [address] [place] [address] documented in this encounter Visit Diagnoses Not on filedocumented in this encounter Care Teams Semiautomatic Stitcher Operator Relationship Specialty Start Date End Date Unknown, Provider, PCP - General 09/08/11 09/19/11 documented as of this encounter
--- OUTSIDE RECORDS SUMMARY | 2024-02-09 23:16 | XMS_ITS | Encounter Summary ---
Author Organization [facility] [place] [address] Care Team Providers Care Independent Living Specialist Name Role Phone Dutch Bradley Jeffery WU Primary Care Provider [phone] Encounter Details Date Type Department Care Team (Late Contact Info) Description 10/28/2018 Telephone Gastroenterology at [facility] [place] [phone] Hyun Vizcarra Social History Tobacco Use Types Packs/Day Years [...] encounter Miscellaneous Notes * Telephone Encounter - Hyun Vizcarra - 10/28/2018 3:36 PM EDT Pt called looking to speak with Wendi. She would like a call back regarding her prep. She would like a call back at [phone] documented in this encounter Plan of Treatment Upcoming Encounters Date Type Department Care Team (Late st Contact Info) Description 05/01/2024 1:00 PM EST TH Visit (TeleHealth) Obstetrics [place] [address] Raymon Hill MD [facility] OBSTETRICS [place] [address] documented as of this encounter Visit Diagnoses Not on filedocumented in this encounter Care Teams Independent Living Specialist Relationship Specialty Start Date End Date Bradley Judd DO [address] [place] [address] PCP - General Family Medicine 10/28/18 documented as of this encounter
--- OUTSIDE RECORDS SUMMARY | 2024-02-09 23:16 | XMS_ITS | Encounter Summary ---
Author Organization [facility] [place] [address] Care Team Providers Care Industrial Sales Engineer Name Role Phone Bradley Judd DO Primary Care Provider [phone] Encounter Details Date Type Department Care Team (Late st Contact Info) Description 03/22/2020 Telephone Obstetrics [place] [address] Chikis Pastor [facility] DR OBSTETRICS & [place] [address] Social History Tobacco Use Types Packs/Day Years [...] encounter Miscellaneous Notes * Telephone Encounter - Chikis Pastor - 03/22/2020 10:15 PM EDT [facility] Telephone Note Tracy calls the on-call provider kyle concerned that she did her preoperative Fleets enema asinstructed but no stool came out. Wondering if there is something additional she should be doing. Reassurance provided, encouraged her to do enema again in Am as documented in Janae Rizvi's pre-operative note. Patient voiced understanding, all questions answered. Chikis Pastor DO PGY4 Obstetrics & Gynecology 03/22/2020 documented in this encounter Plan of Treatment Upcoming Encounters Date Type Department Care Team (Late st Contact Info) Description 05/01/2024 1:00 PM EST TH Visit (TeleHealth) Obstetrics [place] [address] Raymon Hill MD [facility] OBSTETRICS [place] [address] documented as of this encounter Visit Diagnoses Not on filedocumented in this encounter Care Teams Industrial Sales Engineer Relationship Specialty Start Date End Date Bradley Judd DO [address] [place] [address] PCP - General Family Medicine 10/28/18 documented as of this encounter
--- OUTSIDE RECORDS SUMMARY | 2024-02-09 23:16 | XMS_ITS | Encounter Summary ---
Author Organization [facility] [place] [address] Care Team Providers Care Middleware Engineer Name Role Phone Bradley Judd DO Primary Care Provider [phone] Reason for Visit * Reason Onset Date Comments Follow-up 10/30/2018 Encounter Details Date Type Department Care Team (Late st Contact Info) Description 10/30/2018 Telephone Obstetrics [place] [phone] Ayse Bryant, RN Follow-up Social History Tobacco Use Types Packs/Day Years [...] Miscellaneous Notes * Telephone Encounter - Ayse Bryant RN - 10/30/2018 12:49 PM EDT Pt is scheduled for anal manometry testing for Sunday. Pt informed turnaround planner she cannot tolerate holding 2 enemas. Gastro calling to ask what else provider would like to give to pt. Will discuss with . documented in this encounter Plan of Treatment Upcoming Encounters Date Type Department Care Team (Late st Contact Info) Description 05/01/2024 1:00 PM EST TH Visit (TeleHealth) Obstetrics [place] [address] Raymon Hill MD [facility] DR OBSTETRICS [place] [address] documented as of this encounter Visit Diagnoses Not on filedocumented in this encounter Care Teams Middleware Engineer Relationship Specialty Start Date End Date Bradley Judd DO [address] [place] [address] PCP - General Family Medicine 10/28/18 documented as of this encounter
--- OUTSIDE RECORDS SUMMARY | 2024-02-09 23:16 | XMS_ITS | Encounter Summary ---
Author Organization [facility] [place] [address] Care Team Providers Care Tellers Supervisor Name Role Phone Bradley Judd DO Primary Care Provider [phone] Reason for Visit * Auth/Cert Specialty Diagnoses / Procedures Referred By Madeleine candelaria Referred To Contact Diagnoses fecal incontinence, deficient sphincter; stress urinary incontinence Procedures PRO REPAIR OF ANAL SPHINCTER, ADULT PRO SLING OPER STRES INCONTINENCE SPHINCTEROPLASTY, ANAL, ADULT (WRVU 12.15) URETHRAL SUSPENSION, SLING\FASCIA OR SYNTHETIC (WRVU 12.13) Referral ID Status Reason Start Date Expiration Date Visits Re quested Visits Authorized [id number] 1 1 Encounter Details Date Type Department Care Team (Latest Contact Info) Description 03/23/2020 9:34 AM EDT - 03/23/2020 3:09 PM EDT Hospital Encounter [place] [address] Helio Arguello MD [facility] [address] Incontinence of feces with fecal urgency; Mixed stress and urge urinary incontinence; Incontinence of feces with fecal urgency; Incontinence of feces, unspecified fecal incontinence type Discharge Disposition: Home Social History Tobacco Use [...] Sign Reading Time Taken Comments Blood Pressure 118/70 03/23/2020 2:45 PM EDT Pulse - - Temperature 36.4 ??C (97.5 ??F) 03/23/2020 1:30 PM ED T Respiratory Rate 18 03/23/2020 2:45 PM EDT Oxygen Saturation 98% 03/23/2020 2:45 PM EDT Inhaled Oxygen Concentration - - Weight 81.5 kg (179 lb 10.8 oz) 03/23/2020 9:57 AM EDT Height 144.8 cm (4' 9) 03/23/2020 9:57 AM EDT Body Mass Index 38.88 03/23/2020 9:57 AM EDT documented in this encounter Discharge Instructions * Patient Instructions* Sunitha Turner - 03/23/2020 10:26 AM EDT Future Appointments and Orders Future Appointments and Orders Future Appointments Provider Department Dept Phone 05/05/2020 4:00 PM Janae Rizvi APRN Obstetrics and Gynecology at [facility] Arrive at: Customer Service Sales Associate Area [phone] 05/05/2020 4:30 PM Helio Arguello MD Obstetrics and Gynecology at [facility] Arrive at: Customer Service Sales Associate Area [phone] Patient Discharge Instructions: Special Physician Instructions: If you are still needing a catheter to drain your bladder, please follow the instructions given to you separately for when to use the catheter and how to care for it. In addition, please call to check in with the urogynecology office nurse at [phone] to review how your bladder is working and when the catheter use can be discontinued. For problems, concerns related to this hospitalization or you need to change your appointment call: [facility] daytime: [phone] weekdays [place]: [phone] [facility]: [phone] For emergencies during nights and weekends: [phone] Call your doctor if you develop: --A fever over 101 degrees F --Severe pain -- Nausea / vomiting, diarrhea, intolerance of food or drink --Heavy vaginal bleeding --Urinary frequency, urgency, or feeling of incomplete emptying of the bladder --If your wound is red, hot, swollen, tender or draining yellow/green fluid Activity level: You should be able to resume your usual activities of daily living (eating, drinking, washing, walking.). You can walk or climb stairs as long as you are not straining. You should avoid more vigorous exercise for at least 6 weeks. No lifting, pushing or pulling greater than 5-10 pounds for 6 weeks. No sexual intercourse and place nothing in the vagina for 6 weeks. Diet: Regular as tolerated, drink plenty of fluids. Bowel Regimen: Take Miralax daily to have a soft bowel movement each day without straining. Driving: Do not drive until you are off of all narcotic medications and you are not feeling pain; usually about 1-2 weeks. Shower/Bath: Showering is fine. Do not soak in a tub for 4-6 weeks following surgery, this may cause your stitches to dissolve too early. You can wash just above the incision and then let the soapy water wash over it. Do not scrub. Wound Care: Most women will experience some vaginal bleeding and discharge after surgery. You will want to havesome menstrual pads at home. Pain Medication Take ibuprofen and tylenol to manage your pain and should be taken on a schedule for the next 1-2 days after surgery. For pain that breaks through these two medications, you can use oxycodone. 1. Take 600 mg of ibuprofen (Motrin) every 6 hours 2. Take 650 mg acetaminophen (Tylenol) every 6 hours 3. Take 5 mg of oxycodone as needed every 4 hours for pain that breaks through. Try to minimize useof this medication. Please take your medication exactly as prescribed. Read all instructions that come with your medication. ?? Using narcotic pain medication (such as oxycodone, hydromorphone (Dilaudid), morphine, fentanyl,or tramadol) may cause addiction. While addiction is more common in people with a personal or family history of addiction, it can occur in anyone. ?? Taking more than the prescribed amount of medication or using with alcohol or other drugs can cause you to stop breathing resulting in coma, brain damage, or . ?? Opioids (oxycodone, hydromorphone/Dilaudid, morphine, fentanyl, tramadol) can slow reaction time, cause drowsiness, or cloud judgement. It is unsafe for you to drive or operate heavy machinery while taking this medication. ?? Opioids (oxycodone, hydromorphone/Dilaudid, morphine, fentanyl, tramadol) are at risk of being diverted by anyone with access to your home. Opioids should be stored in a safe and secure place, such as a locked cabinet or safe. ?? Unused opioids (oxycodone, hydromorphone/Dilaudid, morphine, fentanyl, tramadol) should be disposed of according to the label or patient information. If there are no specific instructions, medications may be returned to a take- back location or mixed with a small amount of water and an undesirable waste substance such as coffee grounds or cat litter. documented in this encounter Medications at Time of Discharge Medication Sig Dispensed Refills Start Date End Date acetaminophen (Tylenol) 325 mg Tablet Take 2 [...] every 4 hours as needed for Congestion. oxyCODONE (Roxicodone) 5 mg Tablet Take 1 tablet by mouth every 4 hours as needed for Pain. 10 tablet 03/23/2020 04/07/2020 ibuprofen (Advil;Motrin) 200 mg Tablet Take 3 tablets by mouth every 6 hours as needed for Pain. 30 tablet 12 03/23/2020 04/29/2021 venlafaxine (EFFEXOR-XR) 150 mg Capsule, Sust. Release 24 hr TAKE 1 CAPSULE BY MOUTH ONCE DAILY WITH FOOD 11/24/2019 02/03/2021 cyanocobalamin, vitamin B-12, 1,000 mcg Tablet Take 1,000 mcg by mouth daily. 01/14/2024 FIBER CHOICE ORAL Take by mouth. 02/04/20 vitamin E 100 unit Capsule Take 100 Units by mouth daily. 01/14/2024 documented as of this encounter H&P Notes * Helio Arguello MD - 03/23/2020 10:25 AM EDT Inpatient [facility] - Admission Interval Note I have reviewed the pre-procedure H&P completed by Janae Rizvi APRN on 03/12/20. (x) Condition unchanged since H&P originally performed. Interval Note: S: Tracy Harmon is a 54 y.o. who presents for surgical management of fecal incontinence and stress urinary incontinence. She is doing well today. Bowel prep did not work very well and she only had a small bowel movement this morning. O: Patient Vitals for the past 24 hrs: Temp Resp 03/23/20 0953 36.4 ??C (97.5 ??F) 18 Gen: well-appearing, NAD, alert, oriented CV: RRR, nml s1/s2 Pulm: CTAB, no wheezes, Abd: soft, nt/nd : deferred to OR Ext: no JORDAN bilaterally A/p: Tracy Harmon is a 54 y.o. who presents for anal sphincteroplasty and mid-urethral sling. The MUS will be confirmed by Dr. Arguello. Consent was reviewed with the patient and she agreed to the procedures as listed. She is able to use ibuprofen, tylenol, and opioids for pain control. Preferred pharmacy: [facility] in [place]. A copy of this document will be sent to the patient's Primary Care Physician and/or Referring Physician. Sunitha Turner MD 03/23/2020 I met with Ms. Harmon today and she agrees to proceed with surgery. Her cough stress test was negative in clinic. She endorses leaking with coughing, sneezing at home and despite the negative cough stress test, she has a good history for stress urinary incontinence. Based on this, she prefers to have the sling with her overlapping sphincteroplasty. She denies interval health changes. HELIO ARGUELLO MD documented in this encounter Miscellaneous Notes * Op Note - Helio Arguello MD - 03/23/2020 2:06 PM EDTSummary: Sphincteroplasty, TOMUS [facility] Operative Note Patient Name: Tracy Harmon : [id number] MR#: [id number] Case Date: 03/23/2020 Surgeon: Surgeon(s) and Role: * Helio Arguello MD - Primary * Sunitha Turner MD - Resident Preoperative diagnosis: fecal incontinence, deficient sphincter; stress urinary incontinence Postoperative diagnosis: fecal incontinence, deficient sphincter; stress urinary incontinence Procedure(s) (LRB): SPHINCTEROPLASTY, ANAL, ADULT (WRVU 12.15) (N/A) (overlapping anal sphincteroplasty) URETHRAL SUSPENSION, SLING\FASCIA OR SYNTHETIC (WRVU 12.13) (N/A) (trans- obturator mid-urethral polypropylene sling) ?? Anesthesia: General endotracheal tube ?? Findings: Thin perineal body but after muscle relaxation reversed, relatively good bulk to anteriorsphincter. Cystourethroscopy with normal bladder, urethral mucosa. Ureters in orthotopic position. ?? Complications: none Intake: Intraprocedure Crystalloid Total 600 mL Transfusion None. Output: Estimated Blood Loss: 50 mL Urine Output: 700 mL Other Output: (no other output recorded) ?? Drains: Graves to gravity bag drainage ?? Specimens removed during surgery: None ?? Disposition: awakened from anesthesia, extubated and taken to the recovery room in a stable condition, having suffered no apparent untoward event. ?? Condition: doing well without problems (Please see the Surgical Encounter Summary for any Implant and Specimen details pertinent to this patient.) HPI/Surgical Indications: Tracy Harmon is a 54 y.o. who presents for surgical management of stress urinary incontinence and fecal incontinence. We reviewed the procedures and she confirmed her consent. Procedure Description: The patient was brought to OR #9. She received 2 gm of Ancef and 500mg metronidazole IV, prior to skin incision. The patient was prepped and draped in the usual sterile fashion after exam under anesthesia. She had knee-high intermittent pneumatic compression stockings on throughout the procedure for DVT prophylaxis. Positioning was in the dorsal lithotomy position with her legs in adjustable Yellofin stirrups in what was felt to be neurologically safe positioning. Following exam under anesthesia, she was prepped and draped in the usual sterile fashion. A time out protocol was adhered to, confirming the patient's identity, planned procedure and safetymeasures. A Graves catheter was inserted using sterile technique. Next, the sling was started. A site just lateral to the ischiopubic ramus at junction between the adductor longus and gracilis muscles was identified, marked and injected with 5 cc of 0.25% marcaine.This was repeated on the opposite side. Stab wound incisions were made in the skin at both sites. The mid-urethra was identified with aid of a urethral catheter. The mid-urethral vaginal wall was infiltrated with 1% lidocaine with epinephrine, extending out to the sulci bilaterally. A 2 cm verticalincision was in the suburethral vagina and a full thickness dissection performed in the paraurethral space out to the inferior pubic rami bilaterally. A helical Keshawn needle was used to lantigua the o bturator foramen via the lateral skin incision. The needle was aligned with the handle pointing to the ipsilateral ischial tuberosity. This was performed bilaterally. The Desara SL polypropylene sling was attached to the needle and retrieved. This was performed bilaterally. Cystoscopy was performed with a 70-degree cystoscope with reassuring findings. The mesh was tensioned with a right angle clamp holding a 10 mm knuckle of unprotected mesh. The mesh was deployed by removing the protective plastic coating bilaterally. The vaginal wall was reapproximated with 2-0 Vicryl in a running fashion. The obturator skin incisions were reapproximated with DermaBond glue. Attention was then turned to the sphincteroplasty. The perineal skin was infiltrated with 1% lidocaine with dilute epinephrine solution. Dissection was performed sharply between the rectum and vaginaat the rectovaginal septum with the aid of a finger in the rectum. The anterior rectal wall was mobilized. The internal rectal sphincter not well-visualized. The retracted external anal sphincter muscles were identified using the Digi-meter muscle stimulator; however, there was limited stimulation.The lateral tissues were grasped with Allis clamps and mobilized with sharp dissection and cautery.The midline portion of scar / sphincter muscle was divided with the mobilization. Care was made to a ssure that the dissection did not proceed past 3- and 9- O'Clock positions to avoid nerve injury. An overlapping sphincteroplasty was performed with interrupted 2-0 PDS sutures in a mattress fashion, incorporating the distal end of one sphincter arm and the proximal end of the other sphincter arm. Three sutures were used in total to overlap the two arms. Electrocautery was applied lateral to the muscle to provide hemostasis. Irrigation with normal saline was performed. Next, the bulbocavernosus and superficial and deep transverse perinal muscles were reapproximated with a 2-0 Vicryl suture to rebuild the central tendon at the perineal body. The vaginal wall and perineal skin was then reapproximated with a running 2-0 Vicryl vertical suture. Instrument, sponge and needle counts were correct at the conclusion of the procedure. Dr. Arguello was present without any conflicting clinical responsibilities Sunitha Turner MD Infection Bundle used? N/A * Brief Op Note - Helio Arguello MD - 03/23/2020 1:22 PM EDT Brief Operative Note Patient Name: Tracy Harmon : [id number] MR#: [id number] Case Date: 03/23/2020 Surgeon: Surgeon(s) and Role: * Helio Arguello MD - Primary * Sunitha Turner MD - Resident Preoperative diagnosis: fecal incontinence, deficient sphincter; stress urinary incontinence Postoperative diagnosis: fecal incontinence, deficient sphincter; stress urinary incontinence Procedure(s) (LRB): SPHINCTEROPLASTY, ANAL, ADULT (WRVU 12.15) (N/A) (overlapping anal sphincteroplasty) URETHRAL SUSPENSION, SLING\FASCIA OR SYNTHETIC (WRVU 12.13) (N/A) (trans- obturator mid-urethral polypropylene sling) Anesthesia: General endotracheal tube Findings: Thin perineal body but after muscle relaxation reversed, relatively good bulk to anteriorsphincter. Cystourethroscopy with normal bladder, urethral mucosa. Ureters in orthotopic position. Complications: none Intake: Intraprocedure Crystalloid Total 600 mL Transfusion None. Output: Estimated Blood Loss: 50 mL Urine Output: 700 mL Other Output: (no other output recorded) Drains: Graves to gravity bag drainage Specimens removed during surgery: None Disposition: awakened from anesthesia, extubated and taken to the recovery room in a stable condition, having suffered no apparent untoward event. Condition: doing well without problems Attestation: Case Date: 03/23/2020 I was present and I participated during the entire procedure (does not need to include opening and closing). (Please see the Surgical Encounter Summary for any Implant and Specimen details pertinent to this patient.) Infection Bundle used? N/A documented in this encounter Plan of Treatment Upcoming Encounters Date Type Department Care Team (Late st Contact Info) Description 05/01/2024 1:00 PM EST TH Visit (TeleHealth) Obstetrics [place] [address] Helio Arguello MD [facility] [place] [address] documented as of this encounter Procedures Procedure Name Priority Date/Time Associated Diagnosis Comments Sling Oper Stres Incontinence (11222) 03/23/2020 11:30 AM EDT Mixed stress and urge urinary incontinence Incontinence of feces with fecal urgency Repair Of Anal Sphincter, Adult (19585) 03/23/2020 11:30 AM EDT Mixed stress and urge urinary incontinence Incontinence of feces with fecal urgency POCT GLUCOSE Routine 03/23/2020 9:55 AM EDT URETHRAL SUSPENSION,SLING\FASC IA OR SYNTHETIC Routine 03/23/2020 9:39 AM EDT Mixed stress and urge urinary incontinence Incontinence of feces with fecal urgency SPHINCTEROPLASTY, ANAL, ADULT Routine 03/23/2020 9:39 AM EDT Mixed stress and urge urinary incontinence Incontinence of feces with fecal urgency IMPLANTABLE DEVICES SCAN 03/23/2020 12:00 AM EDT documented in this encounter Results * POCT Glucose (03/23/2020 9:55 AM EDT) Glucose, POC 126 65 - 199 mg/dL [facility] Comment: Supplemental ranges: <140 mg/dL before meals <180 mg/dL all other times of the day Blood specimen (specimen) 03/23/2020 9:55 AM EDT 03/23/2020 9:55 AM EDT Helio Arguello MD POINT OF CARE TEST O RDERABLES [facility] [place] [address] * SCAN DOC: IMPLANTABLE DEVICES (03/23/2020 12:00 AM EDT) Narrative 03/23/2020 12:00 AM EDT Ordered by an unspecified provider. Scanning Provider MEDIA MGR SCAN EXT O RDR/RSLT documented in this encounter Visit Diagnoses Diagnosis Incontinence of feces with fecal urgency Mixed stress and urge urinary incontinence Mixed incontinence urge and stress (male)(female) Incontinence of feces, unspecified fecal incontinence type Mixed stress and urge urinary incontinence Mixed incontinence urge and stress (male)(female) Incontinence of feces with fecal urgency documented in this encounter Admitting Diagnoses Diagnosis Mixed stress and urge urinary incontinence Mixed incontinence urge and stress (male)(female) Incontinence of feces with fecal urgency documented in this encounter Administered Medications Inactive Administered Medications - up to 3 most recent administrations Medication Order MAR Action Action Date Dose Rate Site acetaminophen (Tylenol) tablet 1,000 mg 1,000 mg, Oral, ONCE, 1 dose, On Sun03/23/20 at 1015, Administer with SIP of H2O only., Day of Surgery (Day of Procedure), Routine Given 03/23/2020 10:06 AM EDT 1,000 mg fentaNYL 50 mcg/mL multi-dose injection 12.5-25 mcg, Intravenous, EVERY 5 MIN PRN, Starting on 03/23/20 at 1154, Until 03/23/20 at 1709, Pain, Give 12.5 mcg every 5 minutes PRN for mild to moderate pain (1-5) Give 25 mcg every 5 minutes PRN for moderate to severe pain (6-10). Hold for respiratory rate less than 10 per minute. Maximum dose 250 mcg over one hour. If ordered with hydromorphone or morphine, give hydromorphone or morphine first and use fentanyl for breakthrough pain., Routine ketorolac (TORADOL) injection 15 mg 15 mg, Intravenous, ONCE, 1 dose, On e 03/23/20 at 1400, Routine Given 03/23/2020 1:56 PM EDT 15 mg lactated ringers infusion 1,000 mL, at 100 mL/hr, Intravenous, CONTINUOUS, Starting on Sun03/23/20 at 1015, Until Sun03/23/20 at 1459, Day of Surgery (Day of Procedure) New Bag 03/23/2020 10:10 AM EDT 1,000 mLs 100 mL/hr documented in this encounter Active and Recently Administered Medications Times are shown in EDT. Scheduled Medication Order 03/21/2020 03/22/2020 03/23/2020 acetaminophen (Tylenol) tablet 1,000 mg (COMPLETED) 1,000 mg, Oral, ONCE, 1 dose, On e 03/23/20 at 1015, Administer with SIP of H2O only., Day of Surgery (Day of Procedure), Routine 1006 (Given - Provid er: Lovely Dye RN) ceFAZolin (Ancef) 2 g in dextrose 5% 100 mL infusion (COMPLETED)(Linked Group 1) 2 g, Intravenous, ONCE, 1 dose, On e 03/23/20 at 1015, Administer over 30 Minutes, Bank Appraiser to OR Infuse over 30 minutes., Day of Surgery (Day of Procedure), Indication for (Active or Suspected): Prophylaxis 1146 (Given - Provid er: Allen Cruz) ketorolac (TORADOL) injection 15 mg (COMPLETED) 15 mg, Intravenous, ONCE, 1 dose, On e 03/23/20 at 1400, Routine 1356 (Given - Provid er: Augusta Sterling RN) metroNIDAZOLE (Flagyl) 500 mg in sodium chloride 0.9% 100 mL infusion (COMPLETED)(Linked Group 1) 500 mg, Intravenous, ONCE, 1 dose, On e 03/23/20 at 1015, Administer over 30 Minutes, Bank Appraiser to OR Infuse over 30 minutes., Day of Surgery (Day of Procedure), Indication for (Active or Suspected): Prophylaxis 1146 (Given - Provid er: Allen Cruz) Continuous Medication Order 03/21/2020 03/22/2020 03/23/2020 lactated ringers infusion (CANCELED) 1,000 mL, at 100 mL/hr, Intravenous, CONTINUOUS, Starting on e 03/23/20 at 1015, Until Sun03/23/20 at 1459, Day of Surgery (Day of Procedure) 1010 (New Bag - Prov ider: Lovely Dye RN) lactated ringers infusion 1,000 mL, at 100 mL/hr, Intravenous, CONTINUOUS, Starting on Sun03/23/20 at 1345, Until Sun03/23/20 at 1709 1345 (Due) PRN Medication Order 03/21/2020 03/22/2020 03/23/2020 acetaminophen (Tylenol) tablet 650 mg 650 mg, Oral, EVERY 6 HOURS PRN, Starting on Sun03/23/20 at 1323, Until Tu03/23/20 at 1709, Pain, If multiple pain medications ordered, use acetaminophen first., Routine BUpivacaine (PF) (MARCAINE) 0.25 % (2.5 mg/mL) injection (CANCELED) ONCE PRN, Starting on Sun03/23/20 at 1308, Until 03/23/20 at 1709, Intra-Operative (Intra-Procedure), Routine 1308 (Given - Provid er: Sunitha Turner) fentaNYL 50 mcg/mL multi-dose injection 12.5-25 mcg, Intravenous, EVERY 5 MIN PRN, Starting on e 03/23/20 at 1154, Until 03/23/20 at 1709, Pain, Give 12.5 mcg every 5 minutes PRN for mild to moderate pain (1-5) Give 25 mcg every 5 minutes PRN for moderate to severe pain (6-10). Hold for respiratory rate less than 10 per minute. Maximum dose 250 mcg over one hour. If ordered with hydromorphone or morphine, give hydromorphone or morphine first and use fentanyl for breakthrough pain., Routine HYDROmorphone (DILAUDID) injection 0.2 mg 0.2 mg, Intravenous, ONCE PRN, 1 dose, Starting on Sun03/23/20 at 1325, Until Sun03/23/20 at 1709, Pain, Severe pain (7-10), - If not controled by oral pain medication., Routine lidocaine-EPINEPHrine 1 %-1:100,000 injection (CANCELED) ONCE PRN, Starting on Sun03/23/20 at 1308, Until Sun03/23/20 at 1709, Intra-Operative (Intra-Procedure), Routine 1308 (Given - Provid er: Sunitha Turner) oxyCODONE (Roxicodone) tablet 5-10 mg 5-10 mg, Oral, EVERY 3 HOURS PRN, Starting on Sun03/23/20 at 1324, Until Sun03/23/20 at 1709, Pain, - If multiple pain medications ordered, use acetaminophen first. - If pain not relieved by acetaminophen first, administer oxycodone. - Initial dose 5 mg. - If pain control not adequate in 60 minutes, give additional 5 mg., Routine Linked Groups Order Group 1: ceFAZolin (Ancef) 2 g in dextrose 5% 100 mL infusion (COMPLETED)Jump to med 2 g, Intravenous, ONCE, 1 dose, On Sun03/23/20 at 1015, Administer over 30 Minutes, Bank Appraiser to OR Infuse over 30 minutes., Day of Surgery (Day of Procedure), Indication for (Active or Suspected): Prophylaxis And metroNIDAZOLE (Flagyl) 500 mg in sodium chloride 0.9% 100 mL infusion (COMPLETED)Jump to med 500 mg, Intravenous, ONCE, 1 dose, On Sun03/23/20 at 1015, Administer over 30 Minutes, Bank Appraiser to OR Infuse over 30 minutes., Day of Surgery (Day of Procedure), Indication for (Active or Suspected): Prophylaxis documented in this encounter Care Teams Tellers Supervisor Relationship Specialty Start Date End Date Bradley Judd DO [address] [place] [address] PCP - General Family Medicine 10/28/18 documented as of this encounter
--- OUTSIDE RECORDS SUMMARY | 2024-02-09 23:16 | XMS_ITS | Encounter Summary ---
Author Organization [facility] Address [address] [place] [address] Care Team Providers Care Statistics Manager Name Role Phone Unavailable Primary Care Provider Unavailabl e Encounter Details Date Type Department Care Team (Late st Contact Info) Description 07/27/2008 Before PRISM Converted Visit (Maple) [facility] - Maple conversion [address] [place] [address] Clinton Denise MD [address] [place] [phone] Social History Tobacco Use Types Packs/Day Years Used Date Smoking Tobacco: Never Assessed Sex and Gender Information Value Date Recorded Sex Assigned at Not on file Gender Identity Not on file Sexual Orientation Not on file documented as of this encounter Plan of Treatment Not on file documented as of this encounter Procedures Procedure Name Priority Date/Time Associated Diagnosis Comments CYTOPATHOLOGY Routine 07/27/2008 0:00 EST documented in this encounter Results * CYTOPATHOLOGY (07/27/2008 0:00 EST) Pathology Report: CYTOPATHOLOGY REPORT ? Reports generated via electronic interface contain original data; ? however they are lacking the format of the original report. ? Caution should be taken when reading/interpreti ng unformatted reports. ? Name: ? SOFIE JIMENEZ ? Accession #: ? [id number] ? : ? 1965 (Age: 43) ??F ?Collect Date: ? 07/27/2008 ? Location: ? [facility] ? Receive Date: ? 07/29/2008 ? Provider: ?CLINTON DENISE MD ? Copy to: ? Specimen/Source: ?Pap Test, Vagina/Cervix/Endo cervix, ThinPrep Imaging ? System with manual evaluation ? Last Menstrual Period: ? 01/23/09 ? Previous Gynecologic Pathology: ? ASC-US: Rare HPV negative 01/05 ? Yes: H/o 06/93 Few Atyp. Cells, 10/99 Reactive Cell Changes ? SPECIMEN ADEQUACY ? Satisfactory for Evaluation ? - transformation zone component present ? GENERAL CATEGORIZATION ? Negative for Intraepithelial Lesion or Malignancy ? Document reviewed and electronically signed by: ? Veronica Mueller, CT(ASCP)(IAC) ? Report Date: ??08/04/2008 14:10 ? End of Report ? CAROLYN SWENSON 07/27/2008 07/29/2008 Clinton Denise MD PATHOLOGY ORDERABLES CAROLYN SWENSON [address] [place] [address] documented in this encounter Visit Diagnoses Not on filedocumented in this encounter
--- OUTSIDE RECORDS SUMMARY | 2024-02-09 23:16 | XMS_ITS | Encounter Summary ---
Author Organization [facility] Address [address] [place] [address] Care Team Providers Care Supervisor Estimator And Drafter Name Role Phone Ronan Renner DO Primary Care Provider [phone] Encounter Details Date Type Department Care Team (Latest Contact Info) Description 05/29/2018 18:53 EST - 05/29/2018 23:59 EST Hospital Encounter [address] [address] Unknown, Provider, Discharge Disposition: Home or Self Care Social History Tobacco Use Types Packs/Day Years Used Date Smoking Tobacco: Never Assessed Sex and Gender Information Value Date Recorded Sex Assigned at Not on file Gender Identity Not on file Sexual Orientation Not on file documented as of this encounter Discharge Disposition Disposition Code Departure Means Destination Home or Self [facility] documented in this encounter Plan of Treatment Not on file documented as of this encounter Visit Diagnoses Not on filedocumented in this encounter Care Teams Supervisor Estimator And Drafter Relationship Specialty Start Date End Date Ronan Renner DO [address] [place] [address] PCP - General 09/20/11 documented as of this encounter
--- OUTSIDE RECORDS SUMMARY | 2024-02-09 23:16 | XMS_ITS | Encounter Summary ---
Author Organization [facility] [place] [address] Care Team Providers Care Insurance Administrator Name Role Phone Rebeca Aragon MD Primary Care Provider [phone] Reason for Referral * Consultation (Routine) - Closed Specialty Diagnoses / Procedures Referred By Madeleine candelaria Referred To Contact Gastroenterology Diagnoses Incontinence of feces with fecal urgency Incontinence of feces with fecal urgency Procedures anal manometry Raymon Hill MD [facility] [place] [address] [facility] [address] [place] [address] Referral ID Status Reason Start Date Expiration Date V isits Requested Visits Authorized [id number] Closed Consult, Test & Treat 10/27/2018 10/27/2019 1 1 Encounter Details Date Type Department Care Team (Late st Contact Info) Description 10/27/2018 Orders Only Obstetrics and Gynecology at [place] [phone] Raymon Hill MD [facility] [place] [address] Incontinence of feces with fecal urgency Social History Tobacco Use Types Packs/Day Years Used Date Smoking Tobacco: Every Day Cigarettes 1 35 Smokeless Tobacco: Never Alcohol Use Standard Drinks/Week [...] TH Visit (TeleHealth) Obstetrics [place] [address] Raymon Hill MD [facility] [place] [address] Scheduled Referrals Name Type Priority Associated Diagnoses Order Schedule Referral to Gastroenterology Outpatient Referral Routine Incontinence of feces with fecal urgency Ordered: 10/27/2018 documented as of this encounter Visit Diagnoses Diagnosis Incontinence of feces with fecal urgency documented in this encounter Care Teams Insurance Administrator Relationship Specialty Start Date End Date Rebeca Aragon MD [facility] [address] [place] [address] PCP - General 05/10/10 10/27/18 documented as of this encounter
--- OUTSIDE RECORDS SUMMARY | 2024-02-09 23:16 | XMS_ITS | Encounter Summary ---
Author Organization [facility] [place] [address] Care Team Providers Care Insurance And Financial Services Agent Name Role Phone DutchBradley young Jeffery WU Primary Care Provider [phone] Reason for Visit * Reason Comments Post Op Encounter Details Date Type Department Care Team (Late st Contact Info) Description 04/07/2020 2:15 PM EDT Office Visit Obstetrics [place] [address] Helio Hill MD [facility] DR OBSTETRICS [place] [address] Postop check; Post-operative state; Wound disruption, initial encounter Social History Tobacco Use Types Packs/Day Years [...] Sign Reading Time Taken Comments Blood Pressure 119/71 04/07/2020 2:09 PM EDT Pulse 87 04/07/2020 2:09 PM EDT Temperature 37.1 ??C (98.7 ??F) 04/07/2020 2:09 PM ED T Respiratory Rate 16 04/07/2020 2:09 PM EDT Oxygen Saturation 100% 04/07/2020 2:09 PM EDT Inhaled Oxygen Concentration - - Weight 80.4 kg (177 lb 3.2 oz) 04/07/2020 2:09 P M EDT Height 144.8 cm (4' 9.01) 04/07/2020 2:09 PM ED T Body Mass Index 38.33 04/07/2020 2:09 PM EDT documented in this encounter Progress Notes * Helio Hill MD - 04/07/2020 2:15 PM EDT FEMALE PELVIC MEDICINE AND RECONSTRUCTIVE SURGERY POST [...] fecal urgency R15.9, R15.2 Date of visit: 04/07/2020 Patient name: Tracy Harmon Date of surgery: 03/23/2020 Procedure: overlapping anal sphincteroplasty, trans-obturator mid-urethral polypropylene sling Anesthesia:??General??endotracheal tube Pathology: n/a Subjective: Ms. Harmon is s/p the above procedures. She has been tolerating a regular diet. She denies nausea and vomiting, and she has been afebrile since surgery. She had called with itching at the anal area. This has resolved. She had a malodorous vaginal discharge but this improved today. Since surgery, she reports: None Continued vaginal bleeding New pelvic related pain Abnormal vaginal discharge x Burning with urination Blood in urine Enuresis New prolapse symptoms since surgery Bowel Function Fecal incontinence since surgery? (stool/gas) a few How many fecal incontinence episodes / week? Less frequent than prior to, with urge How often do you have bowel movements? daily Any new defecatory problems since surgery?: no IF so which defecatory problem?: Symptom Presence Symptom Presence NONE x Require laxatives regularly Difficulty emptying Less than three bowel movements / week Need to strain Urgency Hard stools Other Loose stools A general ledger bookkeeper is present for the examination. OBJECTIVE: BP 119/71 (BP Location (NBP): Right arm, Patient Position: Sitting) Pulse 87 Temp 37.1 ??C (98.7 ??F) (Temporal) Resp 16 Ht 144.8 cm (4' 9.01) Wt 80.4 kg (177 lb 3.2 oz) SpO2 100% BMI 38.33 kg/m?? Bladder scan: 75 mL General: normal appearing female, pleasant mood, normal speech Pelvic: Cough stress test (empty supine): negative External Genitalia: Perineal skin disrupted with separation of perineal skin and distal vagina. Vicryl suture trimmed. Sphincter muscle appears intact. Impression: Ms. Harmon is a 54 y.o. year old woman now 2 wks s/p overlapping sphincteroplasty, mid-urethral sling. Wound disruption but sphincter appears intact. Plan: Start sitz baths for 10-15 twice daily. Return in 4 weeks / PRN to reassess HELIO HILL MD Division of Female Pelvic Medicine/Reconstructive Surgery documented in this encounter Plan of Treatment Upcoming Encounters Date Type Department Care Team (Late st Contact Info) Description 05/01/2024 1:00 PM EST TH Visit (TeleHealth) Obstetrics [place] [address] Helio Hill MD [facility] OBSTETRICS [place] [address] Scheduled Orders Name Type Priority Associated Diagnoses Orde r Schedule POCT urine dipstick Point of Care Testing Routine Post-operative state Ordered: 04/07/2020 documented as of this encounter Procedures Procedure Name Priority Date/Time Associated Diagnosis Comments BLADDER SCANNER Routine 04/07/2020 Post-operative state documented in this encounter Results * Bladder Scanner (04/07/2020) Bladder Scan (mL) 75 ml mL Helio Hill MD URO PROC W/O RFL ORD ERABLES documented in this encounter Visit Diagnoses Diagnosis Postop check Follow-up examination, following unspecified surgery Post-operative state Other postprocedural status Wound disruption, initial encounter documented in this encounter Care Teams Insurance And Financial Services Agent Relationship Specialty Start Date End Date Bradley Judd DO [address] [place] [address] PCP - General Family Medicine 10/28/18 documented as of this encounter
--- OUTSIDE RECORDS SUMMARY | 2024-02-09 23:16 | XMS_ITS | Encounter Summary ---
Author Organization [facility] [place] [address] Care Team Providers Care Charge Operator Name Role Phone Rebeca Aragon MD Primary Care Provider [phone] Reason for Visit * Reason Comments Follow-up Encounter Details Date Type Department Care Team (Late st Contact Info) Description 04/22/2015 3:00 PM EST Office Visit Obstetrics [place] [address] Helio Hill MD [facility] [address] OBSTETRICS [place] [address] Fecal incontinence; Mixed stress and urge urinary incontinence Social History Tobacco Use Types Packs/Day Years Used Date Smoking Tobacco: Every Day Cigarettes 1 35 Smokeless Tobacco: Never Sex and Gender Information Value Date Recorded Sex Assigned at Female 10/30/2022 5:17 PM EDT Gender Identity Female 10/30/2022 5:17 PM EDT Sexual Orientation Lesbian or Jj 10/30/2022 5: 17 PM EDT Sexual Orientation Straight 10/30/2022 5: 17 PM EDT documented as of this encounter Last Filed Vital Signs Vital Sign Reading Time Taken Comments Blood Pressure 120/74 04/22/2015 3:03 PM EST Pulse - - Temperature - - Respiratory Rate - - Oxygen Saturation - - Inhaled Oxygen Concentration - - Weight 77.1 kg (170 lb) 04/22/2015 3:03 PM EST p t states Height 147.3 cm (4' 10) 04/22/2015 3:03 PM EST Body Mass Index 35.53 04/22/2015 3:03 PM EST documented in this encounter Patient Instructions * Patient Instructions* Helio Hill MD - 04/22/2015 3:32 PM EST ?? Continue to use the imodium and fiber. ?? If you have worsening urinary incontinence, you can try the Poise Impressa inserts as we discussed. ?? Return if you are having worsening symptoms of bladder or bowel control. documented in this encounter Progress Notes * Helio Hill MD - 04/22/2015 3:26 PM EST Patient Active Problem List Diagnosis Code ??? GERD (gastroesophageal reflux disease) K21.9 ??? IBS (irritable bowel syndrome) K58.9 ??? Hearing loss H91.90 ??? Seasonal allergies J30.2 ??? Sleep apnea G47.30 ??? Fecal incontinence R15.9 ??? Mixed stress and urge urinary incontinence N39.46 SUBJECTIVE: Tracy Harmon comes in today for follow-up for fecal incontinence and urinary incontinence. She has been taking fiber at night and also imodium after her first daily BM. She has had almost complete resolution of her fecal incontinence with this change. She states that with resolution of her cough, she is also not having urine leakage. OBJECTIVE: Blood pressure 120/74, height 147.3 cm (4' 10), weight 77.111 kg (170 lb). General: In no distress ASSESSMENT: Tracy Harmon is a 49 y.o. year old woman with: ?? Fecal incontinence, improved with low-dose imodium after first daily BM and fiber supplementation. ?? Urinary incontinence, stress by symptoms, better with resolution of her cough. PLAN: ??? She will continue with the fiber and imodium. ??? She will continue with pelvic floor exercises. ??? We discussed a new non-surgical intervention for MARCUS, the Poise Impressa vaginal inserts. She agrees to try these if she has recurrent MARCUS with a new cough. She was given information on the Impressa inserts. I spent 10 minutes total with the patient, with 10 minutes of the time spent [id number] in discussing her diagnosis and reviewing options for treatment. HELIO HILL MD Division of Female Pelvic Medicine & Reconstructive Surgery documented in this encounter Plan of Treatment Upcoming Encounters Date Type Department Care Team (Late st Contact Info) Description 05/01/2024 1:00 PM EST TH Visit (TeleHealth) Obstetrics [place] [address] Helio Hill MD [facility] [address] OBSTETRICS [place] [address] documented as of this encounter Visit Diagnoses Diagnosis Fecal incontinence Full incontinence of feces Mixed stress and urge urinary incontinence Mixed incontinence urge and stress (male)(female) documented in this encounter Care Teams Charge Operator Relationship Specialty Start Date End Date Rebeca Aragon MD [facility] [address] [place] [address] PCP - General 05/10/10 10/27/18 documented as of this encounter
--- OUTSIDE RECORDS SUMMARY | 2024-02-09 23:16 | XMS_ITS | Clinical Summary ---
Author Organization [facility] Address [address] [place] [address] Care Team Providers Care Wet Crown Blocking Operator Name Role Phone Ronan Renner DO Primary Care Provider [phone] Social History Tobacco Use Types Packs/Day Years Used Date Smoking Tobacco: Never Assessed Interpersonal Safety Answer Date Record ed Physically Hurt Never 01/18/2020 Verbally Threaten Not on file 01/18/2020 Sex and Gender Information Value Date Recorded Sex Assigned at Not on file Gender Identity Not on file Sexual Orientation Not on file Plan of Treatment Health Maintenance Due Date Last Done Comments Hepatitis C Screen 1965 Hepatitis B Vaccine (1 of 3 - 19+ 3-dose series) 06/06 COVID-19 Vaccine ( season) 2023 Care Teams Wet Crown Blocking Operator Relationship Specialty Start Date End Date Ronan Renner DO [address] [place] [id number] PCP - General 09/20/11
--- OUTSIDE RECORDS SUMMARY | 2024-02-09 23:16 | XMS_ITS | Encounter Summary ---
Author Organization [facility] [place] [address] Care Team Providers Care Powder Nipper Name Role Phone Braldey Judd DO Primary Care Provider +1- [phone] Reason for Visit * Auth/Cert Specialty Diagnoses / Procedures Referred By Madeleine candelaria Referred To Contact Diagnoses fecal incontinence, deficient sphincter; stress urinary incontinence Procedures PRO REPAIR OF ANAL SPHINCTER, ADULT PRO SLING OPER STRES INCONTINENCE SPHINCTEROPLASTY, ANAL, ADULT (WRVU 12.15) URETHRAL SUSPENSION, SLING\FASCIA OR SYNTHETIC (WRVU 12.13) Referral ID Status Reason Start Date Expiration Date Visits Re quested Visits Authorized [id number] 1 1 Encounter Details Date Type Department Care Team (Late st Contact Info) Description 03/23/2020 11:31 AM EDT Anesthesia Event [place] [id number] Eulalio Samaniego MD [facility] [place] [address] Anesthesia Record Procedure Summary Procedure Name Responsible Anesthesiologist Anesthesia Start Time Anesthesia Stop Time SPHINCTEROPLASTY, ANAL, ADULT (WRVU 12.15) (Perineum) Eulalio Samaniego MD 03/23/20 1131 03/23/20 1331 Events Date Time Event Comment 03/23/2020 1000 1131 AN Verify 1131 Start 1131 An Start Data 1138 An Induction 1140 An Intubation 1143 Anesthesia Ready 1202 Procedure Start 1225 Quick Note Surgeons reques ting, muscle relaxant reversal for dissection monitoring. 1227 Quick Note 4/4 twitches, s ustained tetanus 1315 Extubation/LMA Out 1323 an stop data 1331 Recovery or ICU Handoff Julisa ent care was transferred to the destination unit staff after review of the patient's medical history, current anesthetic/surgical status and plan, according to the Provider Handoff Checklist. 1331 Stop Meds Name Total Midazolam 2 mg fentaNYL 100 mcg IV Lidocaine 100 mg Propofol 150 mg PHENYLephrine 400 mcg Ondansetron 4 mg Dexamethasone 4 mg ceFAZolin (Ancef) 2 g in dextrose 5% 100 mL infusion 2 g metroNIDAZOLE (Flagyl) 500 mg in sodium chloride 0.9% 100 mL infusion 500 mg Propofol INF 261.62 mg PHENYLephrine INF 1,740 mcg Sugammadex 200 mg Lactated Ringers 700 mL * Agents Name O2 Air N2O Sevoflurane (et) * Blood No blood administrations on file. Lines, Drains, and Airways Type Details Placement Removal Incision 03/23/20; vagina; 02/13/22 (LDA cleanup utility RA#[id number]); 1715 (LDA cleanup utility RA#[id number]) 03/23/20 0000 by Jennifer Harper RN 02/13/22 1715 by Kate Arriola Urethral Catheter 03/23/20; Genitourin gay surgery; Physician order; indwelling double lumen catheter; latex; 14; inserted at this facility; 1; 10; 10; drainage bag to dependent drainage; 03/23/20; 1458 03/23/20 0000 by Jennifer Harper RN 03/23/20 1458 by Augusta Sterling RN (RETIRED) Peripheral IV Line - Single Lumen 03/23/20; 1009; median cubital vein (antecubital fossa), right; [id number] catheter system; 20 gauge; Kobi LIGHT; distraction, intradermal injection, tolerated well; 0; 03/23/20; 1458 03/23/20 1009 by Lovely Dye RN 03/23/20 1458 by Augusta Sterling RN ETT Mask Ventilation: Adjunct (2); ETT Type: Cuffed, Oral; ETT Size: 7.5 mm; Mac Blade: 3; Notes: Asleep, Pre-O2, Stylette; Attempts: 1; Laryngoscopy Grade: 1; ETT Placement Verified By: Auscultation, Capnometry, Visual; Secured at Teeth: 21 cm; Inserted by: Nancy; Removal Date: 03/23/20; Removal Time: 1315 03/23/20 1145 by Allen Cruz 03/23/20 1315 by Allen Cruz documented in this encounter Social History Tobacco Use Types Packs/Day [...] PM EDT documented as of this encounter OR Notes * Anesthesia Postprocedure Evaluation - Eulalio Samaniego MD - 03/23/2020 4:21 PM EDT Department of Anesthesiology Post-procedure Note Patient: Trayc Harmon Procedure Summary Date: 03/23/20 Room / Location: [facility] MA[facility] OR Anesthesia Start: 1131 Anesthesia Stop: 1331 Procedures: SPHINCTEROPLASTY, ANAL, ADULT (WRVU 12.15) (N/A Perineum) URETHRAL SUSPENSION, SLING\FASCIA OR SYNTHETIC (WRVU 12.13) (N/A Pelvis) Diagnosis: Mixed stress and urge urinary incontinence Incontinence of feces with fecal urgency (fecal incontinence, deficient sphincter; stress urinary incontinence) Surgeon: Raymon Hill MD Responsible Provider: Eulalio Samaniego MD Anesthesia Type: general ASA Status: 3 All Anesthesia Providers: Anesthesiologist: Eulalio Samaniego MD Supply Tech: Allen Cruz MD Vitals Value Taken Time BP 118/70 03/23/20 1445 Temp 36.4 ??C (97.5 ??F) 03/23/20 1330 Pulse Resp 18 03/23/20 1445 SpO2 98 % 03/23/20 1445 Pain Level 0 03/23/20 1445 Patient Location: Level of Consciousness: Pain Management: PONV: Cardiovascular Status: Respiratory Status: Postoperative Fluid Status: Possible Anesthetic Complications: Final Primary Anesthesia Type: Comments: Patient was discharged from SDU per protocol prior to my ability to see her. Nursing reports no adverse events. * Anesthesia Preprocedure Evaluation - Sites, Eulalio De Los Santos MD - 03/22/2020 8:14 PM EDT Pre-Anesthesia Evaluation for: Tracy Harmon a 54 y.o. female. Procedure(s): SPHINCTEROPLASTY, ANAL, ADULT (WRVU 12.15) URETHRAL SUSPENSION, SLING\FASCIA OR SYNTHETIC (WRVU 12.13) Patient Active Problem List Diagnosis ??? Incontinence of feces with fecal urgency Added automatically from request for surgery [id number] ??? Diabetes mellitus ??? Fecal incontinence ??? Mixed stress and urge urinary incontinence Stress predominant symptoms ??? GERD (gastroesophageal reflux disease) ??? IBS (irritable bowel syndrome) ??? Hearing loss Wears hearing aids ??? Seasonal allergies ??? Sleep apnea Not using CPAP Past Medical History: Diagnosis Date ??? Diabetes mellitus ??? GERD (gastroesophageal reflux disease) ??? Hearing loss Wears hearing aids ??? IBS (irritable bowel syndrome) ??? Seasonal allergies ??? Sleep apnea 2012 using CPAP Past Surgical History: Procedure Laterality Date ??? ANKLE SURGERY Left ??? CHOLECYSTECTOMY, LAPAROSCOPIC 2011 ??? ELBOW SURGERY Left fracture ??? STAPEDES SURGERY Social History Tobacco Use ??? Smoking status: Current Every Day Smoker Packs/day: 1.00 Years: 37.00 Pack years: 37.00 Types: Cigarettes ??? Smokeless tobacco: Never Used Substance Use Topics ??? Alcohol use: Not Currently Social History Substance and Sexual Activity Drug Use Not Currently Allergies Allergen Reactions ??? Bactrim [Sulfamethoxazole-Trimethoprim] Stomach pain ??? Sulfa (Sulfonamide Antibiotics) CIS - STOMACH PAIN Medications: MAR and/or home medications have been reviewed. Physical Exam: No data found. There is no height or weight on file to calculate BMI. Airway Assessment: Mallampati: II TM distance: >3 FB Neck ROM: full Cardiovascular Assessment: Rhythm: regular Rate: normal Pulmonary Assessment: breath sounds clear to auscultation (+) decreased breath sounds Dental Assessment: Misc Assessment: IV access: Peripheral line Anesthesia Plan: ASA 3 general, with a(n) intravenous induction I have seen and examined the patient. I have reviewed the medical record and pertinent laboratory information. I have noted the major medical issues as outlined in the problem list. She has obesity, chronic tobacco smoker, DM (on oral hypoglycemic), sleep apnea (CPAP), and hearing loss.. I have reviewed risks from minor to major as outlined in the anesthesia consent form. I have highlighted risksrelated to airway management, surgical positioning risks, sleep apnea, possible COPD, and perioperative opioid therapy. The patient was counseled regarding the dangers of opioid medications medications that may be prescribed including sedation and exacerbation of sleep apnea if present. The potential for addiction wasdiscussed and the need to stop use as soon as possible. It was recommended that she promptly destroy unused medication or take them back to drop box locations. She is aware that our care model is based on a team and I will be working with either a CEMENT SIDE LASTER or resident physician. A resident physician means a physician who is in training to be an anesthesiologist. The patient acknowledged these risks and would like to proceed with the anesthesia plan. Balanced GA. Region - Other Informed Consent: Anesthetic plan and risks discussed with patient. Plan discussed with resident. PAT Clinic Note documented in this encounter Plan of Treatment Upcoming Encounters Date Type Department Care Team (Late st Contact Info) Description 05/01/2024 1:00 PM EST TH Visit (TeleHealth) Obstetrics [place] [address] Raymon Hill MD [facility] OBSTETRICS [place] [address] documented as of this encounter Visit Diagnoses Not on filedocumented in this encounter Administered Medications Inactive Administered Medications - up to 3 most recent administrations Medication Order MAR Action Action Date Dose Rate Site ceFAZolin (Ancef) 2 g in dextrose 5% 100 mL infusion 2 g, Intravenous, ONCE, 1 dose, On 03/23/20 at 1015, Administer over 30 Minutes, Workers Compensation Claims Examiner to OR Infuse over 30 minutes., Day of Surgery (Day of Procedure), Indication for (Active or Suspected): Prophylaxis Given 03/23/2020 11:46 AM EDT 2 g dexamethasone (Decadron) injection PRN, Starting on 03/23/20 at 1147, Until 03/23/20 at 1331, Anesthesia Intra-op, Routine Given 03/23/2020 11:47 AM EDT 4 mg fentaNYL 50 mcg/mL multi-dose injection PRN, Starting on 03/23/20 at 1138, Until 03/23/20 at 1331, Anesthesia Intra-op, Routine Given 03/23/2020 11:41 AM EDT 50 mcg Given 03/23/2020 11:38 AM EDT 50 mcg lactated ringers infusion CONTINUOUS PRN, Starting on 03/23/20 at 1131, Until 03/23/20 at 1331, Anesthesia Intra-op New Bag 03/23/2020 11:31 AM EDT lidocaine (PF) (XYLOCAINE) 100 mg/5 mL (2 %) injection PRN, Starting on 03/23/20 at 1138, Until 03/23/20 at 1331, Anesthesia Intra-op, Routine Given 03/23/2020 11:38 AM EDT 100 mg metroNIDAZOLE (Flagyl) 500 mg in sodium chloride 0.9% 100 mL infusion 500 mg, Intravenous, ONCE, 1 dose, On 03/23/20 at 1015, Administer over 30 Minutes, Workers Compensation Claims Examiner to OR Infuse over 30 minutes., Day of Surgery (Day of Procedure), Indication for (Active or Suspected): Prophylaxis Given 03/23/2020 11:46 AM EDT 500 mg midazolam (PF) (VERSED) multi-dose injection PRN, Starting on 03/23/20 at 1138, Until 03/23/20 at 1331, Anesthesia Intra-op, Routine Given 03/23/2020 11:38 AM EDT 2 mg ondansetron (ZOFRAN) injection PRN, Starting on 03/23/20 at 1312, Until 03/23/20 at 1331, Anesthesia Intra-op, Routine Given 03/23/2020 1:12 PM EDT 4 mg PHENYLephrine (EMMA-SYNEPHRINE) 20 mg in sodium chloride 250 mL (standard ADULT & Pedi greater than 20kg) infusion CONTINUOUS PRN, Starting on Sun03/23/20 at 1214, Until Sun03/23/20 at 1331, Anesthesia Intra-op, Routine New Bag 03/23/2020 12:14 PM EDT 30 mcg/min 22.5 mL/hr PHENYLephrine in NS (PF) (EMMA-SYNEPHRINE) 0.8 mg/10 mL (80 mcg/mL) multi-dose injection Syrg PRN, Starting on Sun03/23/20 at 1150, Until Sun03/23/20 at 1331, Anesthesia Intra-op, Routine Given 03/23/2020 12:14 PM EDT 80 mcg Given 03/23/2020 12:05 PM EDT 80 mcg Given 03/23/2020 11:59 AM EDT 80 mcg propofoL (Diprivan) 10 mg/mL bolus injection (Anesthesia) PRN, Starting on Sun03/23/20 at 1138, Until e 03/23/20 at 1331, Anesthesia Intra-op Given 03/23/2020 11:38 AM EDT 150 mg propofoL (Diprivan) infusion CONTINUOUS PRN, Starting on Sun03/23/20 at 1138, Until Sun03/23/20 at 1331, Anesthesia Intra-op, Routine Rate/Dose Change 03/23/2020 11:48 AM EDT 30 mcg/kg/min 14.7 mL/hr New Bag 03/23/2020 11:38 AM EDT 75 mcg/kg/min 36.7 mL/h r sugammadex (BRIDION) 100 mg/mL injection PRN, Starting on Sun03/23/20 at 1225, Until Sun03/23/20 at 1331, Anesthesia Intra-op, Routine Given 03/23/2020 12:25 PM EDT 200 mg documented in this encounter Care Teams Powder Nipper Relationship Specialty Start Date End Date Bradley Judd DO [address] [id number] PCP - General Family Medicine 10/28/18 documented as of this encounter
--- OUTSIDE RECORDS SUMMARY | 2024-02-09 23:16 | XMS_ITS | Encounter Summary ---
Author Organization [facility] Address [address] [place] [address] Care Team Providers Care Solar Designer Name Role Phone Unknown, Provider Primary Care Provider Encounter Details Date Type Department Care Team (Late st Contact Info) Description 09/06/2011 Results Only [facility] ([facility]) [address], [place] [address] Michel Renner, DO [address] [place] [id number] Social History Tobacco Use Types Packs/Day Years Used Date Smoking Tobacco: Never Assessed Sex and Gender Information Value Date Recorded Sex Assigned at Not on file Gender Identity Not on file Sexual Orientation Not on file documented as of this encounter Plan of Treatment Not on file documented as of this encounter Procedures Procedure Name Priority Date/Time Associated Diagnosis Comments PAP TEST- RESULT ONLY Routine 09/06/2011 0:00 EDT documented in this encounter Results * PAP TEST- RESULT ONLY (09/06/2011 0:00 EDT) Pathology Report: CYTOPATHOLOGY REPORT Reports generated via electronic interface contain original data; however they are lacking the format of the original report. Caution should be taken when reading/interpreti ng unformatted reports. Name: ? SOFIE HARMON ? Accession #: ? [id number] : ? 1965 (Age: 46) ??F ?Collect Date: ? 09/06/2011 Location: ? [facility] ? Receive Date: ? 09/08/2011 Provider: ?MICHEL RENNER DO Copy to: ? Specimen/Source: ?Pap Test, Vagina/Cervix/Endo cervix, ThinPrep Imaging System with manual evaluation Last Menstrual Period: ? over 2 yrs ago Other: ? Additional clinical information: Steam Pressure Chamber Operator clinical & treatment hx: ? SPECIMEN ADEQUACY ? Satisfactory for Evaluation - transformation zone component present GENERAL CATEGORIZATION ? Negative for Intraepithelial Lesion or Malignancy ? Document reviewed and electronically signed by: ? MARIA R Gusman(ASCP) ? Report Date: ??09/12/2011 09:18 End of Report CAROLYN SWENSON 09/06/2011 09/08/2011 Michel Renner DO PATHOLOGY ORDERABLES CAROLYN SWENSON [address] [place] [address] documented in this encounter Visit Diagnoses Not on filedocumented in this encounter Care Teams Solar Designer Relationship Specialty Start Date End Date Unknown, Provider, PCP - General 09/08/11 09/19/11 documented as of this encounter
--- OUTSIDE RECORDS SUMMARY | 2024-02-09 23:16 | XMS_ITS | Encounter Summary ---
Author Organization [facility] [place] [address] Care Team Providers Care Supervisor Special Education Name Role Phone Dutch Bradley Jeffery WU Primary Care Provider +1- [phone] Encounter Details Date Type Department Care Team (Late st Contact Info) Description 04/13/2020 Notes Only Obstetrics [place] [address] Ayse Bryant, RN Social History Tobacco Use Types Packs/Day Years [...] as of this encounter Progress Notes * Ayse Bryant, RN - 04/13/2020 2:33 PM EDT Physician Statement Form Faxed to [phone] Return to work tentative 05/06/20, [facility] appt 05/05/20 with . documented in this encounter Plan of Treatment Upcoming Encounters Date Type Department Care Team (Late st Contact Info) Description 05/01/2024 1:00 PM EST TH Visit (TeleHealth) Obstetrics [place] [address] Raymon Hill MD [facility] OBSTETRICS [place] [address] documented as of this encounter Visit Diagnoses Not on filedocumented in this encounter Care Teams Supervisor Special Education Relationship Specialty Start Date End Date Bradley Judd DO [address] [place] [address] PCP - General Family Medicine 10/28/18 documented as of this encounter
--- OUTSIDE RECORDS SUMMARY | 2024-02-09 23:16 | XMS_ITS | Patient Health Record ---
Author Organization [facility] Address [address] [place] [address] Care Team Providers Care Pharmacy Manager Name Role Phone EFRAÍN CARDENAS DO Primary Care Provider Neva De La Rosa [phone] ALLERGIES Allergen (clinical drug ingredient) Drug/Non Drug Allergy documented on EMR Reaction Allergy Type Onset Date Status sulfamethoxazole / trimethoprim Bactrim sulfa, stomach pain Drug Allergy Active REASON FOR REFERRAL No Information MEDICATIONS Medication SIG (Take, Route, Frequency, Duration) Notes Start Date End Date Status Famotidine 20 MG 1 tablet at bedtime Orally Once a day for 30 day(s) Active Cyanocobalamin 100 MCG as directed Orally Active Vitamin E 200 UNIT 1 capsule Orally Onc e a day for 30 day(s) Active metFORMIN HCl 500 MG 1 tablet with a jameson l Orally Once a day for 30 day(s) Active Acetaminophen 500 MG 1 capsule as needed Orally every 6 hrs Active Ibuprofen 600 MG 1 tablet with food o r milk as needed Orally Three times a day Active Fiber Choice 1.5 GM as directed Orally Active Benadryl Allergy 25 MG 1 tablet as neede d Orally every 6 hrs Active Anti-Diarrheal 2 MG 1 tablet as needed O rally in the am Active Artificial Tears 1.4 % as directed Ophthalmic Active Calcium 600 MG 1 tablet with meals Orally Once a day Active Chantix 0.5 MG 1 tablet Orally Once a day for 30 day(s) Not-Taking Cephalexin 500 MG 1 capsule Orally thr ee times a day for 10 day(s) 03/24/2019 Active Multi Vitamin - 1 tablet Orally Once a day for 30 day(s) Active SOCIAL HISTORY Tobacco Use: Social History Observation Description Date Details (start date - stop date) Current Smoker NA - NA Sex Assigned At : Social History Observation Description Sex Assigned At Unknown SMOKING Question Answer Notes Are you a: current smoker How many cigarettes a day do you smoke? 6-10 (up to 1/2 pack) How soon after you wake up d o you smoke your first cigarette? 6-30 min How often do you smoke cigarettes? every day PROBLEMS Problem Type ICD Code Onset Dates Problem Status W/U Status Risk SNOMED Code Notes Problem Type 2 diabetes mellitus without complication, without long-term current use of insulin (E11.9) Active confirmed 706688327 Problem Burning sensation of feet (R20.8) Active confirmed [id number] Problem Encounter for diabetic foot exam (E11.9) Active confirmed Type II diabete s mellitus without complication (962529781) PLAN OF TREATMENT Future Test Test Name Order Date VITAMIN B12 01/16/2019 CBC WITH AUTO DIFF 01/16/2019 COMPMET 01/16/2019 FOLATE 01/16/2019 TSH 01/16/2019 Insurance Providers Payer Name Payer Address Payer Phone Subscriber Number Group Number Insured Name Patient Relationship to Insured Coverage Start Date Coverage End Date [facility] [address] [place] [address] [id number] SOFIE GREER Self - patient is the insured SELF [place]Y [place] [address] [place] [address] SOFIE GREER Self - patient is the insured MEDICAL (GENERAL) HISTORY Medical History History ICD Code depression Hearing loss (bilateral hearing aids) GERD Anal incontinence - S/P 3rd degree tear/ fistula repair Chronic fatigue Dysthymia Generalized anxiety disorder Hx dysphagia (EGD, biopsy 04/2002-kenneth) Colonoscopy tubular adenoma 2001 Sleep apnea Kidney stones Ureteral stone Depression Smoker HPV Sebaceous cyst Right ankle fracture Non-insulin dependent DM Impacted cerumen of both ears Perforation of right tympanic membrane Mixed hearing loss Anxiety disorder Keloid Hematuria, microscopic Hyperlipidemia History of acute otitis externa Abnormal Pap smear of cervix Low grade squamous intraepithelial lesio n on cytologic smear of cervix Nicotine dependence, cigarettes Polycystic ovarian disease Cervical high risk human papillomavirus (HPV) DNA test positive Pap smear with atypical squa mous cells, cannot exclude high grade squamous intrapithelial lesion Tobacco abuse IFG Type II DM without complications Hiatal hernia Hyperplastic polyp of sigmoid colon Obstructive sleep apnea Reflux esophagitis Gastitis and duodenitis Serrated adenoma of colon Cervicalgia Nasal congestion Tendonitis Acute left-sided low back pain without s ciatica Mixed hyperlipidemia Right lateral epicondylitis Skin lesion of face Basal cell carcinoma of nose Seasonal allergic rhinitis due to pollen Surgical History Surgery Date(Month/Year) Ear Surgery Left ankle anthroscopy - [facility] rizwana [place] reconstruction of the lateral ligament 03/24 Bilateral mastoidectomy Cyst removal right arm, Dr Hernadez 09/27 Colonoscopy, Dr Hernadez - [facility] 06/27 Cholecystectomy - laparoscopic 05/29 Stent 02/28 Bilateral tubal ligation Colonoscopy/EGD - Dr Puckett 12/02 Hospitalization History Reason Date(Month/Year) surgeries Childbirth
--- OUTSIDE RECORDS SUMMARY | 2024-02-09 23:16 | XMS_ITS | Encounter Summary ---
Author Organization [facility] [place] [address] Care Team Providers Care Petroleum Refining Firer Name Role Phone Bradley Judd DO Primary Care Provider +1- [phone] Encounter Details Date Type Department Care Team (Late st Contact Info) Description 10/30/2018 [place] [phone] Wendi Perea Social History Tobacco Use Types Packs/Day Years [...] encounter Miscellaneous Notes * Telephone Encounter - Wendi Perea - 10/30/2018 12:48 PM EDT Pt called today and said she cannot do the two enemas prior to ARM and would like something by mouth to clean her out. I called Dr. Hill's ofc, spoke to nurse Shanna who will check with Dr. Hill for something to give pt by mouth to clean her out prior to ARM. -bcj documented in this encounter Plan of Treatment Upcoming Encounters Date Type Department Care Team (Late st Contact Info) Description 05/01/2024 1:00 PM EST TH Visit (TeleHealth) Obstetrics [place] [address] Raymon Hill MD [facility] [address] OBSTETRICS [place] [address] documented as of this encounter Visit Diagnoses Not on filedocumented in this encounter Care Teams Petroleum Refining Firer Relationship Specialty Start Date End Date Bradley Judd DO [address] [place] [address] PCP - General Family Medicine 10/28/18 documented as of this encounter
--- OUTSIDE RECORDS SUMMARY | 2024-02-09 23:16 | XMS_ITS | Encounter Summary ---
Author Organization [facility] [place] [address] Care Team Providers Care Classification Control Clerk Name Role Phone Bradley Judd DO Primary Care Provider +1- [phone] Reason for Visit * Reason Onset Date Comments Post Procedure Call 03/24/2020 Encounter Details Date Type Department Care Team (Late st Contact Info) Description 03/24/2020 Telephone Obstetrics [place] [address] Ayse Bryant RN Post Procedure Call Social History Tobacco Use Types Packs/Day Years [...] Telephone Encounter - Ayse Bryant RN - 03/24/2020 12:25 PM EDT POST-OP TELEPHONE UPDATE Date of Surgery: 03/23/20 SPHINCTEROPLASTY, ANAL, ADULT (WRVU 12.15) (N/A) (overlapping anal sphincteroplasty) URETHRAL SUSPENSION, SLING\FASCIA OR SYNTHETIC (WRVU 12.13) (N/A) (trans- obturator mid-urethral polypropylene sling) ?? Left message to call. documented in this encounter Plan of Treatment Upcoming Encounters Date Type Department Care Team (Late st Contact Info) Description 05/01/2024 1:00 PM EST TH Visit (TeleHealth) Obstetrics [place] [address] Raymon Hill MD [facility] OBSTETRICS [place] [address] documented as of this encounter Visit Diagnoses Not on filedocumented in this encounter Care Teams Classification Control Clerk Relationship Specialty Start Date End Date Bradley Judd DO [address] [place] [address] PCP - General Family Medicine 10/28/18 documented as of this encounter
--- OUTSIDE RECORDS SUMMARY | 2024-02-09 23:16 | XMS_ITS | Encounter Summary ---
[facility] [place] [address] Care Team Providers Care Semi Driver Name Role Phone Bradley Judd DO Primary Care Provider [phone]- [phone] Reason for Visit * Surgical (Routine) - Specialty Diagnoses / Procedures Referred By Madeleine candelaria Referred To Contact Gastroenterology Diagnoses fecal incontinence Procedures ANORECTAL MANOMETRY ARM Raymon Hill MD [facility] [address] OBSTETRICS [place] [address] [facility] [address] [place] [address] Referral ID Status Reason Start Date Expiration Date V isits Requested Visits Authorized [id number] 10/23/2018 10/23/2019 1 1 Encounter Details Date Type Department Care Team (Latest Contact Info) Description 11/04/2018 11:00 AM EDT Procedure [place] [address] Incontinence, feces, nonorganic origin Social History Tobacco Use Types Packs/Day Years [...] as of this encounter Progress Notes * Amarilys Thomas RN - 11/04/2018 11:00 AM EDT A description of the anal manometry procedure was provided to the patient. All questions were answered and the patient verbalized understanding. After performing a digital rectal exam, the HRAM probe was placed in the rectum without difficulty and the procedure was performed. After removal of the probe, an anorectal balloon expulsion catheterwas placed in the rectum for continuation of the study and then removed. The patient tolerated the procedure well. * William Miranda MD - 11/04/2018 11:00 AM EDT Re: Tracy Goldstein [place] Reg No:[id number] : 1965 Date of Service: 11/04/18 ANORECTAL MANOMETRY w/BALLOON EXPULSION Referring provider:Raymon Hill Dear: Dr. Hill We had the pleasure of performing a high resolution anorectal manometry on your patient in the GI Motility Laboratory at [facility]. CLINICAL HISTORY AND INDICATION As you know, she is a 53 y.o. female with complaints of fecal incontinece RESULTS Resting sphincter length (>=25mmHg high pressure zone): 3.1 cm Resting sphincter pressure (NL Value: Males 70-100, Females 70-90) : 43 mmHg Max squeeze pressure (NL Value: Males 240-300, Females 160-200) : 113 mmHg Squeeze duration: adequate (sustaining at least 50% of the difference between maximum squeeze and resting pressures for 5 to 10 seconds). Rectoanal inhibitory reflex: present at 60 ccs balloon distention Response to coughing: normal (cough elicits a pressure greater than or equal to double the resting pressure). Response to simulated defecation: abnormal Type of Dyssynergia: Type 1: adequate increase in rectal pressure and paradoxical increase in anal sphincter pressure Response to simulated defecation with 30 cc of air into the balloon: abnormal Type of Dyssynergia: Type 3: increase in intrarectal pressure and absent or incomplete sphincter relaxation Percent of Sphincter Relaxation: N/A Rectal Sensation: Threshold (NL Value: 30-70): 40mL Urgency (NL Value: 80-130): 80mL Maximum tolerated (NL Value: 130-200): 120mL Balloon expulsion test (normal expulsion occurs in less than 120 seconds): normal at 55 seconds in seated position IMPRESSION Findings are inconclusive for dyssynergic defecation. Resting anal sphincter pressure reflecting internal sphincter function was weak. Maximum squeeze pressures reflecting external sphincter function were weak. Rectal sensation was normal. If patient has fecal incontinence, consider a referral to physical therapy for pelvic floor neuromuscular reeducation and rectal sensory balloon retraining (biofeedback) if symptoms correlate with these manometric findings. and Consider MRI defecography to clarify whether dyssynergic defecation is present, if symptoms suggest this diagnosis. If dyssynergia is confirmed on MRI defecography, then would consider a referral to physical therapy for biofeedback. Signed: William Miranda MD, [facility] Section of Gastroenterology and Hepatology [facility] [place] [id number] V: [phone] F: [phone] CC/EC: Bradley Judd DO [address] [place] [address] documented in this encounter Plan of Treatment Upcoming Encounters Date Type Department Care Team (Late st Contact Info) Description 05/01/2024 1:00 PM EST TH Visit (TeleHealth) [facility] [place] [address] Raymon Hill MD [facility]ST[facility] AND [place] [address] documented as of this encounter Visit Diagnoses Diagnosis Incontinence, feces, nonorganic origin Encopresis documented in this encounter Care Teams Semi Driver Relationship Specialty Start Date End Date Bradley Judd DO [address] [place] [address] PCP - General Family Medicine 10/28/18 documented as of this encounter
--- OUTSIDE RECORDS SUMMARY | 2024-02-09 23:16 | XMS_ITS | Encounter Summary ---
[facility] [place] [address] Care Team Providers Care Caisson Worker Name Role Phone Bradley Judd DO Primary Care Provider [phone]- [phone] Reason for Visit * Reason Onset Date Comments Post Procedure Call 04/02/2020 Encounter Details Date Type Department Care Team (Late st Contact Info) Description 04/02/2020 Telephone Obstetrics [place] [phone] Ayse Bryant RN Post Procedure Call Social [...] Telephone Encounter - Ayse Bryant RN - 04/02/2020 12:20 PM EDT POST-OP TELEPHONE UPDATE Pt returning my phone call from 03/24/20 Date of Surgery: Pt had surgery on 03/23/20 and had SPHINCTEROPLASTY, ANAL, ADULT (WRVU 12.15) (N/A)(overlapping anal sphincteroplasty) URETHRAL SUSPENSION, SLING\FASCIA OR SYNTHETIC (WRVU 12.13) (N/A) (trans- obturator mid-urethral polypropylene sling) Overall well-being: I am doing okay just itching Pain?: 06/27 Pain medication working(Y/N)?: Not using anything now Location of pain: general Bladder function: Is voiding sometimes unsure if she is emptying completely. Will have pt double void when she feels she has not emptied. Bowel function: Having no issues with bowels Ambulating: Yes Tolerating solids / liquids: well-tolerated Dressings: none Incisions: clean, dry and intact Vaginal bleeding: Brownish d/c with strong odor at times, also having vaginal and rectal itching. Wants to do sitz baths Fever: none Post Op appointment booked? Hospital appt was made Instructions: We reviewed phone contacts. The patient will call triage at during daytime hours or during the evening or weekends and ask for the sales representative [employer] legal services professional if she is having problems. AYSE BRYANT RN Per : Pt not use sitz baths at this time. May try HC or Anusol to anal area for itching. documented in this encounter Plan of Treatment Upcoming Encounters Date Type Department Care Team (Late st Contact Info) Description 05/01/2024 1:00 PM EST TH Visit (TeleHealth) Obstetrics [place] [address] Raymon Hill MD [facility] OBSTETRICS [place] [address] documented as of this encounter Visit Diagnoses Not on filedocumented in this encounter Care Teams Caisson Worker Relationship Specialty Start Date End Date Bradley Judd DO [address] [place] [id number] PCP - General Family Medicine 10/28/18 documented as of this encounter
--- OUTSIDE RECORDS SUMMARY | 2024-02-09 23:16 | XMS_ITS | Encounter Summary ---
Author Organization [facility] Address [facility] [place] [address] Care Team Providers Care Bill Recapitulation Clerk Name Role Phone Rebeca Aragon MD Primary Care Provider [phone] Reason for Referral * Physical Therapy (Routine) - Closed Specialty Diagnoses / Procedures Referred By Contac t Referred To Contact Physical Therapy Diagnoses Mixed stress and urge urinary incontinence Incontinence of feces with fecal urgency Pelvic floor weakness in female Helio Hill MD [facility] [place] [address] Conchita Morton, PT [address] [place] [address] Referral ID Status Reason Start Date Expiration Date V isits Requested Visits Authorized [id number] Closed Evaluate and Treat 10/17/2018 04/15/2019 12 12 * Consultation (Routine) - Closed Specialty Diagnoses / Procedures Referred By Contac t Referred To Contact Thoracic Surgery Diagnoses Current every day smoker Sunitha Turner MD [facility] [place] [address] [facility] [address] [place] [id number] Referral ID Status Reason Start Date Expiration Date V isits Requested Visits Authorized [id number] Closed Consult, Test & Treat 10/17/2018 10/17/2019 1 1 Reason for Visit * Reason Comments Encopresis * Consultation (Routine) - Closed Specialty Diagnoses / Procedures Referred By Contac t Referred To Contact Obstetrics and Gynecology Diagnoses Fecal Incontinence with some Urinary FloZeyad howard MD [address] [place] [id number] [facility] [employer] [address] [place] [address] Referral ID Status Reason Start Date Expiration Date Visits Re quested Visits Authorized [id number] Closed 05/24/2018 05/24/2019 1 1 Encounter Details Date Type Department Care Team (Late st Contact Info) Description 10/17/2018 11:00 AM EDT Office Visit Obstetrics [place] [address] Helio Hill MD [facility] OBST[facility] [address] Mixed stress and urge urinary incontinence; Incontinence of feces with fecal urgency; Current every day smoker; Pelvic floor weakness in female Social History Tobacco Use Types Packs/Day Years [...] Sign Reading Time Taken Comments Blood Pressure 111/57 10/17/2018 10:41 AM EDT Pulse 93 10/17/2018 10:41 AM EDT Temperature 36.4 ??C (97.6 ??F) 10/17/2018 10:41 AM E DT Respiratory Rate - - Oxygen Saturation 96% 10/17/2018 10:41 AM EDT Inhaled Oxygen Concentration - - Weight 76.2 kg (168 lb 1.6 oz) 10/17/2018 10:41 AM EDT Height - - Body Mass Index 35.13 04/22/2015 3:03 PM EST documented in this encounter Progress Notes * Helio Hill MD - 10/17/2018 11:00 AM EDT Female Pelvic Medicine and Reconstructive Surgery @ [facility] Patient Name: Tracy Harmon Patient Primary Care Provider: Rebeca Aragon MD Patient Active Problem List Diagnosis Code ??? GERD (gastroesophageal reflux disease) K21.9 ??? IBS (irritable bowel syndrome) K58.9 ??? Hearing loss H91.90 ??? Seasonal allergies J30.2 ??? Sleep apnea G47.30 ??? Fecal incontinence R15.9 ??? Mixed stress and urge urinary incontinence N39.46 ??? Diabetes mellitus E11.9 Chief Complaint: Fecal incontinence; urinary incontinence History of Present Illness: Ms. Harmon is a 53 y.o. para 2 woman, seen at the kind request of Dr. Zeyad Rossi. She presents for evaluation and assessment of fecal and urinary incontinence of many years duration. I saw her in 2015 for fecal incontinence. She had improvement with dietary change, and low dose imodium after first daily BM. The patient has developed diabetes since she was last seen and noticed worsening of her symptoms. She has not made any dietary changes to manage her IBS, incontinence or diabetes. Mrs. Harmon is concerned that she has no control of her bowels. Sometimes she leaks with urgency and sometimes she leaks without sensation. She has not seen a planetarium sky show technician that she can recall. Lary denies leaking gas. When she has a bowel movement, she sometimes feels like it is incomplete. She leaks stool 1-2 times a day and noticed that she only had two bowel movements this morning when she delayed drinking her morning coffee. Additionally, Lary is unsure if the metformin made things worse. She has continued to use the immodium but it has not continued to provide a benefit. Her diet yesterday and today consists of two hot dogs and chop suey, austrian toast and langley last night and two little packages of donuts this morning. Her PCP is [facility]antar at [facility]. She has not yet seen a dining chair seat cushion trimmer She is ready to quit smoking, but her partner is not. Pap smears are up to date, had some abnormals a few years ago. She has never had a colposcopy. Mammograms: up-to-date Colonoscopies: two years ago, polyps were present. 5 year follow-up. Goals for this visit 1. Discuss goals for fecal incontinence Urinary tract history Patient no history of recurrent urinary tract infection. Patient no history of pyelonephritis. Patient no history of urinary tract abnormality. Patient has a history of nephrolithiasis and she passed them on her own. 2016ish Patient no history of hematuria. Bladder irritants: Fluid intake: 2-3 cups of coffee (stops right before bed), infrequently soda, no juice Caffeine intake: 2-3 cups of coffee Cigarette smoking (packs, time, if quit when): 1ppd Alcohol: no Bladder Function Urinary incontinence: yes ICIQ-UI Short Form How often do you leak urine? Never 0 About once a week or less often 1 2-3 times a week 2 xx About once a day 3 Several times a day 4 All the time 5 How much urine do you usually leak? None 0 xx A small amount 1 A moderate amount 2 A large amount 3 Overall, how much does leaking interfere with your everyday life? 5 (0 not at all, 10 a great deal) ICIQ Sum the scores: 9 When does urine leak? (Check all that apply) Never - Urine does not leak Leaks before you can get to the toilet xxx Leaks when you cough or sneeze Leaks when you are asleep Leaks when you are physically active/exercising x Leaks when you have finished urinating or are dressed Leaks for no obvious reason Leaks all the time Pad use (per day): 1 depends a day Pad type: depends Daytime voids: 5-7 Nocturia: 0 Previous urinary incontinence treatment (Medical/Behavioral/Surgical): Has not done physical therapy Storage symptoms Urinary frequency Nocturia x Stress urinary incontinence - leakage with exertion, cough/sneeze Urge urinary incontinence - leakage preceded immediately by urge to void Noctural enuresis - NOT IN ASSOCIATION WITH URGE Continuous urinary leakage Other: (e,g. giggle, intercourse-related) Bladder sensation x Normal - aware of filling and increased [...] dribble - prolonged final part of void x Feeling of incomplete emptying Pelvic Organ Prolapse (POP) Any personally see or feel a vaginal bulge? no What precipitates prolapse or symptoms of prolapse? n/a Previous treatment for POP (physical therapy, pessary, surgery)?: n/a Bowel Function Fecal incontinence (yes/no): Yes, stool, denied leaking gas. Number of fecal incontinent episodes (day/week): daily Number of bowel movements (day/week): 7-9 per day, large volume with stool consistency of soft and formed. x Defecatory Dysfunction: Symptom Presence Symptom Presence NONE Incomplete Emptying Straining Infrequent stools (<3 week) Splinting Abdominal discomfort Loose stools x Defecatory urgency x Hard stools Other Sexual Function Active?: Not currently Pain with intercourse?: n/a If yes, insertional/Deep? n/a Desire to retain sexual function? Unsure, doesn't care Past Medical History: Diagnosis Date ??? Diabetes mellitus ??? GERD (gastroesophageal reflux disease) ??? Hearing loss Wears hearing aids ??? IBS (irritable bowel syndrome) ??? Seasonal allergies ??? Sleep apnea 2012 using CPAP Past Surgical History: Procedure Laterality Date ??? ANKLE SURGERY Left ??? CHOLECYSTECTOMY, LAPAROSCOPIC 2011 ??? ELBOW SURGERY Left fracture ??? STAPEDES SURGERY OB History Para Term AB Living 3 2 1 1 1 2 SAB TAB Ectopic Multiple Live Births 1 0 0 0 0 # Outcome Date GA Lbr Ted/2nd Weight Sex Delivery Anes PTL Lv 3 2 SAB 1 Term 2.296 kg (5 lb 1 oz) Vag-Spont Outpatient Medications Marked as Taking for the 10/17/18 encounter (Office Visit) with Helio Hill MD Medication Sig Dispense Refill ??? metFORMIN (GLUCOPHAGE) 500 mg Tablet Take 500 mg by mouth 2 times daily (with meals). ??? vitamin E 100 unit Capsule Take 100 Units by mouth daily. ??? famotidine (PEPCID) 20 mg Tablet Take 20 mg by mouth 2 times daily. ??? venlafaxine (EFFEXOR) 75 mg Tablet Take 75 mg by mouth 3 times daily. ??? multivitamin (THERAGRAN) Tablet Take 1 tablet by mouth daily. ??? diphenhydrAMINE (BENADRYL) 50 mg Capsule Take 50 mg by mouth every 6 hours as needed for Itching. Allergies Allergen Reactions ??? Sulfa (Sulfonamide Antibiotics) CIS - STOMACH PAIN Social History Socioeconomic History ??? Marital status: Spouse name: Not on file ??? Number of children: Not on file ??? Years of education: Not on file ??? Highest education level: Not on file Occupational History ??? Not on file Social Needs ??? Financial resource strain: Not on file ??? Food insecurity: Worry: Not on file Inability: Not on file ??? Transportation needs: Medical: Not on file Non-medical: Not on file Tobacco Use ??? Smoking status: Current Every Day Smoker Packs/day: 1.00 Years: 35.00 Pack years: 35.00 Types: Cigarettes ??? Smokeless tobacco: Never Used Substance and Sexual Activity ??? Alcohol use: Not Currently ??? Drug use: Not Currently ??? Sexual activity: Not Currently Partners: Male Lifestyle ??? Physical activity: Days per week: Not on file Minutes per session: Not on file ??? Stress: Not on file Relationships ??? Social connections: Talks on phone: Not on file Gets together: Not on file Attends jewish service: Not on file Active member of club or organization: Not on file Attends meetings of clubs or organizations: Not on file Relationship status: Not on file ??? Intimate partner violence: Fear of current or ex partner: Not on file Emotionally abused: Not on file Physically abused: Not on file Forced sexual activity: Not on file Other Topics Concern ??? Not on file Social History Narrative She is trying to get disability and has been out of work since 2018. She lives with her , Azam, and with her mother. Family History Problem Relation Age of Onset ??? Diabetes Mother ??? Stroke Mother ??? Cerebrovascular Accident Mother ??? Diabetes Sister ??? High Blood Pressure Sister ??? Other Sister Coliitis ??? Breast Cancer Neg Hx ??? Uterine Cancer Neg Hx ??? Ovarian Cancer Neg Hx ??? Colorectal Cancer Neg Hx ??? Pancreatic Cancer Neg Hx ROS: Review of all other systems negative except for those mentioned above or indicated below: System Symptom Presence Constitutional Weight Loss Weight gain Eyes History of glaucoma ENT/Mouth Mouth sores/Dry mouth Dry mouth Cardiovascular Chest pain Leg swelling Respiratory Wheezing SOB GI Nausea/vomiting Constipation Abdominal pain no Skin/Breast Breast masses Rash/ulcer Musculoskeletal Muscle weakness Trouble Walking Neurological Dizziness/falling Numbness Psychiatric Depression Being treated Anxiety Endocrine Abnormal thirst no Menopause: Y/N / age? y / 52 Hot flashes Hematologic Frequent bruising History of blood transfusions none Blood clots (DVT / PE) none Prior problems w/ anesthesia none Outside medical records reviewed: yes Data reviewed (images/urodynamic studies): To further delineate patient's urinary symptoms, a urinedip test and postvoid residual via bladder scanner were obtained. Results for orders placed or performed in visit on 10/17/18 Bladder Scanner Result Value Ref Range Bladder Scan (mL) 109 mL repeat after void was 20-30 mL Urine dipstick: Negative for blood, leuk, nitrites OBJECTIVE: BP 111/57 Pulse 93 Temp 36.4 ??C (97.6 ??F) Wt 76.2 kg (168 lb 1.6 oz) SpO2 96% BMI 35.13kg/m?? General: normal appearing female, pleasant mood, normal speech Skin: skin of abdomen/pelvis was notable for two small sebaceous cysts one on the right superior labium majus and the other on the left inferior labium majus Respiratory: clear to auscultation bilaterally Neuro: no paraspinous tenderness; saddle sensory function (S2-4) intact in the pelvic area to touch Cardiac: regular rate and rhythm, no appreciated murmurs Gastrointestinal: no palpable masses/organomegaly, soft/nontender, no appreciable hernia Musculoskeletal: levator ani tone (0-5): 2, levator ani contraction (0-5): 3, no levator tenderness; lower extremity motor 5/5 bilaterally Pelvic: Cough stress test (empty supine): negative External Genitalia: Vulva, [place]'s and Bartholin glands normal, urethra without tenderness or mass Vagina: With Valsalva, the anterior vaginal wall comes 2 cm inside the hymen, the posterior vagina wall comes 2 cm inside the hymen, and the cervix/apex comes 6cm inside the hymen Atrophic epithelium (yes/no)?: yes Discharge?: minimal Cervix: Normal appearing, no cmt Bimanual (uterus/adnexa): av, mobile uterus, no adnexal masses Rectovaginal: scar at anterior anus Enterocele: none Rectocele: very small Anal sphincter: scar tissue present and very thin perineal body Resting tone: 5/5 Anal wink: Present, but anteriorly is flat skin External anal sphincter: intact, but external sphincter is very thin; however squeeze is present anteriorly. POP Q Measurements: Aa -2 Ba -2 C -6 GH 3 3.5 PB 1.5 1.5 TVL 7 Ap -2 Bp -2 D -7 Impression: Ms. Harmon is a .53 y.o. woman with: ?? Incontinence of feces with fecal urgency ?? Mixed stress and urge urinary incontinence ?? Current every day smoker ?? Type 2 DM or pre-diabetes, obesity Recommendations: I reviewed the anatomy and physiology of fecal incontinence. We discussed options for management including: Continued observation, pelvic floor exercises, and surgery. We also discussed the benefits of dietary modifications and caffeine reduction on GI motility and urinary incontinence. She is alsowilling to speak with smoking cessation to try to quit smoking. On exam, she had a very thin perineal body with scar tissue that is consistent with a h/o 4th degree laceration, which is likely contributing to her incontinence. Anal manometry will help us understand Mrs. Harmon' incontinence in further detail. Regarding the stress urinary incontinence, should surgery be the next step to manage fecal incontinence, the patient will need a full bladder INTEGRATION DEVELOPER to determine if she would benefit from a mid-urethralsling concurrently placed. Based on the patients expressed goals for management I have recommended the following: ?? Behavioral modifications including reduced caffeine intake, smoking cessation, weight managementwith a local dining chair seat cushion trimmer ?? Further testing: Anal manometry ?? Physical therapy with Conchita Morton PT, in [place] ?? Full bladder INTEGRATION DEVELOPER if she pursues a surgical intervention. This patient was seen and evaluated with Dr. Hill, UroGyn attending physician, with whom the plan was formulated. SUNITHA TURNER MD PGY6 I have seen the patient and reviewed the resident's above history and I agree with the details as written. The assessment and plan were formulated in discussion with me and I agree with them as documented. Pertinent History: Ms. Harmon is 53 year old woman who has fecal incontinence and urinary incontinence. I saw her ~3 1/2 years ago and she used conservative treatment for fecal incontinence, with bulking agent and low dose imodium. Her symptoms had improved but have worsened. She does drink at least3 cups of coffee daily and smokes. Since she saw me last, she has been diagnosed with borderline diabetes. Pertinent Exam: I was present for her examination and agree with the findings documented by Dr. Turner. Major issues addressed: Fecal incontinence, urinary incontinence. Several other factors are likely contributing, including increased BMI, DM, smoking and dietary intake. Plan: She agrees to address smoking, see product designer and PT to start pelvic floor rehab. We will set up PT with Conchita Morton PT. She will speak with Rebeca Aragon MD regarding resources for product designer consultation and we put in a referral for smoking cessation. We will set up anal manometry testing and consider options for surgical repair pending review of the manometry testing. She may benefit from a mid-urethral sling to address her stress urinary incontinence as well. (x) ACOG or other informational pamphlets given to patient HELIO HILL MD Division of Female Pelvic Medicine/Reconstructive Surgery CC: MD Zeyad Costello MD Michelle Decker, PT documented in this encounter Plan of Treatment Upcoming Encounters Date Type Department Care Team (Late st Contact Info) Description 05/01/2024 1:00 PM EST TH Visit (TeleHealth) Obstetrics [place] [address] Helio Hill MD [facility] [place] [address] Scheduled Referrals Name Type Priority Associated Diagnoses Orde r Schedule Referral to Smoking Cessation Program Outpatient Referral Routine Current every day smoker Ordered: 10/17/2018 Referral to Physical Therapy Outpatient Referral Routine Mixed stress and urge urinary incontinence Incontinence of feces with fecal urgency Pelvic floor weakness in female Ordered: 10/17/2018 documented as of this encounter Procedures Procedure Name Priority Date/Time Associated Diagnosis Comments BLADDER SCANNER Routine 10/17/2018 Mixed stress and urge urinary incontinence documented in this encounter Results * Bladder Scanner (10/17/2018) Bladder Scan (mL) 109 mL Helio Hill MD URO PROC W/O RFL ORD ERABLES documented in this encounter Visit Diagnoses Diagnosis Mixed stress and urge urinary incontinence Mixed incontinence urge and stress (male)(female) Incontinence of feces with fecal urgency Current every day smoker Tobacco use disorder Pelvic floor weakness in female Other specified genital prolapse documented in this encounter Care Teams Bill Recapitulation Clerk Relationship Specialty Start Date End Date Rebeca Aragon MD [facility] [address] [place] [address] PCP - General 05/10/10 10/27/18 documented as of this encounter
--- OUTSIDE RECORDS SUMMARY | 2024-02-09 23:16 | XMS_ITS | Encounter Summary ---
Author Organization [facility] Address [address] [place] [address] Care Team Providers Care Permit Technician Name Role Phone Ronan Renner DO Primary Care Provider [phone] Encounter Details Date Type Department Care Team (Late st Contact Info) Description 10/10/2022 Lab Requisition [facility] Pathology & Laboratory Medicine - [facility] [address] [place] [address] Burton Dunlap MD [address] [place] [id number] Disorder of the skin and subcutaneous tissue, unspecified Social History Tobacco Use Types Packs/Day [...] Date/Time Associated Diagnosis Comments SURGICAL PATHOLOGY Today 10/10/2022 11 :30 EDT Disorder of the skin and subcutaneous tissue, unspecified documented in this encounter Results * SURGICAL PATHOLOGY (10/10/2022 11:30 EDT) Note to Patient The following pathology results have been interpreted by your pathologist and may be available to you before your health provider has had the opportunity to review them. Please allow time for your provider to receive these results and explore management options, if applicable. 10/12/2022 14:09 [facility] Final Diagnosis A. SKIN OF SCALP, MEDIAL, EXCISION: - Basal cell carcinoma, nodular type. See comment. - Lesion present at peripheral margin. - Lesion measures 4.0 mm to the deep margin. 10/12/2022 14:09 [facility] Diagnosis Comment These results were phoned to Dr. Dunlap's office. 10/12/2022 14:09 [facility] Attestation By the signature below, the attending physician certifies that they have 1) personally conducted a gross and/or microscopic examination of the described specimen(s), and/or personally interpreted the results of laboratory testing of the described specimen(s), and 2) personally rendered or confirmed the above diagnosis. 10/12/2022 14:09 [facility] at 1408 Clinical History Clinical diagnosis code: L98.9 10/12/2022 14:09 [facility] Gross Description A. Received in formalin labelled with proper patient identification (initials H, K) and scalp is an unoriented elliptical excision of simons-parish hair-bearing skin (1.6 x 0.9 cm and is excised to a depth of 0.5 cm). There is a central irregular shiny parish, slightly nodular papule that measures 0.7 x 0.6 cm. The margins are inked blue. The specimen is serially sectioned and entirely submitted as A1-A2 4 central sections and A3 2 tips, reverse en face. Aliya Carpenter 10/11/2022 11:25 10/12/2022 14:09 [facility] Performing Lab [facility] 10/12/2022 14:09 [facility] Scanned Images 10/12/2022 14:09 [facility] Tissue TISSUE SPECIMEN FROM SKIN / Unknown 10/10/2022 11:30 EDT 10/10/2022 23:00 EDT Burton Dunlap MD PATHOLOGY ORDERABLES [facility] [address] [place] [address] documented in this encounter Visit Diagnoses Diagnosis Disorder of the skin and subcutaneous tissue, unspecified documented in this encounter Care Teams Permit Technician Relationship Specialty Start Date End Date Ronan Renner DO [address] [place] [address] PCP - General 09/20/11 documented as of this encounter
--- OUTSIDE RECORDS SUMMARY | 2024-02-09 23:16 | XMS_ITS | Encounter Summary ---
Author Organization [facility] Address [address] [place] [address] Care Team Providers Care Clinique Counter Manager Name Role Phone Ronan Renner DO Primary Care Provider [phone] Encounter Details Date Type Department Care Team (Late st Contact Info) Description 05/29/2018 Results Only [facility]- [facility] [phone] Burton Dunlap MD [address] [place] [address] [id number] Social History Tobacco Use Types Packs/Day Years Used Date Smoking Tobacco: Never Assessed Sex and Gender Information Value Date Recorded Sex Assigned at Not on file Gender Identity Not on file Sexual Orientation Not on file documented as of this encounter Plan of Treatment Not on file documented as of this encounter Procedures Procedure Name Priority Date/Time Associated Diagnosis Comments SURGICAL PATHOLOGY Routine 05/29/2018 16 :31 EST documented in this encounter Results * SURGICAL PATHOLOGY (05/29/2018 16:31 EST) Pathology Report: SURGICAL PATHOLOGY REPORT Reports generated via electronic interface contain original data; however they are lacking the format of the original report. Caution should be taken when reading/interpret ing unformatted reports. Name: ? SOFIE HARMON ? Accession #: ? [id number] ? : ? 1965 (Age: 52) ??F ? Collect Date: ? 05/29/2018 ? Location: ? [facility] ? Receive Date: ? 05/30/2018 ? Provider: BURTON DUNLAP MD Copy to: EFRAÍN CARDENAS DO ? Final Pathologic Diagnosis: SKIN OF NASAL WALL, LEFT, EXCISION: - Basal cell carcinoma, nodular type. ??See comment. - Peripheral margin focally positive for basal cell carcinoma. ?? - Dermal fibrosis and granulomatous inflammation with foreign body giant cells and calcification. ?? Comment: The excision consists of basal cell carcinoma that has a nodular growth pattern and is associated with cystically dilated follicular units. ??In the two sections from the central portion of the excision, basal cell carcinoma is focally transected at the level of the deep reticular dermis at the inked peripheral margin. ??The other peripheral and deep margins are negative for tumor. ??There is an associated dense inflammatory infiltrate consisting of numerous multinucleate giant cells associated with calcification. ??(Dr. Lazaro)/mpl Microscopic Description: Irregularly shaped islands of atypical basal cells infiltrate the dermis. ??The basal cells have scant cytoplasm and round dark nuclei. ??Mitotic figures and apoptotic bodies are evident. ??The nuclei at the periphery of the islands have a palisaded arrangement. ??The islands are associated with a fibromyxoid stroma and there is cleft formation between some of the islands and stroma. ??The adjacent dermis has dense nodular inflammation with clusters of histiocytes and numerous foreign body-type giant cells. ??The giant cells surround portions of calcified material. ??There is no necrosis or caseation. ??There are numerous melanophages and siderophages. No fungal or mycobacterial organisms are identified on sections prepared with PAS-amylase and AFB stains. ?? (Dr. Lazaro)/mpl Document reviewed and electronically signed by: POLI LAZARO MD Report ??Date: 06/03/2018 16:25 By the signature above, the attending physician certifies that he/she has personally conducted a gross and/or microscopic examination of the described specimens and rendered or confirmed the above diagnosis. Specimen(s) Received: Excision left nasal wall Clinical History: Skin lesion of face; smoker; clinical diagnosis code: ??L98.9 Gross Description: ? Received in formalin labelled with proper patient identification (initials H, K) and left nasal wall is an unoriented elliptical skin, 1.0 x 0.5 cm and excised to a depth of 0.5 cm. The central skin surface shows a blue-black macule with irregular borders, 0.4 cm in diameter. The margin is inked. Sectioned and entirely submitted as follows: BLOCK BRITT 1- ??tips, reverse en face 2- ??two central section BAMBI Mccrary (ASCP) 05/30/2018 4:42 PM End of Report [facility] 05/29/2018 16:3 1 EST 05/30/2018 16:31 EST Burton Dunlap MD PATHOLOGY ORDERABLES [facility] [address] [place] [address] documented in this encounter Visit Diagnoses Not on filedocumented in this encounter Care Teams Clinique Counter Manager Relationship Specialty Start Date End Date Ronan Renner DO [address] [place] [address] PCP - General 09/20/11 documented as of this encounter
--- OUTSIDE RECORDS SUMMARY | 2024-02-09 23:16 | XMS_ITS | Encounter Summary ---
Author Organization [facility] [place] [address] Care Team Providers Care Pattern Wheel Maker Name Role Phone DutchBradley young Jeffery WU Primary Care Provider [phone] Reason for Visit * Reason Comments Urinary Incontinence Encopresis Encounter Details Date Type Department Care Team (Late st Contact Info) Description 02/26/2020 1:00 PM EDT Office Visit Obstetrics [place] [address] Helio Hill MD [facility] [address] OBSTETRICS [place] [address] Mixed stress and urge urinary incontinence; Incontinence of feces with fecal urgency Social [...] Sign Reading Time Taken Comments Blood Pressure 132/52 02/26/2020 12:30 PM EDT Pulse 86 02/26/2020 12:30 PM EDT Temperature 36.2 ??C (97.2 ??F) 02/26/2020 12:30 PM E DT Respiratory Rate - - Oxygen Saturation - - Inhaled Oxygen Concentration - - Weight 81.5 kg (179 lb 9.6 oz) 02/26/2020 12:30 PM EDT Height 144.8 cm (4' 9) 02/26/2020 12:30 PM EDT Body Mass Index 38.87 02/26/2020 12:30 PM EDT documented in this encounter Progress Notes * Helio Hill MD - 02/26/2020 1:00 PM EDT Patient Active Problem List Diagnosis Code ??? GERD (gastroesophageal reflux disease) K21.9 ??? IBS (irritable bowel syndrome) K58.9 ??? Hearing loss H91.90 ??? Seasonal allergies J30.2 ??? Sleep apnea G47.30 ??? Fecal incontinence R15.9 ??? Mixed stress and urge urinary incontinence N39.46 ??? Diabetes mellitus E11.9 SUBJECTIVE: Tracy Harmon comes in today for follow-up of fecal incontinence and urinary incontinence. She still has stress urinary incontinence with coughing, sneezing. She has fecal incontinence as well. She was camping this weekend and had 4-5 accidents. She may notsense it coming at times and at other times, she gets an urge and cannot hold it. She has IBS and tends to have several BM / day before she has her coffee. She drinks 1 cup of regular coffee / AM andsometimes another. She will switch to decaff after that. She did have anal manometry on 11/04/18: Findings are inconclusive for dyssynergic defecation. ?? Resting anal sphincter pressure reflecting internal sphincter function was weak. Maximum squeeze pressures reflecting external sphincter function were weak. ?? Rectal sensation was normal. ?? If patient has fecal incontinence, consider a referral to physical therapy for pelvic floor neuromuscular reeducation and rectal sensory balloon retraining (biofeedback) if symptoms correlate with these manometric findings. and Consider MRI defecography to clarify whether dyssynergic defecation is present, if symptoms suggest this diagnosis. If dyssynergia is confirmed on MRI defecography, then would consider a referral to physical therapy for biofeedback. Tobacco: ~ 1 ppd She was taking care of her mother and her mother had a hip fracture in August. She has dementia and has now been transferred to a assisted. She would like to go ahead with surgical management of her stress urinary incontinence and fecal incontinence. OBJECTIVE: Blood pressure 132/52, pulse 86, temperature 36.2 ??C (97.2 ??F), height 144.8 cm (4' 9), weight 81.5 kg (179 lb 9.6 oz). Exam deferred today. Prior evidence for thin perineal body, sphincter defect. ASSESSMENT: Tracy Harmon is a 54 y.o. year old woman with: ?? Urinary incontinence, stress predominant by symptoms. ?? Accidental bowel leakage, with evidence of sphincter defect on prior exam. Not improved with PT. PLAN: ??? After discussing options, the patient prefers to proceed with surgery. ??? For urinary incontinence we discussed mid-urethral polypropylene slings, versus autologous slings versus retropubic urethropexy. She prefers mid-urethral sling. We discussed higher erosion risks with patients who smoke and I encouraged her to decrease smoking. ??? For bowel incontinence, we discussed overlapping sphincteroplasty versus sacral neuromodulation. Since she has a sphincter defect on exam, I would favor sphincteroplasty. We reviewed risks of persistent / recurrent incontinence, injury to rectum, fistula formation, skin breakdown (1/3 cases) needed sitz baths for 6+ weeks. CONSENT: I discussed the planned procedure with the patient, including risks and benefits. We reviewed the consent form, which the patient has signed. As part of our discussion, we reviewed risks including but not limited to infection, bleeding, injury to bladder, urethra, , bowel, possible fistulaformation. We discussed that we perform cystoscopy to assure no urinary tract injury prior to ending the procedure. We discussed rare risks of nerve injury due to positioning, retraction, or sutures. We also reviewed potential changes in bladder, bowel and sexual function after prolapse and anti-incontinence operations. We reviewed risks of mesh erosion that can occur even many years out from surgery and risks of persistent pain. We discussed the March 2008 and December 2010 FDA warning regarding mesh placed transvaginally for prolapse repairs and the different applications for mesh in the pelvic area carry different risks. We reviewed risks of mesh erosion are 3% with non-smokers, likely higher among smokers. I spent 25 minutes total with the patient, with 20 minutes of the time spent [id number] in discussing her diagnosis and reviewing options for treatment. HELIO HILL MD Division of Female Pelvic Medicine & Reconstructive Surgery documented in this encounter Plan of Treatment Upcoming Encounters Date Type Department Care Team (Late st Contact Info) Description 05/01/2024 1:00 PM EST TH Visit (TeleHealth) Obstetrics [place] [address] Helio Hill MD [facility] [address] OBSTETRICS [place] [address] documented as of this encounter Procedures Procedure Name Priority Date/Time Associated Diagnosis Comments BLADDER SCAN Routine 02/26/2020 Mixed stress and urge urinary incontinence documented in this encounter Results * Bladder scan (02/26/2020) Scan 0ml Helio Hill MD NURSING TREATMENT OR DERABLES - ONCE OR AT INTERVALS documented in this encounter Visit Diagnoses Diagnosis Mixed stress and urge urinary incontinence Mixed incontinence urge and stress (male)(female) Incontinence of feces with fecal urgency documented in this encounter Care Teams Pattern Wheel Maker Relationship Specialty Start Date End Date Bradley Judd DO [address] [place] [address] PCP - General Family Medicine 10/28/18 documented as of this encounter
--- OUTSIDE RECORDS SUMMARY | 2024-02-09 23:16 | XMS_ITS | Encounter Summary ---
Author Organization [facility] Address [address] [place] [address] Care Team Providers Care Follow Up Clerk Name Role Phone Ronan Renner DO Primary Care Provider [phone] Encounter Details Date Type Department Care Team (Late st Contact Info) Description 11/29/2016 Results Only [facility] [phone] Oscar Puckett MD [address] [facility] [address] [place] [address] Social History Tobacco Use Types Packs/Day Years Used Date Smoking Tobacco: Never Assessed Sex and Gender Information Value Date Recorded Sex Assigned at Not on file Gender Identity Not on file Sexual Orientation Not on file documented as of this encounter Plan of Treatment Not on file documented as of this encounter Procedures Procedure Name Priority Date/Time Associated Diagnosis Comments SURGICAL PATHOLOGY Routine 11/29/2016 11 :06 EDT documented in this encounter Results * SURGICAL PATHOLOGY (11/29/2016 11:06 EDT) Pathology Report: SURGICAL PATHOLOGY REPORT Reports generated via electronic interface contain original data; however they are lacking the format of the original report. Caution should be taken when reading/interpretin g unformatted reports. Name: ? SOFIE HARMON ? Accession #: ? [id number] ? : ? 1965 (Age: 51) ??F ? Collect Date: ? 11/29/2016 ? Location: ? [facility] ? Receive Date: ? 11/30/2016 ? Provider: ABILIO PUCKETT MD Copy to: RUI DAMON DO ? Final Pathologic Diagnosis: A. SMALL INTESTINE, 2ND PORTION OF DUODENUM, BIOPSY: - ??Erosive peptic duodenitis with intraepithelial lymphocytosis. See comment. B. STOMACH, ANTRUM AND BODY, BIOPSY: - ??Antral and transitional mucosa with reactive gastropathy and mild chronic inflammation. - ??Negative for Helicobacter pylori by immunostaining. See comment. C. GASTROESOPHAGEAL JUNCTION, BIOPSY: - ??Squamous mucosa with features of reflux esophagitis. - ??No columnar mucosa is present. D. COLON, SIGMOID, POLYP, BIOPSY: - ??Fragments of sessile serrated adenoma with mucosal prolapse. Dr. Clifford 12/03/2016 1:47 PM Comment: Part A: Due to presence of intraepithelial lymphocytosis, a possibility of superimposed celiac enteropathy cannot be entirely excluded. Correlation is recommended. ?? Parts A-B: Drop Wire Builder deeper sections examined. ANTIBODY(CLONE)(BLO CK):RESULT H PYLORI (Rabbit Monoclonal (SP48), [employer]) (A, B): Negative NOTE: ??One or more of the reagents used in immunoperoxidase testing in this case may not have been cleared or approved by the U.S. Food and Drug Administration (FDA). ??The FDA has determined that such clearance or approval is not necessary. ??These tests are used for clinical purposes. ??They should not be regarded as investigational or for research. ??These reagents' performance characteristics have been determined by [facility]. ??The positive and negative controls worked appropriately. If immunoperoxidase staining has been performed on alcohol fixed cytology specimens, which has not been fully validated, the assays should be interpreted with caution and correlated with clinical data. ??This laboratory is certified under the Clinical Laboratory Improvement Amendments of 1988 (CLIA-88) as qualified to perform high complexity clinical laboratory testing. Document reviewed and electronically signed by: RIVER ANNA MD Report ??Date: 12/05/2016 17:47 By the signature above, the attending physician certifies that he/she has personally conducted a gross and/or microscopic examination of the described specimens and rendered or confirmed the above diagnosis. Specimen(s) Received: A. ??2nd portion bx B. ??Antrum and body bx C. ??EG junction bx D. ??Sigmoid polyp Clinical History: GERD; screening; clinical diagnosis code: K21.9, Z12.11 Gross Description: A. ?Received in formalin labelled with proper patient identification (initials H, K) and A. 2nd portion bx is a single simons tissue fragment (0.3 x 0.2 x 0.1 cm). Submitted intact in A1. B. ?Received in formalin labelled with proper patient identification (initials H, K) and B. antrum and body bx are two simons tissues (0.1 x 0.1 x 0.1 cm and 0.2 x 0.1 x 0.1 cm). Entirely submitted in B1. C. ?Received in formalin labelled with proper patient identification (initials H, K) and C. EG junction bx are two white tissues (0.2 x 0.1 x 0.1 cm and 0.4 x 0.1 x 0.1 cm). Entirely submitted in C1. D. ?Received in formalin labelled with proper patient identification (initials H, K) and D. sigmoid polyp are four light simons tissues (0.1 x 0.1 x 0.1 cm to 0.2 x 0.1 x 0.1 cm). Entirely submitted in D1 and D2. Juan Pablo Asif 11/30/2016 2:43 PM End of Report [facility] 11/29/2016 11:0 6 EDT 11/30/2016 11:06 EDT Oscar Puckett MD PATHOLOGY ORDERABLES [facility] [address] [place] [address] documented in this encounter Visit Diagnoses Not on filedocumented in this encounter Care Teams Follow Up Clerk Relationship Specialty Start Date End Date Ronan Renner DO [address] [place] [id number] PCP - General 09/20/11 documented as of this encounter
--- OUTSIDE RECORDS SUMMARY | 2024-02-09 23:16 | XMS_ITS | Encounter Summary ---
Author Organization [facility] [place] [address] Care Team Providers Care Truck Hopper Name Role Phone DutchBradley young Jeffery WU Primary Care Provider [phone]- [phone] Reason for Visit * Reason Comments Pre-op Exam Encounter Details Date Type Department Care Team (Late st Contact Info) Description 03/12/2020 10:15 AM EDT Office Visit Obstetrics and [facility]necology at [facility] [place] [address] Janae Rizvi APRN [facility] [place] [address] Mixed stress and urge urinary incontinence; Incontinence of feces with fecal urgency; Current every day smoker Social History Tobacco Use Types Packs/Day Years [...] Sign Reading Time Taken Comments Blood Pressure 132/67 03/12/2020 10:31 AM EDT Pulse 94 03/12/2020 10:31 AM EDT Temperature 36.2 ??C (97.2 ??F) 03/12/2020 10:31 AM E DT Respiratory Rate 16 03/12/2020 10:31 AM EDT Oxygen Saturation 94% 03/12/2020 10:31 AM EDT Inhaled Oxygen Concentration - - Weight 80.7 kg (178 lb) 03/12/2020 10:31 AM EDT Height 144.8 cm (4' 9) 03/12/2020 10:31 AM EDT Body Mass Index 38.52 03/12/2020 10:31 AM EDT documented in this encounter Progress Notes * Janae Rizvi, INSTRUCTOR PROGRAMMABLE CONTROLLERS - 03/12/2020 10:15 AM EDT Date of Visit: 03/12/2020 Planned Surgery Date: 03-23-20 Planned Procedure: Anal sphincteroplasy and midurethral sling Indications/Pre-op Diagnosis: Stress urinary incontinence; anal incontinence; anal sphincter defect HISTORY OF PRESENT ILLNESS: Ms. Harmon is a 54 y.o. para 2 woman who presents for her preoperative examination. Patient presents with a history of symptomatic urinary and fecal incontinence. She desires surgical repair. Please see prior encounter notes for more detail. REVIEW OF SYMPTOMS/FUNCTIONAL STATUS: Chest pain: no Shortness of breath: not usually Can you walk 1/2 mile or more? Short of breath sometimes if long walk Can you go up more than 2 flights of stairs? yes Patient can dress herself? yes Prepare meals herself? yes Bleeding disorder (h/o nose bleeds, excessive bleeding following a surgical procedure?): no Personal or Family history of blood clots?: maybe her mom had a clot in her leg (phlebitis) Sexually active?: not much! Last PAP smear: Dr. Rossi does this, no abnl Past anesthesia problems?: no Past Medical History: Diagnosis Date ??? Diabetes mellitus ??? GERD (gastroesophageal reflux disease) ??? Hearing loss Wears hearing aids ??? IBS (irritable bowel syndrome) ??? Seasonal allergies ??? Sleep apnea 2012 using CPAP Past Surgical History: Procedure Laterality Date ??? ANKLE SURGERY Left ??? CHOLECYSTECTOMY, LAPAROSCOPIC 2011 ??? ELBOW SURGERY Left fracture ??? STAPEDES SURGERY Social History Socioeconomic History ??? Marital status: Spouse name: Not on file ??? Number of children: Not on file ??? Years of education: Not on file ??? Highest education level: Not on file Occupational History ??? Not on file Social Needs ??? Financial resource strain: Not on file ??? Food insecurity Worry: Not on file Inability: Not on file ??? Transportation needs Medical: Not on file Non-medical: Not on file Tobacco Use ??? Smoking status: Current Every Day Smoker Packs/day: 1.00 Years: 37.00 Pack years: 37.00 Types: Cigarettes ??? Smokeless tobacco: Never Used Substance and Sexual Activity ??? Alcohol use: Not Currently ??? Drug use: Not Currently ??? Sexual activity: Not Currently Partners: Male Lifestyle ??? Physical activity Days per week: Not on file Minutes per session: Not on file ??? Stress: Not on file Relationships ??? Social connections Talks on phone: Not on file Gets together: Not on file Attends voodoo service: Not on file Active member of club or organization: Not on file Attends meetings of clubs or organizations: Not on file Relationship status: Not on file ??? Intimate partner violence Fear of current or ex partner: Not [...] Neg Hx ??? Pancreatic Cancer Neg Hx Allergies Allergen Reactions ??? Bactrim [Sulfamethoxazole-Trimethoprim] Stomach pain ??? Sulfa (Sulfonamide Antibiotics) CIS - STOMACH PAIN Outpatient Medications Marked as Taking for the 03/12/20 encounter (Office Visit) with Janae Rizvi APRN Medication Sig Dispense Refill ??? atorvastatin (Lipitor) 10 mg Tablet TAKE [...] every 4 hours as needed for Congestion. Blood pressure 132/67, pulse 94, temperature 36.2 ??C (97.2 ??F), temperature source Temporal, resp. rate 16, height 144.8 cm (4' 9), weight 80.7 kg (178 lb), SpO2 94 %. A data warehouse manager is present for the examination. EXAM: General: alert/oriented x 3, NAD, cooperative ENT: No lymphadenopathy, pharynx clear, normaldentition Neck: No lymphadenopathy, no thyromegaly Chest: hyperresonant but clear bilaterally COR: 80 regular without murmur Abdomen: obese, soft, nontender Pelvic: neg cough stress test: Simple CMG: The urethral meatus is thoroughly cleansed with Betadine and a lubricated red rubber catheter is gently placed into the bladder, draining 200 mL. Using a Romeo syringe, sterile water is instilled by gravity through the catheter in 50 mL aliquots. First sensation is at 100 mL Desire is at 300 mL Capacity is at 300 mL Detrusor activity is not observed Full cough stress test is neg Rectal: deferred to operating room. Extremities: no calf tenderness, no swelling Opioid Risk Tool Female Male 1. Family history of Substance Abuse Alcohol [] 1 [] 3 Illegal Drugs [] 2 [] 3 Prescription Drugs [] 4 [] 4 2. Personal History of Substance Abuse Alcohol [] 3 [] 3 Illegal Drugs [] 4 [] 4 Prescription Drugs [] 5 [] 5 3. Age (sam box if 16-45) [] 1 [] 1 4. History of Preadolescent Sexual Abuse [] 3 [] 0 5. Psychological Disease Attention Deficit Disorder, Obsessive Compulsive D/o, Bipolar, Schizophrenia [] 2 [] 2 Depression [x] 1 [] 1 TOTAL: 1 Opioid Risk Category: low The patient has signed the opioid consent in anticipation of requiring opioid pain medications following their surgery. IMPRESSION: Tracy Harmon is a 54 y.o. woman with fecal and urinary incontinence who desires surgical repair. PLAN: ??? We will proceed with the above procedures on 03-23-20. ??? Anesthesia preference: per anesthesia and patient. ??? Pre- and post-op patient education sheets are printed, personalized, and reviewed with her in detail during this visit. ??? (x) Medications and herbal preparations reviewed Discussed: (x) Discontinuation of all herbal preparations, vitamin E 7-10 days preop (x) ASA, NSAIDS, d/c now (x) Hormones: Na Per Dr. Hill: Fleets enema the night before and again morning of surgery before coming to hospital. ?? (x) Discontinue Solid foods at midnight ?? (x) Clear liquids (water, apple juice, renetta elvira, or black coffee) may be consumed until 2 hours prior to scheduled procedure. PROCEDURE CONSENT: ?? (x) Already reviewed with patient and signed by Dr. Hill on 02-26-20. As part of the consent for surgery, we reviewed that there are health care personnel who are trainees at [facility] which includes medical students, resident physicians, and fellows. As a part of the start of any surgery, a pelvic exam is usually performed by the attending physician, which then may be repeated by the trainee with supervision. The patient does give her permission for a trainee to perform an exam under anesthesia. Janae Rizvi APRN Division of Female Pelvic Medicine and Reconstructive Surgery documented in this encounter Plan of Treatment Upcoming Encounters Date Type Department Care Team (Late st Contact Info) Description 05/01/2024 1:00 PM EST TH Visit (TeleHealth) Obstetrics [place] [address] Raymon Hill MD [facility] DR OBSTETRICS [place] [address] documented as of this encounter Visit Diagnoses Diagnosis Mixed stress and urge urinary incontinence Mixed incontinence urge and stress (male)(female) Incontinence of feces with fecal urgency Current every day smoker Tobacco use disorder documented in this encounter Care Teams Truck Hopper Relationship Specialty Start Date End Date Bradley Judd DO [address] [place] [address] PCP - General Family Medicine 10/28/18 documented as of this encounter
--- OUTSIDE RECORDS SUMMARY | 2024-02-09 23:16 | XMS_ITS | Encounter Summary ---
Author Organization [facility] [place] [address] Care Team Providers Care Dry Kiln Operator Helper Name Role Phone Bradley Judd DO Primary Care Provider [phone]- [phone] Reason for Visit * Auth/Cert Specialty Diagnoses / Procedures Referred By Madeleine candelaria Referred To Contact Diagnoses fecal incontinence, deficient sphincter; stress urinary incontinence Procedures PRO REPAIR OF ANAL SPHINCTER, ADULT PRO SLING OPER STRES INCONTINENCE SPHINCTEROPLASTY, ANAL, ADULT (WRVU 12.15) URETHRAL SUSPENSION, SLING\FASCIA OR SYNTHETIC (WRVU 12.13) Referral ID Status Reason Start Date Expiration Date Visits Re quested Visits Authorized [id number] 1 1 Encounter Details Date Type Department Care Team (Late st Contact Info) Description 03/23/2020 10:58 AM EDT - 03/23/2020 1:56 PM EDT Surgery [place] [address] Helio Arguello MD [facility] OBSTETRICS [place] [address] SPHINCTEROPLASTY, ANAL, ADULT (WRVU 12.15) Social History Tobacco Use Types Packs/Day Years [...] Sign Reading Time Taken Comments Blood Pressure 113/59 03/23/2020 1:45 PM EDT Pulse - - Temperature 36.4 ??C (97.5 ??F) 03/23/2020 1:30 PM ED T Respiratory Rate 18 03/23/2020 1:45 PM EDT Oxygen Saturation 100% 03/23/2020 1:45 PM EDT Inhaled Oxygen Concentration - - [...] Janae Rizvi APRN Obstetrics and Gynecology at [facility] Arrive at: Landscape Architect And Planner Area [phone] 05/05/2020 4:30 PM Helio Arguello MD Obstetrics and Gynecology at [facility] Arrive at: Landscape Architect And Planner Area Patient Discharge Instructions: Special Physician Instructions: If you are still needing a catheter to drain your bladder, please follow the instructions given to you separately for when to use the catheter and how to care for it. In addition, please call to check in with the urogynecology office nurse at [phone] to review how your bladder is working and when the catheter use can be discontinued. For problems, concerns related to this hospitalization or you need to change your appointment call: [facility] daytime: [phone] weekdays [place]: [phone] [facility]: [phone] For emergencies during nights and weekends: [phone] Call your doctor if you develop: --A [...] MD - 03/23/2020 10:25 AM EDT Inpatient ORIENTOR - Admission Interval Note I have reviewed [...] and opioids for pain control. Preferred pharmacy: [facility] in [place]. A copy of this document will be sent to the patient's Primary Care Physician and/or Referring Physician. Suintha Turner MD 03/23/2020 I met with Ms. [...] - 03/23/2020 2:06 PM EDTSummary: Sphincteroplasty, TOMUS [facility] Operative Note Patient Name: Tracy Harmon : [id number] MR#: [id number] Case Date: 03/23/2020 Surgeon: Surgeon(s) and Role: [...] Operative Note Patient Name: Tracy Harmon : [id number] MR#: [id number] Case Date: 03/23/2020 Surgeon: Surgeon(s) and Role: [...] TH Visit (TeleHealth) Obstetrics [place] [address] Helio Arguello MD [facility] DR OBSTETRICS [place] [address] documented as of this encounter Procedures Procedure Name Priority Date/Time Associated Diagnosis Comments Sling Oper Stres Incontinence (05530) 03/23/2020 11:30 AM EDT Mixed stress and urge urinary incontinence Incontinence of feces with fecal urgency Repair Of Anal Sphincter, Adult (84417) 03/23/2020 11:30 AM EDT Mixed stress and [...] Glucose, POC 126 65 - 199 mg/dL [facility] Comment: Supplemental ranges: <140 mg/dL before meals <180 mg/dL all other times of the day Blood specimen (specimen) 03/23/2020 9:55 AM EDT 03/23/2020 9:55 AM EDT Helio Arguello MD POINT OF CARE TEST O RDERABLES [facility] [place] [address] * SCAN DOC: IMPLANTABLE DEVICES (03/23/2020 12:00 [...] (male)(female) Incontinence of feces with fecal urgency Mixed [...] Given 03/23/2020 10:06 AM EDT 1,000 mg BUpivacaine (PF) (MARCAINE) 0.25 % (2.5 mg/mL) injection ONCE PRN, Starting on 03/23/20 at 1308, Until 03/23/20 at 1709, Intra-Operative (Intra-Procedure), Routine Given 03/23/2020 1:08 PM EDT 10 mLs 19- Surgical Site fentaNYL 50 mcg/mL multi-dose injection 12.5-25 mcg, Intravenous, EVERY 5 MIN PRN, Starting on 03/23/20 at 1154, Until e 03/23/20 at 1709, Pain, Give 12.5 mcg [...] 15 mg, Intravenous, ONCE, 1 dose, On Sun03/23/20 at 1400, Routine Given 03/23/2020 1:56 PM EDT 15 mg lactated ringers infusion 1,000 mL, at 100 mL/hr, Intravenous, CONTINUOUS, Starting on Sun03/23/20 at 1015, Until Sun03/23/20 at 1459, Day of Surgery (Day of Procedure) New Bag 03/23/2020 10:10 AM EDT 1,000 mLs 100 mL/hr lidocaine-EPINEPHrine 1 %-1:100,000 injection ONCE PRN, Starting on e 03/23/20 at 1308, Until Sun03/23/20 at 1709, Intra-Operative (Intra-Procedure), Routine Given 03/23/2020 1:08 PM EDT 15 mLs 19- Surgical Site documented in this encounter Active and Recently [...] Sun03/23/20 at 1015, Administer over 30 Minutes, Electrical Assembly Technician to OR Infuse over 30 minutes., Day of Surgery (Day of Procedure), Indication for (Active or Suspected): Prophylaxis 1146 (Given - Provid er: Allen Cruz) ketorolac (TORADOL) injection 15 mg (COMPLETED) 15 mg, Intravenous, ONCE, 1 dose, On Sun03/23/20 at 1400, Routine 1356 (Given - Provid er: Augusta Sterling RN) metroNIDAZOLE (Flagyl) 500 mg in sodium chloride 0.9% 100 mL infusion (COMPLETED)(Linked Group 1) 500 mg, Intravenous, ONCE, 1 dose, On Sun03/23/20 at 1015, Administer over 30 Minutes, Electrical Assembly Technician to OR Infuse over 30 minutes., Day [...] PRN, Starting on Sun03/23/20 at 1323, Until Sun03/23/20 at 1709, Pain, If multiple pain medications ordered, use acetaminophen first., Routine BUpivacaine (PF) (MARCAINE) 0.25 % (2.5 mg/mL) injection (CANCELED) ONCE PRN, Starting on Sun03/23/20 at 1308, Until Sun03/23/20 at 1709, Intra-Operative (Intra-Procedure), Routine 1308 (Given - Provid er: Sunitha Turner) fentaNYL 50 mcg/mL multi-dose injection 12.5-25 mcg, Intravenous, EVERY 5 MIN PRN, Starting on Sun03/23/20 at 1154, Until Sun03/23/20 at 1709, Pain, Give 12.5 mcg every [...] Sun03/23/20 at 1015, Administer over 30 Minutes, Electrical Assembly Technician to OR Infuse over 30 minutes., Day of Surgery (Day of Procedure), Indication for (Active or Suspected): Prophylaxis And metroNIDAZOLE (Flagyl) 500 mg in sodium chloride 0.9% 100 mL infusion (COMPLETED)Jump to med 500 mg, Intravenous, ONCE, 1 dose, On Sun03/23/20 at 1015, Administer over 30 Minutes, Electrical Assembly Technician to OR Infuse over 30 minutes., Day of Surgery (Day of Procedure), Indication for (Active or Suspected): Prophylaxis documented in this encounter Care Teams Dry Kiln Operator Helper Relationship Specialty Start Date End Date Bradley Judd DO [address] [place] [address] PCP - General Family Medicine 10/28/18 documented as of this encounter
--- OUTSIDE RECORDS SUMMARY | 2024-02-09 23:16 | XMS_ITS | Encounter Summary ---
Author Organization [facility] Address [address] [place] [address] Care Team Providers Care Steam Meter Reader Name Role Phone Ronan Renner DO Primary Care Provider [phone] Encounter Details Date Type Department Care Team (Latest Contact Info) Description 11/29/2016 13:47 EDT - 11/29/2016 23:59 EDT Hospital Encounter [address] [address] Unknown, Provider, Discharge Disposition: Home or Self Care Social History Tobacco Use Types Packs/Day Years Used Date Smoking Tobacco: Never Assessed Sex and Gender Information Value Date Recorded Sex Assigned at Not on file Gender Identity Not on file Sexual Orientation Not on file documented as of this encounter Discharge Disposition Disposition Code Departure Means Destination Home or Self [facility] documented in this encounter Plan of Treatment Not on file documented as of this encounter Visit Diagnoses Not on filedocumented in this encounter Care Teams Steam Meter Reader Relationship Specialty Start Date End Date Ronan Renner DO [address] [place] [address] PCP - General 09/20/11 documented as of this encounter
--- OUTSIDE RECORDS SUMMARY | 2024-02-09 23:16 | XMS_ITS | Encounter Summary ---
Author Organization [facility] [place] [address] Care Team Providers Care Group Burner Machine Name Role Phone Dutch Bradley Jeffery WU Primary Care Provider [phone] Encounter Details Date Type Department Care Team (Late st Contact Info) Description 10/30/2018 Telephone [place] [phone] Feli Simon, KULDEEP Social History Tobacco Use Types Packs/Day Years [...] encounter Miscellaneous Notes * Telephone Encounter - Feli Simon RN - 10/30/2018 5:04 PM EDT Images from the original note were not included. Call made to patient to discuss below. Patient would like to proceed with Katty, prescription will be sent to the [facility] in [place], [place] Patient verbalized understanding and agrees with plan. Ayse Bryant, RN sent to Roddy Reyna Gastro Motility Nurse ?? wanted this forwarded to you. Thank-you! Clarice Bryant RN Previous Messages ----- Message ----- From: William Miranda MD Sent: 10/30/2018 ?? 3:00 PM To: Raymon Hill MD, Ayse Bryant RN i'll take care of it -- GI pool player - if the patient absolutely requests a bowel prep for this, we can definitely do so but it's usually a bit much! If she really prefers, please send a 4L golytely for her to do before her procedure, with one 12 oz cup every 15 minutes starting at 6pm until the bottle is empty (not split dose) as tolerated. Usual anorectal manometry instructions otherwise. ----- Message ----- From: Raymon Hill MD Sent: 10/30/2018 ?? 1:19 PM To: Ayse Bryant RN, William Miranda MD That is up to Dr. Miranda. ??I don't know what kind of prep they usually do. I am cc'ing him. Raymon ----- Message ----- From: Ayse Bryant, KULDEEP Sent: 10/30/2018 ??12:46 PM To: Raymon Hill MD Gastro called, pt is to have a anal rectal manometry on Sunday, pt told scheduling person she couldnot hold doing 2 enemas and wants something by mouth to empty bowel. Gastro is calling to ask what to give her? Navarro documented in this encounter Plan of Treatment Upcoming Encounters Date Type Department Care Team (Late st Contact Info) Description 05/01/2024 1:00 PM EST TH Visit (TeleHealth) Obstetrics [place] [address] Raymon Hill MD [facility] OBSTETRICS [place] [address] documented as of this encounter Visit Diagnoses Not on filedocumented in this encounter Care Teams Group Burner Machine Relationship Specialty Start Date End Date Bradley Judd DO [address] [place] [address] PCP - General Family Medicine 10/28/18 documented as of this encounter
--- OUTSIDE RECORDS SUMMARY | 2024-02-09 23:16 | XMS_ITS | Encounter Summary ---
Author Organization [facility] Address [address] [place] [address] Care Team Providers Care Associate Agent Insurance Sales Name Role Phone Ronan Renner DO Primary Care Provider [phone] Encounter Details Date Type Department Care Team (Late st Contact Info) Description 06/05/2018 Results Only [facility] [phone] Burton Dunlap MD [address] [place] [address] [id number] Social History Tobacco Use Types Packs/Day Years Used Date Smoking Tobacco: Never Assessed Sex and Gender Information Value Date Recorded Sex Assigned at Not on file Gender Identity Not on file Sexual Orientation Not on file documented as of this encounter Plan of Treatment Not on file documented as of this encounter Procedures Procedure Name Priority Date/Time Associated Diagnosis Comments SURGICAL PATHOLOGY Routine 06/05/2018 21 :27 EST documented in this encounter Results * SURGICAL PATHOLOGY (06/05/2018 21:27 EST) Pathology Report: SURGICAL PATHOLOGY REPORT Reports generated via electronic interface contain original data; however they are lacking the format of the original report. Caution should be taken when reading/interpret ing unformatted reports. Name: ? SOFIE HARMON ? Accession #: ? [id number] ? : ? 1965 (Age: 52) ??F ? Collect Date: ? 06/05/2018 ? Location: ? [facility] ? Receive Date: ? 06/05/2018 ? Provider: BURTON DUNLAP MD Copy to: EFRAÍN CARDENAS DO ? Final Pathologic Diagnosis: SKIN OF NASAL WALL, LEFT, RE-EXCISION: - Epidermal ulceration and granulation tissue with foreign body giant cell reaction, consistent with previous excision. - No residual basal cell carcinoma identified. Microscopic Description: Sections consist of an excision of skin that is partially fragmented. There is central ulceration with underlying granulation tissue and foreign body giant cell reaction. The epidermis shows reactive changes with areas of hyperplasia. (Dr. Lazaro)/j Document reviewed and electronically signed by: POLI LAZARO MD Report ??Date: 2018 17:03 By the signature above, the attending physician certifies that he/she has personally conducted a gross and/or microscopic examination of the described specimens and rendered or confirmed the above diagnosis. Specimen(s) Received: Re-excision left nasal wall Clinical History: Skin lesion of face, basal cell Ca, smoker; fax results to [phone]; clinical diagnosis code: ??L98.9 Gross Description: ? Received in formalin labelled with proper patient identification (initials H, K) and left nasal wall is an ovoid slightly irregular simons and simons-white piece of skin (0.6 x 0.5 cm x 0.2 cm in thickness). There is also a separate triangular light simons piece of skin (0.5 x 0.2 cm x 0.2 cm in thickness). The margins of both pieces of tissue are inked blue. The specimen is in entirely submitted as follows: BLOCK BRITT 1- ??largest piece, one central section 2- ??largest piece, two ends reverse en face 3- ??smallest piece, bisected BAMBI Dale (ASCP) 2018 8:22 AM End of Report [facility] 06/05/2018 21:2 7 EST 06/05/2018 21:27 EST Burton Dunlap MD PATHOLOGY ORDERABLES [facility] [address] [place] [address] documented in this encounter Visit Diagnoses Not on filedocumented in this encounter Care Teams Associate Agent Insurance Sales Relationship Specialty Start Date End Date Ronan Renner DO [address] [place] [address] PCP - General 09/20/11 documented as of this encounter
--- OUTSIDE RECORDS SUMMARY | 2024-02-09 23:16 | XMS_ITS | Encounter Summary ---
Author Organization [facility] Address [address] [place] [address] Care Team Providers Care Surgery Assistant Name Role Phone Ronan Renner DO Primary Care Provider [phone] Encounter Details Date Type Department Care Team (Latest Contact Info) Description 06/05/2018 14:27 EST - 06/05/2018 23:59 EST Hospital Encounter [address] [address] Unknown, Provider, Discharge Disposition: Home or Self Care Social History Tobacco Use Types Packs/Day Years Used Date Smoking Tobacco: Never Assessed Sex and Gender Information Value Date Recorded Sex Assigned at Not on file Gender Identity Not on file Sexual Orientation Not on file documented as of this encounter Discharge Disposition Disposition Code Departure Means Destination Home or Self Nursing Home documented in this encounter Plan of Treatment Not on file documented as of this encounter Visit Diagnoses Not on filedocumented in this encounter Care Teams Surgery Assistant Relationship Specialty Start Date End Date Ronan Renner DO [address] [place] [address] PCP - General 09/20/11 documented as of this encounter
--- OUTSIDE RECORDS SUMMARY | 2024-02-09 23:16 | XMS_ITS | Encounter Summary ---
Author Organization [facility] [place] [address] Care Team Providers Care Sheet Tailer Name Role Phone Bradley Judd DO Primary Care Provider [phone]- [phone] Reason for Visit * Reason Comments Nicotine Dependence * Consultation (Routine) - Closed Specialty Diagnoses / Procedures Referred By Madeleine candelaria Referred To Contact Thoracic Surgery Diagnoses Current every day smoker Sunitha Turner MD [facility] OBSTETRICS & [place] [address] [facility] [address] [place] [phone] Referral ID Status Reason Start Date Expiration Date V isits Requested Visits Authorized [id number] Closed Consult, Test & Treat 10/17/2018 10/17/2019 1 1 Encounter Details Date Type Department Care Team (Late st Contact Info) Description 10/28/2018 12:00 PM EDT Office [place] [address] Barbi Moncada APRN [facility] CARDIOTHORACIC [place] [address] Nicotine dependence, cigarettes, uncomplicated; Tobacco abuse counseling Social History Tobacco Use Types Packs/Day Years [...] Sign Reading Time Taken Comments Blood Pressure 147/87 10/28/2018 11:55 AM EDT Pulse 101 10/28/2018 11:55 AM EDT Temperature 36.5 ??C (97.7 ??F) 10/28/2018 11:55 AM E DT Respiratory Rate 18 10/28/2018 11:55 AM EDT Oxygen Saturation 97% 10/28/2018 11:55 AM EDT Inhaled Oxygen Concentration - - Weight 76.7 kg (169 lb 3.2 oz) 10/28/2018 11:55 AM EDT Height 147 cm (4' 9.87) 10/28/2018 11:55 AM EDT Body Mass Index 35.52 10/28/2018 11:55 AM EDT documented in this encounter Patient Instructions * Patient Instructions* Barbi Moncada APRN - 10/28/2018 12:00 PM EDT Tobacco Treatment: Varenicline / Chantix The active ingredient in Varenicline/Chantix works in two ways. It cuts the pleasure of smoking andalso reduces the withdrawal symptoms. Start taking this medication one week before your quit date. It comes in a dose pack. The first week pack contains white pills that are 0.5 mg tablets. Take 0.5 mg once a day for 3 days then increase to 0.5 mg twice a day for 4 days. Then increase to 1 mg (bluetablets) twice a day for 3 months. This medication should be taken in the middle of your largest meal(s) with a full glass of water. DO NOT TAKE ON AN EMPTY STOMACH. One course of Varenicline/Chantixis 3 months, two courses is 6 months. Taking Varenicline/Chantix for 2 courses, or 6 months, may significantly increase your chances of quitting tobacco successfully for good! The most common side effect is nausea and this can be reduced by taking as directed above. You may also experience difficulty sleeping or abnormal/vivid or strange dreams. This may be reduced by taking the medication earlier in the day. Be sure to take with enough food to avoid nausea. References: Treating Tobacco Use and Dependence, Clinical Practice Guideline 2008 Update, U.S. Department of Health and Human Services, October 2007 U.S. Food and Drug Administration Recommendations, revised directions for use of Nicotine Replacement Therapy , September 17, 2012: https://www.federalregister.gov/articles//2013-24082/modifications-to- bcycwcea-tq-xhtrrgip-fxitqbfksnh-nrexzwz-ksceuwpl-fjo-xrxv-gkr-omhtpzw-tzrbp-qpz documented in this encounter Progress Notes * Barbi Moncada APRN - 10/28/2018 12:00 PM EDT Thoracic Surgery - Tobacco Cessation Consultation Barbi Moncada APRN [place] [address] FAX: HPI: Tracy Harmon is a 53 y.o. female who is being seen today for tobacco cessation. Type of tobacco used: () Smokeless tobacco () e-cigarette (x)Cigarettes Brand currently smoking: Roll your own (cigarette tobacco) Current amount: 1.25 ppd Age initiated: 16 yrs Years smoked: 37 Most/least smoked: 1 ppd (average) Previous quit attempts and methods: attempted to wean down x3, has tried no medications Are there other smokers in the home: yes, significant other Are there children in the home: No but 1 dog and 4 birds What will be different this time: I want to Positive aspects of smoking: Nothing Negative aspects of smoking: smell, clothes smell, bad habit Reasons for quitting: health Concerns about quitting: weight gain Concerns about weight gain: yes Triggers for smoking: after meals, first thing in the morning Ready to set a quit date: yes, 11/05/18 Readiness: - Importance scale: 7 (something that I am trying to stick in my brain) - Confidence scale: 6 Support systems include: sisters, mother (94 who lives with her), therapist She denies f/c/n/v/SOB/CP. Medications: Current Outpatient Medications on File Prior to Visit Medication Sig Dispense Refill ??? cyanocobalamin, vitamin B-12, 1,000 mcg Tablet [...] Take 1 tablet by mouth daily. ??? RANITIDINE HCL (ZANTAC ORAL) Take by mouth daily. ??? diphenhydrAMINE (BENADRYL) 50 mg Capsule Take 50 mg by mouth every 6 hours as needed for Itching. ??? pseudoephedrine (SUDAFED) 30 mg Tablet Take 30 mg by mouth every 4 hours as needed for Congestion. No current facility-administered medications on file prior to visit. Allergies: Allergies Allergen Reactions ??? Bactrim [Sulfamethoxazole-Trimethoprim] Stomach pain ??? Sulfa (Sulfonamide Antibiotics) CIS - STOMACH PAIN Past Medical History: Patient Active Problem List Diagnosis Date Noted ??? Diabetes mellitus ??? Fecal incontinence 02/15/2015 ??? Mixed stress and urge urinary incontinence 02/15/2015 ??? GERD (gastroesophageal reflux disease) ??? IBS (irritable bowel syndrome) ??? Hearing loss ??? Seasonal allergies ??? Sleep apnea Past Medical History: Diagnosis Date ??? Diabetes mellitus ??? GERD (gastroesophageal reflux disease) ??? Hearing loss Wears hearing aids ??? IBS (irritable bowel syndrome) ??? Seasonal allergies ??? Sleep apnea 2011 using CPAP Past Surgical History: Past Surgical History: Procedure Laterality Date ??? ANKLE SURGERY Left ??? CHOLECYSTECTOMY, LAPAROSCOPIC 2011 ??? ELBOW SURGERY Left fracture ??? STAPEDES SURGERY Social History: Social History Socioeconomic History ??? Marital status: [...] file Gets together: Not on file Attends episcopal service: Not on file Active member of [...] her , Azam, and with her mother. REVIEW OF SYSTEMS: General: Positive for fatigue, Denies weight loss, chills, night sweats Neuro: Denies current seizure disorder or history of seizures, tremor, paresthesias Psychiatric: Positive for anxiety, depression, Denies thoughts of suicide in the past, PTSD, substance abuse, previous hallucinations, history of eating disorders, other psychiatric diagnoses Cardiovascular: Denies arrythmias, chest pain, palpitations Respiratory: Positive for cough, post-nasal drip, Denies dyspnea, wheezing, stridor, hemoptysis, recent respiratory infection GI: Denies nausea, vomiting, diarrhea, constipation, abdominal pain, changes in bowel habits or appetite : Denies urgency, frequency, dysuria, polyuria, denies CKD Hematologic: Denies history of DVT, PE, petechiae Endocrine: Positive for diabetes mellitus, Denies thyroid disease, other endocrine disorder. Musculoskeletal: Denies fractures, arthritis Integument: Denies skin cancer, rash, new or changing skin lesions Physical Exam: BP 147/87 (Patient Position: Sitting) Pulse (!) 101 Temp 36.5 ??C (97.7 ??F) (Oral) Resp 18 Ht 147 cm (4' 9.87) Wt 76.7 kg (169 lb 3.2 oz) SpO2 97% BMI 35.52 kg/m?? General Appearance: Alert, cooperative, no distress, appears stated age Nk: Supple, symmetrical, trachea midline Lungs: Non-labored breathing on RA Heart: Appears well perfused Extremities: Extremities normal, atraumatic, no cyanosis or edema Assessment: NICOTINE DEPENDENCE ? 0 Points 1Points 2 Points 3 Points Score 1.How soon after you wake do you smoke your first cigarette? After 60 minutes 31-60 minutes minutes 6-30 minutes Within 5 minutes 2 2. Do you find it difficult to refrain from smoking in places where it is forbidden ex nondenominational No Yes ? 0 3. Which cigarette would you hate to give up ? All others The first one in the morning ? 0 4. How many cigarette do you smoke a day ? 10 or less 11-20 21-30 30 or more 2 Do you smoke more frequently during the first hour after waking than the rest of the day? No Yes ? 0 6. Do you smoke if you are so ill that you are in bed all day ? No Yes ? 0 ?? Fagerstrom Score: 4 ?? Classification: ?? 0-2 Very low 3-4 Low 5 Moderate 6-7 High 8-10 Very high Tracy Harmon is a 53 y.o. female seen today for smoking cessation counseling. She is currently smoking 1.25 ppd and does wish to quit at this time. I reviewed the physiology of addiction as well as apparent health risks specific for her. I discussed the options for treatment including NRT, Zyban and Chantix. I reviewed possible side effects of therapy. I stressed that medication alone is not optimum but used in conjunction with behavioral counseling will add to success for cessation. Behavioral counseling in addition to pharmacotherapy recommendations were given. Behavioral counseling includes deep breathing, drinking water, delaying, walking, healthy snacking, cleaning the house, goingto doctor's appointments, cleaning her car, and implementing a no smoking policy in her car. The patient has opted for starting Chantix. Stage of Change: Precontemplation: Contemplation: Preparation: X Action: Maintenance: CO level: 47 ppm A Tobacco Treatment packet was given and reviewed with the patient which included the 4D's, Set Yourself Free, When Smokers Quit, the Lung Cancer Screening Information Toolkit, and local resources. 60 minutes were spent with this patient in counseling for tobacco cessation. Plan: Quit Date: 1. Start Chantix, prescription sent to pharmacy, discussed side effects and how to start medication, she voiced understanding 2. Discussed behavioral change including deep breathing, drinking water, delaying, walking, healthysnacking, cleaning the house, going to doctor's appointments, cleaning her car, and implementing a no smoking policy in her car 3. 30 minutes of exercise daily 4. Call with any questions or concerns 5. Follow up in 1 week (November 06) over the phone Barbi Moncada APRN 10/28/18 Thoracic Surgery - Tobacco Cessation [facility] documented in this encounter Plan of Treatment Upcoming Encounters Date Type Department Care Team (Late st Contact Info) Description 05/01/2024 1:00 PM EST TH Visit (TeleHealth) Obstetrics [place] [address] Raymon Hill MD [facility] OBSTETRICS [place] [address] documented as of this encounter Visit Diagnoses Diagnosis Nicotine dependence, cigarettes, uncomplicated Tobacco abuse counseling Counseling on substance use and abuse documented in this encounter Care Teams Sheet Tailer Relationship Specialty Start Date End Date Bradley Judd DO [address] [place] [id number] PCP - General Family Medicine 10/28/18 documented as of this encounter
--- OUTSIDE RECORDS SUMMARY | 2024-02-09 23:16 | XMS_ITS | Encounter Summary ---
Author Organization [facility] [place] [address] Care Team Providers Care Manager Pharmaceutical Name Role Phone Rebeca Judd MD Primary Care Provider [phone]- [phone] Reason for Visit * Reason Comments Encopresis Encounter Details Date Type Department Care Team (Late st Contact Info) Description 02/15/2015 8:15 AM EDT Office Visit Obstetrics [place] [address] Raymon Hill MD [facility] OBSTETRICS [place] [address] Fecal incontinence; Mixed stress and urge urinary incontinence Discharge Disposition: Home Social History Tobacco Use [...] Sign Reading Time Taken Comments Blood Pressure 144/90 02/15/2015 8:48 AM EDT Pulse 72 02/15/2015 8:48 AM EDT Temperature - - Respiratory Rate - - Oxygen Saturation - - Inhaled Oxygen Concentration - - Weight 77.1 kg (170 lb) 02/15/2015 8:48 AM EDT Height 146.7 cm (4' 9.75) 02/15/2015 8:48 AM ED T Body Mass Index 35.84 02/15/2015 8:48 AM EDT documented in this encounter Patient Instructions * Patient Instructions* Raymon Hill MD - 02/15/2015 10:07 AM EDT Take fiber at night. Try taking imodium, 1/2 tablet after your first daily BM, to increase resting (internal) anal sphincter tone and decrease peristalsis. documented in this encounter Progress Notes * Raymon Hill MD - 02/15/2015 9:23 AM EDT Female Pelvic Medicine and Reconstructive Surgery @ [facility] Patient Name: Tracy Harmon Patient Primary Care Provider: REBECA JUDD MD (General) Patient Active Problem List Diagnosis Code ??? GERD (gastroesophageal reflux disease) 530.81 ??? IBS (irritable bowel syndrome) 564.1 ??? Hearing loss 389.9 ??? Seasonal allergies 477.9 ??? Sleep apnea 780.57 ??? Fecal incontinence 787.60 ??? Mixed stress and urge urinary incontinence 788.33 Chief Complaint: Fecal incontinence, urinary incontinence History of Present Illness: Ms. Harmon is a 49 y.o. old para 2 woman, seen at the kind request of Zee Arenas PA-C. She presents for evaluation and assessment of fecal incontinence of 18 years duration. Recently, she has also had increasing urinary incontinence. Her home service advisor is Dr. Rossi. Past Ob History: , largest 5# 1 3/4 oz. She had a fourth degree tear. Goals for this visit 1. Decrease accidental bowel leakage. 2. Decrease urinary leakage Urinary tract history Patient denies any recent history of recurrent urinary tract infection. She used to get them but has not had any for years. Patient denies history of pyelonephritis. Patient denies history of urinary tract abnormality. Patient has had history of nephrolithiasis. Patient denies history of hematuria. Bladder irritants: Fluid intake:usually water Caffeine intake: 1 cup of coffee in AM, one in PM Cigarette smoking (packs, time, if quit when): 1 ppd Alcohol: none Bladder Function Urinary incontinence: yes No. episodes: With coughing, sneezing. Pad use (per day): 1 (more for bowels) Pad type: Depends Daytime voids: Every 2 hours Nocturia: no Previous urinary incontinence treatment (Medical/Behavioral/Surgical): no Storage symptoms Urinary frequency Nocturia x Stress urinary incontinence - leakage with exertion, cough/sneeze rare Urge urinary incontinence - leakage preceded immediately by urge to void Noctural enuresis - NOT IN ASSOCIATION WITH URGE Continuous urinary leakage Other: (e,g. giggle, intercourse-related) Bladder sensation Normal - aware of filling and increased sensation up to desire to void x Increased - feels an early and persistent need to void Reduced - aware of filling but NOT definite desire to void Absent - NO sensation of filling or need to void Non-specific - No specific bladder symptoms during filling or void Voiding symptoms x None Slow stream Spraying Intermittent stream - stop/start on > 1 occasion during void Straining - muscular effort to initiate, maintain OR improve stream Terminal dribble - prolonged final part of void Feeling of incomplete emptying Pelvic Organ Prolapse (POP) Any personally see or feel a vaginal bulge? no What precipitates prolapse or symptoms of prolapse? n/a Previous treatment for POP (physical therapy, pessary, surgery)?: denies Bowel Function Fecal incontinence (yes/no): yes Number of fecal incontinent episodes (day/week): Every few days Number of bowel movements (day/week): Normal in AM, several more throughout the day. Defecatory Dysfunction: Symptom Presence Symptom Presence NONE Incomplete Emptying x Straining rare Infrequent stools (<3 week) Splinting Abdominal discomfort x Loose stools x Defecatory urgency x Hard stools x Other Sexual Function Active?: yes Pain with intercourse?: n/a If yes, insertional/Deep? N/a Desire to retain sexual function? n/a Past Medical History Diagnosis Date ??? GERD (gastroesophageal reflux disease) ??? IBS (irritable bowel syndrome) ??? Hearing loss Wears hearing aids ??? Seasonal allergies ??? Sleep apnea 2011 Not using CPAP Past Surgical History Procedure Laterality Date ??? Cholecystectomy, laparoscopic 2011 ??? Ankle surgery Left ??? Elbow surgery Left fracture ??? Stapedes surgery Outpatient Prescriptions Marked as Taking for the 02/15/15 encounter (Office Visit) with Raymon Hill MD Medication Sig Dispense Refill ??? citalopram (CELEXA) 20 mg Tablet Take 20 mg by mouth daily. ??? multivitamin (THERAGRAN) Tablet Take 1 tablet by mouth daily. ??? RANITIDINE HCL (ZANTAC ORAL) Take by mouth daily. ??? diphenhydrAMINE (BENADRYL) 50 mg Capsule Take 50 mg by mouth every 6 hours as needed for Itching. ??? pseudoephedrine (SUDAFED) 30 mg Tablet Take 30 mg by mouth every 4 hours as needed for Congestion. Allergies Allergen Reactions ??? Sulfa (Sulfonamide Antibiotics) CIS - STOMACH PAIN History Social History ??? Marital Status: Spouse Name: N/A Number of Children: N/A ??? Years of Education: N/A Occupational History ??? Not on file. Social History Main Topics ??? Smoking status: Current Every Day Smoker -- 1.00 packs/day for 35 years Types: Cigarettes ??? Smokeless tobacco: Never Used ??? Alcohol Use: Not on file ??? Drug Use: Not on file ??? Sexual Activity: Not on file Other Topics Concern ??? 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 Diabetes Mother ??? Diabetes Sister ??? High Blood Pressure Sister ??? Stroke Mother ??? Other Sister Coliitis ??? Cerebrovascular Accident Mother Family history: denies history of gynecologic cancer ROS: Review of all other systems negative except for those mentioned above or indicated below: System Symptom Presence Constitutional Weight Loss Weight gain Lack of exercise Eyes History of glaucoma Has dry eyes ENT/Mouth Mouth sores/Dry mouth Cardiovascular Chest pain Leg swelling Respiratory Wheezing SOB GI Nausea/vomiting Abdominal pain Skin/Breast Breast masses Rash/ulcer Musculoskeletal Muscle weakness Trouble Walking Neurological Dizziness/falling When flat on back Numbness Psychiatric Depression x Anxiety Endocrine Abnormal thirst Hot flashes X; stopped menses 5 years ago Hematologic Frequent bruising Bruises easily History of blood transfusions denies Blood clots (DVT / PE) no Prior problems w/ anesthesia no Bonus Clerk: + HPV 16,18 Colonoscopy: Within last 5 years, had polyps removed. Outside medical records reviewed: I reviewed records from I reviewed scanned records from Zee Arenas PA-C. Data reviewed (images/urodynamic studies): To further delineate patient's urinary symptoms, a urinedip test and postvoid residual via bladder scanner were obtained. Results for orders placed or performed in visit on 02/15/15 POCT urine dipstick Result Value Ref Range POC Nitrite, UA Neg. Negative - Negative POC Protein, UA Neg. Negative - Negative mg/dL POC Blood, UA Neg. Negative - Negative terrence/uL Bladder Scanner Result Value Ref Range Bladder Scan (mL) 92 mL OBJECTIVE: BP 144/90 mmHg Pulse 72 Ht 146.7 cm (4' 9.75) Wt 77.111 kg (170 lb) BMI 35.83 kg/m2 General: normal appearing female, pleasant mood, normal speech Skin: skin of abdomen/pelvis normal Respiratory: clear to auscultation bilaterally Neuro: no paraspinous tenderness; saddle sensory function (S2-4) intact in the pelvic area to touch Cardiac: regular rate and rhythm, no appreciated murmurs Gastrointestinal: no palpable masses/organomegaly, soft/nontender, no appreciable hernia Musculoskeletal: levator ani tone (0-5): 3, levator ani contraction (0-5): 4, no levator tenderness; lower extremity motor 5/5 bilaterally Pelvic: Cough stress test (empty supine): negative External Genitalia: Vulva, Silver Peak's and Bartholin glands normal, urethra without tenderness or mass Vagina: With Valsalva, the anterior vaginal wall comes 2 cm above the hymen, the posterior vagina wall comes 2 cm above the hymen, and the cervix/apex comes 5 cm above the hymen Atrophic epithelium (yes/no)?: no Discharge?: no Cervix: normal Bimanual (uterus/adnexa): mobile uterus, non-tender; no masses; no adnexal masses or tenderness Rectovaginal: Scarring at the anterior skin, anterior distal rectum Enterocele: no Rectocele: no Anal sphincter: Resting tone: 4/5 Anal wink: normal External anal sphincter: thin anterior POP Q Measurements: Aa -2 Ba -2 C -5 GH 2.5, 3 PB 4,4 TVL 8 Ap -2 Bp -2 D -7 Impression: Ms. Harmon is a .49 y.o. woman with: ?? Fecal incontinence, since prior 4th degree laceration. On exam, there is evidence for anterior sphincter scarring. ?? Mixed urinary incontinence, stress predominant symptoms. Recommendations: I reviewed the anatomy and physiology of bowel control, urinary incontinence. We discussed options for management including: Continued observation, pelvic floor exercises (supervised or unsupervised), pessary and/or surgery. Based on the patients expressed goals for management I have recommended the following: Add fiber to her diet at night, with Metamucil or Citrucel. She will try taking imodium, 1/2 tablet after her first daily BM, to increase resting (internal) anal sphincter tone and decrease peristalsis. Continue pelvic floor exercises. Reassess in 2 - 3 months. If still having symptoms, consider ultrasound of the anal sphincter complex and manometry. We will hold of on further evaluation of the urinary incontinence. If she ultimately is a candidate for a sphincteroplasty, will consider a sling at the same time. (x) ACOG or other informational pamphlets given to patient RAYMON HILL MD Division of Female Pelvic Medicine/Reconstructive Surgery CC: REBECA JUDD MD (General) RAKAN Giron MD documented in this encounter Plan of Treatment Upcoming Encounters Date Type Department Care Team (Late st Contact Info) Description 05/01/2024 1:00 PM EST TH Visit (TeleHealth) Obstetrics [place] [address] Raymon Hill MD [facility] OBSTETRICS [place] [address] documented as of this encounter Procedures Procedure Name Priority Date/Time Associated Diagnosis Comments BLADDER SCANNER Routine 02/15/2015 Mixed stress and urge urinary incontinence POCT URINE DIPSTICK Routine 02/15/2015 Mixed stress and urge urinary incontinence documented in this encounter Results * Bladder Scanner (02/15/2015) Bladder Scan (mL) 92 mL Raymon Hill MD URO PROC W/O RFL ORD ERABLES * POCT urine dipstick (02/15/2015) POC Nitrite, UA Neg. Negative - Negative POC Protein, UA Neg. Negative - Negative mg/dL POC Blood, UA Neg. Negative - Negative terrence/uL Raymon Hill MD POINT OF CARE TEST O RDERABLES documented in this encounter Visit Diagnoses Diagnosis Fecal incontinence Full incontinence of feces Mixed stress and urge urinary incontinence Mixed incontinence urge and stress (male)(female) documented in this encounter Care Teams Manager Pharmaceutical Relationship Specialty Start Date End Date Rebeca Judd MD [facility] INTERNAL MEDICINE [address] [place] [address] PCP - General 05/10/10 10/27/18 documented as of this encounter
--- OUTSIDE RECORDS SUMMARY | 2024-02-09 23:16 | XMS_ITS | Encounter Summary ---
[facility] Organization [facility] [place] [address] Care Team Providers Care Medical Director Of Hospice Name Role Phone Dutch Bradley Jeffery WU Primary Care Provider [phone] Encounter Details Date Type Department Care Team (Late st Contact Info) Description 10/23/2018 Telephone [place] [address] Wendi Perea Social History Tobacco Use Types [...] encounter Miscellaneous Notes * Telephone Encounter - eWndi Perea - 10/23/2018 1:51 PM EDT ANORECTAL MANOMETRY CLINICAL SAFETY CHECKLIST 10/23/2018 [facility]on [address] [facility] [phone] [id number] : 1965 REFERRING PROVIDER: Raymon Hill PRIMARY CARE PROVIDER: Rebeca Aragon MD PRIMARY SYMPTOM (PROCEDURE INDICATION): fecal incontinence SAFETY QUESTIONS ANAL OR RECTAL SURGERY WITHIN SIX MONTHS? n *SEVERE ACTIVE* ULCERATIVE COLITIS OR CROHN'S DISEASE DETERMINED BY THE RMD? n IF YES TO ANY OF THE ABOVE PRE-PROCEDURE QUESTIONS, please inform the patient that the test cannot be scheduled due to safety concerns about testing, and the patient should speak with their provider to consider alternative testing. The manager special events should also contact the provider's office directly tonotify them that we are unable to schedule due to a contraindication to testing. Then, delete the remainder of this checklist and close out the referral. QUESTIONS FOR THE PATIENT BLOOD THINNERS SUCH PLAVIX, COUMADIN, PRADAXA? n (pt does not have to stop any blood thinners for this procedure) DOES THE PATIENT USE A WHEELCHAIR? n VERBAL PATIENT INSTRUCTIONS The written instructions are very important for the patient to review and contain specific dietary and medication instructions prior to testing. These instructions will give the patient the most accurate test result. The patient should speak with their referring provider or our office if they have any questions. APPOINTMENT NOTES TEMPLATE ARM, symptom: fecal incontinence, RMD: Raymon Hill, PCP: Rebeca Aragon MD, wheelchair: No (At exit, the RMD for appointment notes is the GI provider who saw the patient) documented in this encounter Plan of Treatment Upcoming Encounters Date Type Department Care Team (Late st Contact Info) Description 05/01/2024 1:00 PM EST TH Visit (TeleHealth) Obstetrics [place] [address] Raymon Hill MD [facility] [place] [address] documented as of this encounter Visit Diagnoses Not on filedocumented in this encounter Care Teams Medical Director Of Hospice Relationship Specialty Start Date End Date Bradley Judd DO [address] [place] [id number] PCP - General Family Medicine 10/28/18 documented as of this encounter
--- OUTSIDE RECORDS SUMMARY | 2024-02-09 23:16 | XMS_ITS | Referral Summary ---
Author Organization [facility] Address [address] [place] [address] Care Team Providers Care Brick Siding Applicator Name Role Phone Ronan Renner DO Primary Care Provider [phone] Social History Tobacco Use Types Packs/Day Years Used Date Smoking Tobacco: Never Assessed Interpersonal Safety Answer Date Record ed Physically Hurt Never 01/18/2020 Verbally Threaten Not on file 01/18/2020 Sex and Gender Information Value Date Recorded Sex Assigned at Not on file Gender Identity Not on file Sexual Orientation Not on file Plan of Treatment Not on file Care Teams Brick Siding Applicator Relationship Specialty Start Date End Date Ronan Renner DO [address] [place] [id number] PCP - General 09/20/11
--- OUTSIDE RECORDS SUMMARY | 2024-02-09 23:16 | XMS_ITS | Encounter Summary ---
Author Organization [facility] Address [address] [place] [address] Care Team Providers Care Sports Apparel Internship Name Role Phone Ronan Renner DO Primary Care Provider [phone] Encounter Details Date Type Department Care Team (Late st Contact Info) Description 05/18/2023 Lab Requisition [facility] Pathology & Laboratory Medicine - [facility] [address] [place] [address] Gildardo Logan MD [address] [place] [id number] Encounter for other general examination Social History Tobacco Use Types Packs/Day Years [...] Date/Time Associated Diagnosis Comments SURGICAL PATHOLOGY Today 05/17/2023 10 :11 EST Encounter for other general examination documented in this encounter Results * SURGICAL PATHOLOGY (05/17/2023 10:11 EST) Note to Patient The following pathology results have been interpreted by your pathologist and may be available to you before your health provider has had the opportunity to review them. Please allow time for your provider to receive these results and explore management options, if applicable. 05/21/2023 16:31 [facility] Final Diagnosis A. COLON, RANDOM BIOPSIES: - Benign colonic mucosa with no significant pathologic change. - No evidence of microscopic colitis. B. RECTOSIGMOID COLON, POLYPS, BIOPSY: - Fragments of serrated polyp(s) with features most consistent with sessile serrated adenoma(s). - Negative for cytologic dysplasia. 05/21/2023 16:31 [facility] Diagnosis Comment The technical component of the specimen processing was performed at the [facility] Pathology Department, [address] [place] [address] (CLIA [id number]). The professional component of the specimen evaluation (slide review and issuing of the final diagnosis) was performed at [facility], [address] [place] [address] (CLIA License Number [id number]). 05/21/2023 16:31 [facility] Attestation By the signature below, the attending physician certifies that they have 1) personally conducted a gross and/or microscopic examination of the described specimen(s), and/or personally interpreted the results of laboratory testing of the described specimen(s), and 2) personally rendered or confirmed the above diagnosis. 05/21/2023 16:31 [facility] at 1631 Clinical History Screening colonoscopy, hx change in bowels 05/21/2023 16:31 [facility] Gross Description A. Received in formalin labelled with proper patient identification (initials H, K) and A. Random colon biopsy are 8 simons to transparent simons tissues (0.2 x 0.1 x 0.1 cm to less than 0.1 by less than 0.1 by less than 0.1 cm). Entirely submitted in A1-A2. Please note the smaller tissues may not survive processing. B. Received in formalin labelled with proper patient identification (initials H, K) and B. Rectosigmoid polyp is an aggregate of simons to dark brown irregular and polypoid tissues (0.9 x 0.6 x 0.3 cm). The largest tissue is sectioned. Entirely submitted in B1. Aliya Carpenter 05/18/2023 9:41 05/21/2023 16:31 EST [facility] Performing Lab [facility] 05/21/2023 16:31 EST [facility] Scanned Images 05/21/2023 16:31 EST [facility] Tissue SIGMOID COLON STRUCTURE / Unknown 05/17/2023 10:11 EST 05/18/2023 8:00 EST Tissue specimen (specimen) SIGMOID COLON STRUCTURE / Unknown 05/17/2023 10:11 EST 05/18/2023 8:01 EST Gildardo Logan MD PATHOLOGY ORD ERABLES [facility] [address] [place] [address] documented in this encounter Visit Diagnoses Diagnosis Encounter for other general examination documented in this encounter Care Teams Sports Apparel Internship Relationship Specialty Start Date End Date Ronan Renner DO [address] [place] [id number] PCP - General 09/20/11 documented as of this encounter
--- NOTE | 2024-02-09 23:18 | DI.CT_ITS ---
Exam(s) CT HEAD WO EXAM: CT HEAD WO CLINICAL HISTORY: persist OLIVIA s/p head injury 1 mo ago, ? chiari malf. TECHNIQUE: Imaging Protocol: Axial computed tomography images with coronal and sagittal reformatted images were created and reviewed COMPARISON: No exams were available for comparison FINDINGS: Ventricles and Extra axial spaces: Normal in size and morphology for the patient's age. Hemorrhage: None. Cerebral parenchyma: No evidence of acute infarct or mass. Midline shift: None. Brainstem/Cerebellum: The cerebellar tonsils appear elongated extended below the foramen magnum to th e level of the C1 ring. 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 Calvarium: Normal. Visualized Paranasal sinuses:Clear. Mastoids: Clear. Soft Tissues: Unremarkable. ORBITS: Unremarkable. PITUITARY: Not enlarged. IMPRESSION: No acute intracranial process.Low lying cerebellar tonsils concerning for Chiari malformation. RADIATION DOSE DELIVERED: Total DLP DATA REPOSITORY: All CT scans at this facility are submitted to the National Radiology Data Registry (NRDR) Dose Index Registry (DIR) with the [employer] (ACR). RADIATION OPTIMIZATION: All CT scans at this facility use at least one of these dose optimization te chniques: automated exposure control; mA and/or kV adjustment per patient size (includes targeted exa ms where dose is matched to clinical indication); or iterative reconstruction.
--- NOTE | 2024-02-09 23:51 | DI.VRAD_ITS ---
PROCEDURE INFORMATION: Exam: CT Head Without Contrast Exam date and time: 02/09/2024 11:10 PM Age: 58 years old Clinical indication: Persist OLIVIA S/P head injury 1 mo ago, ? chiari malf TECHNIQUE: Imaging protocol: Computed tomography of the head without contrast. COMPARISON: No relevant prior studies available. FINDINGS: Brain: There is no acute intracranial hemorrhage, mass effect or midline shift. There is no large acute territorial cerebral infarct. The bilateral cerebellar tonsils are low-lying bilaterally, concerning for Chiar Malformation. Cerebral ventricles: No ventriculomegaly. Paranasal sinuses: Visualized sinuses are unremarkable. No fluid levels. Mastoid air cells: The patient is status post prior bilateral mastoidectomy. Soft tissue noted in the remaining mastoid air cells. Bones: No acute fracture. Soft tissues: No significant subcutaneous soft tissue. IMPRESSION: 1. No acute intracranial hemorrhage, mass effect or midline shift. 2. Findings concerning for Chiari malformation, not completely evaluated on this scan due to skull base streak artifact. Dictated and Authenticated by: Atiya Alvarez MD. Ordering:OCTAVIANO Lane MD
[2024-02-10] MEDS: Ketorolac 15 MG/ML VIAL IM (00:18)
[2024-02-10 00:19] VITALS: BP 145/71; PULSE 85; RESP 16; TEMP 36.4; O2SAT 96
== END 2024-02-10 00:20 | disposition home or self-care (01) ==
PROVIDERS: Emergency Provider Student in an Organized Health Care Education/Training Program; PCP Family Medicine
DX: G44.329 Chronic post-traumatic headache, not intractable (principal); F07.81 Postconcussional syndrome
CPT/HCPCS: 96372; 99284; 70450; J0780; J1885